=== PATIENT | male | born 1945 | race African-American/Black ===

== ENCOUNTER 2019-12-19 00:03 | Emergency (ER) | payer OTHER ==
[2019-12-19 00:19] LABS: Absolute Lymphocytes (CBC) 1.7 K/uL (0.7-4.9); Basophils % 1.1 % (0-1.3); Hematocrit 41.1 % (39.6-49.0); Lymphocytes % 17.8 % (15.3-44.8); MPV 7.9 fL (7.6-11.3); RBC Red Blood Cell Count 5.61 M/uL (4.33-5.43)
[2019-12-19 00:32] LABS: Potassium 4.3 mmol/L (3.5-5.1)
[2019-12-19 00:33] LABS: Protime INR 0.85
[2019-12-19] MEDS ORDERED: ALTEPLASE 100 ML IV ONE (00:52)
[2019-12-19] MEDS ORDERED: NA CHLORIDE 0.9% 100 ML IV ONE (00:52)
[2019-12-19] MEDS ORDERED: INSULIN -REGULAR HUMAN 50 UNIT/0.5 ML ML ONE (02:23)
--- NOTE | 2019-12-19 02:54 | ER ---
Nurse's Notes [facility] Name: Kwame Chanel Jr Age: 73 yrs Sex: Male : 1945 Arrival Date: 12/19/2019 Time: 00:07 Bed 3 Private MD: Diagnosis: Cerebral infarction due to unspecified occlusion or stenosis of middle cerebral artery Presentation: 12/18 00:00 Chief complaint: EMS states: Called for patient that had fallen in bedroom, heard by lp1 ; Patient states left sided weakness that began about 2100 tonight, attempted to get out of bed and unable to stand; Per EMS, slurred speech, with left sided facial droop. 00:00 Coronavirus screen: Proceed with normal triage. Ebola Screen: No symptoms or risks lp1 identified at this time. Risk Assessment: Do you want to hurt yourself or someone else? Patient reports no desire to harm self or others. Onset of symptoms was December 18, 2019 at 21:00. Care prior to arrival: IV initiated. 18 GA, in the right antecubital area, Glucose check: 299. 00:00 Method Of Arrival: EMS: [facility] lp1 00:00 Acuity: ELOISA 1 lp1 00:00 An acute neurological deficit is present. Pre-hospital glucose is not applicable to jb4 this patient. Initial Sepsis Screen: Does the patient meet any 2 criteria? No. Patient's initial sepsis screen is negative. Does the patient have a suspected source of infection? No. Patient's initial sepsis screen is negative. Stroke Activation: Symtpom onset >3 hours and < 6 hours Physician: Stroke Attending; Name: ; Notified At: ; Arrived At: Physician: Chief Stroke Resident; Name: ; Notified At: ; Arrived At: Physician: Stroke Resident; Name: ; Notified At: ; Arrived At: Physician: ED Attending; Name: Ellen; Notified At: 00:00; Arrived At: 00:00 Physician: ED Resident; Name: ; Notified At: ; Arrived At: Historical: - Allergies: 00:19 No Known Allergies; lp1 - Home Meds: 00:19 Metformin Oral [Active]; losartan oral oral [Active]; montelukast oral oral [Active]; lp1 - PMHx: 00:19 Diabetes - NIDDM; Hypertension; Hyperlipidemia; lp1 - PSHx: 00:19 None; lp1 - Immunization history:: Adult Immunizations up to date. - Social history:: Smoking status: Patient reports the use of cigarette tobacco products, smokes one-half pack cigarettes per day. Screenin:20 Abuse screen: Denies injuries from another. Nutritional screening: No deficits noted. jb4 Tuberculosis screening: No symptoms or risk factors identified. Fall Risk Fall in past 12 months (25 points). Secondary diagnosis (15 points) CVA, IV access (20 points). Gait- Impaired (20 pts.). Total Silva Fall Scale indicates High Risk Score (45 or more points). Fall prevention measures have been instituted. Side Rails Up X 2 Placed Close to Nursing Station Frequent Obs/Assessments Occuring As available patient and family educated on Fall Prevention Program and Strategies. Assessment: 00:15 General: Appears in no apparent distress. uncomfortable, Behavior is calm, cooperative. jb4 Pain: Denies pain. Neuro: Level of Consciousness is awake, alert, obeys commands, Oriented to person, place, time, situation, [employer] are weak on left Weakness in left hand(s) arm(s) leg(s) foot/feet Gait is unable to support weight on the left side.. Speech is slurred, Facial droop on left, Pupils are PERRLA, Intact. Cardiovascular: Patient's skin is warm and dry. Rhythm is sinus rhythm. Respiratory: Airway is patent Respiratory effort is even, unlabored, Respiratory pattern is regular, symmetrical, Breath sounds are clear bilaterally. GI: No signs and/or symptoms were reported involving the gastrointestinal system. : No signs and/or symptoms were reported regarding the genitourinary system. EENT: No signs and/or symptoms were reported regarding the EENT system. Derm: Skin is intact, Skin is dry, Skin is normal, Skin temperature is warm. Musculoskeletal: Range of motion: limited in left leg and left arm. 00:15 VAN Scoring: Arm Drift: Flaccid/no antigravity Visual Disturbance: No visual jb4 disturbance noted. Aphasia: Expressive aphasia noted. Provider notified of +VAN scoring. Neglect: No neglect noted. 00:30 The patient has not been NPO before screening. The patient is alert, and able to follow jb4 commands. The patient exhibits slurred or garbled speech. The patient is exhibiting difficulty speaking. The patient does not exhibit difficulty understanding words. The patient is able to swallow own secretions with no drooling or need for suction. The patient did not tolerate one teaspoon of water. Drooling, immediate coughing, gurgling, or clearing of the throat was noted. Bedside swallow screening discontinued. Patient kept NPO until cleared by Speech Therapy or Physician. not attempted due to coughing and gargling after attempting a teaspoon of water. The patient failed the bedside swallow screening. The patient will be kept NPO until cleared by Speech Therapy or Physician. Provider notified of bedside swallow screening results: Bar Hughes MD. T-PA (Activase) Screening: Indications: Definite evidence of stroke, ischemic, embolic, or hypertensive: Yes. Treatment will start within 4.5 hours onset of symptoms: Yes. No evidence of intracranial hemorrhage or CT of head and no evidence of peripheral hemorrhage or recent CVA: Yes. Consent for thrombolytic therapy: Yes. 01:15 Reassessment: Patient appears in no apparent distress at this time. Patient and/or jb4 family updated on plan of care and expected duration. Pain level reassessed. Patient is alert, oriented x 3, equal unlabored respirations, skin warm/dry/pink. Pt's speech seems easier for the patient and mild aphasia appears to have gone.. PT reports feeling like it is easier to talk. Mild slurring remains. 01:45 Reassessment: Slurring is present but notably improved. Pt reports feeling like his jb4 speech is almost back to normal. Left side remains weak and patient cannot raise left arm or leg. 02:00 Reassessment: Patient appears in no apparent distress at this time. Patient and/or jb4 family updated on plan of care and expected duration. Pain level reassessed. Patient is alert, oriented x 3, equal unlabored respirations, skin warm/dry/pink. Pt continues to improve. Slight slurring noted. Pt is now able to move his left leg and hold it in the air on his own. Provider notified. 02:15 Reassessment: Patient appears in no apparent distress at this time. No changes from jb4 previously documented assessment. Patient and/or family updated on plan of care and expected duration. Pain level reassessed. 02:41 Reassessment: Patient appears in no apparent distress at this time. Patient and/or jb4 family updated on plan of care and expected duration. Pain level reassessed. Patient is alert, oriented x 3, equal unlabored respirations, skin warm/dry/pink. 03:30 Reassessment: Patient appears in no apparent distress at this time. Patient and/or jb4 family updated on plan of care and expected duration. Pain level reassessed. Patient is alert, oriented x 3, equal unlabored respirations, skin warm/dry/pink. Pt transferred out of ED by EMS. EMS denied need for report. 03:42 Reassessment: Report given to KATALINA Tavarez. jb4 Vital Signs: 00:20 BP 167 / 83; Pulse 91; Resp 20; Pulse Ox 98% on R/A; jb4 00:24 Weight 95.25 kg (R); lp1 00:37 Weight 102.5 kg (M); Height 5 ft. 11 in. (180.34 cm) (R); jb4 01:00 BP 143 / 78; Pulse 83; Resp 20; Pulse Ox 98% on R/A; jb4 02:15 BP 141 / 74; Pulse 79; Resp 20; Temp 97.9; Pulse Ox 100% on R/A; Pain 0/10; jb4 02:45 BP 138 / 78; Pulse 83; Resp 19; Pulse Ox 99% on R/A; jb4 03:15 BP 141 / 80; Pulse 83; Resp 16; Pulse Ox 98% on R/A; jb4 00:37 Body Mass Index 31.52 (102.50 kg, 180.34 cm) jb4 00:24 Patient unable to tolerate weight bearing lp1 01:00 See TPA Vital sign form for further documentation. jb4 Luz Marina Coma Score: 01:01 Eye Response: spontaneous(4). Verbal Response: oriented(5). Motor Response: obeys tw4 commands(6). Total: 15. 02:45 Eye Response: spontaneous(4). Verbal Response: oriented(5). Motor Response: obeys jb4 commands(6). Total: 15. Trauma Score (Adult): 02:45 Eye Response: spontaneous(1); Verbal Response: oriented(1); Motor Response: obeys jb4 commands(2); Systolic BP: > 89 mm Hg(4); Respiratory Rate: 10 to 29 per min(4); Marshall Score: 15; Trauma Score: 12 NIH Stroke Scale Scores: 00:15 NIHSS Score: 10 jb4 01:01 NIHSS Score: 10 tw4 ED Course: 00:[address] stretcher. lp1 00:07 Patient arrived in ED. lp1 00:07 Bar Hughes MD is Attending Physician. tw4 00:15 Triage completed. lp1 00:18 CT Stroke Brain w/o Contrast In Process Unspecified. EDMS 00:23 Arm band placed on. lp1 00:24 Norris High, RN is Primary Nurse. jb4 00:59 Stroke CXR 1 View In Process Unspecified. EDMS 01:10 Inserted saline lock: 18 gauge in left antecubital area, using aseptic technique. jb4 01:46 CT Head Angio In Process Unspecified. EDMS 01:46 Neck Angio In Process Unspecified. EDMS 03:30 No provider procedures requiring assistance completed. Patient transferred, IV remains jb4 in place. Administered Medications: 00:58 Drug: Alteplase (Bolus for Stroke) - Activase 0.09 mg/kg {Co-Signature: elle (Emi mattson RN).} Route: IV Thrombolytics; Infused Over: 1 mins; 02:00 Follow up: Response: No adverse reaction; Marked relief of symptoms jb4 02:00 Drug: NS 0.9% 100 ml Route: IV; Rate: per protocol; Site: right antecubital; jb4 02:20 Follow up: Response: No adverse reaction; IV Status: Completed infusion jb4 02:30 Drug: Insulin Regular Human 5 units {Co-Signature: elle (Emi Raygoza RN).} Route: IVP; jb4 Site: left antecubital; 03:10 Follow up: Response: No adverse reaction; Blood sugar is lowered jb4 Outcome: 02:53 ER care complete, transfer ordered by . tw4 03:30 Transferred by ground EMS EMS. to [facility], Transfer form jb4 completed. X-rays sent w/ patient. 03:30 Condition: stable 03:30 Discharge instructions given to patient, family, Instructed on the need for transfer, Demonstrated understanding of instructions. 03:47 Patient left the ED. jb4 NIH Stroke Scale - NIH Stroke Score Date: 12/19/2019 Time: 00:15 Total Score = 10 1a. Level of Consciousness (LOC) - 0(Alert) 1b. Level of Consciousness (LOC) (Year \T\ Age) - 0(Both) 1c. LOC Commands (Open \T\ Closes Eyes/Child Welfare Director) - 0(Both) 2. Best Gaze (Lateral Gaze Paresis) - 0(Normal) 3. Visual Field Loss - 0(No visual loss) 4. Facial Palsy - 2(Partial paralysis) 5a. Left Arm: Motor (10-second hold) - 3(No effort against gravity) 5b. Right Arm: Motor (10-second hold) - 0(No drift) 6a. Left Leg: Motor (5-second hold - always test supine) - 3(No effort against gravity) 6b. Right Leg: Motor (5-second hold - always test supine) - 0(No drift) 7. Limb Ataxia (finger/nose \T\ heel/thurston - test with eyes open) - 0(Absent) 8. Sensory Loss (pinprick arms/legs/face) - 0(Normal) 9. Best Language: Aphasia (description/naming/reading) - 1(Mild to moderate aphasia) 10. Dysarthria (speech clarity - read or repeat words) - 1(Mild to Moderate) 11. Extinction and Inattention (visual/tactile/auditory/spatial/personal) - 0(No abnormality) Initials: jb4 NIH Stroke Scale - NIH Stroke Score Date: 12/19/2019 Time: 01:01 Total Score = 10 1a. Level of Consciousness (LOC) - 0(Alert) 1b. Level of Consciousness (LOC) (Year \T\ Age) - 0(Both) 1c. LOC Commands (Open \T\ Closes Eyes/Child Welfare Director) - 0(Both) 2. Best Gaze (Lateral Gaze Paresis) - 0(Normal) 3. Visual Field Loss - 0(No visual loss) 4. Facial Palsy - 2(Partial paralysis) 5a. Left Arm: Motor (10-second hold) - 3(No effort against gravity) 5b. Right Arm: Motor (10-second hold) - 0(No drift) 6a. Left Leg: Motor (5-second hold - always test supine) - 3(No effort against gravity) 6b. Right Leg: Motor (5-second hold - always test supine) - 0(No drift) 7. Limb Ataxia (finger/nose \T\ heel/thurston - test with eyes open) - 0(Absent) 8. Sensory Loss (pinprick arms/legs/face) - 0(Normal) 9. Best Language: Aphasia (description/naming/reading) - 1(Mild to moderate aphasia) 10. Dysarthria (speech clarity - read or repeat words) - 1(Mild to Moderate) 11. Extinction and Inattention (visual/tactile/auditory/spatial/personal) - 0(No abnormality) Initials: 4 Signatures: Dispatcher [employer] EDEmi Esparza, RN RN lp1 Norris High RN RN jb4 Bar Hughes MD MD tw4 Emi Raygoza RN lp1 Corrections: (The following items were deleted from the chart) 03:45 03:45 No provider procedures requiring assistance completed. jb4 jb4 03:45 03:45 Patient transferred, IV remains in place. jb4 jb4
--- NOTE | 2019-12-19 02:54 | EDPHYS ---
Physician Documentation [facility] Name: Kwame Chanel Jr Age: 73 yrs Sex: Male : 1945 Arrival Date: 12/19/2019 Time: 00:07 Bed 3 Private MD: ED Physician Bar Hughes HPI: 12/18 01:01 This 73 yrs old Black Male presents to ER via EMS with complaints of right sided tw4 weakness. 01:01 The patient presents to the emergency department with weakness of the right upper tw4 extremity, that is severe, right lower extremity, that is severe, right side of the face, that is severe, a speech or higher order brain function problem, aphasia, that is moderate. Onset: The symptoms/episode began/occurred 3 hour(s) ago. Context: occurred at home. Associated signs and symptoms: The patient has no apparent associated signs or symptoms. Severity of symptoms: At their worst the symptoms were severe in the emergency department the symptoms are unchanged. The patient has not experienced similar symptoms in the past. Historical: - Allergies: 00:19 No Known Allergies; lp1 - Home Meds: 00:19 Metformin Oral [Active]; losartan oral oral [Active]; montelukast oral oral [Active]; lp1 - PMHx: 00:19 Diabetes - NIDDM; Hypertension; Hyperlipidemia; lp1 - PSHx: 00:19 None; lp1 - Immunization history:: Adult Immunizations up to date. - Social history:: Smoking status: Patient reports the use of cigarette tobacco products, smokes one-half pack cigarettes per day. ROS: 01:01 Constitutional: Negative for fever, chills, and weight loss, Eyes: Negative for injury, tw4 pain, redness, and discharge, Cardiovascular: Negative for chest pain, palpitations, and edema, Respiratory: Negative for shortness of breath, cough, wheezing, and pleuritic chest pain, Abdomen/GI: Negative for abdominal pain, nausea, vomiting, diarrhea, and constipation, Back: Negative for injury and pain, MS/Extremity: Negative for injury and deformity, Skin: Negative for injury, rash, and discoloration, Neuro: Negative for headache, weakness, numbness, tingling, and seizure. Exam: 01:01 Constitutional: This is a well developed, well nourished patient who is awake, alert, tw4 and in no acute distress. Head/Face: Normocephalic, atraumatic. Chest/axilla: Normal chest wall appearance and motion. Nontender with no deformity. No lesions are appreciated. Cardiovascular: Regular rate and rhythm with a normal S1 and S2. No gallops, murmurs, or rubs. Normal PMI, no JVD. No pulse deficits. Respiratory: Lungs have equal breath sounds bilaterally, clear to auscultation and percussion. No rales, rhonchi or wheezes noted. No increased work of breathing, no retractions or nasal flaring. Abdomen/GI: Soft, non-tender, with normal bowel sounds. No distension or tympany. No guarding or rebound. No evidence of tenderness throughout. Back: No spinal tenderness. No costovertebral tenderness. Full range of motion. MS/ Extremity: Pulses equal, no cyanosis. Neurovascular intact. Full, normal range of motion. 01:01 Neuro: Orientation: is normal, Mentation: is normal, Cranial nerves: Speech is dysarthric, slurred, Cerebellar function: normal finger to nose testing, Motor: Strength is 1/5 in the left arm and left leg, Sensation: Gait: unable to assess. Vital Signs: 00:20 BP 167 / 83; Pulse 91; Resp 20; Pulse Ox 98% on R/A; jb4 00:24 Weight 95.25 kg (R); lp1 00:37 Weight 102.5 kg (M); Height 5 ft. 11 in. (180.34 cm) (R); jb4 01:00 BP 143 / 78; Pulse 83; Resp 20; Pulse Ox 98% on R/A; jb4 02:15 BP 141 / 74; Pulse 79; Resp 20; Temp 97.9; Pulse Ox 100% on R/A; Pain 0/10; jb4 02:45 BP 138 / 78; Pulse 83; Resp 19; Pulse Ox 99% on R/A; jb4 03:15 BP 141 / 80; Pulse 83; Resp 16; Pulse Ox 98% on R/A; jb4 00:37 Body Mass Index 31.52 (102.50 kg, 180.34 cm) jb4 00:24 Patient unable to tolerate weight bearing lp1 01:00 See TPA Vital sign form for further documentation. jb4 NIH Stroke Scale Scores: 00:15 NIHSS Score: 10 jb4 01:01 NIHSS Score: 10 tw4 Luz Marina Coma Score: 01:01 Eye Response: spontaneous(4). Verbal Response: oriented(5). Motor Response: obeys tw4 commands(6). Total: 15. 02:45 Eye Response: spontaneous(4). Verbal Response: oriented(5). Motor Response: obeys jb4 commands(6). Total: 15. Trauma Score (Adult): 02:45 Eye Response: spontaneous(1); Verbal Response: oriented(1); Motor Response: obeys jb4 commands(2); Systolic BP: > 89 mm Hg(4); Respiratory Rate: 10 to 29 per min(4); Luz Marina Score: 15; Trauma Score: 12 MDM: 00:18 Patient medically screened. tw4 06:41 Data reviewed: vital signs, nurses notes. Data interpreted: Pulse oximetry: tw4 Interpretation: normal. Test interpretation: by ED physician or midlevel provider: ECG, plain radiologic studies. Counseling: I had a detailed discussion with the patient and/or guardian regarding: the historical points, exam findings, and any diagnostic results supporting the discharge/admit diagnosis, lab results, radiology results. ED course: pt will require higher level of care secondary to lack of ICU beds . 06:42 Medication response: tPA improved pt's NIH scale decreased to 6 from 10. pt was able to tw4 move his left leg and speech improved slightly. 12/18 00:08 Order name: Basic Metabolic Panel; Complete Time: 00:40 lp1 12/18 00:40 Interpretation: Normal except: GLUC 369; GFR 71. tw4 12/18 00:08 Order name: CBC with Diff; Complete Time: 00:40 lp1 12/18 00:40 Interpretation: Normal except: RBC 5.61; HGB 12.6; MCV 73.1; MCHC 30.8; MCH 22.5; RDW tw4 16.1; BOONE% 75.1. 12/18 00:08 Order name: Protime (+inr); Complete Time: 00:40 lp1 12/18 00:08 Order name: Ptt, Activated; Complete Time: 00:40 lp1 12/18 00:40 Interpretation: Within normal limits: PTT 29.4. tw4 12/18 00:51 Order name: Glucose, Ancillary Testing; Complete Time: 01:53 EDMS 12/18 01:54 Interpretation: Normal except: GLUC,ANCIL 309. tw4 12/18 03:23 Order name: Glucose, Ancillary Testing EDNY 12/18 00:08 Order name: CT Stroke Brain w/o Contrast lp1 12/18 00:08 Order name: Stroke CXR 1 View lp1 12/18 00:15 Order name: CT Head Angio tw4 12/18 01:34 Order name: Neck Angio EDNY 12/18 00:08 Order name: EKG; Complete Time: 00:09 lp1 12/18 00:08 Order name: Accucheck; Complete Time: 00:37 lp 12/18 00:08 Order name: Cardiac monitoring; Complete Time: 00:25 [facility] 12/18 00:08 Order name: EKG - Nurse/Tech; Complete Time: 00:25 1 12/18 00:08 Order name: IV Saline Lock; Complete Time: 00:25 [facility] 12/18 00:08 Order name: Labs collected and sent; Complete Time: 00:25 [facility] 12/18 00:08 Order name: NPO; Complete Time: 00:24 lp1 12/18 00:08 Order name: O2 Per Protocol; Complete Time: 00:25 [facility] 12/18 00:08 Order name: O2 Sat Monitoring; Complete Time: 00:25 [facility] 12/18 00:08 Order name: Stroke Swallow Screen; Complete Time: 00:27 lp1 EC:06 Rate is 89 beats/min. Rhythm is regular. QRS [place] is Normal. NM interval is normal. QRS tw4 interval is normal. No Q waves. T waves are Flattened in leads I, aVL, V2. No ST changes noted. Clinical impression: NSR w/ Non-specific ST/T Changes. Interpreted by me. Reviewed by me. Administered Medications: 00:58 Drug: Alteplase (Bolus for Stroke) - Activase 0.09 mg/kg {Co-Signature: lp1 (Emi mattson RN).} Route: IV Thrombolytics; Infused Over: 1 mins; 02:00 Follow up: Response: No adverse reaction; Marked relief of symptoms jb4 02:00 Drug: NS 0.9% 100 ml Route: IV; Rate: per protocol; Site: right antecubital; jb4 02:20 Follow up: Response: No adverse reaction; IV Status: Completed infusion 4 02:30 Drug: Insulin Regular Human 5 units {Co-Signature: lp1 (Emi Raygoza RN).} Route: IVP; [facility] Site: left antecubital; 03:10 Follow up: Response: No adverse reaction; Blood sugar is lowered [facility] Disposition: 12/19/19 02:53 Transfer ordered to [facility]. Diagnosis is Cerebral infarction due to unspecified occlusion or stenosis of middle cerebral artery. - Reason for transfer: Higher level of care. - Accepting physician is Dr Alcala. - Condition is Stable. - Problem is new. - Symptoms have improved. NIH Stroke Scale - NIH Stroke Score Date: 12/19/2019 Time: 00:15 Total Score = 10 1a. Level of Consciousness (LOC) - 0(Alert) 1b. Level of Consciousness (LOC) (Year \T\ Age) - 0(Both) 1c. LOC Commands (Open \T\ Closes Eyes/Equipment Validation Engineer) - 0(Both) 2. Best Gaze (Lateral Gaze Paresis) - 0(Normal) 3. Visual Field Loss - 0(No visual loss) 4. Facial Palsy - 2(Partial paralysis) 5a. Left Arm: Motor (10-second hold) - 3(No effort against gravity) 5b. Right Arm: Motor (10-second hold) - 0(No drift) 6a. Left Leg: Motor (5-second hold - always test supine) - 3(No effort against gravity) 6b. Right Leg: Motor (5-second hold - always test supine) - 0(No drift) 7. Limb Ataxia (finger/nose \T\ heel/thurston - test with eyes open) - 0(Absent) 8. Sensory Loss (pinprick arms/legs/face) - 0(Normal) 9. Best Language: Aphasia (description/naming/reading) - 1(Mild to moderate aphasia) 10. Dysarthria (speech clarity - read or repeat words) - 1(Mild to Moderate) 11. Extinction and Inattention (visual/tactile/auditory/spatial/personal) - 0(No abnormality) Initials: jb4 NIH Stroke Scale - NIH Stroke Score Date: 12/19/2019 Time: 01:01 Total Score = 10 1a. Level of Consciousness (LOC) - 0(Alert) 1b. Level of Consciousness (LOC) (Year \T\ Age) - 0(Both) 1c. LOC Commands (Open \T\ Closes Eyes/Equipment Validation Engineer) - 0(Both) 2. Best Gaze (Lateral Gaze Paresis) - 0(Normal) 3. Visual Field Loss - 0(No visual loss) 4. Facial Palsy - 2(Partial paralysis) 5a. Left Arm: Motor (10-second hold) - 3(No effort against gravity) 5b. Right Arm: Motor (10-second hold) - 0(No drift) 6a. Left Leg: Motor (5-second hold - always test supine) - 3(No effort against gravity) 6b. Right Leg: Motor (5-second hold - always test supine) - 0(No drift) 7. Limb Ataxia (finger/nose \T\ heel/thurston - test with eyes open) - 0(Absent) 8. Sensory Loss (pinprick arms/legs/face) - 0(Normal) 9. Best Language: Aphasia (description/naming/reading) - 1(Mild to moderate aphasia) 10. Dysarthria (speech clarity - read or repeat words) - 1(Mild to Moderate) 11. Extinction and Inattention (visual/tactile/auditory/spatial/personal) - 0(No abnormality) Initials: tw4 Signatures: Dispatcher [employer] Emi Matt RN RN lp1 Norris High RN RN jb4 Bar Hughes MD MD tw4 Emi Raygoza RN lp1 Corrections: (The following items were deleted from the chart) 00:40 00:40 Normal except: RBC 5.61; HGB 12.6; MCV 73.1; MCHC 30.8; MCH 22.5; RDW tw4 16.1. tw4 01:33 00:15 Neck Angio+CT.RAD.BRZ ordered. [facility] EDNY 03:47 02:53 12/19/2019 02:53 Transfer ordered to [address] Diagnosis is Cerebral infarction due to unspecified occlusion or stenosis of middle cerebral artery. Reason for transfer: Higher level of care. Accepting physician is Dr Alcala. Condition is Stable. Problem is new. Symptoms have improved. tw4
[2019-12-19 03:56] VITALS: TEMP 97.9
[2019-12-19 03:58] VITALS: BP 141/80; O2SAT 98
--- NOTE | 2019-12-19 07:00 | EKG ---
Test Date: 2019-12-19 Test Time: 00:18:39 Lieutenant/Deputy: ALEIDA MEASUREMENT RESULTS: Intervals: Rate: 89 AR: 198 QRSD: 88 QT: 346 QTc: 420 [place]: P: 92 AR: 198 QRS: 78 T: 59 INTERPRETIVE STATEMENTS: Normal sinus rhythm Nonspecific T wave abnormality Abnormal ECG No previous ECG available for comparison Electronically Signed On 12-19-19 07:00:00 CDT by Didier Nolasco
--- NOTE | 2019-12-19 07:56 | RAD REPORT ---
EXAM DESCRIPTION: Baljinder Single View12/19/2019 12:59 am CLINICAL HISTORY: CVA COMPARISON: 2018 FINDINGS: The lungs appear clear of acute infiltrate. The heart is normal size IMPRESSION: No acute abnormalities displayed
--- NOTE | 2019-12-19 11:08 | RAD REPORT ---
EXAM DESCRIPTION: CT - Ct Stroke Brain Wo Cont - 12/19/2019 7:05 am CLINICAL HISTORY: SLURRED SPEECH TECHNIQUE: Contiguous axial CT images obtained through the brain without IV contrast. Coronal and sa gittal reformatted images were provided. This exam was performed according to our departmental dose-optimization program, which includes autom ated exposure control, adjustment of the mA and/or kV according to patient size and/or use of iterati ve reconstruction technique. COMPARISON: None available for comparison FINDINGS: Brain: There is mild cerebral atrophy. Bilateral periventricular and subcortical white mat ter hypodensity most likely related to chronic microvascular angiopathy. No focal mass effect. Tabares-w tariq matter differentiation is within normal limits. No hemorrhage. Ventricles: No ventriculomegaly or midline shift. Extra-axial spaces: No extra-axial collection or hemorrhage. Paranasal sinuses and mastoid air cells: Well-aerated Vessels: There is atherosclerotic disease of the internal carotid arteries bilaterally. Bones: Unremarkable Soft tissues: Unremarkable IMPRESSION: 1. No acute hemorrhage, focal mass or large territory infarction. 2. Other findings as above. Electronically signed by: Chanelle Elliott MD 12/19/2019 12:32 AM CDT Due to temporary technical issues with the PACS/Fluency reporting system, reports are being signed by the in house radiologist as a courtesy to ensure prompt reporting. The interpreting radiologist is f ully responsible for the content of the report.
--- NOTE | 2019-12-19 11:12 | RAD REPORT ---
EXAM DESCRIPTION: CTHead angio12/19/2019 7:07 am CLINICAL HISTORY: WEAKNESS COMPARISON: None Available. TECHNIQUE: Multiple helical axial tomographic images were obtained of the head and neck following ad ministration of intravenous contrast per angiographic protocol. Coronal and sagittal reformatted imag es were obtained. This exam was performed according to our departmental dose-optimization program, wh ich includes automated exposure control, adjustment of the mA and/or kV according to patient size and /or use of iterative reconstruction technique. FINDINGS: Head: There is a tangle of enhancing vessels at the level of the foramen magnum near the medulla and upper cervical and spinal cord. Bilateral atherosclerotic disease involving both ICAs is noted. Intracranial segments of the bilatera l internal carotid arteries appear patent without significant stenosis or occlusion. Bilateral anteri or and middle cerebral arteries appear patent without significant stenosis or occlusion. Intracranial segments of the bilateral vertebral arteries, basilar artery, and posterior cerebral arteries appear patent without significant stenosis or occlusion. No evidence of intracranial aneurysm. There is no acute intracranial hemorrhage. No mass. No midline shift. No ventriculomegaly. Tabares-white matter differentiation is maintained. Paranasal sinuses are clear. Mastoid air cells and middle ear spaces are clear. Orbits and orbital co ntents are unremarkable. Osseous structures are unremarkable. Surrounding soft tissues are unremarkable. Neck: There is minimal atherosclerotic plaque involving the left carotid bulb. Carotid and vertebral arteri al vasculature of the neck appears patent without stenosis stenosis or occlusion. Thyroid gland appears unremarkable. Salivary glands appear unremarkable. No evidence of adenopathy. R etropharyngeal space appears normal. Epiglottis appears normal. Larynx and vocal folds appear unremar kable. Visualized lungs are clear. Degenerative disc space narrowing and osteophyte formation of the cervical spine is noted. IMPRESSION: 1. No evidence of significant arterial stenosis or occlusion within the head or neck. 2. 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 THIS REPORT CONTAINS FINDINGS THAT MAY BE CRITICAL TO PATIENT CARE: The findings were verbally discu ssed via telephone conference with Dr. Hughes by Dr. Pride at 0235 hours central time on December 19, 2019. The results were acknowledged and understood. Electronically signed by: Boone Pride MD 12/19/2019 2:48 AM CDT Due to temporary technical issues with the PACS/Fluency reporting system, reports are being signed by the in house radiologist as a courtesy to ensure prompt reporting. The interpreting radiologist is f ully responsible for the content of the report.
== END 2019-12-19 03:47 | disposition short-term general hospital (02) ==
LOC: ER 00:03
DX: I63.519 Cerebral infarction due to unspecified occlusion or stenosis of unspecified middle cerebral artery (principal); R29.710 NIHSS score 10; I10 Essential (primary) hypertension; F17.210 Nicotine dependence, cigarettes, uncomplicated; E11.9 Type 2 diabetes mellitus without complications; E78.5 Hyperlipidemia, unspecified
CPT/HCPCS: 93005; 85025; 80048; 36415; 85610; 82947 ×2; 85730; 70496; 70498; 70450; 71045; 96374; Q9967; J2997; 92977; 96365; 96375; 99291; 99292

== ENCOUNTER 2019-12-26 09:23 | Inpatient (IN) | payer OTHER ==
--- NOTE | 2019-12-26 16:59 | R.PREADM ---
SCREENING DATE AND TIME 12/25/2019 10:37 (CDT) ANTICIPATED REHAB ADMISSION DATE 12/27/[address] [facility] REFERRAL DATE AND TIME 12/21/2019 10:37 (CDT) ACUTE ADMIT DATE 12/19/2019 Previous Rehabilitation(s): No. 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 Reyes Womack M.D. MR# [id number] NAME JOHNSON VAZQUEZ ADDRESS [address] [place] [id number] DATE OF 1945 AGE 73 SSN# [id number] GENDER male MARITAL STATUS RACE black PREF. LANGUAGE (IF NON-GRENADIAN) Mongolian ADMIT FROM 02 - [facility] PRE-HOSPITAL LIVING SETTING 01 - Home (private home/apt. board/care, assisted living, longterm, transitional living) HOME TYPE AND DETAILS Type of home: single family house # of steps to enter the residence: 0 # of levels in the residence: 1 # of steps within the residence: 0 PRE-HOSPITAL LIVING WITH Family/Relatives FAMILY SUPPORT Yes PRIMARY FAMILY CONTACT NAME Angelica Celis PRIMARY FAMILY CONTACT PHONE PRIMARY FAMILY CONTACT ALT. PHONE PRIMARY FAMILY CONTACT RELATIONSHIP Daughter IS PRIMARY FAMILY CONTACT AUTH. REP.? no 1ST EMERGENCY CONTACT Angelica Celis 1ST CONTACT PHONE 1ST CONTACT ALT. PHONE 1ST CONTACT RELATIONSHIP Daughter IS 1ST CONTACT AUTH. REP.? no PHONE 2ND CONTACT ON ADM.? no PATIENT EMPLOYMENT STATUS Retired (for age) PATIENT EMPLOYER No Employer PAYOR INFORMATION: 1ST PAYOR NAME [employer] MED[employer]ARE 1ST PAYOR PHONE 1ST PAYOR CONTACT TBD 1ST PAYOR AUTHORIZATION# [id number] 1ST PAYOR INJURY/ILLNESS DUE TO ACCIDENT? No ANOTHER GREEN PARTY RESPONSIBLE? 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 SUMMARY OF ACUTE HOSPITALIZATION: Pt. is a 73 yo Right-handed black male. On 12/19/[address] [facility] with sudden onset of left-side weakness. On 12/19/2019 [address] to [facility] with diagnosis Restricted Diffusioon of the righ t internal capsule consistant w/acute infarct. His impairment category is Stroke 01 - Left Body (Right Brain) (01.1). Pre-morbidly, Pt. was independent/mod-I in Transfers Control, Locomotion, and Self-Care; and he had g ood Balance, Safety Awareness, Social Cognition, and Sphincter Control. Currently, he has deficits of Transfers Control, Balance, Safety Awareness, Locomotion, Self-Care, an d Social Cognition. Pt. is now referred to [facility] for acute in-patient rehabilitation in order to maximize patient's functional independence in activities of daily living, strength, ROM, and mobi lity. Patient has realistic goal of being discharged at assistance level 6-Graeme to reside at Home with Fam daphnie/Relatives. PAST MEDICAL HISTORY HTN ASTHMA Diabetes AFIB MEDICATION ALLERGIES: No Known Drug Allergies (NKDA) ENVIRONMENTAL ALLERGIES: None Known - Substance Allergies None Known - Other Allergies None Known CODE STATUS: Full code WEIGHT/HEIGHT/BMI: WEIGHT 217 lbs HEIGHT 5' 11" BMI 30.3 DIET: - Diet Type Regular - Diet - Solid Texture Regular - Diet - Liquid Texture Regular - Tube Feed N/A REVIEW OF SYSTEMS: - Gen Alert and awake Lying in bed No apparent distress Oriented to: person, time, and place - Vital Signs Vital signs stable, afebrile - CVS RRR VITAL SIGNS Temperature: 98.4 F SBP/DBP: 136/74 Pulse: 63 Resp: 20 Vital signs stable, afebrile MEDICATIONS/TREATMENT: Other- See attached MAR (Medication Administration Record). CURRENT LOCOMOTION STATUS: distance walked 0 feet QI SCORES: - Self-Care A. Eating 05-Setup or clean-up assistance B. Oral hygiene 04-Supervision or touching assistance C. Toileting hygiene 03-Partial/moderate assistance E. Shower/bathe self 10-Not attempted due to environmental limitations F. Upper body dressing 03-Partial/moderate assistance G. Lower body dressing 01-Dependent H. Putting on/taking off footwear 01-Dependent - Mobility A. Roll left and right 02-Substantial/maximal assistance B. Sit to lying 02-Substantial/maximal assistance C. Lying to sitting on side of bed 02-Substantial/maximal assistance D. Sit to stand 02-Substantial/maximal assistance E. Chair/hrs-my-dzyok transfer 02-Substantial/maximal assistance F. Toilet transfer 02-Substantial/maximal assistance G. Car transfer 88-Not attempted due to medical condition or safety concerns I. Walk 10 feet 88-Not attempted due to medical condition or safety concerns J. Walk 50 feet with two turns 88-Not attempted due to medical condition or safety concerns K. Walk 150 feet 88-Not attempted due to medical condition or safety concerns L. Walking 10 feet on uneven surfaces 88-Not attempted due to medical condition or safety concerns M. 1 step (curb) 88-Not attempted due to medical condition or safety concerns N. 4 steps 88-Not attempted due to medical condition or safety concerns O. 12 steps 88-Not attempted due to medical condition or safety concerns P. Picking up object 88-Not attempted due to medical condition or safety concerns R. Wheel 50 feet with two turns S. Wheel 150 feet - Bladder and Bowel Bladder continence 0-Always continent Bowel continence 0-Always continent - Endurance Poor - Balance Poor - Safety Awareness Poor CURRENT FUNC. DEFICITS: Self-Care, Mobility, Endurance, Balance, and Safety Awareness HISTORY OF FALLS. HAS THE PATIENT HAD TWO OR MORE FALLS IN THE PAST YEAR OR ANY FALL WITH INJURY IN T HE PAST YEAR?: No PRIOR SURGERY. DID THE PATIENT HAVE MAJOR SURGERY DURING THE 100 DAYS PRIOR TO ADMISSION?: No THERAPY NOTES FROM ACUTE CARE: Attached. SPECIAL NEEDS: - Safety Concerns Skin breakdown precautions needed due to skin breakdown risk PRECAUTIONS: - Weight Bearing Precaution WBAT left LE PATIENT NEEDS ACTIVE AND ONGOING THERAPEUTIC INTERVENTION OF MULTIPLE THERAPY DISCIPLINES, INCLUDING: - Occupational Therapy Cognitive Retraining. Visual Perceptual Training. - Dietary and Nutrition Adequate Nutrition. Nutritional Education. Nutritional Supplements. - Speech Therapy Cognitive Training. Expressive Language Skills. Memory Strategies. Receptive Language Skills. Speech Intelligibility Training. PATIENT NEEDS CLOSE MEDICAL SUPERVISION BY A REHABILITATION PHYSICIAN FOR: Coordination of Treatment Team PATIENT REQUIRES 24X7 REHAB NURSING FOR MEDICAL AND FUNCTIONAL MGT. OF THE FOLLOWING DEFICITS: Disease Management Medication Management Patient/Family Education Providing Safe Environment PATIENT REQUIRES INTENSIVE, COORDINATED INTERDISCIPLINARY APPROACH TO REHAB: Arranging Home Equipment/Services Discharge Planning Family Intervention/Training Manager Material/Case Management PATIENT REHAB POTENTIAL: Mariella VAZQUEZ is able and expected to receive 3 hours of individualized therapy daily on at least 5 of johnathon ry 7 days Mariella VAZQUEZ's prognosis for significant practical improvement within a reasonable period of time appears Good Expected level of measurable improvement will be of a practical value to Mariella VAZQUEZ's functional capaci ty or adaptations to impairments Has a viable Discharge Plan Medically appropriate; condition is sufficiently stable to participate in intensive rehab program DISCHARGE PLAN: - Estimated Length of Stay (days) 17. - Consensus on plan Discharge plan has been discussed with primary caregiver. Patient/Family is in agreement with the keon n. Primary caregiver is in agreement with the plan. - Patient/Family Goals Return home with assistance. - Planned Living Setting Upon Discharge Home, to live with Family/Relatives. RECOMMENDED CARE LEVEL: IRF RECOMMENDATION DETAILS: Recommended Admission to Comprehensive Rehabilitation Program to Increase Functional [place] SCREENER'S COMPLETENESS CONFIRMATION: - Screening Confirmation The patient data collection on this preadmission screening form is finished PHYSICIANS REVIEW AND ADMISSION DETERMINATION Admit - Based on my review of the Pre-Admission Screening results, in my medical judgment and experie nce, I concur with the findings and recommend admission to [facility], as this patient requires an IRF level of care. SIGNATURE PANEL: Embedded Engineer - [electronically] signed by Rochelle Barker Turkish Line Attendant on 12/26/2019 at 14:25 (CD T) Clinical Liaison - [electronically] signed by Candace Villasenor RN on 12/26/2019 at 14:31 (CDT) Physician Reviewer - [electronically] signed by Dr. Reyes Womack M.D. on 12/26/2019 at 16:58 (CDT )
--- OUTSIDE RECORDS SUMMARY | 2019-12-26 18:59 | XMS REPORT | Clinical Summary ---
:1945 Author Organization [facility] Address [address] [place] [address] Care Team Providers Name Role Phone Pcp, No Primary Care Provider Unavailable Allergies No Known Allergies Medications Medication Sig Dispensed Refills Start End Status Date Date diphenhydrAMINE Take 25 mg by 0 Active (BENADRYL) 25 mg mouth daily as 0 tablet needed for Allergies. losartan (COZAAR) Take 50 mg by 0 Active 50 MG tablet mouth daily. metFORMIN Take 750 mg by 0 Activ e (GLUCOPHAGE-XR) 750 mouth 2 (two) MG 24 hr tablet times daily before meals. atorvastatin Take 20 mg by 0 Act karen (LIPITOR) 20 MG mouth daily. tablet montelukast Take 10 mg by 0 Acti ve (SINGULAIR) 10 mg mouth nightly. tablet insulin degludec Inject 26 Units 0 Active (TRESIBA FLEXTOUCH subcutaneously U-100) 100 unit/mL daily. (3 mL) InPn apixaban (ELIQUIS) Take 1 tablet (5 60 tablet 0 01/01 Active 5 mg Tab tablet mg total) by mouth 0 020 2 (two) times daily for 30 days. aspirin 81 MG Take 1 tablet (81 30 tablet 11 Active chewable tablet mg total) by mouth 0 021 daily. fLUoxetine (PROZAC) Take 1 capsule (20 30 capsule 0 Active 20 MG capsule mg total) by mouth 0 021 daily. losartan (COZAAR) Take 25 mg by 0 Discontinued 25 MG tablet mouth daily. 020 montelukast Take 4 mg by mouth 0 Discontinued (SINGULAIR) 4 MG nightly. 020 chewable tablet metFORMIN Take 1,000 mg by 0 Dis continued (GLUCOPHAGE) 1000 mouth 2 (two) 020 MG tablet times daily with breakfast and dinner. Active Problems Problem Noted Date Acute ischemic stroke 12/19/2019 Essential hypertension 12/19/2019 Type 2 diabetes mellitus 12/19/2019 Asthma 12/19/2019 Atrial fibrillation 12/19/2019 S/P admn tPA in diff fac w/n last 24 hr bef adm to crn t fac 12/19/2019 Encounters Date Type Specialty Care Team Description 12/19/2019 - Hospital Encounter General Internal Fredrick, Andrzej ysmal atrial fibrillation (HCC); 12/26/2019 Medicine John Lopez MD S/P admn tPA in diff fac w/n last 24 hr bef adm to crnt fac; Matt Ness Acute ischemic stroke ([facility]); MD Geeta Essential hypertension; Hiram, Type 2 diabetes mellitus treated with insulin ([facility]); Angle AV fistula ([facility] ) MD Aleksandr 12/19/2019 Travel after 12/25/2018 Social History Tobacco Use Types Packs/Day Years Used Date Current Every Day Smoker Cigarettes Smokeless Tobacco: Never Used Comments: 2-3 cigarettes/day Alcohol Use Drinks/Week oz/Week Comments Yes 2 Cans of beer 1.2 Alcohol Habits Answer Date Recorded How often do you have a drink containing alcohol? 2-3 times a week 12/19/2019 How many drinks containing alcohol do you have on a 1 or 2 12/19/2019 typical day when you are drinking? How often do you have six or more drinks on one Never 12/19/2019 occasion? Sex Assigned at Date Recorded Not on file Job Start Date Occupation Industry Not on file Not on file Not on file Travel History Travel Start Travel End No recent travel history available. Last Filed Vital Signs Vital Sign Reading Time Taken Blood Pressure 149/69 12/26/2019 3:55 PM CDT Pulse 63 12/26/2019 3:55 PM CDT Temperature 36.5 C (97.7 F) 12/26/2019 3:55 PM CDT Respiratory Rate 20 12/26/2019 3:55 PM CDT Oxygen Saturation 98% 12/26/2019 3:55 PM CDT Inhaled Oxygen Concentration - - Weight 98.8 kg (217 lb 13 oz) 12/19/2019 4:45 AM CDT Height 180.3 cm (5' 11") 12/19/2019 4:45 AM CDT Body Mass Index 30.38 12/19/2019 4:45 AM CDT Plan of Treatment Not on file Procedures Procedure Name Priority Date/Time Associated Comments Diagnosis POCT-GLUCOSE METER Routine 12/26/2019 12:14 Resul ts for this PM CDT procedure are i n the results section. POCT-GLUCOSE METER Routine 12/26/2019 8:08 Resul ts for this AM CDT procedure are i n the results section. POCT-GLUCOSE METER Routine 12/25/2019 8:29 Resul ts for this PM CDT procedure are i n the results section. POCT-GLUCOSE METER Routine 12/25/2019 5:35 Resul ts for this PM CDT procedure are i n the results section. POCT-GLUCOSE METER Routine 12/25/2019 11:56 Resul ts for this AM CDT procedure are i n the results section. POCT-GLUCOSE METER Routine 12/25/2019 8:08 Resul ts for this AM CDT procedure are i n the results section. POCT-GLUCOSE METER Routine 12/24/2019 8:53 Resul ts for this PM CDT procedure are i n the results section. POCT-GLUCOSE METER Routine 12/24/2019 6:34 Resul ts for this PM CDT procedure are i n the results section. POCT-GLUCOSE METER Routine 12/24/2019 8:00 Resul ts for this AM CDT procedure are i n the results section. POCT-GLUCOSE METER Routine 12/23/2019 9:20 Resul ts for this PM CDT procedure are i n the results section. POCT-GLUCOSE METER Routine 12/23/2019 6:14 Resul ts for this PM CDT procedure are i n the results section. TRANSFUSION SERVICE 12/23/2019 5:51 REPORT - SCAN PM CDT POCT-GLUCOSE METER Routine 12/23/2019 11:27 Resul ts for this AM CDT procedure are i n the results section. POCT-GLUCOSE METER Routine 12/23/2019 9:15 Resul ts for this AM CDT procedure are i n the results section. ABORH, MANUAL STAT 12/22/2019 10:22 Results fo r this PM CDT procedure are i n the results section. POCT-GLUCOSE METER Routine 12/22/2019 9:36 Resul ts for this PM CDT procedure are i n the results section. POCT-GLUCOSE METER Routine 12/22/2019 5:31 Resul ts for this PM CDT procedure are i n the results section. XR CHEST 1 VIEW Routine 12/22/2019 2:04 Results for this PORTABLE/BEDSIDE PM CDT procedure a re in the results section. POCT-GLUCOSE METER Routine 12/22/2019 1:06 Resul ts for this PM CDT procedure are i n the results section. TYPE AND SCREEN, Routine 12/22/2019 12:49 Results for this AUTOMATED PM CDT procedure are i n the results section. APTT Routine 12/22/2019 12:49 Results for this PM CDT procedure are i n the results section. PROTHROMBIN TIME/INR Routine 12/22/2019 12:49 Res ults for this PM CDT procedure are i n the results section. 2D ECHO W/ DOPPLER Routine 12/22/2019 11:47 Resul ts for this (CW/PW/COLOR) AM CDT procedure are in the results section. ECG 12-LEAD Routine 12/22/2019 11:16 Results for this AM CDT procedure are i n the results section. POCT-GLUCOSE METER Routine 12/22/2019 7:59 Resul ts for this AM CDT procedure are i n the results section. SARS-COV2/RT-PCR Routine 12/22/2019 6:22 Results for this ([facility]) AM CDT procedure are in the results section. POCT-GLUCOSE METER Routine 12/21/2019 9:07 Resul ts for this PM CDT procedure are i n the results section. POCT-GLUCOSE METER Routine 12/21/2019 5:22 Resul ts for this PM CDT procedure are i n the results section. POCT-GLUCOSE METER Routine 12/21/2019 2:34 Resul ts for this PM CDT procedure are i n the results section. CTA BRAIN SAV 12/21/2019 1:03 Results for this PM CDT procedure are i n the results section. CT/CTA CAROTID SAV 12/21/2019 1:03 Results f or this PM CDT procedure are i n the results section. POCT-GLUCOSE METER Routine 12/20/2019 8:50 Resul ts for this PM CDT procedure are i n the results section. POCT-GLUCOSE METER Routine 12/20/2019 6:02 Resul ts for this PM CDT procedure are i n the results section. POCT-GLUCOSE METER Routine 12/20/2019 11:22 Resul ts for this AM CDT procedure are i n the results section. CBC W/PLT COUNT & Routine 12/20/2019 2:45 Result s for this AUTO DIFFERENTIAL AM CDT procedure are in the results section. BASIC METABOLIC PANEL Routine 12/20/2019 2:45 Re sults for this (7) AM CDT procedure are i n the results section. CBC W/PLT COUNT & Routine 12/20/2019 2:45 Result s for this AUTO DIFFERENTIAL AM CDT procedure are in the results section. MR BRAIN WITHOUT IV Routine 12/20/2019 2:30 Resu lts for this CONTRAST AM CDT procedure are i n the results section. MRA NECK WITHOUT IV Routine 12/20/2019 2:30 Resu lts for this CONTRAST AM CDT procedure are i n the results section. MRA HEAD WITHOUT IV Routine 12/20/2019 2:30 Resu lts for this CONTRAST AM CDT procedure are i n the results section. MAGNESIUM Routine 12/19/2019 1:32 Results for this PM CDT procedure are i n the results section. POTASSIUM Routine 12/19/2019 1:32 Results for this PM CDT procedure are i n the results section. VITAMIN B12 Routine 12/19/2019 10:34 Results for this AM CDT procedure are i n the results section. TSH/FREE T4 IF Routine 12/19/2019 10:34 Results f or this INDICATED AM CDT procedure are i n the results section. CBC W/PLT COUNT & Routine 12/19/2019 6:18 Result s for this AUTO DIFFERENTIAL AM CDT procedure are in the results section. TROPONIN I Add-On 12/19/2019 6:18 Results for this AM CDT procedure are i n the results section. PHOSPHORUS Add-On 12/19/2019 6:18 Results for this AM CDT procedure are i n the results section. MAGNESIUM Add-On 12/19/2019 6:18 Results for this AM CDT procedure are i n the results section. HEMOGLOBIN A1C Routine 12/19/2019 6:18 Results f or this AM CDT procedure are i n the results section. CBC W/PLT COUNT & Routine 12/19/2019 6:18 Result s for this AUTO DIFFERENTIAL AM CDT procedure are in the results section. LIPID PANEL Routine 12/19/2019 6:18 Results for this AM CDT procedure are i n the results section. BASIC METABOLIC PANEL Routine 12/19/2019 6:18 Re sults for this (7) AM CDT procedure are i n the results section. after 12/25/2018 Results POC-Glucose meter (12/26/2019 12:14 PM CDT)Only the most recent of23 results within the time period is included. POC-Glucose Meter 208 (H)Comment: : TESTED 70 - 110 mg/dL [facility] AT [address], [address]: Mash Filter Cloth Changer/Silver Spray Worker ID = [id number] for LURDES NOVAK Specimen Blood Performing Organization Address City/[facility] Cent[facility]ode Phone Number [address] [phone] CENTER TRANSFUSION SERVICE REPORT - SCAN (12/23/2019 5:51 PM CDT) Narrative Performed At This result has an attachment that is no t available. jessica ALVARADO (12/22/2019 10:22 PM CDT) ABO Grouping A [facility] Rh Factor POS [facility] Specimen Blood Performing Organization Address City/[facility] Cent[facility] Phone Number [address] [address] XR chest 1 view portable / bedside (12/22/2019 2:04 PM CDT) Specimen Narrative Performed At FINAL REPORT RIS INDICATION: Preoperative COMPARISON: None TECHNIQUE: Single frontal view of the est. FINDINGS: Lungs and pleura: Clear lungs. No effusi on. Heart and mediastinum: Normal heart size . Unremarkable mediastinal contours. Osseous structures: No acute abnormality . Other: None. IMPRESSION: No acute intrathoracic abnormality. Signed: Chelo Riggins MD Report Verified Date/Time:12/22/2019 14:05:17 Reading Location: [facility] Reading Room Procedure Note Interface, External Ris In - 12/22/2019 2:56 PM CDT FINAL REPORT INDICATION: Preoperative COMPARISON: None TECHNIQUE: Single frontal view of the est. FINDINGS: Lungs and pleura: Clear lungs. No effusi on. Heart and mediastinum: Normal heart size . Unremarkable mediastinal contours. Osseous structures: No acute abnormality . Other: None. IMPRESSION: No acute intrathoracic abnormality. Signed: Chelo Riggins MD Report Verified Date/Time: 12/22/2019 1 4:05:17 Reading Location: [facility] Radiolog y Reading Room Performing Organization Address City/[facility] Cent[facility]ode Phone Number GE RIS Type and screen, automated (12/22/2019 12:49 PM CDT) ABO/RH AUTOMATED (BEAKER) A POSITIVE [facility] Ab Scrn NEGATIVE [facility] Specimen Blood Performing Organization Address [facility] Cent[facility]ode Phone Number [address] [phone] aPTT (12/22/2019 12:49 PM CDT) PTT 28.5 22.5 - 36.0 seconds [facility] Specimen Blood Performing Organization Address [facility] Centercoks Phone Number [address] [address] CENTER Prothrombin time/INR (12/22/2019 12:49 PM CDT) Protime 13.4 11.9 - 14.2 seconds [facility] INR 1.1 <=5.9 [facility] Specimen Blood Narrative Performed At Effective 2018: PT Reference Range [facility] Change New: 11.9-14.2Previous: 11.7-14.7 RECOMMENDED COUMADIN/WARFARIN INR THERAPY RANGES STANDARD DOSE: 2.0-3.0Includes: PROPHYLAXIS for venous thrombosis, systemic embolization; TREATMENT for venous thrombosis and/or pulmonary embolus. HIGH RISK: Target INR is 2.5-3.5 for patients wiht mechanical heart valves. Performing Organization Address City/State/Zipcode Phone Number [facility] [address] [place] [address] CENTER 2D Echo W/Doppler(CW/PW/Color) (12/22/2019 11:47 AM CDT) Ejection Fraction [facility] ECHO HEAR TLAB [facility] Specimen Narrative Performed At Transthoracic Echocardiography Report (T TE) [facility] ECHO HEARTLAB [facility] Demographics Patient NameJOHNSON VAZQUEZDate of Study12/22/2019 Male Visit [id number] Black Room [id number] Number Date of 1945Referring PhysicianModino Alcala Age 73 year(s)Housekeeping Aide Josey Silver Bookkeeper Receptionist Marek Quintanilla Interpreting Gino Malik MD Physician Procedure Type of Study TTE procedure:2DECHO W DOPPLER(CW/PW/COLOR) (Routine) Indications:Stroke . Clinical History Afib, Stroke Contrast Medium: Bubble Study. Height: 71 inches Weight: 98.43 kg (217 lbs) BSA: 2.18 m^2 BMI: 30.27 kg/m^2 HR: 65 bpm BP: 159/79 mmHg Summary Limited study w/saline contrast to assess intracardiac shunt. 1. Normal LV size and function. LVEF is 55-60% 2. Diastology: Grade 1 diastolic dysfun ction 3. Normal RV size and function 4. No valvular heart disease 5. Trace TR. Unable to estimate PASP 6. No pericardial effusion 7. Saline study is indeterminate. Recommend to repeat is if clinically indicated Previous Study No prior studies available for comparis on. Signature Findings Left Ventricle Normal left ventricular chamber size. Normal wall th ickness. Normal overall left ventricular systolic fu nction. No apparent segmental wall motio n ab normalities. Estimated LVEF by qualitati ve as sessment is normal (55-60%) . Grade 1 di astolic dy sfunction (impaired relaxation and low-n ormal LA pr essure). Left AtriumLA size is normal . Right VentricleNormal right ventricle structure and function. Right Atrium Normal right atrium. Atrial SeptumIV saline contrast injection was technically in adequate to detect a PFO (patent foramen ovale) at rest and post Valsalva . Aortic Valve Mild AoV cusp thickening. A trace of aortic regurgitation. Mitral Valve Mild M AC noted Tricuspid ValveA trace of tricuspid regurgitation. Un able to estimate peak systolic PA pressu re; in adequate TR velocity signal. Pulmonic Valve PV is not well visualized. AortaAortic root size (SInus of Valsalva diameter) i s no rmal . PericardiumNo evidence of pericardial effusion. IVC/SVC/PA/PV/PleuralThe estimated RA pressure by IVC dynamics 5-10mmHg . Chambers/Structures Left Atrium LA Dimension: 3.82 cmLA Area: 17.65 cm^2 LA Volume: 50.8 ml LA Vol. Index: 23 ml/m^2 Left Ventricle LVIDd: 4.09 cm LV Septum Diastolic: 0.94 cm LV PW Diastolic: 1 cm LVEDV Camargo's:87.8 ml LVESV Camargo's:38.66 ml LVEF Camargo's: 56 %L VEDVI: 40 ml/m^2 LVESVI: 18 ml/m^2 Aorta Ao Root S of Penny.: 3.74 cm Doppler/Quantitative Measurements Mitral Valve MV Peak E-Wave: 0.53 m/sMV Peak A-Wave: 0.79 m/s E/A Ratio: 0. 68 Peak Gradient: 1.14 mmHg Deceleration Time: 244.9 msec MV Stuart. Peak: Tissue Doppler E' Lateral Velocity: 0.05 m/s A' Lateral Velocity: 0.09 m/s E/E': 10.06 Aortic Valve Peak Velocity: 1.08 m/sMean Velocity: 0.7 m/s Peak Gradient: 4.66 mmHg Mean Gradient: 2.28 mmHg AV VTI: 21.09 cm AV DVI: 0.94 LVOT Peak Velocity: 1.09 m/s Peak Gradient: 4.77 mmHg Mean Velocity: 0.73 m/s Mean Gradient: 2.37 mmHg LVOT VTI: 19.74 c m Procedure Note Interface, External Ris In - 12/22/2019 3:41 PM CDT Transthoracic Echocardiography Report (TTE) Demographics Patient Name JOHNSON VAZQUEZ Date of Study 12/22/2019 Gender Male Visit Number [id number] Race Black Room [place] [address] Number Date of 1945 Referri Physician John Alcala Age 73 year(s) Sonogra pher Josey Silver Bookkeeper Receptionist Marek Quintanilla Interpr eting Gino Malik MD Physici an Procedure Type of Study TTE procedure:2DECHO W DOPPLE R(CW/PW/COLOR) (Routine) Indications:Stroke . Clinical History Afib, Stroke Contrast Medium: Bubble Study. Height: 71 inches Weight: 98.43 kg (217 lbs) BSA: 2.18 m^2 BMI: 30.27 kg/m^2 HR: 65 bpm BP: 159/79 mmHg Summary Limited study w/saline contrast to asse ss intracardiac shunt. 1. Normal LV size and function. LVEF is 55-60% 2. Diastology: Grade 1 diastolic dysfun ction 3. Normal RV size and function 4. No valvular heart disease 5. Trace TR. Unable to estimate PASP 6. No pericardial effusion 7. Saline study is indeterminate. Recom mend to repeat is if clinically indicated Previous Study No prior studies available for comparis on. Signature Findings Left Ventricle Normal left vent ricular chamber size. Normal wall thickness. Katelyn l overall left ventricular systolic function. No viola arent segmental wall motion abnormalities. E stimated LVEF by qualitative assessment is no rmal (55-60%) . Grade 1 diastolic dysfunction (imp aired relaxation and low-normal LA pressure). Left Atrium LA size is katelyn l . Right Ventricle Normal right katharine tricle structure and function. Right Atrium Normal right atr ium. Atrial Septum IV saline contra st injection was technically inadequate to de tect a PFO (patent foramen ovale) at rest and post Valsalva . Aortic Valve Mild AoV cusp th ickening. A trace of aorti c regurgitation. Mitral Valve Mild MAC noted Tricuspid Valve A trace of tricu spid regurgitation. Unable to estima te peak systolic PA pressure; inadequate TR ve locity signal. Pulmonic Valve PV is not well v isualized. Aorta Aortic root size (SInus of Valsalva diameter) is normal . Pericardium No evidence of p ericardial effusion. IVC/SVC/PA/PV/Pleural The estimated RA pressure by IVC dynamics 5-10mmHg . Chambers/Structures Left Atrium LA Dimension: 3.82 cm LA Area: 17.65 cm^2 LA Volume: 50.8 ml LA Vol. Index: 23 ml/m^2 Left Ventricle LVIDd: 4.09 cm LV Septum Diastolic: 0.94 cm LV PW Diastolic: 1 cm LVEDV Camargo's:87.8 ml LVESV Camargo's:38.66 ml LVEF Camargo's: 56 % LVEDVI: 40 ml/m^2 LVESVI: 18 ml/m^2 Aorta Ao Root S of Penny.: 3.74 cm Doppler/Quantitative Measurements Mitral Valve MV Peak E-Wave: 0.53 m/s M V Peak A-Wave: 0.79 m/s E /A Ratio: 0.68 P eak Gradient: 1.14 mmHg D eceleration Time: 244.9 msec MV Stuart. Peak: Tissue Doppler E' Lateral Velocity: 0.05 m/s A ' Lateral Velocity: 0.09 m/s E /E': 10.06 Aortic Valve Peak Velocity: 1.08 m/s Me an Velocity: 0.7 m/s Peak Gradient: 4.66 mmHg Me an Gradient: 2.28 mmHg AV VTI: 21.09 cm AV DVI: 0.94 LVOT Peak Velocity: 1.09 m/s Pea k Gradient: 4.77 mmHg Mean Velocity: 0.73 m/s Lesvia n Gradient: 2.37 mmHg LVO T VTI: 19.74 cm Performing Organization Address [facility] Phone Number [facility] ECHO HEARTLAB [facility] CPACS ECG 12 lead (12/22/2019 11:16 AM CDT) Specimen Narrative Performed At Ventricular Rate 62 BPM GE MUSE Atrial Rate 62 BPM P-R Interval 204 ms QRS Duration 82 ms Q-T Interval 410 ms QTC Calculation(Bazett) 416 ms P [place] 80 degrees R [place] 74 degrees T [place] 107 degrees Normal sinus rhythm Nonspecific T wave abnormality Abnormal ECG No previous ECGs available Confirmed by MD DAS JOSEPH P ([id number]) on 0 10:49:37 PM Procedure Note Interface, External Ris In - 12/22/2019 10:49 PM CDT Ventricular Rate 62 BPM Atrial Rate 62 BPM P-R Interval 204 ms QRS Duration 82 ms Q-T Interval 410 ms QTC Calculation(Bazett) 416 ms P [place] 80 degrees R [place] 74 degrees T [place] 107 degrees Normal sinus rhythm Nonspecific T wave abnormality Abnormal ECG No previous ECGs available Confirmed by MD DAS JOSEPH P ([id number]) on 12/22/2019 10:49:37 PM Performing Organization Address [facility] Phone Number [email or web address] SARS-CoV2/RT-PCR (Asymptomatic ONLY) (12/22/2019 6:22 AM CDT) SARS-COV2/RT-PCR Not Detected Not Detected, Negative [facility] SARS-COV-2 PERFORMING LAB [facility] Specimen Other Narrative Performed At Negative results do not preclude SARS-CoV-2 [facility] infection and should not be used as the sole basis for patient management decisions. Negative results must be combined with clinical observations, patient history, and epidemiological information. A false negative result may occur if a specimen is improperly collected, transported or handled. The limit of detection for this assay is 250 copies/mL. This SARS CoV-2 test is a rapid, real-time RT-PCR test intended for the qualitative detection of nucleic acid from SARS-CoV-2 in a nasopharyngeal swab specimen collected from individuals suspected of COVID-19 by their healthcare provider. This test has not been Food and Drug Administration (FDA) cleared or approved and has been authorized by FDA under an Emergency Use Authorization (EUA). This EUA will be effective until the declaration that circumstances exist justifying the authorization of the emergency use of in vitro diagnostic tests for detection and/or diagnosis of COVID-19 is terminated under Section 564(b)(2) of the Act or the EUA is revoked under Section 564(g) of the Act. Fact Sheet for Healthcare Providers: https://www.[employer]/Documents/Xpert%20Xpre ss%20SARS%20CoV-2/Fact%20Sheets/3023802%20SAR S-COV-2%20HEALTHCARE%20PROVIDERS%20FACT%20SHEE T.pdf Fact Sheet for Healthcare Patients: https://www.[employer]/Documents/Xpert%20Xpre ss%20SARS%20CoV-2/Fact%20Sheets/3023801%20SAR S-COV-2%20PATIENT%20FACT%20SHEET.pdf Performing Laboratory: [address] [place] [address] Performing Organization Address City/State/Zipcode Phone Number [place] [phone] CENTER CTA carotid (12/21/2019 1:03 PM CDT) Specimen Narrative Performed At FINAL REPORT [facility] CLINICAL HISTORY: Arteriovenous fistula, acquired TECHNIQUE: Initially, noncontrast head C T images were performed. Contiguous contrast-enhanced axial image s through the neck followed by axial images through the head with co josep and sagittal reformations to assess the arterial circ ulation. 3-D reconstructions were performed using a volume rendered t echnique separately on a workstation. This exam was performed according to the departmental dose optimization program which includes auto mated exposure control, adjustment of the mA and/or kV according to the patient size, and/or use of an iterative reconstruction techn ique. Stenosis evaluation reported in complian ce with NASCET criteria. 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 No acute intracranial hemorrhage. Scatte red foci of hypoattenuation within the periventricular and subcortic al white matter are a nonspecific finding commonly attributed to chronic small vessel ischemic disease. There is no hydrocepha mary or midline shift. The skull is intact. There is no evidence of intracranial ane urysm. No major branch vessel occlusion or high-grade focal stenosis. Atherosclerosis of the bilateral cavernous and paraclinoid ICA' s. Numerous serpentine vessels encircling t he cervicomedullary junction without definite nidus, suggestive of ar teriovenous fistula. The major intradural venous sinuses are patent. CTA neck: Great vessel origins: No occlusion or hi gh-grade stenosis. Carotid arteries: No occlusion or high-g rade stenosis. Vertebral arteries: No occlusion or high -grade stenosis. No fracture or suspicious osseous lesion . Cervical soft tissues are unremarkable. Visualized lung apices are clear. IMPRESSION: Numerous enlarged serpentine vessels enc ircling the cervicomedullary junction, more extensive than previously demonstrated on MRA, without definite nidus, again suggestive of AV f istula. Signed: Shannan Garg MD Report Verified Date/Time:12/21/2019 15:31:23 Procedure Note Interface, External Ris In - 12/21/2019 3:33 PM CDT FINAL REPORT CLINICAL HISTORY: Arteriovenous fistula, acquired TECHNIQUE: Initially, noncontrast head C T images were performed. Contiguous contrast-enhanced axial image s through the neck followed by axial images through the head with co josep and sagittal reformations to assess the arterial circ ulation. 3-D reconstructions were performed using a volume rendered t echnique separately on a workstation. This exam was performed according to the departmental dose optimization program which includes auto mated exposure control, adjustment of the mA and/or kV according to the patient size, and/or use of an iterative reconstruction techn ique. Stenosis evaluation reported in complian ce with NASCET criteria. 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 No acute intracranial hemorrhage. Scatte red foci of hypoattenuation within the periventricular and subcortic al white matter are a nonspecific finding commonly attributed to chronic small vessel ischemic disease. There is no hydrocepha mary or midline shift. The skull is intact. There is no evidence of intracranial ane urysm. No major branch vessel occlusion or high-grade focal stenosis. Atherosclerosis of the bilateral cavernous and paraclinoid ICA' s. Numerous serpentine vessels encircling t he cervicomedullary junction without definite nidus, suggestive of ar teriovenous fistula. The major intradural venous sinuses are patent. CTA neck: Great vessel origins: No occlusion or hi gh-grade stenosis. Carotid arteries: No occlusion or high-g rade stenosis. Vertebral arteries: No occlusion or high -grade stenosis. No fracture or suspicious osseous lesion . Cervical soft tissues are unremarkable. Visualized lung apices are clear. IMPRESSION: Numerous enlarged serpentine vessels enc ircling the cervicomedullary junction, more extensive than previously demonstrated on MRA, without definite nidus, again suggestive of AV f istula. Signed: Shannan Garg MD Report Verified Date/Time: 12/21/2019 1 5:31:23 Performing Organization Address City/State/Zipcode Phone Number [facility] CTA brain (12/21/2019 1:03 PM CDT) Specimen Narrative Performed At FINAL REPORT [facility] CLINICAL HISTORY: Arteriovenous fistula, acquired TECHNIQUE: Initially, noncontrast head C T images were performed. Contiguous contrast-enhanced axial image s through the neck followed by axial images through the head with co josep and sagittal reformations to assess the arterial circ ulation. 3-D reconstructions were performed using a volume rendered t echnique separately on a workstation. This exam was performed according to the departmental dose optimization program which includes auto mated exposure control, adjustment of the mA and/or kV according to the patient size, and/or use of an iterative reconstruction techn ique. Stenosis evaluation reported in complian ce with NASCET criteria. 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 No acute intracranial hemorrhage. Scatte red foci of hypoattenuation within the periventricular and subcortic al white matter are a nonspecific finding commonly attributed to chronic small vessel ischemic disease. There is no hydrocepha mary or midline shift. The skull is intact. There is no evidence of intracranial ane urysm. No major branch vessel occlusion or high-grade focal stenosis. Atherosclerosis of the bilateral cavernous and paraclinoid ICA' s. Numerous serpentine vessels encircling t he cervicomedullary junction without definite nidus, suggestive of ar teriovenous fistula. The major intradural venous sinuses are patent. CTA neck: Great vessel origins: No occlusion or hi gh-grade stenosis. Carotid arteries: No occlusion or high-g rade stenosis. Vertebral arteries: No occlusion or high -grade stenosis. No fracture or suspicious osseous lesion . Cervical soft tissues are unremarkable. Visualized lung apices are clear. IMPRESSION: Numerous enlarged serpentine vessels enc ircling the cervicomedullary junction, more extensive than previously demonstrated on MRA, without definite nidus, again suggestive of AV f istula. Signed: Shannan Garg MD Report Verified Date/Time:12/21/2019 15:31:23 Procedure Note Interface, External Ris In - 12/21/2019 3:33 PM CDT FINAL REPORT CLINICAL HISTORY: Arteriovenous fistula, acquired TECHNIQUE: Initially, noncontrast head C T images were performed. Contiguous contrast-enhanced axial image s through the neck followed by axial images through the head with co josep and sagittal reformations to assess the arterial circ ulation. 3-D reconstructions were performed using a volume rendered t echnique separately on a workstation. This exam was performed according to the departmental dose optimization program which includes auto mated exposure control, adjustment of the mA and/or kV according to the patient size, and/or use of an iterative reconstruction techn ique. Stenosis evaluation reported in complian ce with NASCET criteria. 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 No acute intracranial hemorrhage. Scatte red foci of hypoattenuation within the periventricular and subcortic al white matter are a nonspecific finding commonly attributed to chronic small vessel ischemic disease. There is no hydrocepha mary or midline shift. The skull is intact. There is no evidence of intracranial ane urysm. No major branch vessel occlusion or high-grade focal stenosis. Atherosclerosis of the bilateral cavernous and paraclinoid ICA' s. Numerous serpentine vessels encircling t he cervicomedullary junction without definite nidus, suggestive of ar teriovenous fistula. The major intradural venous sinuses are patent. CTA neck: Great vessel origins: No occlusion or hi gh-grade stenosis. Carotid arteries: No occlusion or high-g rade stenosis. Vertebral arteries: No occlusion or high -grade stenosis. No fracture or suspicious osseous lesion . Cervical soft tissues are unremarkable. Visualized lung apices are clear. IMPRESSION: Numerous enlarged serpentine vessels enc ircling the cervicomedullary junction, more extensive than previously demonstrated on MRA, without definite nidus, again suggestive of AV f istula. Signed: Shannan Garg MD Report Verified Date/Time: 12/21/2019 1 5:31:23 Performing Organization Address City/State/Zipcode Phone Number [facility] CBC with platelet count + automated diff (12/20/2019 2:45 AM CDT)Only the most recent of2 resultswithin the time period is included. WBC 6.3 3.5 - 10.5 K/L [facility] H [facility] RBC 5.57 4.63 - 6.08 M/L [facility] Hemoglobin 12.1 (L) 13.7 - 17.5 GM/DL [facility] Hematocrit 40.4 40.1 - 51.0 % [facility] MCV 72.5 (L) 79.0 - 92.2 fL [facility] MCH 21.7 (L) 25.7 - 32.2 pg [facility] MCHC 30.0 (L) 32.3 - 36.5 GM/DL [facility] RDW 16.0 (H) 11.6 - 14.4 % [facility] Platelets 248 150 - 450 K/CU MM [facility] MPV 9.4 9.4 - 12.4 fL [facility] nRBC 0 0 - 0 /100 WBC [facility] % Neutros 55 % [facility] % Lymphs 35 % [facility] % Monos 7 % [facility] % Eos 2 % [facility] % Baso 1 % [facility] # Neutros 3.51 1.78 - 5.38 K/L [facility] # Lymphs 2.23 1.32 - 3.57 K/L [facility] # Monos 0.44 0.30 - 0.82 K/L [facility] # Eos 0.10 0.04 - 0.54 K/L [facility] # Baso 0.03 0.01 - 0.08 K/L [facility] Immature Granulocytes-Relative 0 0 - 1 % C [facility] Specimen Blood Performing Organization Address City/State/Zipcode Phone Number [facility] [address] [place] [address] CENTER Basic Metabolic Panel (12/20/2019 2:45 AM CDT)Only the most recent of2 results within the time period is included. Sodium 141 136 - 145 meq/L [facility] Potassium 4.0 3.5 - 5.1 meq/L [facility] Chloride 106 98 - 107 meq/L [facility] CO2 26 22 - 29 meq/L [facility] BUN 7 7 - 21 mg/dL [facility] Creatinine 0.92 0.57 - 1.25 mg/dL [facility] Glucose 193 (H) 70 - 105 mg/dL [facility] Calcium 8.9 8.4 - 10.2 mg/dL [facility] EGFR 97Comment: ESTIMATED GFR IS mL/min/1.73 sq m [facility] NOT ACCURATE [facility] [place] [facility] IN PREDICTING GLOMERULAR FILTRATION RATE. ESTIMATED GFR IS NOT APPLICABLE FOR DIALYSIS PATIENTS. Specimen Blood Narrative Performed At [employer] ID - REJI [facility] Performing Organization Address City/State/Zipcode Phone Number [facility] [address] [place] [address] CENTER MR brain without IV contrast (12/20/2019 2:30 AM CDT) Specimen Narrative Performed At FINAL REPORT 4Less [facility] MRI Brain without contrast Clinical History: Ischemic Stroke AVM OR AVF Technique: MRI of the brain utilizing ax ial T2, FLAIR, GRE, DWI; sagittal and coronal T1-weighted images. MRA of the head utilizing 3-D ykwx-hr-qsvhgh technique, with 3-D r econstructions. MRA of the neck utilizing 2-D and 3-D ti zv-dj-gcjqmb technique, with 3-D reconstructions. Comparisons: None Findings: MRI brain Restricted diffusion of the right research intern al capsule consistent with acute infarction. Sequela of prior paren chymal hematoma in the right posterior putamen. Multiple bilateral T2 and FLAIR hyperintense white matter foci likely represent chronic whi te matter microvascular disease. Pontine gliosis. There is no hy drocephalus or midline shift. There are no extra-axial fluid collectio ns. The craniocervical junction is preserved. The major intracr anial flow-voids appear patent. MRA head: There is no evidence of intracranial ane urysm, focal stenosis, or major branch vessel occlusion. Multi ple prominent abnormal vessels at the cervical medullary junction adjac ent to the sigmoid sinus and along the pial surface of the medulla wh ich demonstrate arterialized flow on MRA is concerning for arterioven ous fistula. Expected T2 flow voids are seen within the dural venous s inuses. No aneurysmal dilatation of the involved vessels. MRA neck: The carotid arteries in the neck are pat ent including their bifurcations. There is antegrade flow in the vertebral arteries in the neck. IMPRESSION: MRI brain: Acute infarction in the right internal c apsule. 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 MRA head: No evidence for a major [place] proximal branch vessel occlusion. Multiple prominent vessels at the cervic al medullary junction adjacent to the sigmoid sinus and along the pial surface of the medulla concerning for arteriovenous fis daria.No associated signal abnormality in the adjacent parenchyma. Expected T2 flow voids are seen within the dural venous sinuses. No aneurysmal dilatation of the involved vessels.Recommend further e valuation with dedicated catheter angiography. MRA neck: No evidence of hemodynamically significa nt stenosis in the cervical carotid or vertebral arteries by NASCET criteria. Signed: Roxanna Diggs MD Report Verified Date/Time:12/20/2019 04:05:18 Procedure Note Interface, External Ris In - 12/20/2019 4:08 AM CDT FINAL REPORT MRI Brain without contrast Clinical History: Ischemic Stroke AVM OR AVF Technique: MRI of the brain utilizing ax ial T2, FLAIR, GRE, DWI; sagittal and coronal T1-weighted images. MRA of the head utilizing 3-D asby-ya-mxzepz technique, with 3-D r econstructions. MRA of the neck utilizing 2-D and 3-D ti mq-oz-ztcggi technique, with 3-D reconstructions. Comparisons: None Findings: MRI brain Restricted diffusion of the right research intern al capsule consistent with acute infarction. Sequela of prior paren chymal hematoma in the right posterior putamen. Multiple bilateral T2 and FLAIR hyperintense white matter foci likely represent chronic whi te matter microvascular disease. Pontine gliosis. There is no hy drocephalus or midline shift. There are no extra-axial fluid collectio ns. The craniocervical junction is preserved. The major intracr anial flow-voids appear patent. MRA head: There is no evidence of intracranial ane urysm, focal stenosis, or major branch vessel occlusion. Multipl e prominent abnormal vessels at the cervical medullary junction adjac ent to the sigmoid sinus and along the pial surface of the medulla wh ich demonstrate arterialized flow on MRA is concerning for arterioven ous fistula. Expected T2 flow voids are seen within the dural venous s inuses. No aneurysmal dilatation of the involved vessels. MRA neck: The carotid arteries in the neck are pat ent including their bifurcations. There is antegrade flow in the vertebral arteries in the neck. IMPRESSION: MRI brain: Acute infarction in the right internal c apsule. 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 MRA head: No evidence for a major [place] proximal branch vessel occlusion. Multiple prominent vessels at the cervic al medullary junction adjacent to the sigmoid sinus and along the pial surface of the medulla concerning for arteriovenous fis daria. No associated signal abnormality in the adjacent parenchyma. Expected T2 flow voids are seen within the dural venous sinuses. No aneurysmal dilatation of the involved vessels. Recommend further linda luation with dedicated catheter angiography. MRA neck: No evidence of hemodynamically significa nt stenosis in the cervical carotid or vertebral arteries by NASCET criteria. Signed: Roxanna Diggs MD Report Verified Date/Time: 12/20/2019 0 4:05:18 Performing Organization Address City/State/Zipcode Phone Number [facility] MRA neck without IV contrast (12/20/2019 2:30 AM CDT) Specimen Narrative Performed At FINAL REPORT [facility] MRI Brain without contrast Clinical History: Ischemic Stroke AVM OR AVF Technique: MRI of the brain utilizing ax ial T2, FLAIR, GRE, DWI; sagittal and coronal T1-weighted images. MRA of the head utilizing 3-D tqef-px-dzvzof technique, with 3-D r econstructions. MRA of the neck utilizing 2-D and 3-D ti se-un-ppgvox technique, with 3-D reconstructions. Comparisons: None Findings: MRI brain Restricted diffusion of the right research intern al capsule consistent with acute infarction. Sequela of prior paren chymal hematoma in the right posterior putamen. Multiple bilateral T2 and FLAIR hyperintense white matter foci likely represent chronic whi te matter microvascular disease. Pontine gliosis. There is no hy drocephalus or midline shift. There are no extra-axial fluid collectio ns. The craniocervical junction is preserved. The major intracr anial flow-voids appear patent. MRA head: There is no evidence of intracranial ane urysm, focal stenosis, or major branch vessel occlusion. Multi ple prominent abnormal vessels at the cervical medullary junction adjac ent to the sigmoid sinus and along the pial surface of the medulla wh ich demonstrate arterialized flow on MRA is concerning for arterioven ous fistula. Expected T2 flow voids are seen within the dural venous s inuses. No aneurysmal dilatation of the involved vessels. MRA neck: The carotid arteries in the neck are pat ent including their bifurcations. There is antegrade flow in the vertebral arteries in the neck. IMPRESSION: MRI brain: Acute infarction in the right internal c apsule. 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 MRA head: No evidence for a major [place] proximal branch vessel occlusion. Multiple prominent vessels at the cervic al medullary junction adjacent to the sigmoid sinus and along the pial surface of the medulla concerning for arteriovenous fis daria.No associated signal abnormality in the adjacent parenchyma. Expected T2 flow voids are seen within the dural venous sinuses. No aneurysmal dilatation of the involved vessels.Recommend further e valuation with dedicated catheter angiography. MRA neck: No evidence of hemodynamically significa nt stenosis in the cervical carotid or vertebral arteries by NASCET criteria. Signed: Roxanna Diggs MD Report Verified Date/Time:12/20/2019 04:05:18 Procedure Note Interface, External Ris In - 12/20/2019 4:08 AM CDT FINAL REPORT MRI Brain without contrast Clinical History: Ischemic Stroke AVM OR AVF Technique: MRI of the brain utilizing ax ial T2, FLAIR, GRE, DWI; sagittal and coronal T1-weighted images. MRA of the head utilizing 3-D xwot-ho-ylidgd technique, with 3-D r econstructions. MRA of the neck utilizing 2-D and 3-D ti nc-yx-kvcfxq technique, with 3-D reconstructions. Comparisons: None Findings: MRI brain Restricted diffusion of the right research intern al capsule consistent with acute infarction. Sequela of prior paren chymal hematoma in the right posterior putamen. Multiple bilateral T2 and FLAIR hyperintense white matter foci likely represent chronic whi te matter microvascular disease. Pontine gliosis. There is no hy drocephalus or midline shift. There are no extra-axial fluid collectio ns. The craniocervical junction is preserved. The major intracr anial flow-voids appear patent. MRA head: There is no evidence of intracranial ane urysm, focal stenosis, or major branch vessel occlusion. Multipl e prominent abnormal vessels at the cervical medullary junction adjac ent to the sigmoid sinus and along the pial surface of the medulla wh ich demonstrate arterialized flow on MRA is concerning for arterioven ous fistula. Expected T2 flow voids are seen within the dural venous s inuses. No aneurysmal dilatation of the involved vessels. MRA neck: The carotid arteries in the neck are pat ent including their bifurcations. There is antegrade flow in the vertebral arteries in the neck. IMPRESSION: MRI brain: Acute infarction in the right internal c apsule. 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 MRA head: No evidence for a major [place] proximal branch vessel occlusion. Multiple prominent vessels at the cervic al medullary junction adjacent to the sigmoid sinus and along the pial surface of the medulla concerning for arteriovenous fis daria. No associated signal abnormality in the adjacent parenchyma. Expected T2 flow voids are seen within the dural venous sinuses. No aneurysmal dilatation of the involved vessels. Recommend further linda luation with dedicated catheter angiography. MRA neck: No evidence of hemodynamically significa nt stenosis in the cervical carotid or vertebral arteries by NASCET criteria. Signed: Roxanna Diggs MD Report Verified Date/Time: 12/20/2019 0 4:05:18 Performing Organization Address City/State/Zipcode Phone Number [facility] MRA head without IV contrast (12/20/2019 2:30 AM CDT) Specimen Narrative Performed At FINAL REPORT [facility] MRI Brain without contrast Clinical History: Ischemic Stroke AVM OR AVF Technique: MRI of the brain utilizing ax ial T2, FLAIR, GRE, DWI; sagittal and coronal T1-weighted images. MRA of the head utilizing 3-D eqhp-rh-eawfhx technique, with 3-D r econstructions. MRA of the neck utilizing 2-D and 3-D ti cw-gv-vrcylt technique, with 3-D reconstructions. Comparisons: None Findings: MRI brain Restricted diffusion of the right research intern al capsule consistent with acute infarction. Sequela of prior paren chymal hematoma in the right posterior putamen. Multiple bilateral T2 and FLAIR hyperintense white matter foci likely represent chronic whi te matter microvascular disease. Pontine gliosis. There is no hy drocephalus or midline shift. There are no extra-axial fluid collectio ns. The craniocervical junction is preserved. The major intracr anial flow-voids appear patent. MRA head: There is no evidence of intracranial ane urysm, focal stenosis, or major branch vessel occlusion. Multi ple prominent abnormal vessels at the cervical medullary junction adjac ent to the sigmoid sinus and along the pial surface of the medulla wh ich demonstrate arterialized flow on MRA is concerning for arterioven ous fistula. Expected T2 flow voids are seen within the dural venous s inuses. No aneurysmal dilatation of the involved vessels. MRA neck: The carotid arteries in the neck are pat ent including their bifurcations. There is antegrade flow in the vertebral arteries in the neck. IMPRESSION: MRI brain: Acute infarction in the right internal c apsule. 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 MRA head: No evidence for a major [place] proximal branch vessel occlusion. Multiple prominent vessels at the cervic al medullary junction adjacent to the sigmoid sinus and along the pial surface of the medulla concerning for arteriovenous fis daria.No associated signal abnormality in the adjacent parenchyma. Expected T2 flow voids are seen within the dural venous sinuses. No aneurysmal dilatation of the involved vessels.Recommend further e valuation with dedicated catheter angiography. MRA neck: No evidence of hemodynamically significa nt stenosis in the cervical carotid or vertebral arteries by NASCET criteria. Signed: Roxanna Diggs MD Report Verified Date/Time:12/20/2019 04:05:18 Procedure Note Interface, External Ris In - 12/20/2019 4:08 AM CDT FINAL REPORT MRI Brain without contrast Clinical History: Ischemic Stroke AVM OR AVF Technique: MRI of the brain utilizing ax ial T2, FLAIR, GRE, DWI; sagittal and coronal T1-weighted images. MRA of the head utilizing 3-D nlbf-kl-hpmzry technique, with 3-D r econstructions. MRA of the neck utilizing 2-D and 3-D ti pn-xp-vzokoa technique, with 3-D reconstructions. Comparisons: None Findings: MRI brain Restricted diffusion of the right research intern al capsule consistent with acute infarction. Sequela of prior paren chymal hematoma in the right posterior putamen. Multiple bilateral T2 and FLAIR hyperintense white matter foci likely represent chronic whi te matter microvascular disease. Pontine gliosis. There is no hy drocephalus or midline shift. There are no extra-axial fluid collectio ns. The craniocervical junction is preserved. The major intracr anial flow-voids appear patent. MRA head: There is no evidence of intracranial ane urysm, focal stenosis, or major branch vessel occlusion. Multipl e prominent abnormal vessels at the cervical medullary junction adjac ent to the sigmoid sinus and along the pial surface of the medulla wh ich demonstrate arterialized flow on MRA is concerning for arterioven ous fistula. Expected T2 flow voids are seen within the dural venous s inuses. No aneurysmal dilatation of the involved vessels. MRA neck: The carotid arteries in the neck are pat ent including their bifurcations. There is antegrade flow in the vertebral arteries in the neck. IMPRESSION: MRI brain: Acute infarction in the right internal c apsule. 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 MRA head: No evidence for a major [place] proximal branch vessel occlusion. Multiple prominent vessels at the cervic al medullary junction adjacent to the sigmoid sinus and along the pial surface of the medulla concerning for arteriovenous fis daria. No associated signal abnormality in the adjacent parenchyma. Expected T2 flow voids are seen within the dural venous sinuses. No aneurysmal dilatation of the involved vessels. Recommend further linda luation with dedicated catheter angiography. MRA neck: No evidence of hemodynamically significa nt stenosis in the cervical carotid or vertebral arteries by NASCET criteria. Signed: Roxanna Diggs MD Report Verified Date/Time: 12/20/2019 0 4:05:18 Performing Organization Address City/State/Zipcode Phone Number [facility] Potassium (12/19/2019 1:32 PM CDT) Potassium 4.0 3.5 - 5.1 meq/L [facility] Specimen Blood Narrative Performed At Mash Filter Cloth Changer ID - [place] Scarlett [facility] Performing Organization Address City/[facility] Cent[facility] Phone Number [address] [address] CENTER Magnesium (12/19/2019 1:32 PM CDT)Only the most recent of2 resultswithin the time period is included. Magnesium 2.0 1.6 - 2.6 mg/dL [facility] Specimen Blood Narrative Performed At Mash Filter Cloth Changer ID - [facility] Performing Organization Address [facility] Centercode Phone Number [address] [address] CENTER TSH/Free T4 If Indicated (12/19/2019 10:34 AM CDT) TSH 0.656 0.350 - 4.940 uIU/mL [facility] Specimen Blood Narrative Performed At Mash Filter Cloth Changer ID - [place] Scarlett [facility] Performing Organization Address City/[facility] Centercode Phone Number [address] [address] CENTER Vitamin B12 (12/19/2019 10:34 AM CDT) Vitamin B12 389 213 - 816 pg/mL [facility] Specimen Blood Narrative Performed At Mash Filter Cloth Changer ID - [facility] Performing Organization Address City/[facility]/Zipcode Phone Number [address] [address] CENTER Troponin I (12/19/2019 6:18 AM CDT) Troponin I <0.01 0.00 - 0.03 ng/mL [facility] Specimen Blood Narrative Performed At Troponin I (TnI) levels must be interpreted [facility] in the context of the presenting symptoms and the clinical findings. Elevated TnI levels indicate myocardial damage, but are not specific for ischemic heart disease. Elevated TnI levels are seen in patients with other cardiac conditions (including myocarditis and congestive heart failure), and slight TnI elevations occur in patients with other conditions, including sepsis, renal failure, acidosis, acute neurological disease, and persistent tachyarrhythmia. Mash Filter Cloth Changer ZE Pantoja Performing Organization Address [facility] Centercode Phone Number [address] [address] CENTER Phosphorus (12/19/2019 6:18 AM CDT) Phosphorus 3.6 2.3 - 4.7 mg/dL [facility] Specimen Blood Narrative Performed At Mash Filter Cloth Changer ZE Pantoja [facility] Performing Organization Address [facility] Centercode Phone Number [address] [address] CENTER Hemoglobin A1c (12/19/2019 6:18 AM CDT) Hemoglobin A1C 11.6 (H) 4.3 - 6.1 % [facility] Specimen Blood Performing Organization Address [facility] Centercoks Phone Number [address] [address] CENTER Fasting lipid panel (12/19/2019 6:18 AM CDT) Triglycerides 91 mg/dL [facility] Cholesterol 151 mg/dL [facility] HDL 47 mg/dL [facility] LDL Calculated 86 mg/dL [facility] Specimen Blood Narrative Performed At Triglyceride Reference Range: [facility] Low Risk <150 [id number] High Risk 200-499 Very High Risk>=500 Cholesterol Reference Range: Low Risk <200 [id number] High Risk>240 HDL Cholesterol Reference Range: Low Risk >=60 High Risk <40 LDL Cholesterol Reference Range: Optimal<100 Near [id number] Very High >=190 Mash Filter Cloth Changer ID - JACKI L Performing Organization Address City/State/Zipcode Phone Number [facility] [address] [place] [address] CENTER after 12/25/2018 Insurance Payer Benefit Plan / Group Subscriber ID Type Phone A ddress [employer] - MEDICARE MGD [employer] MEDICARE ADV xxxxxxxxx Maps Contracted CARE Advance Directives For more information, please contact:[address] [phone] Code Status Date Activated Date Inactivated Comments Full Code 12/19/2019 5:21 AM This code status was determined by: Patient
--- OUTSIDE RECORDS SUMMARY | 2019-12-26 19:00 | XMS REPORT ---
:[address] [facility] t Address [address] [place] [address] Care Team Providers Name Role Phone PAULINE MOYA I. Attending Clinician Unavailable John MOYA Admitting Clinician Unavailable Problems This patient has no known problems. Allergies, Adverse Reactions, Alerts This patient has no known allergies or adverse reactions. Medications This patient has no known medications. Procedures This patient has no known procedures. Results Test Description Test Time Test Comments Results Result Comments Source POCT-GLUCOSE METER 2019-12-26 12:32:00 Test Item Value Reference Range Interpretation Comme nts POC-GLUCOSE METER ([facility]) 208 mg/dL 70-110 H : TESTED AT [facility] [address] [facility] (test code = 1538) [facility], [address]: Welt Cutter/Techni stan ID = [id number] for NOVAK, LURDES POCT-GLUCOSE [id number] 08:30:00 Test Item Value Reference Range Interpretation Comments POC-GLUCOSE METER 127 mg/dL 70-110 H : [facility]) (test code = [facility], 1537) [address]: Welt Cutter/Techni stan ID = [id number] for HU NT, LURDES POCT-GLUCOSE [id number] 20:41:00 Test Item Value Reference Range Interpretation Comments POC-GLUCOSE METER 222 mg/dL 70-110 H : Notified RN/MD: ([facility]) (test code = TESTED AT [facility] [address] 1537) [facility], [address]: Welt Cutter/Techni stan ID = [id number] for DO VE, CHEKARA POCT-GLUCOSE [id number] 17:46:00 Test Item Value Reference Range Interpretation Comments POC-GLUCOSE METER 96 mg/dL 70-110 : [facility] ([facility]) (test code = [facility], 153) [address]: Welt Cutter/Techni stan ID = [id number] for Suzette North POCT-GLUCOSE [id number] 12:07:00 Test Item Value Reference Range Interpretation Comments POC-GLUCOSE METER 185 mg/dL 70-110 H : TESTED A T [facility] 6720 ([facility]) (test code = [facility], 153) [address]: Welt Cutter/Techni stan ID = [id number] for AK INSONU, ALO POCT-GLUCOSE [id number] 08:19:00 Test Item Value Reference Range Interpretation Comments POC-GLUCOSE METER 125 mg/dL 70-110 H : TESTED A T [facility] ([facility]) (test code = [facility], 153) [address]: Welt Cutter/Techni stan ID = [id number] for AK INSONU, ALO POCT-GLUCOSE [id number] 21:04:00 Test Item Value Reference Range Interpretation Comments POC-GLUCOSE METER 164 mg/dL 70-110 H : Notified RN/MD: ([facility]) (test code = TESTED AT [facility] [address] 1537) [facility], [address]: Welt Cutter/Techni stan ID = [id number] for LATHBRIDGE, MARCIA ICE POCT-GLUCOSE [id number] 18:59:00 Test Item Value Reference Range Interpretation Comments POC-GLUCOSE METER 219 mg/dL 70-110 H : TESTED A T [facility] ([facility]) (test code = [facility], 153) [address]: Welt Cutter/Techni stan ID = [id number] for Sm ith, Jayda POCT-GLUCOSE [id number] 08:12:00 Test Item Value Reference Range Interpretation Comments POC-GLUCOSE METER 148 mg/dL 70-110 H : TESTED A T [facility] 6720 ([facility] (test code = [facility], 153) [address]: Welt Cutter/Techni stan ID = [id number] for Sm ith, Jayda POCT-GLUCOSE [id number] 21:31:00 Test Item Value Reference Range Interpretation Comments POC-GLUCOSE METER 223 mg/dL 70-110 H : TESTED A T [facility] ([facility]) (test code = [facility], 1538) [address]: Welt Cutter/Techni stan ID = [id number] for LO PEZ, NADINA POCT-GLUCOSE [id number] 18:26:00 Test Item Value Reference Range Interpretation Comments POC-GLUCOSE METER 177 mg/dL 70-110 H : TESTED A T [facility] 6720 (BEAKER) (test code = [facility], 1538) [address]: Welt Cutter/Techni stan ID = [id number] for Sm ith, Jayda POCT-GLUCOSE [id number] 11:40:00 Test Item Value Reference Range Interpretation Comments POC-GLUCOSE METER 167 mg/dL 70-110 H : TESTED A T [facility] 6720 (BEAKER) (test code = [facility], [facility]8) [address]: Welt Cutter/Techni stan ID = [id number] for Sm ith, Jayda POCT-GLUCOSE [id number] 09:31:00 Test Item Value Reference Range Interpretation Comments POC-GLUCOSE METER 145 mg/dL 70-110 H : TESTED A T [facility] 6720 (BEAKER) (test code = [facility], 1538) [address]: Welt Cutter/Techni stan ID = [id number] for Sm ith, Jayda POCT-GLUCOSE [id number] 21:47:00 Test Item Value Reference Range Interpretation Comments POC-GLUCOSE METER 236 mg/dL 70-110 H : TESTED A T [facility] 6720 (BEAKER) (test code = [facility], 1538) [address]: Welt Cutter/Techni stan ID = [id number] for LO PEZ, NADINA POCT-GLUCOSE [id number] 17:44:00 Test Item Value Reference Range Interpretation Comments POC-GLUCOSE METER 213 mg/dL 70-110 H : TESTED A T [facility] 6720 (BEAKER) (test code = [facility], [facility]) [address]: Welt Cutter/Techni stan ID = [id number] for NW AJIAKU, JEFFREY RAD, CHEST, 1 VIEW, NON [id number] 14:05:00Reason for exam:- >PreoperativeShould this be performed at the bedside?->YesFINAL REPORT INDICATION: Preoperative COMPARISON: None TECHNIQUE: Single frontal view of the chest. FINDINGS: Lungs and pleura: Clear lungs. No effusion.Heart and mediastinum: Normal heart size. Unremarkable mediastinal contours.Osseous structures: No acute abnormality.Other: None. IMPRESSION: No acute intrathoracic abnormality. Signed: Chelo Riggins Verified Date/Time: 12/22/2019 14:05:17 Reading Location: [facility] Radiology Reading Room POCT-GLUCOSE [id number] 13:19:00 Test Item Value Reference Range Interpretation Comments POC-GLUCOSE METER 251 mg/dL 70-110 H : TESTED A T [facility] 6720 ([facility]) (test code = [place], 1538) [address]: Welt Cutter/Techni stan ID = [id number] for JEFFREY SANTO PROTHROMBIN [id number] 13:12:00 Test Item Value Reference Range Interpretation Comments PROTIME (BEAKER) (test code = 13.4 seconds 11.9-14.2 759) INR (BEAKER) (test code = 370) 1.1 <=5.9 Effective 2018: PT Reference Range ChangeNew: 11.9-14.2 Previous: 11.7- 14.7RECOMMENDED COUMADIN/WARFARIN INR THERAPY RANGESSTANDARD DOSE: 2.0-3.0 Includes: PROPHYLAXIS for venous thrombosis, systemic embolization; TREATMENT for venous thrombosis and/or pulmonary embolus.HIGH RISK: Target INR is2.5-3.5 for patients wiht mechanical heart valves.[id number] 13:12:00 Test Item Value Reference Range Interpretation Comments PARTIAL THROMBOPLASTIN TIME 28.5 seconds 22.5-36.0 (BEAKER) (test code = 760) SARS-COV2/RT-PCR ([facility])2019-12-22 11:26:00 Test Item Value Reference Range Interpretation Comments SARS-COV2/RT-PCR (test Not Detected Not Detected, Negative code = 0930692) SARS-COV-2 PERFORMING LAB [facility] (test code = 3963388) Negative results do not preclude SARS-CoV-2 infection and should not be used as the sole basis for patient management decisions. Negative results must be combined with clinical observations, patient history, and epidemiological information. A false negative result may occur if a specimen is improperly collected, transported or handled.The limit of detection for this assay is 250 copies/mL.This SARS CoV-2 test is a rapid, real-time RT-PCR test intended for the qualitative detection of nucleic acid from SARS-CoV-2 in a nasopharyngeal swab specimen collected from individuals suspected of COVID-19 by their healthcare provider.This test has not been Food and Drug [...] is revoked under Section 564(g) of the Act.Fact Sheet for Healthcare Pro viders:https://www.Digital Guardian/Documents/Xpert%20Xpress%20SARS%20CoV-2/Fact%20Sh eets/302-3802%37KICC-CKE-5%20HEALTHCARE%20PROVIDERS%20FACT%20SHEET.pdfFact Sheet for Healthcare Patients:https://www.Cap That/Documents/Xpert%20Xpress%20SARS%20CoV-2/Fact%20Sheets/302-3801%20SARS-COV -2%20PATIENT%20FACT%20SHEET.pdfPerforming Laboratory:[place] [address], [place] [address]EFVW-QZAAEML [id number] 08:16:00 Test Item Value Reference Range Interpretation Comments POC-GLUCOSE METER 182 mg/dL 70-110 H : TESTED A T [facility] 67 (DEL[facility]) (test code = F[facility]BY [facility] [facility], 153) [address]: Welt Cutter/Techni stan ID = [id number] for CHRISTOPHER VALENTINO POCT-GLUCOSE [id number] 21:18:00 Test Item Value Reference Range Interpretation Comments POC-GLUCOSE METER 229 mg/dL 70-110 H : Notified RN/MD: ([facility]) (test code = TESTED AT [facility] 67[address] 1538) [facility], [address]: Welt Cutter/Techni stan ID = [id number] for DO MALCOM ISBELL POCT-GLUCOSE [id number] 17:37:00 Test Item Value Reference Range Interpretation Comments POC-GLUCOSE METER 211 mg/dL 70-110 H : TESTED A T [facility] 6720 ([facility]) (test code = [facility]BY [facility] [facility], 1538) [address]: Welt Cutter/Techni stan ID = [id number] for RO DGCHRISTOPHER SCHWARZ CT, CAROTID, [id number] 15:31:00FINAL REPORT CLINICAL HISTORY: Arteriovenous fistula, acquired TECHNIQUE: Initially, noncontrast head CT images were performed. Contiguous contrast-enhanced axial images through the neck followed by axial images through the head with coronal and sagittal reformations to assess the arterial circulation. 3-D reconstructions were performed using a volume rendered technique separately on a workstation. This exam was performed according to the departmental dose optimization program which includes automated exposure control, adjustment of the mA and/or kV according to the patient size, and/or use of an iterative reconstruction technique. Stenosis evaluation reported in compliancewith NASCET criteria. COMPARISON: MRI and MRA 12/20/2019 FINDINGS: CTA head:Evolving acute infarct inthe right posterior limb internal capsule. No acute intracranial hemorrhage. Scattered foci of hypoattenuation within the periventricular and subcortical white matter are a nonspecific finding commonlyattributed to chronic small vessel ischemic disease. There is no hydrocephalus or midline shift. The skull is intact. There is no evidence of intracranial aneurysm. No major branch vessel occlusion orhigh-grade focal stenosis. Atherosclerosis of the bilateral cavernous and paraclinoid ICA's. Numerous serpentine vessels encircling the cervicomedullary junction without definite nidus, suggestive of arteriovenous fistula. The major intradural venous sinuses are patent. CTA neck:Great vessel origins:No occlusion or high-grade stenosis. Carotid arteries: No occlusion or high-grade stenosis. Vertebral arteries: No occlusion or high-grade stenosis. No fracture or suspicious osseous lesion. Cervical soft tissues are unremarkable. Visualized lung apices are clear. IMPRESSION:Numerous enlarged serpentine vessels encircling the cervicomedullary junction, more extensive than previously demonstrated on MRA, without definite nidus, again suggestive of AV fistula. Signed: Shannan Garg Verified Date/Time: 12/21/2019 15:31:23 CT, CTANGIO [id number] 15:31:00FINAL REPORT CLINICAL HISTORY: Arteriovenous fistula, acquired TECHNIQUE: Initially, noncontrast head CT images were performed. Contiguous contrast-enhanced axial images through the neck followed by axial images through the head with coronal and sagittal reformations to assess the arterial circulation. 3-D reconstructions were performed using a volume rendered technique separately on a workstation. This exam was performed according to the departmental dose optimization program which includes automated exposure control, adjustment of the mA and/or kV according to the patient size, and/or use of an iterative reconstruction technique. Stenosis evaluation reported in compliancewith NASCET criteria. COMPARISON: MRI and MRA 12/20/2019 FINDINGS: CTA head:Evolving acute infarct inthe right posterior limb internal capsule. No acute intracranial hemorrhage. Scattered foci of hypoattenuation within the periventricular and subcortical white matter are a nonspecific finding commonlyattributed to chronic small vessel ischemic disease. There is no hydrocephalus or midline shift. The skull is intact. There is no evidence of intracranial aneurysm. No major branch vessel occlusion orhigh-grade focal stenosis. Atherosclerosis of the bilateral cavernous and paraclinoid ICA's. Numerous serpentine vessels encircling the cervicomedullary junction without definite nidus, suggestive of arteriovenous fistula. The major intradural venous sinuses are patent. CTA neck:Great vessel origins:No occlusion or high-grade stenosis. Carotid arteries: No occlusion or high-grade stenosis. Vertebral arteries: No occlusion or high-grade stenosis. No fracture or suspicious osseous lesion. Cervical soft tissues are unremarkable. Visualized lung apices are clear. IMPRESSION:Numerous enlarged serpentine vessels encircling the cervicomedullary junction, more extensive than previously demonstrated on MRA, without definite nidus, again suggestive of AV fistula. Signed: Shannan Garg Verified Date/Time: 12/21/2019 15:31:23 POCT-GLUCOSE [id number] 14:47:00 Test Item Value Reference Range Interpretation Comments POC-GLUCOSE METER 202 mg/dL 70-110 H : [facility] ([facility]) (test code = [facility], 153) [address]: Welt Cutter/Techni stan ID = [id number] for CHRISTOPHER VALENTINO POCT-GLUCOSE [id number] 21:03:00 Test Item Value Reference Range Interpretation Comments POC-GLUCOSE METER 289 mg/dL 70-110 H : Notified RN/MD: ([facility]) (test code = [facility] 1538[facility], [address]: Welt Cutter/Techni stan ID = [id number] for MALCOM HAMPTON POCT-GLUCOSE [id number] 18:13:00 Test Item Value Reference Range Interpretation Comments POC-GLUCOSE METER 214 mg/dL 70-110 H : [facility] ([facility]) (test code = [facility], 1538) [address]: Welt Cutter/Techni stan ID = [id number] for FIDEL CARRANZA POCT-GLUCOSE [id number] 11:33:00 Test Item Value Reference Range Interpretation Comments POC-GLUCOSE METER 247 mg/dL 70-110 H : Notified RN/MD: ([facility]) (test code = TESTED AT [facility] 6720 1538) [facility], [address]: Welt Cutter/Techni stan ID = [id number] for St lailabelindaMarilu wynneria MR, MRA, BRAIN, WITHOUT [id number] 04:05:00Reason for exam:->Ischemic Stroke EvaluationFINAL REPORT MRI Brain without contrast Clinical History: Ischemic Stroke AVMOR AVF Technique: MRI of the brain utilizing axial T2, FLAIR, GRE, DWI; sagittal and coronal T1-weighted images. MRA of the head utilizing 3-D jzov-ma-vyqite technique, with 3-D reconstructions. MRA ofthe neck utilizing 2-D and 3-D edkh-jk-xnmljv technique, with 3-D reconstructions. Comparisons: None Findings:MRI brainRestricted diffusion of the right internal capsule consistent with acute infarction. Sequela of prior parenchymal hematoma in the right posterior putamen. Multiple bilateral T2 and FLAIR hyperintense white matter foci likely represent chronic white matter microvascular disease. Pontine gliosis. There is no hydrocephalus or midline shift. There are no extra-axial fluid collections. The craniocervical junction is preserved. The major intracranial flow-voids appear patent. MRA head:There is no evidence of intracranial aneurysm, focal stenosis, or major branch vessel occlusion. Multiple prominent abnormal vessels at the cervical medullary junction adjacent to the sigmoid sinus and along the pial surface of the medulla which demonstrate arterialized flow on MRA is concerning for arteriovenous fistula. Expected T2 flow voids are seen within the dural venous sinuses. No aneurysmal dilatation of the involved vessels. MRA neck: The carotid arteries in the neck are patent includingtheir bifurcations. There is antegrade flow in the vertebral arteries in the neck. IMPRESSION:MRIbrain: Acute infarction in the right internal capsule. 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 MRA head: No evidence for a major nulato of Vitale proximal branch vessel occlusion. Multiple prominent vessels at the cervical medullary junction adjacent to the sigmoid sinus and along the pial surface of the medulla concerning for arteriovenous fistula. No associated signal abnormality in the adjacent parenchyma. Expected T2 flow voids are seen within the dural venous sinuses. No aneurysmal dilatation of the involved vessels. Recommend further evaluation with dedicated catheter angiography. MRA neck: No evidence of hemodynamically significant stenosis in the cervical carotid or vertebral arteries by NASCET criteria. Signed: Roxanna Diggs [facility] Verified Date/Time: 12/20/2019 04:05:18 MR, MRA, NECK, WITHOUT IV [id number] 04:05:00Reason for exam:->Ischemic Stroke EvaluationFINAL REPORT MRI Brain without contrast Clinical History: Ischemic Stroke AVMOR AVF Technique: MRI of the brain utilizing axial T2, FLAIR, GRE, DWI; sagittal and coronal T1-weighted images. MRA of the head utilizing 3-D qyal-lz-wbfzfa technique, with 3-D reconstructions. MRA ofthe neck utilizing 2-D and 3-D pvbs-uw-chdkal technique, with 3-D reconstructions. Comparisons: None Findings:MRI brainRestricted diffusion of the right internal capsule consistent with acute infarction. Sequela of prior parenchymal hematoma in the right posterior putamen. Multiple bilateral T2 and FLAIR hyperintense white matter foci likely represent chronic white matter microvascular disease. Pontine gliosis. There is no hydrocephalus or midline shift. There are no extra-axial fluid collections. The craniocervical junction is preserved. The major intracranial flow-voids appear patent. MRA head:There is no evidence of intracranial aneurysm, focal stenosis, or major branch vessel occlusion. Mu ltiple prominent abnormal vessels at the cervical medullary junction adjacent to the sigmoid sinus and along the pial surface of the medulla which demonstrate arterialized flow on MRA is concerning forarteriovenous fistula. Expected T2 flow voids are seen within the dural venous sinuses. No aneurysmal dilatation of the involved vessels. MRA neck: The carotid arteries in the neck are patent includingtheir bifurcations. There is antegrade flow in the vertebral arteries in the neck. IMPRESSION:MRIbrain: Acute infarction in the right internal capsule. 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 MRA head: No evidence for a major nulato of Vitale proximal branch vessel occlusion. Multiple prominent vessels at the cervical medullary junction adjacent to the sigmoid sinus and along the pial surface of the medulla concerning for arteriovenous fistula. No associated signal abnormality in the adjacent parenchyma. Expected T2 flow voids are seen within the dural venous sinuses. No aneurysmal dilatation of the involved vessels. Recommend further evaluation with dedicated catheter angiography. MRA neck: No evidence of hemodynamically significant stenosis in the cervical carotid or vertebral arteries by NASCET criteria. Signed: [facility]ox[facility] Diggs [facility] Verified Date/Time: 12/20/2019 04:05:18 MR, BRAIN, WITHOUT [id number] 04:05:00FINAL REPORT MRI Brain without contrast Clinical History: Ischemic Stroke AVMOR AVF Technique: MRI of the brain utilizing axial T2, FLAIR, GRE, DWI; sagittal and coronal T1-weighted images. MRA of the head utilizing 3-D iidz-fb-jnhtln technique, with 3-D reconstructions. MRA ofthe neck utilizing 2-D and 3-D pbmi-jn-nivvbz technique, with 3-D reconstructions. Comparisons: None Findings:MRI brainRestricted diffusion of the right internal capsule consistent with acute infarction. Sequela of prior parenchymal hematoma in the right posterior putamen. Multiple bilateral T2 and FLAIR hyperintense white matter foci likely represent chronic white matter microvascular disease. Pontine gliosis. There is no hydrocephalus or midline shift. There are no extra-axial fluid collections. The craniocervical junction is preserved. The major intracranial flow-voids appear patent. MRA head:There is no evidence of intracranial aneurysm, focal stenosis, or major branch vessel occlusion. Multiple prominent abnormal vessels at the cervical medullary junction adjacent to the sigmoid sinus and along the pial surface of the medulla which demonstrate arterialized flow on MRA is concerning for arteriovenous fistula. Expected T2 flow voids are seen within the dural venous sinuses. No aneurysmal dilatation of the involved vessels. MRA neck: The carotid arteries in the neck are patent includingtheir bifurcations. There is antegrade flow in the vertebral arteries in the neck. IMPRESSION:MRIbrain: Acute infarction in the right internal capsule. 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 MRA head: No evidence for a major nulato of Vitale proximal branch vessel occlusion. Multiple prominent vessels at the cervical medullary junction adjacent to the sigmoid sinus and along the pial surface of the medulla concerning for arteriovenous fistula. No associated signal abnormality in the adjacent parenchyma. Expected T2 flow voids are seen within the dural venous sinuses. No aneurysmal dilatation of the involved vessels. Recommend further evaluation with dedicated catheter angiography. MRA neck: No evidence of hemodynamically significant stenosis in the cervical carotid or vertebral arteries by NASCET criteria. Signed: [facility] Verified Date/Time: 12/20/2019 04:05:18 BASIC METABOLIC [id number] 03:44:00 Test Item Value Reference Range Interpretation Comments SODIUM (BEAKER) 141 meq/L 136-145 (test code = 381) POTASSIUM (BEAKER) 4.0 meq/L 3.5-5.1 (test code = 379) CHLORIDE (BEAKER) 106 meq/L 98-107 (test code = 382) CO2 (BEAKER) (test 26 meq/L 22-29 code = 355) BLOOD UREA NITROGEN 7 mg/dL 7-21 (BEAKER) (test code = 354) CREATININE (BEAKER) 0.92 mg/dL 0.57-1.25 (test code = 358) GLUCOSE RANDOM 193 mg/dL 70-105 H (BEAKER) (test code = 652) CALCIUM (BEAKER) 8.9 mg/dL 8.4-10.2 (test code = 697) EGFR (BEAKER) (test 97 mL/min/1.73 ESTIMA REGINALD GFR IS code = 1092) sq m NOT ACCURATE CREATININE CLEARANCE IN PREDICTING GLOMERULAR FILTRATION RATE . ESTIMATED GFR I S NOT APPLICABLE FOR DIALYSIS PATIEN TS. Welt Cutter ID - REJI MCBC W/PLT COUNT & AUTO [id number] 03:22:00 Test Item Value Reference Range Interpretation Comments WHITE BLOOD CELL COUNT (BEAKER) 6.3 K/ L 3.5-10.5 (test code = 775) RED BLOOD CELL COUNT (BEAKER) 5.57 M/ L 4.63-6.08 (test code = 761) HEMOGLOBIN (BEAKER) (test code = 12.1 GM/DL 13.7-17.5 L 410) HEMATOCRIT (BEAKER) (test code = 40.4 % 40.1-51.0 411) MEAN CORPUSCULAR VOLUME (BEAKER) 72.5 fL 79.0-92.2 L (test code = 753) MEAN CORPUSCULAR HEMOGLOBIN 21.7 pg 25.7-32.2 L (BEAKER) (test code = 751) MEAN CORPUSCULAR HEMOGLOBIN CONC 30.0 GM/DL 32.3-36.5 L (BEAKER) (test code = 752) RED CELL DISTRIBUTION WIDTH 16.0 % 11.6-14.4 H (BEAKER) (test code = 412) PLATELET COUNT (BEAKER) (test 248 K/CU MM 150-450 code = 756) MEAN PLATELET VOLUME (BEAKER) 9.4 fL 9.4-12.4 (test code = 754) NUCLEATED RED BLOOD CELLS 0 /100 WBC 0-0 (BEAKER) (test code = 413) NEUTROPHILS RELATIVE PERCENT 55 % (BEAKER) (test code = 429) LYMPHOCYTES RELATIVE PERCENT 35 % (BEAKER) (test code = 430) MONOCYTES RELATIVE PERCENT 7 % (BEAKER) (test code = 431) EOSINOPHILS RELATIVE PERCENT 2 % (BEAKER) (test code = 432) BASOPHILS RELATIVE PERCENT 1 % (BEAKER) (test code = 437) NEUTROPHILS ABSOLUTE COUNT 3.51 K/ L 1.78-5.38 (BEAKER) (test code = 670) LYMPHOCYTES ABSOLUTE COUNT 2.23 K/ L 1.32-3.57 (BEAKER) (test code = 414) MONOCYTES ABSOLUTE COUNT (BEAKER) 0.44 K/ L 0.30-0.82 (test code = 415) EOSINOPHILS ABSOLUTE COUNT 0.10 K/ L 0.04-0.54 (BEAKER) (test code = 416) BASOPHILS ABSOLUTE COUNT (BEAKER) 0.03 K/ L 0.01-0.08 (test code = 417) IMMATURE GRANULOCYTES-RELATIVE 0 % 0-1 PERCENT (BEAKER) (test code = 2801) [id number] 14:06:00 Test Item Value Reference Range Interpretation Comments POTASSIUM (BEAKER) (test code = 4.0 meq/L 3.5-5.1 379) Welt Cutter ID Jamin ARAMBULA [id number] 14:06:00 Test Item Value Reference Range Interpretation Comments MAGNESIUM (BEAKER) (test code = 2.0 mg/dL 1.6-2.6 627) Welt Cutter ZE ARAMBULA FVITAMIN [id number] 11:43:00 Test Item Value Reference Range Interpretation Comments VITAMIN B12 (BEAKER) (test code = 389 pg/mL 213-816 774) Welt Cutter ID Jamin ARAMBULA FTSH/FREE T4 IF [id number] 11:43:00 Test Item Value Reference Range Interpretation Comments THYROID STIMULATING HORMONE 0.656 uIU/mL 0.350-4.940 (BEAKER) (test code = 772) Welt Cutter ZE ARAMBULA FHEMOGLOBIN [id number] 10:02:00 Test Item Value Reference Range Interpretation Comments HEMOGLOBIN A1C (BEAKER) (test code = 11.6 % 4.3-6.1 H 368) TROPONIN [id number] 08:13:00 Test Item Value Reference Range Interpretation Comments TROPONIN I (BEAKER) (test code = 397) < ng/mL 0.00-0.03 Troponin I (TnI) levels must be interpreted in the context of the presenting symptoms and the clinical findings. Elevated TnI levels indicate myocardial damage, but are not specific for ischemic heart disease. Elevated TnI levels are seen in patients with other cardiac conditions (including myocarditis and congestive heart failure), and slight TnI elevations occur in patients with other conditions, including sepsis, renal failure, acidosis, acute neurological disease, and persistent tachyarrhythmia.Welt Cutter ID Jamin ARAMBULA FMAGNESIUM 2019-12-19 08:05:00 Test Item Value Reference Range Interpretation Comments MAGNESIUM (BEAKER) (test code = 1.6 mg/dL 1.6-2.6 627) Welt Cutter ID - RALF [id number] 08:05:00 Test Item Value Reference Range Interpretation Comments PHOSPHORUS (BEAKER) (test code = 3.6 mg/dL 2.3-4.7 604) Welt Cutter ID - RALF FLIPID [id number] 06:58:00 Test Item Value Reference Range Interpretation Comments TRIGLYCERIDES (BEAKER) (test code = 91 mg/dL 540) CHOLESTEROL (BEAKER) (test code = 151 mg/dL 631) HDL CHOLESTEROL (BEAKER) (test code 47 mg/dL = 976) LDL CHOLESTEROL CALCULATED (BEAKER) 86 mg/dL (test code = 633) Triglyceride Reference Range: Low Risk <150 Borderline 150-199 High Risk 200-499 Very High Risk >=500Cholesterol Reference Range: Low Risk <200 Borderline 200-239 High Risk >240HDL Cholesterol Reference Range: Low Risk >=60 High Risk <40LDL Cholesterol Reference Range: Optimal <100 Near Optimal 100-129 Borderline 130-159 High 160-189 Very High >=190 Welt Cutter ID - JACKILBASIC METABOLIC [id number] 06:58:00 Test Item Value Reference Range Interpretation Comments SODIUM (BEAKER) 140 meq/L 136-145 (test code = 381) POTASSIUM (BEAKER) 3.9 meq/L 3.5-5.1 (test code = 379) CHLORIDE (BEAKER) 106 meq/L 98-107 (test code = 382) CO2 (BEAKER) (test 27 meq/L 22-29 code = 355) BLOOD UREA NITROGEN 10 mg/dL 7-21 (BEAKER) (test code = 354) CREATININE (BEAKER) 1.01 mg/dL 0.57-1.25 (test code = 358) GLUCOSE RANDOM 212 mg/dL 70-105 H (BEAKER) (test code = 652) CALCIUM (BEAKER) 9.2 mg/dL 8.4-10.2 (test code = 697) EGFR (BEAKER) (test 88 mL/min/1.73 ESTIMA REGINALD GFR IS code = 1092) sq m NOT ACCURATE CREATININE CLEARANCE IN PREDICTING GLOMERULAR FILTRATION RATE . ESTIMATED GFR I S NOT APPLICABLE FOR DIALYSIS PATIEN TS. Welt Cutter ID - PIAYA LCBC W/PLT COUNT & AUTO [id number] 06:32:00 Test Item Value Reference Range Interpretation Comments WHITE BLOOD CELL COUNT (BEAKER) 9.6 K/ L 3.5-10.5 (test code = 775) RED BLOOD CELL COUNT (BEAKER) 5.47 M/ L 4.63-6.08 (test code = 761) HEMOGLOBIN (BEAKER) (test code = 12.6 GM/DL 13.7-17.5 L 410) HEMATOCRIT (BEAKER) (test code = 40.5 % 40.1-51.0 411) MEAN CORPUSCULAR VOLUME (BEAKER) 74.0 fL 79.0-92.2 L (test code = 753) MEAN CORPUSCULAR HEMOGLOBIN 23.0 pg 25.7-32.2 L (BEAKER) (test code = 751) MEAN CORPUSCULAR HEMOGLOBIN CONC 31.1 GM/DL 32.3-36.5 L (BEAKER) (test code = 752) RED CELL DISTRIBUTION WIDTH 16.3 % 11.6-14.4 H (BEAKER) (test code = 412) PLATELET COUNT (BEAKER) (test 228 K/CU MM 150-450 code = 756) MEAN PLATELET VOLUME (BEAKER) 9.4 fL 9.4-12.4 (test code = 754) NUCLEATED RED BLOOD CELLS 0 /100 WBC 0-0 (BEAKER) (test code = 413) NEUTROPHILS RELATIVE PERCENT 68 % (BEAKER) (test code = 429) LYMPHOCYTES RELATIVE PERCENT 25 % (BEAKER) (test code = 430) MONOCYTES RELATIVE PERCENT 5 % (BEAKER) (test code = 431) EOSINOPHILS RELATIVE PERCENT 1 % (BEAKER) (test code = 432) BASOPHILS RELATIVE PERCENT 1 % (BEAKER) (test code = 437) NEUTROPHILS ABSOLUTE COUNT 6.57 K/ L 1.78-5.38 H (BEAKER) (test code = 670) LYMPHOCYTES ABSOLUTE COUNT 2.43 K/ L 1.32-3.57 (BEAKER) (test code = 414) MONOCYTES ABSOLUTE COUNT (BEAKER) 0.47 K/ L 0.30-0.82 (test code = 415) EOSINOPHILS ABSOLUTE COUNT 0.08 K/ L 0.04-0.54 (BEAKER) (test code = 416) BASOPHILS ABSOLUTE COUNT (BEAKER) 0.05 K/ L 0.01-0.08 (test code = 417) IMMATURE GRANULOCYTES-RELATIVE 0 % 0-1 PERCENT (BEAKER) (test code = 2801)
[2019-12-26] MEDS ORDERED: DIPHENHYDRAMINE 25 MG TAB/CAP PO PRN (19:32)
[2019-12-26] MEDS ORDERED: GLUCAGON 1 MG/VIAL IM PRN (19:45)
[2019-12-26] MEDS ORDERED: D50W 25 GM/50 ML SYRINGE/VIAL IV PRN (19:45)
[2019-12-26] MEDS: APIXABAN 5 MG TABLET PO SCH (20:00)
[2019-12-26 20:05] LABS: Urine Appearance CLOUDY; Urine Bilirubin NEGATIVE (NEG); Urine Blood NEGATIVE (NEG); Urine Color YELLOW; Urine Glucose NEGATIVE (NEG); Urine Protein TRACE (NEG); Urine Urobilinogen 0.2 mg/dL (0.2-1.0); Urine pH 5.5 (5.0-7.0)
[2019-12-26 20:29] LABS: Urine Bacteria LOADED /HPF (NONE SEEN); Urine Culture Reflex Order REFLEXED; Urine RBC <5 /HPF (NONE SEEN)
[2019-12-26] MEDS: MONTELUKAST 10 MG TAB PO SCH (20:34)
[2019-12-26] MEDS: DOCUSATE NA/SENNA CONC 1 TAB PO SCH (20:34)
[2019-12-26] MEDS: INSULIN -REGULAR HUMAN 50 UNIT/0.5 ML ML SQ SCH (20:35)
[2019-12-26] MEDS: ATORVASTATIN 20 MG TAB PO SCH (20:35)
[2019-12-26] MEDS ORDERED: MONTELUKAST 10 MG TAB PO SCH (21:00)
[2019-12-27 06:48] LABS: Prealbumin 19.7 mg/dL (20-40)
[2019-12-27 06:56] LABS: Albumin 2.8 g/dL (3.4-5.0); BUN Blood Urea Nitrogen 12 mg/dL (7-18); Bicarbonate 27 mmol/L (21-32); Glucose Level 141 mg/dL (74-106); Magnesium 2.1 mg/dL (1.8-2.4); Sodium Level 140 mmol/L (136-145)
[2019-12-27 07:01] LABS: Basophils % 0.6 % (0-1.3); Hematocrit 38.3 % (39.6-49.0); Lymphocytes % 34.8 % (15.3-44.8); MPV 8.2 fL (7.6-11.3); RBC Red Blood Cell Count 5.35 M/uL (4.33-5.43)
[2019-12-27] MEDS: INSULIN -REGULAR HUMAN 50 UNIT/0.5 ML ML SQ SCH ×4 (07:30→20:02)
[2019-12-27] MEDS: METOPROLOL TAR 25 MG TAB PO SCH ×3 (08:00→20:00)
[2019-12-27] MEDS ORDERED: ASPIRIN EC 81 MG TAB PO SCH (08:00)
[2019-12-27] MEDS: FLUOXETINE 20 MG CAP PO SCH (08:10)
[2019-12-27] MEDS: APIXABAN 5 MG TABLET PO SCH ×2 (08:10→20:01)
[2019-12-27] MEDS: DOCUSATE NA/SENNA CONC 1 TAB PO SCH ×2 (08:10→20:00)
[2019-12-27] MEDS: METFORMIN ER 500 MG TAB PO SCH ×2 (08:13→17:21)
[2019-12-27] MEDS: LOSARTAN POTASSIUM 50 MG TABLET PO SCH (10:19)
[2019-12-27] MEDS ORDERED: D50W 25 GM/50 ML SYRINGE/VIAL IV PRN ×2 (14:50→14:51)
[2019-12-27] MEDS ORDERED: GLUCAGON 1 MG/VIAL IM PRN ×2 (14:50→14:51)
--- NOTE | 2019-12-27 15:22 | RAD REPORT ---
EXAM DESCRIPTION: RAD - Barium Swallow Modified - 12/27/2019 3:18 pm CLINICAL HISTORY: dysphagia COMPARISON: None. TECHNIQUE: The patient was given liquid, semi-solid and solid forms of barium. Lateral view fluorosc opic imaging was performed in conjunction with speech pathology service. FINDINGS: Cineloop acquisitions: 11 Fluoro time: 2 minutes 22 seconds laryngeal pentration: cleared thing by straw and with tablet pharyngeal residue: pyriform trace-min with honey , pudding other : prolonged mastication IMPRESSION: Modified barium swallow as summarized above and fully detailed on speech pathology repor autumn
[2019-12-27] MEDS: INSULIN LISPRO 100 UNIT/1 ML SQ SCH (17:20)
--- NOTE | 2019-12-27 17:28 | R.HP ---
FACILITY: [facility] ENCOUNTER DATE AND TIME: 12/27/2019 17:21 (CDT) MR#: [id number] NAME JOHNSON VAZQUEZ ADDRESS: [address] [place] [address] CITY: [place] [address]IP [address] PHONE: DATE OF : 1945 AGE: 73 SSN# [id number] GENDER: Male DEXTERITY Right-handed MARITAL STATUS RACE Black PRE-HOSPITAL LIVING SETTING 01 - Home (private home/apt. board/care, assisted living, chcf, transitional living) PRE-HOSPITAL LIVING WITH Family/Relatives ENCOUNTER PHYSICIAN: Dr. Reyes Womack M.D. REFERRING DOCTOR: Dr Angle Gandhi DATE OF ADMISSION: 12/26/2019 18:56 (CDT) REFERRING FACILITY [facility] HOME TYPE AND DETAILS: Type of home: single family house # of steps to enter the residence: 0 # of levels in the residence: 1 # of steps within the residence: 0 ONSET DATE: 12/19/2019 PRIMARY DIAGNOSIS-RELATED SURGERIES: No surgeries related to the primary diagnosis were performed. HISTORY OF PRESENT ILLNESS (HPI): Pt. is a 73 yo Right-handed black male. On 12/19/2019 Pt. presented to [facility] with sudden onset of left-side weakness. 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 His impairment category is Stroke 01 - Left Body (Right Brain) (01.1). Pre-morbidly, Pt. was independent/mod-I in Transfers Control, Locomotion, and Self-Care; and he had g ood Balance, Safety Awareness, Social Cognition, and Sphincter Control. Currently, he has deficits of Transfers Control, Balance, Safety Awareness, Locomotion, Self-Care, an d Social Cognition. Pt. is now referred to [facility] for acute in-patient rehabilitation in order to maximize patient's functional independence in activities of daily living, strength, ROM, and mobi lity. Patient has realistic goal of being discharged at assistance level 6-Graeme to reside at Home with Fam daphnie/Relatives. MEDICATION ALLERGIES: No Known Drug Allergies (NKDA) ENVIRONMENTAL ALLERGIES: None Known - Substance Allergies None Known - Other Allergies None Known PAST MEDICAL HISTORY: HTN ASTHMA Diabetes AFIB FAMILY HISTORY: Family history is not contributory. SOCIAL HISTORY: - Home Living Family/Relatives REVIEW OF SYSTEMS: - Gen No Chills Fatigue No Fever - Eyes No Double Vision No itchiness - ENMT No Difficulty Swallowing - CVS No Chest Discomfort No Chest Pain Fatigue No Weight Gain - Resp No Cough No Shortness of Breath - GI Continent No Abdominal Pain No Constipation No Diarrhea - Continent No Kidney Pain No Painful Urination No Urinary Urgency - MSK Joint Pain Muscle Cramps No Stiffness - Skin No Itching No Rash No Suspicious Lesions - Neuro Coordination Difficulty Difficulty with Concentration Memory Loss No Seizures Weakness - Psych No Anxiety No Depression No HIV Exposure No Persistent Infections No Seasonal Allergies - Endo No Cold/Heat Intolerance No Excessive Hunger No Excessive Thirst No Excessive Urination PHYSICAL EXAM - Gen Alert and awake Lying in bed No apparent distress Oriented to: person, time, and place - Skin No skin breakdown. Normacephalic - Eyes No abnormalities - ENMT No abnormalities - Neck No abnormalities - CVS RRR - Chest No abnormalities - Abd + bowel sounds - GI Soft Deferred - No abnormalities - Ext No significant edema - MSK 1/5 weakness in left upper and 3/5 weakness in left lower extremity. - Neuro 1/5 weakness in left upper and 3/5 weakness in left lower extremity. - Psych No abnormalities VITAL SIGNS Temperature: 98.4 F SBP/DBP: 129/66 Pulse: 65 Resp: 16 NURSING: - Shower allowing shower - Bladder care per protocol - Skin care per protocol PRECAUTIONS: - Weight Bearing Precaution WBAT left LE ACTIVITIES OOB only with supervision QI SCORES: - Self-Care A. Eating 05-Setup or clean-up assistance B. Oral hygiene 04-Supervision or touching assistance C. Toileting hygiene 03-Partial/moderate assistance E. Shower/bathe self 10-Not attempted due to environmental limitations F. Upper body dressing 03-Partial/moderate assistance G. Lower body dressing 01-Dependent H. Putting on/taking off footwear 01-Dependent - Mobility A. Roll left and right 02-Substantial/maximal assistance B. Sit to lying 02-Substantial/maximal assistance C. Lying to sitting on side of bed 02-Substantial/maximal assistance D. Sit to stand 02-Substantial/maximal assistance E. Chair/was-zl-bdsvw transfer 02-Substantial/maximal assistance F. Toilet transfer 02-Substantial/maximal assistance G. Car transfer 88-Not attempted due to medical condition or safety concerns I. Walk 10 feet 88-Not attempted due to medical condition or safety concerns J. Walk 50 feet with two turns 88-Not attempted due to medical condition or safety concerns K. Walk 150 feet 88-Not attempted due to medical condition or safety concerns L. Walking 10 feet on uneven surfaces 88-Not attempted due to medical condition or safety concerns M. 1 step (curb) 88-Not attempted due to medical condition or safety concerns N. 4 steps 88-Not attempted due to medical condition or safety concerns O. 12 steps 88-Not attempted due to medical condition or safety concerns P. Picking up object 88-Not attempted due to medical condition or safety concerns R. Wheel 50 feet with two turns S. Wheel 150 feet - Bladder and Bowel Bladder continence 0-Always continent Bowel continence 0-Always continent - Endurance Poor - Balance Poor - Safety Awareness Poor CURRENT FUNC. DEFICITS: Self-Care, Mobility, Endurance, Balance, and Safety Awareness MEDICATIONS: - Other See attached MAR (Medication Administration Record) ASSESSMENT: Pt. is a 73 yo Right-handed black male.On 12/19/2019 Pt. presented to [facility] with sudden onset of left-side weakness.On 12/19/2019 he was admitted to [facility] with diagnosis Rest ricted Diffusioon of the right internal capsule consistant w/acute infarct.His impairment category is Stroke 01 - Left Body (Right Brain) (01.1).Pre-morbidly, Pt. was independent/mod-I in Transfers Con trol, Locomotion, and Self-Care; and he had good Balance, Safety Awareness, Social Cognition, and Sph incter Control.Currently, he has deficits of Transfers Control, Balance, Safety Awareness, Locomotion , Self-Care, and Social Cognition.Pt. is now referred to [facility] for acute in-patient rehabilitation in order to maximize patient's functional independence in activities of yasmin ly living, strength, ROM, and mobility.- Rehab Goal Patient has realistic goal of being discharged at assistance level 6-Graeme to reside at Home with Fam daphnie/Relatives. REHAB PLAN: for Dementia, TBI, Stroke, or others - Physical Therapy Gait dysfunction - to improve, our physical therapists will perform initial evaluation of pt's status upon admission and devise an individualized program for Gait Training, and Wheel Chair mobility Inability to transfer - to improve, our physical therapists will perform initial evaluation of pt's s tatus upon admission and devise an individualized program for Bed mobility Need for home safety evaluation - to improve, our physical therapists will perform initial evaluation of pt's status upon admission and devise an individualized program for Home Evaluation Need in caregiver upon discharge - to improve, our physical therapists will perform initial evaluatio n of pt's status upon admission and devise an individualized program for Caregiver Training Edema - to improve, our physical therapists will perform initial evaluation of pt's status upon admi ssion and devise an individualized program for Elevation Training, and Lymphedema Therapy New precaution - to improve, our physical therapists will perform initial evaluation of pt's status u jonna admission and devise an individualized program for Patient precaution education Poor balance - to improve, our physical therapists will perform initial evaluation of pt's status upo n admission and devise an individualized program for Balance Training Weakness - to improve, our physical therapists will perform initial evaluation of pt's status upon ad mission and devise an individualized program for Aquatic Therapy, Neuromuscular Reeducation, and Stre ngthening Achieving independence - to improve, our physical therapists will perform initial evaluation of pt's status upon admission and devise an individualized program for Community Reintegration Activities - Occupational Therapy ADL deficits - to improve, our occupation therapists will perform initial evaluation of pt's status u jonna admission and devise an individualized program for Bathing, Bed mobility, Community Reintegration , Cooking, Dressing, Eating, Fine Motor Skills, Grooming, Homemaking, Kitchen Mobility, Laundry, Marcia ent Education, Safety Awareness, Splinting - Positioning, Transfers(Toilet, Tub, Shower), and Wheel C hair Management Cognitive deficits - to improve, our occupation therapists will perform initial evaluation of pt's st atus upon admission and devise an individualized program for Cognition - orientation Need for healthcare recruiter - to improve, our occupation therapists will perform initial evaluation of pt's s tatus upon admission and devise an individualized program for Caregiver Training Weakness - to improve, our occupation therapists will perform initial evaluation of pt's status upon admission and devise an individualized program for Aquatic Therapy, Balance, Endurance, UE ROM, and U E strengthening MEDICAL PLAN: - Diet Type Start Regular - Diet - Liquid Texture Start Regular - Tube Feed Start N/A - Bladder care per protocol - Weight Bearing Precaution WBAT left LE - Skin care per protocol - Other See attached MAR (Medication Administration Record) - Diet - Solid Texture Regular - Shower shower DISCHARGE PLAN: - Estimated Length of Stay (days) 17. - Consensus on plan Discharge plan has been discussed with primary caregiver. Patient/Family is in agreement with the keon n. Primary caregiver is in agreement with the plan. - Patient/Family Goals Return home with assistance. - Planned Living Setting Upon Discharge Home, to live with Family/Relatives. SIGNATURE PANEL: (CDT)
[2019-12-27] MEDS: MONTELUKAST 10 MG TAB PO SCH (20:00)
[2019-12-27] MEDS: PROMOD 30 ML DOSE PO SCH (20:01)
[2019-12-27] MEDS: ATORVASTATIN 20 MG TAB PO SCH (20:01)
[2019-12-28] MEDS: INSULIN -REGULAR HUMAN 50 UNIT/0.5 ML ML SQ SCH ×4 (06:57→21:00)
[2019-12-28] MEDS: FLUOXETINE 20 MG CAP PO SCH (07:01)
[2019-12-28] MEDS: METFORMIN ER 500 MG TAB PO SCH ×2 (07:01→16:45)
[2019-12-28] MEDS: LOSARTAN POTASSIUM 50 MG TABLET PO SCH (07:02)
[2019-12-28] MEDS: DOCUSATE NA/SENNA CONC 1 TAB PO SCH ×2 (07:02→21:16)
[2019-12-28] MEDS: APIXABAN 5 MG TABLET PO SCH ×2 (07:02→21:17)
[2019-12-28] MEDS: METOPROLOL TAR 25 MG TAB PO SCH ×2 (07:02→21:17)
[2019-12-28] MEDS: INSULIN LISPRO 100 UNIT/1 ML SQ SCH ×3 (07:03→16:27)
[2019-12-28] MEDS: INSULIN GLARGINE 100 UNITS/ML SQ SCH (07:03)
[2019-12-28] MEDS: PROMOD 30 ML DOSE PO SCH ×2 (07:05→21:17)
--- NOTE | 2019-12-28 14:56 | FAST ---
ENCOUNTER DATE AND TIME: 12/28/2019 08:00 (CDT) NAME JOHNSON VAZQUEZ DATE OF : 1945 DATE OF ADMISSION: 12/26/2019 18:56 (CDT) PHONE: AGE: 73 N# [id number] GENDER: Male ENCOUNTER PHYSICIAN: Dr. Reyes Womack M.D. 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 ROLL LEFT AND RIGHT: ROLL LEFT AND RIGHT - STEP 1: Does the patient complete the activity by him/herself with no assistance (physical, verbal/nonverbal cueing, setup/clean-up)? No. ROLL LEFT AND RIGHT - STEP 2: Does the patient need only setup/clean-up assistance from one helper? No. ROLL LEFT AND RIGHT - STEP 3: Does the patient need only verbal/nonverbal cueing or touching/steadying/contact guard assistance fro m one helper? No. ROLL LEFT AND RIGHT - STEP 4: Does the patient need physical assistance - for example lifting or trunk support from one helper - wi th the helper providing less than half of the effort? No. ROLL LEFT AND RIGHT - STEP 5: Does the patient need physical assistance - for example lifting or trunk support from one helper - wi th the helper providing more than half of the effort? Yes. 1. [id number] ADMISSION PERFORMANCE: Substantial/maximal assistance CODE: 02 SIT TO LYING: SIT TO LYING - STEP 1: Does the patient complete the activity by him/herself with no assistance (physical, verbal/nonverbal cueing, setup/clean-up)? No. SIT TO LYING - STEP 2: Does the patient need only setup/clean-up assistance from one helper? No. SIT TO LYING - STEP 3: Does the patient need only verbal/nonverbal cueing or touching/steadying/contact guard assistance fro m one helper? No. SIT TO LYING - STEP 4: Does the patient need physical assistance - for example lifting or trunk support from one helper - wi th the helper providing less than half of the effort? No. SIT TO LYING - STEP 5: Does the patient need physical assistance - for example lifting or trunk support from one helper - wi th the helper providing more than half of the effort? Yes. 1. [id number] ADMISSION PERFORMANCE: Substantial/maximal assistance CODE: 02 LYING TO SITTING: LYING TO SITTING ON SIDE OF BED - STEP 1: Does the patient complete the activity by him/herself with no assistance (physical, verbal/nonverbal cueing, setup/clean-up)? No. LYING TO SITTING ON SIDE OF BED - STEP 2: Does the patient need only setup/clean-up assistance from one helper? No. LYING TO SITTING ON SIDE OF BED - STEP 3: Does the patient need only verbal/nonverbal cueing or touching/steadying/contact guard assistance fro m one helper? No. LYING TO SITTING ON SIDE OF BED - STEP 4: Does the patient need physical assistance - for example lifting or trunk support from one helper - wi th the helper providing less than half of the effort? No. LYING TO SITTING ON SIDE OF BED - STEP 5: Does the patient need physical assistance - for example lifting or trunk support from one helper - wi th the helper providing more than half of the effort? Yes. 1. [id number] ADMISSION PERFORMANCE: Substantial/maximal assistance CODE: 02 SIT TO STAND: SIT TO STAND - STEP 1: Does the patient complete the activity by him/herself with no assistance (physical, verbal/nonverbal cueing, setup/clean-up)? No. SIT TO STAND - STEP 2: Does the patient need only setup/clean-up assistance from one helper? No. SIT TO STAND - STEP 3: Does the patient need only verbal/nonverbal cueing or touching/steadying/contact guard assistance fro m one helper? No. SIT TO STAND - STEP 4: Does the patient need physical assistance - for example lifting or trunk support from one helper - wi th the helper providing less than half of the effort? Yes. 1. [id number] ADMISSION PERFORMANCE: Partial/moderate assistance CODE: 03 TRANSFERS: BED, CHAIR: CHAIR/[id number] TRANSFER - STEP 1: Does the patient complete the activity by him/herself with no assistance (physical, verbal/nonverbal cueing, setup/clean-up)? No. CHAIR/[id number] TRANSFER - STEP 2: Does the patient need only setup/clean-up assistance from one helper? No. CHAIR/[id number]-[id number] TRANSFER - STEP 3: Does the patient need only verbal/nonverbal cueing or touching/steadying/contact guard assistance fro m one helper? No. CHAIR/[id number] TRANSFER - STEP 4: Does the patient need physical assistance - for example lifting or trunk support from one helper - wi th the helper providing less than half of the effort? No. CHAIR/[id number] TRANSFER - STEP 5: Does the patient need physical assistance - for example lifting or trunk support from one helper - wi th the helper providing more than half of the effort? No. CHAIR/[id number] TRANSFER - STEP 6: Does the helper provide all of the effort? OR Is the assistance of two or more helpers required to co mplete the activity? Yes. 1. [id number] ADMISSION PERFORMANCE: Dependent CODE: 01 TRANSFER TOILET: Not attempted due to medical condition or safety concerns CODE: 88 TRANSFERS: CAR: Not attempted due to medical condition or safety concerns CODE: 88 WALK 10 FEET: Not assessed/no information CODE: - 1 STEP (CURB): Not assessed/no information CODE: - PICKING UP OBJECT: Not assessed/no information CODE: - DOES THE PATIENT USE A WHEELCHAIR/SCOOTER? Q1. DOES THE PATIENT USE A WHEELCHAIR/SCOOTER?: Yes CODE: 1 WHEEL 50 FEET WITH TWO TURNS: WHEEL 50 FEET WITH TWO TURNS - STEP 1: Does the patient complete the activity by him/herself with no assistance (physical, verbal/nonverbal cueing, setup/clean-up)? No. WHEEL 50 FEET WITH TWO TURNS - STEP 2: Does the patient need only setup/clean-up assistance from one helper? No. WHEEL 50 FEET WITH TWO TURNS - STEP 3: Does the patient need only verbal/nonverbal cueing or touching/steadying/contact guard assistance fro m one helper? No. WHEEL 50 FEET WITH TWO TURNS - STEP 4: Does the patient need physical assistance - for example lifting or trunk support from one helper - wi th the helper providing less than half of the effort? No. WHEEL 50 FEET WITH TWO TURNS - STEP 5: Does the patient need physical assistance - for example lifting or trunk support from one helper - wi th the helper providing more than half of the effort? Yes. 1. [id number] ADMISSION PERFORMANCE: Substantial/maximal assistance CODE: 02 INDICATE THE TYPE OF WHEELCHAIR/SCOOTER USED: RR1. INDICATE THE TYPE OF WHEELCHAIR/SCOOTER USED.: Manual CODE: 1 WHEEL 150 FEET: Not assessed/no information CODE: - INDICATE THE TYPE OF WHEELCHAIR/SCOOTER USED: CODE: EXPR BLADDER AND BOWEL: CODE: EXPR CODE: EXPR SIGNATURE PANEL: The following modified sections: 1. [id number] Admission Performance, 1. [id number] Admission Performance, 1. [id number] Admission Performance, 1. [id number] Admission Performance, 1. [id number] Admission Performance, Q1. Does the patient use a wheelchair/scooter?, 1. [id number] Admission Performance, RR1. Indicate the type of wheelchair/scooter used., Code were [electronically] signed by Lara Cruz PTA on WedDec 28 2019 14:55:18 GMT-0500 (Central Daylight Time)
[2019-12-28 15:56] LABS: Absolute Lymphocytes (CBC) 2.1 K/uL (0.7-4.9); Basophils % 1.3 % (0-1.3); Hematocrit 40.3 % (39.6-49.0); Lymphocytes % 31.6 % (15.3-44.8); MPV 7.9 fL (7.6-11.3); RBC Red Blood Cell Count 5.54 M/uL (4.33-5.43)
[2019-12-28 16:11] LABS: Albumin 2.9 g/dL (3.4-5.0); Prealbumin 21.1 mg/dL (20-40)
--- NOTE | 2019-12-28 18:01 | R.PN ---
ENCOUNTER DATE AND TIME: 12/28/2019 17:48 (CDT) NAME JOHNSON VAZQUEZ DATE OF : 1945 DATE OF ADMISSION: 12/26/2019 18:56 (CDT) Restricted Diffusion of the right internal capsule consistent w/acute infarctCHIEF COMPLAINT: Right brain stroke with left sided weakness. SUBJECTIVE: Pt denied any Shortness of Breath. Pt denied any depression. Self-propelled wheelchair 125' with right upper extremity with maximum assistance. WBC 6.8, Hgb 12.5, glucose 68 to 126, prealbumin 21.1. Barium swallow show prolonged mastication of pudding but thin liquid cleared by straw. VITAL SIGNS Temperature: 98.4 F SBP/DBP: 146/73 Pulse: 67 Resp: 16 MEDICATION ALLERGIES: No Known Drug Allergies (NKDA) ENVIRONMENTAL ALLERGIES: None Known - Substance Allergies None Known - Other Allergies None Known NURSING: - Shower allowing shower - Bladder care per protocol - Skin care per protocol PRECAUTIONS: - Weight Bearing Precaution WBAT left LE ACTIVITIES OOB only with supervision THERAPIES: - Occupational Therapy Cognitive Retraining. Visual Perceptual Training. - Dietary and Nutrition Adequate Nutrition. Nutritional Education. Nutritional Supplements. - Speech Therapy Cognitive Training. Expressive Language Skills. Memory Strategies. Receptive Language Skills. Speech Intelligibility Training. PHYSICAL EXAM - Gen Alert and awake Lying in bed No apparent distress Oriented to: person, time, and place - Skin No skin breakdown. Normacephalic - Eyes No abnormalities - ENMT No abnormalities - Neck No abnormalities - CVS RRR - Chest No abnormalities - Abd + bowel sounds - GI Soft Deferred - No abnormalities - Ext No significant edema - MSK 1/5 weakness in left upper and 3/5 weakness in left lower extremity. - Neuro 1/5 weakness in left upper and 3/5 weakness in left lower extremity. - Psych No abnormalities ASSESSMENT: Pt. is a 73 yo Right-handed black male.On 12/19/[address] [facility] with sudden onset of left-side weakness.On 12/19/2019 he was admitted to [facility] with diagnosis Rest ricted Diffusion of the right internal capsule consistent w/acute infarct.His impairment category is Stroke 01 - Left Body (Right Brain) (01.1).Pre-morbidly, Pt. was independent/mod-I in Transfers Cont rol, Locomotion, and Self-Care; and he had good Balance, Safety Awareness, Social Cognition, and Sphi ncter Control.Currently, he has deficits of Transfers Control, Balance, Safety Awareness, Locomotion, Self-Care, and Social Cognition.Pt. is now referred to [facility] for acute i n-patient rehabilitation in order to maximize patient's functional independence in activities of cathy y living, strength, ROM, and mobility.- Rehab Goal Patient has realistic goal of being discharged at assistance level 6-Graeme to reside at Home with Fam daphnie/Relatives. MDM/PLAN: - Physical Therapy Gait dysfunction - to improve, our physical therapists will perform initial evaluation of pt's status upon admission and devise an individualized program for Gait Training, and Wheel Chair mobility Inability to transfer - to improve, our physical therapists will perform initial evaluation of pt's status upon admission and devise an individualized program for Bed mobility Need for home safety evaluation - to improve, our physical therapists will perform initial evaluation of pt's status upon admission and devise an individualized program for Home Evaluation Need in caregiver upon discharge - to improve, our physical therapists will perform initial evaluatio n of pt's status upon admission and devise an individualized program for Caregiver Training Edema - to improve, our physical therapists will perform initial evaluation of pt's status upon admis olman and devise an individualized program for Elevation Training, and Lymphedema Therapy New precaution - to improve, our physical therapists will perform initial evaluation of pt's status u jonna admission and devise an individualized program for Patient precaution education Poor balance - to improve, our physical therapists will perform initial evaluation of pt's status up on admission and devise an individualized program for Balance Training Weakness - to improve, our physical therapists will perform initial evaluation of pt's status upon ad mission and devise an individualized program for Aquatic Therapy, Neuromuscular Reeducation, and Stre ngthening Achieving independence - to improve, our physical therapists will perform initial evaluation of pt's status upon admission and devise an individualized program for Community Reintegration Activities - Occupational Therapy ADL deficits - to improve, our occupation therapists will perform initial evaluation of pt's status upon admission and devise an individualized program for Bathing, Bed mobility, Community Reintegratio n, Cooking, Dressing, Eating, Fine Motor Skills, Grooming, Homemaking, Kitchen Mobility, Laundry, Pat ient Education, Safety Awareness, Splinting - Positioning, Transfers(Toilet, Tub, Shower), and Wheel Chair Management Cognitive deficits - to improve, our occupation therapists will perform initial evaluation of pt's s tatus upon admission and devise an individualized program for Cognition - orientation Need for care technician - to improve, our occupation therapists will perform initial evaluation of pt's s tatus upon admission and devise an individualized program for Caregiver Training Weakness - to improve, our occupation therapists will perform initial evaluation of pt's status upon admission and devise an individualized program for Aquatic Therapy, Balance, Endurance, UE ROM, and U E strengthening - Other See attached MAR (Medication Administration Record) - Diet Type Regular - Diet - Liquid Texture Regular - Tube Feed N/A - Bladder care per protocol - Weight Bearing Precaution WBAT LE - Skin care per protocol - Diet - Solid Texture Regular - Shower allowing shower for Dementia, TBI, Stroke, or others FUNCTIONAL STATUS: - Self-Care A. Eating sup B. Grooming Graeme C. Bathing sup D. Dressing - Upper sup E. Dressing - Lower sup F. Toileting sup - Sphincter Control G. Bladder control sup H. Bowel control sup - Transfers Control I. Bed/Chair/Wheelchair sup J. Toilet sup K. Tub/Shower Kimberly - Locomotion L. Walk/Wheelchair (B) Kimberly M. Stairs modA - Communication N. Comprehension (B) Kimberly O. Expression (B) sup - Social Cognition P. Social Interaction sup Q. Problem Solving sup R. Memory sup - Endurance Fair - Balance Fair - Safety Awareness Fair QI SCORES: - Self-Care A. Eating 05-Setup or clean-up assistance B. Oral hygiene 04-Supervision or touching assistance C. Toileting hygiene 03-Partial/moderate assistance E. Shower/bathe self 10-Not attempted due to environmental limitations F. Upper body dressing 03-Partial/moderate assistance G. Lower body dressing 01-Dependent H. Putting on/taking off footwear 01-Dependent - Mobility A. Roll left and right 02-Substantial/maximal assistance B. Sit to lying 02-Substantial/maximal assistance C. Lying to sitting on side of bed 02-Substantial/maximal assistance D. Sit to stand 02-Substantial/maximal assistance E. Chair/[id number]-gf-[id number] transfer 02-Substantial/maximal assistance F. Toilet transfer 02-Substantial/maximal assistance G. Car transfer 88-Not attempted due to medical condition or safety concerns I. Walk 10 feet 88-Not attempted due to medical condition or safety concerns J. Walk 50 feet with two turns 88-Not attempted due to medical condition or safety concerns K. Walk 150 feet 88-Not attempted due to medical condition or safety concerns L. Walking 10 feet on uneven surfaces 88-Not attempted due to medical condition or safety concerns M. 1 step (curb) 88-Not attempted due to medical condition or safety concerns N. 4 steps 88-Not attempted due to medical condition or safety concerns O. 12 steps 88-Not attempted due to medical condition or safety concerns P. Picking up object 88-Not attempted due to medical condition or safety concerns R. Wheel 50 feet with two turns S. Wheel 150 feet - Bladder and Bowel Bladder continence 0-Always continent Bowel continence 0-Always continent - Endurance Poor - Balance Poor - Safety Awareness Poor CURRENT FUNC. DEFICITS: Self-Care, Mobility, Endurance, Balance, and Safety Awareness SIGNATURE PANEL: (CDT)
[2019-12-28] MEDS: MONTELUKAST 10 MG TAB PO SCH (21:16)
[2019-12-28] MEDS: ATORVASTATIN 20 MG TAB PO SCH (21:16)
[2019-12-29] MEDS: INSULIN -REGULAR HUMAN 50 UNIT/0.5 ML ML SQ SCH ×4 (07:10→20:23)
[2019-12-29] MEDS: FLUOXETINE 20 MG CAP PO SCH (07:12)
[2019-12-29] MEDS: METOPROLOL TAR 25 MG TAB PO SCH ×2 (07:13→20:50)
[2019-12-29] MEDS: DOCUSATE NA/SENNA CONC 1 TAB PO SCH ×2 (07:13→20:00)
[2019-12-29] MEDS: METFORMIN ER 500 MG TAB PO SCH ×2 (07:13→16:42)
[2019-12-29] MEDS: APIXABAN 5 MG TABLET PO SCH ×2 (07:13→20:51)
[2019-12-29] MEDS: LOSARTAN POTASSIUM 50 MG TABLET PO SCH (07:13)
[2019-12-29] MEDS: INSULIN LISPRO 100 UNIT/1 ML SQ SCH ×3 (07:14→16:42)
[2019-12-29] MEDS: INSULIN GLARGINE 100 UNITS/ML SQ SCH (07:14)
[2019-12-29] MEDS: PROMOD 30 ML DOSE PO SCH ×2 (07:16→20:52)
--- NOTE | 2019-12-29 09:26 | P.RH.PN ---
Estimated Length of Stay: 14 Expected Discharge Date: 12/11/19 Discharge Disposition Plan: Home Family Support: Yes Half-Way Goal: Mobility, Transfers, Self Care Vital Signs: Last Vital Signs Temp 97.0 F 12/29/19 07:01 Pulse 66 12/29/19 07:13 Resp 16 12/29/19 07:01 BP 174/80 H 12/29/19 07:13 Pulse Ox 96 12/29/19 07:01 Laboratory: Laboratory Last Values WBC 6.8 K/uL (4.3-10.9) D 12/28/19 15:42 RBC 5.54 M/uL (4.33-5.43) H 12/28/19 15:42 Hgb 12.5 g/dL (13.6-17.9) L 12/28/19 15:42 Hct 40.3 % (39.6-49.0) 12/28/19 15:42 MCV 72.8 fL (80-100) L 12/28/19 15:42 MCH 22.6 pg (27.0-35.0) L 12/28/19 15:42 MCHC 31.0 g/dL (32.0-36.0) L 12/28/19 15:42 RDW 15.9 % (12.1-15.2) H 12/28/19 15:42 Plt Count 247 K/uL (152-406) 12/28/19 15:42 MPV 7.9 fL (7.6-11.3) 12/28/19 15:42 Neutrophils % 59.9 % (41.7-73.7) 12/28/19 15:42 Lymphocytes % 31.6 % (15.3-44.8) 12/28/19 15:42 Monocytes % 5.5 % (3.3-12.3) 12/28/19 15:42 Eosinophils % 1.7 % (0-4.4) 12/28/19 15:42 Basophils % 1.3 % (0-1.3) 12/28/19 15:42 Absolute Neutrophils 4.1 K/uL (1.8-8.0) 12/28/19 15:42 Absolute Lymphocytes 2.1 K/uL (0.7-4.9) 12/28/19 15:42 Absolute Monocytes 0.4 K/uL (0.1-1.3) 12/28/19 15:42 Absolute Eosinophils 0.1 K/uL (0-0.5) 12/28/19 15:42 Absolute Basophils 0.1 K/uL (0-0.5) 12/28/19 15:42 Sodium 140 mmol/L (136-145) 12/28/19 15:42 Potassium 4.0 mmol/L (3.5-5.1) 12/28/19 15:42 Chloride 112 mmol/L (98-107) H 12/28/19 15:42 Carbon Dioxide 25 mmol/L (21-32) 12/28/19 15:42 BUN 20 mg/dL (7-18) H 12/28/19 15:42 Creatinine 1.13 mg/dL (0.55-1.3) 12/28/19 15:42 Estimated GFR 77 mL/min (=/>90) L 12/28/19 15:42 Glucose 74 mg/dL (74-106) 12/28/19 15:42 POC Glucose 164 mg/dL (65-120) H 12/29/19 06:58 Calcium 9.2 mg/dL (8.5-10.1) 12/28/19 15:42 Magnesium 2.0 mg/dL (1.8-2.4) 12/28/19 15:42 Albumin 2.9 g/dL (3.4-5.0) L 12/28/19 15:42 Prealbumin 21.1 mg/dL (20-40) 12/28/19 15:42 Urine Color Yellow 12/26/19 19:33 Urine Appearance Cloudy 12/26/19 19:33 Urine pH 5.5 (5.0-7.0) 12/26/19 19:33 Ur Specific [place] 1.020 (1.005-1.030) 12/26/19 19:33 Glucose (UA)(Auto) Negative (NEG) 12/26/19 19: Urine Ketones Negative (NEG) 12/26/19 19:33 Urine Blood Negative (NEG) 12/26/19 19:33 Urine Nitrite Negative (NEG) 12/26/19 19:33 Urine Bilirubin Negative (NEG) 12/26/19 19:33 Urine Urobilinogen 0.2 mg/dL (0.2-1.0) 12/26/19 19:33 Ur Leukocyte Esterase 2+ (NEG) H 12/26/19 19:33 Urine RBC <5 /HPF (NONE SEEN) 12/26/19 19:33 Urine WBC 10-20 /HPF (<5) H 12/26/19 19:33 Ur Squamous Epith Cells <5 /HPF (NONE SEEN) 12/26/19 19:33 Urine Bacteria Loaded /HPF (NONE SEEN) H 12/26/19 19:33 Urine Culture Reflexed Reflexed 12/26/19 19:33 Urine Total Protein Trace (NEG) 12/26/19 19:33 Weight: 219 lb Wound Present: No Closed Surgical Incision Present: No Negative Pressure Wound Therapy Present: No Physician Update: Labs reviewed and are stable. He is very weak on the left side, 1/5. He is a max assistance on the parallel bars. He has fair truncal control and may sit upright. He cannot walk. Speech Therapy Update: Patient presents with mild-moderate oropharyngeal dysphagia and mild-moderate dysarthria. Patient is on a mechanical soft solids diet with ground meats, thin liquids, and crushed pills. Patient is currently working on OME's to target strength, ROM, and coordination of left orofacial musculature as well as vocal function exercises targeting vocal/swallowing musculature. Summary: Patient's care plan and senior care goals have been reviewed and revised as necessary. Please see the Rehabilitation Signature page for all necessary signatures.
--- NOTE | 2019-12-29 11:33 | FAST ---
SHIFT START DATE/TIME: 12/29/2019 07:00 (CDT) SHIFT END DATE/TIME: 12/29/2019 19:00 (CDT) NAME JOHNSON VAZQUEZ DATE OF : 1945 DATE OF ADMISSION: 12/26/2019 18:56 (CDT) PHONE: AGE: 73 N# [id number] GENDER: Male ENCOUNTER PHYSICIAN: Dr. Reyes Womack M.D. 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 EATING: EATING - STEP 1: Does the patient complete the activity by him/herself with no assistance (physical, verbal/nonverbal cueing, setup/clean-up)? No. EATING - STEP 2: Does the patient need only setup/clean-up assistance from one helper? No. EATING - STEP 3: Does the patient need only verbal/nonverbal cueing or touching/steadying/contact guard assistance fro m one helper? Yes. 1. [id number] ADMISSION PERFORMANCE: Supervision or touching assistance CODE: 04 ORAL HYGIENE: ORAL HYGIENE - STEP 1: Does the patient complete the activity by him/herself with no assistance (physical, verbal/nonverbal cueing, setup/clean-up)? No. ORAL HYGIENE - STEP 2: Does the patient need only setup/clean-up assistance from one helper? No. ORAL HYGIENE - STEP 3: Does the patient need only verbal/nonverbal cueing or touching/steadying/contact guard assistance fro m one helper? Yes. 1. [id number] ADMISSION PERFORMANCE: Supervision or touching assistance CODE: 04 TOILETING HYGIENE: TOILETING HYGIENE - STEP 1: Does the patient complete the activity by him/herself with no assistance (physical, verbal/nonverbal cueing, setup/clean-up)? No. TOILETING HYGIENE - STEP 2: Does the patient need only setup/clean-up assistance from one helper? No. TOILETING HYGIENE - STEP 3: Does the patient need only verbal/nonverbal cueing or touching/steadying/contact guard assistance fro m one helper? No. TOILETING HYGIENE - STEP 4: Does the patient need physical assistance - for example lifting or trunk support from one helper - wi th the helper providing less than half of the effort? No. TOILETING HYGIENE - STEP 5: Does the patient need physical assistance - for example lifting or trunk support from one helper - wi th the helper providing more than half of the effort? Yes. 1. [id number] ADMISSION PERFORMANCE: Substantial/maximal assistance CODE: 02 BATHING: Not assessed/no information CODE: - DRESSING - UPPER BODY: Not assessed/no information CODE: - DRESSING - LOWER BODY: Not assessed/no information CODE: - PUTTING ON/TAKING OFF FOOTWEAR: Not assessed/no information CODE: - ROLL LEFT AND RIGHT: Not assessed/no information CODE: - SIT TO LYING: SIT TO LYING - STEP 1: Does the patient complete the activity by him/herself with no assistance (physical, verbal/nonverbal cueing, setup/clean-up)? No. SIT TO LYING - STEP 2: Does the patient need only setup/clean-up assistance from one helper? No. SIT TO LYING - STEP 3: Does the patient need only verbal/nonverbal cueing or touching/steadying/contact guard assistance fro m one helper? No. SIT TO LYING - STEP 4: Does the patient need physical assistance - for example lifting or trunk support from one helper - wi th the helper providing less than half of the effort? No. SIT TO LYING - STEP 5: Does the patient need physical assistance - for example lifting or trunk support from one helper - wi th the helper providing more than half of the effort? Yes. 1. [id number] ADMISSION PERFORMANCE: Substantial/maximal assistance CODE: 02 LYING TO SITTING: LYING TO SITTING ON SIDE OF BED - STEP 1: Does the patient complete the activity by him/herself with no assistance (physical, verbal/nonverbal cueing, setup/clean-up)? No. LYING TO SITTING ON SIDE OF BED - STEP 2: Does the patient need only setup/clean-up assistance from one helper? No. LYING TO SITTING ON SIDE OF BED - STEP 3: Does the patient need only verbal/nonverbal cueing or touching/steadying/contact guard assistance fro m one helper? No. LYING TO SITTING ON SIDE OF BED - STEP 4: Does the patient need physical assistance - for example lifting or trunk support from one helper - wi th the helper providing less than half of the effort? No. LYING TO SITTING ON SIDE OF BED - STEP 5: Does the patient need physical assistance - for example lifting or trunk support from one helper - wi th the helper providing more than half of the effort? Yes. 1. [id number] ADMISSION PERFORMANCE: Substantial/maximal assistance CODE: 02 SIT TO STAND: SIT TO STAND - STEP 1: Does the patient complete the activity by him/herself with no assistance (physical, verbal/nonverbal cueing, setup/clean-up)? No. SIT TO STAND - STEP 2: Does the patient need only setup/clean-up assistance from one helper? No. SIT TO STAND - STEP 3: Does the patient need only verbal/nonverbal cueing or touching/steadying/contact guard assistance fro m one helper? No. SIT TO STAND - STEP 4: Does the patient need physical assistance - for example lifting or trunk support from one helper - wi th the helper providing less than half of the effort? No. SIT TO STAND - STEP 5: Does the patient need physical assistance - for example lifting or trunk support from one helper - wi th the helper providing more than half of the effort? Yes. 1. [id number] ADMISSION PERFORMANCE: Substantial/maximal assistance CODE: 02 TRANSFERS: BED, CHAIR: CHAIR/[id number] TRANSFER - STEP 1: Does the patient complete the activity by him/herself with no assistance (physical, verbal/nonverbal cueing, setup/clean-up)? No. CHAIR/[id number] TRANSFER - STEP 2: Does the patient need only setup/clean-up assistance from one helper? No. CHAIR/[id number] TRANSFER - STEP 3: Does the patient need only verbal/nonverbal cueing or touching/steadying/contact guard assistance fro m one helper? No. CHAIR/[id number] TRANSFER - STEP 4: Does the patient need physical assistance - for example lifting or trunk support from one helper - wi th the helper providing less than half of the effort? No. CHAIR/[id number] TRANSFER - STEP 5: Does the patient need physical assistance - for example lifting or trunk support from one helper - wi th the helper providing more than half of the effort? Yes. 1. [id number] ADMISSION PERFORMANCE: Substantial/maximal assistance CODE: 02 TRANSFER TOILET: TOILET TRANSFER - STEP 1: Does the patient complete the activity by him/herself with no assistance (physical, verbal/nonverbal cueing, setup/clean-up)? No. TOILET TRANSFER - STEP 2: Does the patient need only setup/clean-up assistance from one helper? No. TOILET TRANSFER - STEP 3: Does the patient need only verbal/nonverbal cueing or touching/steadying/contact guard assistance fro m one helper? No. TOILET TRANSFER - STEP 4: Does the patient need physical assistance - for example lifting or trunk support from one helper - wi th the helper providing less than half of the effort? No. TOILET TRANSFER - STEP 5: Does the patient need physical assistance - for example lifting or trunk support from one helper - wi th the helper providing more than half of the effort? Yes. 1. [id number] ADMISSION PERFORMANCE: Substantial/maximal assistance CODE: 02 TRANSFERS: CAR: Not assessed/no information CODE: - WALK 10 FEET: Not assessed/no information CODE: - 1 STEP (CURB): Not assessed/no information CODE: - PICKING UP OBJECT: Not assessed/no information CODE: - DOES THE PATIENT USE A WHEELCHAIR/SCOOTER? CODE: EXPR WHEEL 50 FEET WITH TWO TURNS: Not assessed/no information CODE: - INDICATE THE TYPE OF WHEELCHAIR/SCOOTER USED: CODE: EXPR WHEEL 150 FEET: Not assessed/no information CODE: - INDICATE THE TYPE OF WHEELCHAIR/SCOOTER USED: CODE: EXPR BLADDER AND BOWEL: H350. BLADDER CONTINENCE (3-DAY ASSESSMENT PERIOD): Stress incontinence only CODE: 1 H400. BOWEL CONTINENCE (3-DAY ASSESSMENT PERIOD): Frequently incontinent (2 or more episodes of bowel incontinence, but at least one continent bowel mo vement) CODE: 2 SIGNATURE PANEL: The following modified sections: 1. [id number] Admission Performance, 1. [id number] Admission Performance, 1. [id number] Admission Performance, 1. [id number] Admission Performance, 1. [id number] Admission Performance, 1. [id number] Admission Performance, 1. [id number] Admission Performance, 1. [id number] Admission Performance , 1. [id number] Admission Performance, 1. [id number] Admission Performance, Code, H350. Bladder Continence (3-day assessment period), H400. Bowel Continence (3-day assessment period) were [electronically] sig odalis by Flash Parks on WedDec 29 2019 11:32:10 GMT-0500 (Central Daylight Time)
[2019-12-29] MEDS: ATORVASTATIN 20 MG TAB PO SCH (20:51)
[2019-12-29] MEDS: MONTELUKAST 10 MG TAB PO SCH (20:51)
--- NOTE | 2019-12-30 02:17 | FAST ---
SHIFT START DATE/TIME: 12/29/2019 19:00 (CDT) SHIFT END DATE/TIME: 12/30/2019 07:00 (CDT) NAME JOHNSON VAZQUEZ DATE OF : 1945 DATE OF ADMISSION: 12/26/2019 18:56 (CDT) PHONE: AGE: 73 SSN# [id number] GENDER: Male ENCOUNTER PHYSICIAN: Dr. Reyes Womack M.D. 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 EATING: Not assessed/no information CODE: - ORAL HYGIENE: Not assessed/no information CODE: - TOILETING HYGIENE: TOILETING HYGIENE - STEP 1: Does the patient complete the activity by him/herself with no assistance (physical, verbal/nonverbal cueing, setup/clean-up)? No. TOILETING HYGIENE - STEP 2: Does the patient need only setup/clean-up assistance from one helper? No. TOILETING HYGIENE - STEP 3: Does the patient need only verbal/nonverbal cueing or touching/steadying/contact guard assistance fro m one helper? No. TOILETING HYGIENE - STEP 4: Does the patient need physical assistance - for example lifting or trunk support from one helper - wi th the helper providing less than half of the effort? No. TOILETING HYGIENE - STEP 5: Does the patient need physical assistance - for example lifting or trunk support from one helper - wi th the helper providing more than half of the effort? No. TOILETING HYGIENE - STEP 6: Does the helper provide all of the effort? OR Is the assistance of two or more helpers required to co mplete the activity? Yes. 1. [id number] ADMISSION PERFORMANCE: Dependent CODE: 01 BATHING: Not assessed/no information CODE: - DRESSING - UPPER BODY: Not assessed/no information CODE: - DRESSING - LOWER BODY: Not assessed/no information CODE: - PUTTING ON/TAKING OFF FOOTWEAR: Not assessed/no information CODE: - ROLL LEFT AND RIGHT: ROLL LEFT AND RIGHT - STEP 1: Does the patient complete the activity by him/herself with no assistance (physical, verbal/nonverbal cueing, setup/clean-up)? No. ROLL LEFT AND RIGHT - STEP 2: Does the patient need only setup/clean-up assistance from one helper? No. ROLL LEFT AND RIGHT - STEP 3: Does the patient need only verbal/nonverbal cueing or touching/steadying/contact guard assistance fro m one helper? No. ROLL LEFT AND RIGHT - STEP 4: Does the patient need physical assistance - for example lifting or trunk support from one helper - wi th the helper providing less than half of the effort? No. ROLL LEFT AND RIGHT - STEP 5: Does the patient need physical assistance - for example lifting or trunk support from one helper - wi th the helper providing more than half of the effort? Yes. 1. [id number] ADMISSION PERFORMANCE: Substantial/maximal assistance CODE: 02 SIT TO LYING: Not assessed/no information CODE: - LYING TO SITTING: Not assessed/no information CODE: - SIT TO STAND: Not assessed/no information CODE: - TRANSFERS: BED, CHAIR: Not assessed/no information CODE: - TRANSFER TOILET: Not assessed/no information CODE: - TRANSFERS: CAR: Not assessed/no information CODE: - WALK 10 FEET: Not assessed/no information CODE: - 1 STEP (CURB): Not assessed/no information CODE: - PICKING UP OBJECT: Not assessed/no information CODE: - DOES THE PATIENT USE A WHEELCHAIR/SCOOTER? CODE: EXPR WHEEL 50 FEET WITH TWO TURNS: Not assessed/no information CODE: - INDICATE THE TYPE OF WHEELCHAIR/SCOOTER USED: CODE: EXPR WHEEL 150 FEET: Not assessed/no information CODE: - INDICATE THE TYPE OF WHEELCHAIR/SCOOTER USED: CODE: EXPR BLADDER AND BOWEL: H350. BLADDER CONTINENCE (3-DAY ASSESSMENT PERIOD): Incontinent less than daily (e.g., once or twice during the 3-day assessment period) CODE: 2 H400. BOWEL CONTINENCE (3-DAY ASSESSMENT PERIOD): Occasionally incontinent (one episode of bowel incontinence) CODE: 1
[2019-12-30] MEDS: INSULIN -REGULAR HUMAN 50 UNIT/0.5 ML ML SQ SCH ×4 (07:30→19:37)
[2019-12-30] MEDS: DOCUSATE NA/SENNA CONC 1 TAB PO SCH ×2 (08:00→19:34)
--- NOTE | 2019-12-30 08:27 | FAST ---
ENCOUNTER DATE AND TIME: 12/29/2019 08:00 (CDT) NAME JOHNSON VAZQUEZ DATE OF : 1945 DATE OF ADMISSION: 12/26/2019 18:56 (CDT) PHONE: AGE: 73 N# [id number] GENDER: Male ENCOUNTER PHYSICIAN: Dr. Reyes Womack M.D. 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 EATING: Not assessed/no information CODE: - ORAL HYGIENE: ORAL HYGIENE - STEP 1: Does the patient complete the activity by him/herself with no assistance (physical, verbal/nonverbal cueing, setup/clean-up)? No. ORAL HYGIENE - STEP 2: Does the patient need only setup/clean-up assistance from one helper? No. ORAL HYGIENE - STEP 3: Does the patient need only verbal/nonverbal cueing or touching/steadying/contact guard assistance fro m one helper? Yes. 1. [id number] ADMISSION PERFORMANCE: Supervision or touching assistance CODE: 04 TOILETING HYGIENE: Not assessed/no information CODE: - BATHING: SHOWER/BATHE SELF - STEP 1: Does the patient complete the activity by him/herself with no assistance (physical, verbal/nonverbal cueing, setup/clean-up)? No. SHOWER/BATHE SELF - STEP 2: Does the patient need only setup/clean-up assistance from one helper? No. SHOWER/BATHE SELF - STEP 3: Does the patient need only verbal/nonverbal cueing or touching/steadying/contact guard assistance fro m one helper? No. SHOWER/BATHE SELF - STEP 4: Does the patient need physical assistance - for example lifting or trunk support from one helper - wi th the helper providing less than half of the effort? Yes. 1. [id number] ADMISSION PERFORMANCE: Partial/moderate assistance CODE: 03 DRESSING - UPPER BODY: DRESSING - UPPER BODY - STEP 1: Does the patient complete the activity by him/herself with no assistance (physical, verbal/nonverbal cueing, setup/clean-up)? No. DRESSING - UPPER BODY - STEP 2: Does the patient need only setup/clean-up assistance from one helper? No. DRESSING - UPPER BODY - STEP 3: Does the patient need only verbal/nonverbal cueing or touching/steadying/contact guard assistance fro m one helper? No. DRESSING - UPPER BODY - STEP 4: Does the patient need physical assistance - for example lifting or trunk support from one helper - wi th the helper providing less than half of the effort? No. DRESSING - UPPER BODY - STEP 5: Does the patient need physical assistance - for example lifting or trunk support from one helper - wi th the helper providing more than half of the effort? Yes. 1. [id number] ADMISSION PERFORMANCE: Substantial/maximal assistance CODE: 02 DRESSING - LOWER BODY: DRESSING - LOWER BODY - STEP 1: Does the patient complete the activity by him/herself with no assistance (physical, verbal/nonverbal cueing, setup/clean-up)? No. DRESSING - LOWER BODY - STEP 2: Does the patient need only setup/clean-up assistance from one helper? No. DRESSING - LOWER BODY - STEP 3: Does the patient need only verbal/nonverbal cueing or touching/steadying/contact guard assistance fro m one helper? No. DRESSING - LOWER BODY - STEP 4: Does the patient need physical assistance - for example lifting or trunk support from one helper - wi th the helper providing less than half of the effort? No. DRESSING - LOWER BODY - STEP 5: Does the patient need physical assistance - for example lifting or trunk support from one helper - wi th the helper providing more than half of the effort? No. DRESSING - LOWER BODY - STEP 6: Does the helper provide all of the effort? OR Is the assistance of two or more helpers required to co mplete the activity? Yes. 1. [id number] ADMISSION PERFORMANCE: Dependent CODE: 01 PUTTING ON/TAKING OFF FOOTWEAR: FOOTWEAR - STEP 1: Does the patient complete the activity by him/herself with no assistance (physical, verbal/nonverbal cueing, setup/clean-up)? No. FOOTWEAR - STEP 2: Does the patient need only setup/clean-up assistance from one helper? No. FOOTWEAR - STEP 3: Does the patient need only verbal/nonverbal cueing or touching/steadying/contact guard assistance fro m one helper? No. FOOTWEAR - STEP 4: Does the patient need physical assistance - for example lifting or trunk support from one helper - wi th the helper providing less than half of the effort? No. FOOTWEAR - STEP 5: Does the patient need physical assistance - for example lifting or trunk support from one helper - wi th the helper providing more than half of the effort? Yes. 1. [id number] ADMISSION PERFORMANCE: Substantial/maximal assistance CODE: 02 DOES THE PATIENT USE A WHEELCHAIR/SCOOTER? CODE: EXPR INDICATE THE TYPE OF WHEELCHAIR/SCOOTER USED: CODE: EXPR INDICATE THE TYPE OF WHEELCHAIR/SCOOTER USED: CODE: EXPR BLADDER AND BOWEL: CODE: EXPR CODE: EXPR SIGNATURE PANEL: The following modified sections: 1. [id number] Admission Performance, 1. [id number] Admission Performance, 1. [id number] Admission Performance, 1. [id number] Admission Performance, 1. [id number] Admission Performance were [electronically] signed by MIGUEL ANGEL Osorio on WedDec 30 2019 08:26:30 GMT-0500 (Central Daylight Time)
[2019-12-30] MEDS: METFORMIN ER 500 MG TAB PO SCH ×2 (08:33→17:29)
[2019-12-30] MEDS: APIXABAN 5 MG TABLET PO SCH ×2 (08:34→19:35)
[2019-12-30] MEDS: FLUOXETINE 20 MG CAP PO SCH (08:34)
[2019-12-30] MEDS: LOSARTAN POTASSIUM 50 MG TABLET PO SCH (08:34)
[2019-12-30] MEDS: PROMOD 30 ML DOSE PO SCH ×2 (08:35→19:37)
[2019-12-30] MEDS: INSULIN LISPRO 100 UNIT/1 ML SQ SCH ×3 (08:35→17:32)
[2019-12-30] MEDS: INSULIN GLARGINE 100 UNITS/ML SQ SCH (08:37)
[2019-12-30] MEDS: METOPROLOL TAR 25 MG TAB PO SCH ×2 (09:29→19:36)
[2019-12-30] MEDS: ATORVASTATIN 20 MG TAB PO SCH (19:34)
[2019-12-30] MEDS: MONTELUKAST 10 MG TAB PO SCH (19:35)
[2019-12-30] MEDS: SMZ./TMP. 800/160 MG TABLET PO SCH (19:37)
[2019-12-31] MEDS: INSULIN -REGULAR HUMAN 50 UNIT/0.5 ML ML SQ SCH ×4 (07:30→19:56)
[2019-12-31] MEDS: DOCUSATE NA/SENNA CONC 1 TAB PO SCH ×2 (08:00→19:18)
[2019-12-31] MEDS: METFORMIN ER 500 MG TAB PO SCH ×2 (08:20→16:40)
[2019-12-31] MEDS: FLUOXETINE 20 MG CAP PO SCH (08:20)
[2019-12-31] MEDS: APIXABAN 5 MG TABLET PO SCH ×2 (08:20→19:17)
[2019-12-31] MEDS: SMZ./TMP. 800/160 MG TABLET PO SCH ×2 (08:21→19:16)
[2019-12-31] MEDS: METOPROLOL TAR 25 MG TAB PO SCH ×2 (08:21→19:55)
[2019-12-31] MEDS: LOSARTAN POTASSIUM 50 MG TABLET PO SCH (08:21)
[2019-12-31] MEDS: INSULIN LISPRO 100 UNIT/1 ML SQ SCH ×3 (08:22→16:40)
[2019-12-31] MEDS: INSULIN GLARGINE 100 UNITS/ML SQ SCH (08:22)
[2019-12-31] MEDS: PROMOD 30 ML DOSE PO SCH ×2 (11:37→19:19)
[2019-12-31] MEDS: ATORVASTATIN 20 MG TAB PO SCH (19:15)
[2019-12-31] MEDS: CRANBERRY FRUIT EXTRACT 200 MG CAP PO SCH (19:15)
[2019-12-31] MEDS: MONTELUKAST 10 MG TAB PO SCH (19:16)
[2020-01-01] MEDS: INSULIN -REGULAR HUMAN 50 UNIT/0.5 ML ML SQ SCH ×4 (07:14→20:16)
[2020-01-01] MEDS: INSULIN LISPRO 100 UNIT/1 ML SQ SCH ×3 (07:23→17:00)
[2020-01-01] MEDS: METFORMIN ER 500 MG TAB PO SCH ×2 (07:23→17:00)
[2020-01-01] MEDS: CRANBERRY FRUIT EXTRACT 200 MG CAP PO SCH ×2 (07:23→19:17)
[2020-01-01] MEDS: APIXABAN 5 MG TABLET PO SCH ×2 (07:24→19:18)
[2020-01-01] MEDS: FLUOXETINE 20 MG CAP PO SCH (07:24)
[2020-01-01] MEDS: LOSARTAN POTASSIUM 50 MG TABLET PO SCH (07:24)
[2020-01-01] MEDS: INSULIN GLARGINE 100 UNITS/ML SQ SCH (07:24)
[2020-01-01] MEDS: SMZ./TMP. 800/160 MG TABLET PO SCH ×2 (07:24→19:18)
[2020-01-01] MEDS: PROMOD 30 ML DOSE PO SCH ×2 (07:25→19:18)
[2020-01-01] MEDS: METOPROLOL TAR 25 MG TAB PO SCH ×2 (07:29→19:19)
[2020-01-01] MEDS: DOCUSATE NA/SENNA CONC 1 TAB PO SCH (07:29)
--- NOTE | 2020-01-01 19:16 | R.PN ---
ENCOUNTER DATE AND TIME: 01/01/2020 19:13 (CDT) NAME JOHNSON VAZQUEZ DATE OF : 1945 DATE OF ADMISSION: 12/26/2019 18:56 (CDT) Restricted Diffusion of the right internal capsule consistent w/acute infarctCHIEF COMPLAINT: Right brain stroke with left sided weakness. SUBJECTIVE: Pt denied any Shortness of Breath. Pt denied any depression. Self-propelled wheelchair 125' with right upper extremity with maximum assistance. WBC 6.8, Hgb 12.5, glucose 70 to 131, prealbumin 21.1. Barium swallow show prolonged mastication of pudding but thin liquid cleared by straw. He ambulated 16' with maximum assistance in the parallel bars. VITAL SIGNS Temperature: 97.2 F SBP/DBP: 133/65 Pulse: 64 Resp: 16 MEDICATION ALLERGIES: No Known Drug Allergies (NKDA) ENVIRONMENTAL ALLERGIES: None Known - Substance Allergies None Known - Other Allergies None Known NURSING: - Shower allowing shower - Bladder care per protocol - Skin care per protocol PRECAUTIONS: - Weight Bearing Precaution WBAT left LE ACTIVITIES OOB only with supervision THERAPIES: - Occupational Therapy Cognitive Retraining. Visual Perceptual Training. - Dietary and Nutrition Adequate Nutrition. Nutritional Education. Nutritional Supplements. - Speech Therapy Cognitive Training. Expressive Language Skills. Memory Strategies. Receptive Language Skills. Speech Intelligibility Training. PHYSICAL EXAM - Gen Alert and awake Lying in bed No apparent distress Oriented to: person, time, and place - Skin No skin breakdown. Normacephalic - Eyes No abnormalities - ENMT No abnormalities - Neck No abnormalities - CVS RRR - Chest No abnormalities - Abd + bowel sounds - GI Soft Deferred - No abnormalities - Ext No significant edema - MSK 1/5 weakness in left upper and 3/5 weakness in left lower extremity. - Neuro 1/5 weakness in left upper and 3/5 weakness in left lower extremity. - Psych No abnormalities ASSESSMENT: Pt. is a 73 yo Right-handed black male.On 12/19/2019 Pt. presented to [facility] with sudden onset of left-side weakness.On 12/19/2019 he was admitted to [facility] with diagnosis Rest ricted Diffusioon of the right internal capsule consistant w/acute infarct.His impairment category is Stroke 01 - Left Body (Right Brain) (01.1).Pre-morbidly, Pt. was independent/mod-I in Transfers Con trol, Locomotion, and Self-Care; and he had good Balance, Safety Awareness, Social Cognition, and Sph incter Control.Currently, he has deficits of Transfers Control, Balance, Safety Awareness, Locomotion , Self-Care, and Social Cognition.Pt. is now referred to [facility] for acute in-patient rehabilitation in order to maximize patient's functional independence in activities of yasmin ly living, strength, ROM, and mobility.- Rehab Goal Patient has realistic goal of being discharged at assistance level 6-Graeme to reside at Home with Fam daphnie/Relatives. MDM/PLAN: - Physical Therapy Gait dysfunction - to improve, our physical therapists will perform initial evaluation of pt's statu s upon admission and devise an individualized program for Gait Training, and Wheel Chair mobility Inability to transfer - to improve, our physical therapists will perform initial evaluation of pt's status upon admission and devise an individualized program for Bed mobility Need for home safety evaluation - to improve, our physical therapists will perform initial evaluatio n of pt's status upon admission and devise an individualized program for Home Evaluation Need in caregiver upon discharge - to improve, our physical therapists will perform initial evaluati on of pt's status upon admission and devise an individualized program for Caregiver Training Edema - to improve, our physical therapists will perform initial evaluation of pt's status upon admis olman and devise an individualized program for Elevation Training, and Lymphedema Therapy New precaution - to improve, our physical therapists will perform initial evaluation of pt's status upon admission and devise an individualized program for Patient precaution education Poor balance - to improve, our physical therapists will perform initial evaluation of pt's status up on admission and devise an individualized program for Balance Training Weakness - to improve, our physical therapists will perform initial evaluation of pt's status upon a dmission and devise an individualized program for Aquatic Therapy, Neuromuscular Reeducation, and Str engthening Achieving independence - to improve, our physical therapists will perform initial evaluation of pt's status upon admission and devise an individualized program for Community Reintegration Activities - Occupational Therapy ADL deficits - to improve, our occupation therapists will perform initial evaluation of pt's status upon admission and devise an individualized program for Bathing, Bed mobility, Community Reintegratio n, Cooking, Dressing, Eating, Fine Motor Skills, Grooming, Homemaking, Kitchen Mobility, Laundry, Pat ient Education, Safety Awareness, Splinting - Positioning, Transfers(Toilet, Tub, Shower), and Wheel Chair Management Cognitive deficits - to improve, our occupation therapists will perform initial evaluation of pt's s tatus upon admission and devise an individualized program for Cognition - orientation Need for ostomy care nurse - to improve, our occupation therapists will perform initial evaluation of pt's status upon admission and devise an individualized program for Caregiver Training Weakness - to improve, our occupation therapists will perform initial evaluation of pt's status upon admission and devise an individualized program for Aquatic Therapy, Balance, Endurance, UE ROM, and UE strengthening - Other See attached MAR (Medication Administration Record) - Diet Type Continue Regular - Diet - Liquid Texture Continue Regular - Tube Feed Continue N/A - Bladder care per protocol - Weight Bearing Precaution WBAT left LE - Skin care per protocol - Diet - Solid Texture Continue Regular - Shower allowing shower for Dementia, TBI, Stroke, or others FUNCTIONAL STATUS: - Self-Care A. Eating sup B. Grooming Graeme C. Bathing sup D. Dressing - Upper sup E. Dressing - Lower sup F. Toileting sup - Sphincter Control G. Bladder control sup H. Bowel control sup - Transfers Control I. Bed/Chair/Wheelchair sup J. Toilet sup K. Tub/Shower Kimberly - Locomotion L. Walk/Wheelchair (B) Kimberly M. Stairs modA - Communication N. Comprehension (B) Kimberly O. Expression (B) sup - Social Cognition P. Social Interaction sup Q. Problem Solving sup R. Memory sup - Endurance Fair - Balance Fair - Safety Awareness Fair QI SCORES: - Self-Care A. Eating 05-Setup or clean-up assistance B. Oral hygiene 04-Supervision or touching assistance C. Toileting hygiene 03-Partial/moderate assistance E. Shower/bathe self 10-Not attempted due to environmental limitations F. Upper body dressing 03-Partial/moderate assistance G. Lower body dressing 01-Dependent H. Putting on/taking off footwear 01-Dependent - Mobility A. Roll left and right 02-Substantial/maximal assistance B. Sit to lying 02-Substantial/maximal assistance C. Lying to sitting on side of bed 02-Substantial/maximal assistance D. Sit to stand 02-Substantial/maximal assistance E. Chair/[id number]-[id number] transfer 02-Substantial/maximal assistance F. Toilet transfer 02-Substantial/maximal assistance G. Car transfer 88-Not attempted due to medical condition or safety concerns I. Walk 10 feet 88-Not attempted due to medical condition or safety concerns J. Walk 50 feet with two turns 88-Not attempted due to medical condition or safety concerns K. Walk 150 feet 88-Not attempted due to medical condition or safety concerns L. Walking 10 feet on uneven surfaces 88-Not attempted due to medical condition or safety concerns M. 1 step (curb) 88-Not attempted due to medical condition or safety concerns N. 4 steps 88-Not attempted due to medical condition or safety concerns O. 12 steps 88-Not attempted due to medical condition or safety concerns P. Picking up object 88-Not attempted due to medical condition or safety concerns R. Wheel 50 feet with two turns S. Wheel 150 feet - Bladder and Bowel Bladder continence 0-Always continent Bowel continence 0-Always continent - Endurance Poor - Balance Poor - Safety Awareness Poor CURRENT FUNC. DEFICITS: Self-Care, Mobility, Endurance, Balance, and Safety Awareness SIGNATURE PANEL: (CDT)
[2020-01-01] MEDS: DOCUSATE NA/SENNA CONC 1 TAB PO PRN (19:17)
[2020-01-01] MEDS: MONTELUKAST 10 MG TAB PO SCH (20:15)
[2020-01-01] MEDS: ATORVASTATIN 20 MG TAB PO SCH (20:16)
[2020-01-02] MEDS: INSULIN -REGULAR HUMAN 50 UNIT/0.5 ML ML SQ SCH ×4 (07:16→20:28)
[2020-01-02] MEDS: CRANBERRY FRUIT EXTRACT 200 MG CAP PO SCH ×2 (09:02→20:27)
[2020-01-02] MEDS: APIXABAN 5 MG TABLET PO SCH ×2 (09:03→20:27)
[2020-01-02] MEDS: LOSARTAN POTASSIUM 50 MG TABLET PO SCH (09:03)
[2020-01-02] MEDS: METOPROLOL TAR 25 MG TAB PO SCH ×2 (09:03→20:27)
[2020-01-02] MEDS: FLUOXETINE 20 MG CAP PO SCH (09:03)
[2020-01-02] MEDS: METFORMIN ER 500 MG TAB PO SCH ×2 (09:04→17:01)
[2020-01-02] MEDS: SMZ./TMP. 800/160 MG TABLET PO SCH ×2 (09:04→20:27)
[2020-01-02] MEDS: INSULIN LISPRO 100 UNIT/1 ML SQ SCH ×3 (09:04→17:00)
[2020-01-02] MEDS: INSULIN GLARGINE 100 UNITS/ML SQ SCH (09:05)
[2020-01-02] MEDS: PROMOD 30 ML DOSE PO SCH (11:42)
--- NOTE | 2020-01-02 18:26 | R.PN ---
ENCOUNTER DATE AND TIME: 01/02/2020 18:23 (CDT) NAME JOHNSON VAZQUEZ DATE OF : 1945 DATE OF ADMISSION: 12/26/2019 18:56 (CDT) Restricted Diffusion of the right internal capsule consistent w/acute infarctCHIEF COMPLAINT: Right brain stroke with left sided weakness. SUBJECTIVE: Pt denied any Shortness of Breath. Pt denied any depression. Ambulated 16' with mod assistance in the parallel bars. Self-propelled wheelchair 125' with right upp er extremity with maximum assistance. WBC 6.8, Hgb 12.5, glucose 120 to 153, prealbumin 21.1. Barium swallow show prolonged mastication of pudding but thin liquid cleared by straw. He ambulated 16' with maximum assistance in the parallel bars. VITAL SIGNS Temperature: 98.4 F SBP/DBP: 146/70 Pulse: 63 Resp: 14 MEDICATION ALLERGIES: No Known Drug Allergies (NKDA) ENVIRONMENTAL ALLERGIES: None Known - Substance Allergies None Known - Other Allergies None Known NURSING: - Shower allowing shower - Bladder care per protocol - Skin care per protocol PRECAUTIONS: - Weight Bearing Precaution WBAT left LE ACTIVITIES OOB only with supervision THERAPIES: - Occupational Therapy Cognitive Retraining. Visual Perceptual Training. - Dietary and Nutrition Adequate Nutrition. Nutritional Education. Nutritional Supplements. - Speech Therapy Cognitive Training. Expressive Language Skills. Memory Strategies. Receptive Language Skills. Speech Intelligibility Training. PHYSICAL EXAM - Gen Alert and awake Lying in bed No apparent distress Oriented to: person, time, and place - Skin No skin breakdown. Normacephalic - Eyes No abnormalities - ENMT No abnormalities - Neck No abnormalities - CVS RRR - Chest No abnormalities - Abd + bowel sounds - GI Soft Deferred - No abnormalities - Ext No significant edema - MSK 1/5 weakness in left upper and 3/5 weakness in left lower extremity. - Neuro 1/5 weakness in left upper and 3/5 weakness in left lower extremity. - Psych No abnormalities ASSESSMENT: Pt. is a 73 yo Right-handed black male.On 12/19/[address] [facility] with sudden onset of left-side weakness.On 12/19/2019 he was admitted to [facility] with diagnosis Rest ricted Diffusioon of the right internal capsule consistant w/acute infarct.His impairment category is Stroke 01 - Left Body (Right Brain) (01.1).Pre-morbidly, Pt. was independent/mod-I in Transfers Con trol, Locomotion, and Self-Care; and he had good Balance, Safety Awareness, Social Cognition, and Sph incter Control.Currently, he has deficits of Transfers Control, Balance, Safety Awareness, Locomotion , Self-Care, and Social Cognition.Pt. is now referred to [facility] for acute in-patient rehabilitation in order to maximize patient's functional independence in activities of yasmin ly living, strength, ROM, and mobility.- Rehab Goal Patient has realistic goal of being discharged at assistance level 6-Graeme to reside at Home with Fam daphnie/Relatives. MDM/PLAN: - Physical Therapy Gait dysfunction - to improve, our physical therapists will perform initial evaluation of pt's statu s upon admission and devise an individualized program for Gait Training, and Wheel Chair mobility Inability to transfer - to improve, our physical therapists will perform initial evaluation of pt's status upon admission and devise an individualized program for Bed mobility Need for home safety evaluation - to improve, our physical therapists will perform initial evaluatio n of pt's status upon admission and devise an individualized program for Home Evaluation Need in caregiver upon discharge - to improve, our physical therapists will perform initial evaluati on of pt's status upon admission and devise an individualized program for Caregiver Training Edema - to improve, our physical therapists will perform initial evaluation of pt's status upon admi ssion and devise an individualized program for Elevation Training, and Lymphedema Therapy New precaution - to improve, our physical therapists will perform initial evaluation of pt's status upon admission and devise an individualized program for Patient precaution education Poor balance - to improve, our physical therapists will perform initial evaluation of pt's status up on admission and devise an individualized program for Balance Training Weakness - to improve, our physical therapists will perform initial evaluation of pt's status upon a dmission and devise an individualized program for Aquatic Therapy, Neuromuscular Reeducation, and Str engthening Achieving independence - to improve, our physical therapists will perform initial evaluation of pt's status upon admission and devise an individualized program for Community Reintegration Activities - Occupational Therapy ADL deficits - to improve, our occupation therapists will perform initial evaluation of pt's status upon admission and devise an individualized program for Bathing, Bed mobility, Community Reintegratio n, Cooking, Dressing, Eating, Fine Motor Skills, Grooming, Homemaking, Kitchen Mobility, Laundry, Pat ient Education, Safety Awareness, Splinting - Positioning, Transfers(Toilet, Tub, Shower), and Wheel Chair Management Cognitive deficits - to improve, our occupation therapists will perform initial evaluation of pt's s tatus upon admission and devise an individualized program for Cognition - orientation Need for home child care provider - to improve, our occupation therapists will perform initial evaluation of pt's status upon admission and devise an individualized program for Caregiver Training Weakness - to improve, our occupation therapists will perform initial evaluation of pt's status upon admission and devise an individualized program for Aquatic Therapy, Balance, Endurance, UE ROM, and UE strengthening - Other See attached MAR (Medication Administration Record) - Diet Type Continue Regular - Diet - Liquid Texture Continue Regular - Tube Feed Continue N/A - Bladder care per protocol - Weight Bearing Precaution WBAT left LE - Skin care per protocol - Diet - Solid Texture Continue Regular - Shower allowing shower for Dementia, TBI, Stroke, or others FUNCTIONAL STATUS: - Self-Care A. Eating sup B. Grooming Graeme C. Bathing sup D. Dressing - Upper sup E. Dressing - Lower sup F. Toileting sup - Sphincter Control G. Bladder control sup H. Bowel control sup - Transfers Control I. Bed/Chair/Wheelchair sup J. Toilet sup K. Tub/Shower Kimberly - Locomotion L. Walk/Wheelchair (B) Kimberly M. Stairs modA - Communication N. Comprehension (B) Kimberly O. Expression (B) sup - Social Cognition P. Social Interaction sup Q. Problem Solving sup R. Memory sup - Endurance Fair - Balance Fair - Safety Awareness Fair QI SCORES: - Self-Care A. Eating 05-Setup or clean-up assistance B. Oral hygiene 04-Supervision or touching assistance C. Toileting hygiene 03-Partial/moderate assistance E. Shower/bathe self 10-Not attempted due to environmental limitations F. Upper body dressing 03-Partial/moderate assistance G. Lower body dressing 01-Dependent H. Putting on/taking off footwear 01-Dependent - Mobility A. Roll left and right 02-Substantial/maximal assistance B. Sit to lying 02-Substantial/maximal assistance C. Lying to sitting on side of bed 02-Substantial/maximal assistance D. Sit to stand 02-Substantial/maximal assistance E. Chair/[id number]-[id number] transfer 02-Substantial/maximal assistance F. Toilet transfer 02-Substantial/maximal assistance G. Car transfer 88-Not attempted due to medical condition or safety concerns I. Walk 10 feet 88-Not attempted due to medical condition or safety concerns J. Walk 50 feet with two turns 88-Not attempted due to medical condition or safety concerns K. Walk 150 feet 88-Not attempted due to medical condition or safety concerns L. Walking 10 feet on uneven surfaces 88-Not attempted due to medical condition or safety concerns M. 1 step (curb) 88-Not attempted due to medical condition or safety concerns N. 4 steps 88-Not attempted due to medical condition or safety concerns O. 12 steps 88-Not attempted due to medical condition or safety concerns P. Picking up object 88-Not attempted due to medical condition or safety concerns R. Wheel 50 feet with two turns S. Wheel 150 feet - Bladder and Bowel Bladder continence 0-Always continent Bowel continence 0-Always continent - Endurance Poor - Balance Poor - Safety Awareness Poor CURRENT FUNC. DEFICITS: Self-Care, Mobility, Endurance, Balance, and Safety Awareness SIGNATURE PANEL: (CDT)
[2020-01-02] MEDS: MONTELUKAST 10 MG TAB PO SCH (20:27)
[2020-01-02] MEDS: MELATONIN 3 MG TABLET PO PRN (20:27)
[2020-01-02] MEDS: ATORVASTATIN 20 MG TAB PO SCH (20:27)
[2020-01-03] MEDS: INSULIN -REGULAR HUMAN 50 UNIT/0.5 ML ML SQ SCH ×4 (07:30→20:03)
[2020-01-03] MEDS: METFORMIN ER 500 MG TAB PO SCH ×2 (09:00→17:13)
[2020-01-03] MEDS: LOSARTAN POTASSIUM 50 MG TABLET PO SCH (09:00)
[2020-01-03] MEDS: CRANBERRY FRUIT EXTRACT 200 MG CAP PO SCH ×2 (09:00→19:07)
[2020-01-03] MEDS: METOPROLOL TAR 25 MG TAB PO SCH ×2 (09:03→19:08)
[2020-01-03] MEDS: SMZ./TMP. 800/160 MG TABLET PO SCH ×2 (09:03→19:07)
[2020-01-03] MEDS: FLUOXETINE 20 MG CAP PO SCH (09:03)
[2020-01-03] MEDS: APIXABAN 5 MG TABLET PO SCH ×2 (09:03→19:07)
[2020-01-03] MEDS: INSULIN LISPRO 100 UNIT/1 ML SQ SCH ×3 (09:04→17:14)
[2020-01-03] MEDS: INSULIN GLARGINE 100 UNITS/ML SQ SCH (09:04)
--- NOTE | 2020-01-03 17:37 | R.PN ---
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 SUBJECTIVE: Pt denied any Shortness of Breath. Pt denied any depression. Ambulated 16' with mod assistance in the parallel bars. Self-propelled wheelchair 125' with right upp er extremity with maximum assistance. WBC 6.8, Hgb 12.5, glucose 120 to 153, prealbumin 21.1. Barium swallow show prolonged mastication of pudding but thin liquid cleared by straw. He ambulated 30' with moderate assistance with a right hemiwalker. VITAL SIGNS Temperature: 98.2 F SBP/DBP: 140/70 Pulse: 69 Resp: 16 MEDICATION ALLERGIES: No Known Drug Allergies (NKDA) ENVIRONMENTAL ALLERGIES: None Known - Substance Allergies None Known - Other Allergies None Known NURSING: - Shower allowing shower - Bladder care per protocol - Skin care per protocol PRECAUTIONS: - Weight Bearing Precaution WBAT left LE ACTIVITIES OOB only with supervision THERAPIES: - Occupational Therapy Cognitive Retraining. Visual Perceptual Training. - Dietary and Nutrition Adequate Nutrition. Nutritional Education. Nutritional Supplements. - Speech Therapy Cognitive Training. Expressive Language Skills. Memory Strategies. Receptive Language Skills. Speech Intelligibility Training. PHYSICAL EXAM - Gen Alert and awake Lying in bed No apparent distress Oriented to: person, time, and place - Skin No skin breakdown. Normacephalic - Eyes No abnormalities - ENMT No abnormalities - Neck No abnormalities - CVS RRR - Chest No abnormalities - Abd + bowel sounds - GI Soft Deferred - No abnormalities - Ext No significant edema - MSK 1/5 weakness in left upper and 3/5 weakness in left lower extremity. - Neuro 1/5 weakness in left upper and 3/5 weakness in left lower extremity. - Psych No abnormalities ASSESSMENT: Pt. is a 73 yo Right-handed black male.On 12/19/2019 Pt. presented to [facility] with sudden onset of left-side weakness.On 12/19/2019 he was admitted to [facility] with diagnosis Rest ricted Diffusioon of the right internal capsule consistant w/acute infarct.His impairment category is Stroke 01 - Left Body (Right Brain) (01.1).Pre-morbidly, Pt. was independent/mod-I in Transfers Con trol, Locomotion, and Self-Care; and he had good Balance, Safety Awareness, Social Cognition, and Sph incter Control.Currently, he has deficits of Transfers Control, Balance, Safety Awareness, Locomotion , Self-Care, and Social Cognition.Pt. is now referred to [facility] for acute in-patient rehabilitation in order to maximize patient's functional independence in activities of yasmin ly living, strength, ROM, and mobility.- Rehab Goal Patient has realistic goal of being discharged at assistance level 6-Graeme to reside at Home with Fam daphnie/Relatives. MDM/PLAN: - Physical Therapy Gait dysfunction - to improve, our physical therapists will perform initial evaluation of pt's statu s upon admission and devise an individualized program for Gait Training, and Wheel Chair mobility Inability to transfer - to improve, our physical therapists will perform initial evaluation of pt's status upon admission and devise an individualized program for Bed mobility Need for home safety evaluation - to improve, our physical therapists will perform initial evaluatio n of pt's status upon admission and devise an individualized program for Home Evaluation Need in caregiver upon discharge - to improve, our physical therapists will perform initial evaluati on of pt's status upon admission and devise an individualized program for Caregiver Training Edema - to improve, our physical therapists will perform initial evaluation of pt's status upon admi ssion and devise an individualized program for Elevation Training, and Lymphedema Therapy New precaution - to improve, our physical therapists will perform initial evaluation of pt's status upon admission and devise an individualized program for Patient precaution education Poor balance - to improve, our physical therapists will perform initial evaluation of pt's status up on admission and devise an individualized program for Balance Training Weakness - to improve, our physical therapists will perform initial evaluation of pt's status upon a dmission and devise an individualized program for Aquatic Therapy, Neuromuscular Reeducation, and Str engthening Achieving independence - to improve, our physical therapists will perform initial evaluation of pt's status upon admission and devise an individualized program for Community Reintegration Activities - Occupational Therapy ADL deficits - to improve, our occupation therapists will perform initial evaluation of pt's status upon admission and devise an individualized program for Bathing, Bed mobility, Community Reintegratio n, Cooking, Dressing, Eating, Fine Motor Skills, Grooming, Homemaking, Kitchen Mobility, Laundry, Pat ient Education, Safety Awareness, Splinting - Positioning, Transfers(Toilet, Tub, Shower), and Wheel Chair Management Cognitive deficits - to improve, our occupation therapists will perform initial evaluation of pt's s tatus upon admission and devise an individualized program for Cognition - orientation Need for health care social worker - to improve, our occupation therapists will perform initial evaluation of pt's status upon admission and devise an individualized program for Caregiver Training Weakness - to improve, our occupation therapists will perform initial evaluation of pt's status upon admission and devise an individualized program for Aquatic Therapy, Balance, Endurance, UE ROM, and UE strengthening - Other See attached MAR (Medication Administration Record) - Diet Type Continue Regular - Diet - Liquid Texture Continue Regular - Tube Feed Continue N/A - Bladder care per protocol - Weight Bearing Precaution WBAT left LE - Skin care per protocol - Diet - Solid Texture Continue Regular - Shower allowing shower for Dementia, TBI, Stroke, or others FUNCTIONAL STATUS: - Self-Care A. Eating sup B. Grooming Graeme C. Bathing sup D. Dressing - Upper sup E. Dressing - Lower sup F. Toileting sup - Sphincter Control G. Bladder control sup H. Bowel control sup - Transfers Control I. Bed/Chair/Wheelchair sup J. Toilet sup K. Tub/Shower Kimberly - Locomotion L. Walk/Wheelchair (B) Kimberly M. Stairs modA - Communication N. Comprehension (B) Kimberly O. Expression (B) sup - Social Cognition P. Social Interaction sup Q. Problem Solving sup R. Memory sup - Endurance Fair - Balance Fair - Safety Awareness Fair QI SCORES: - Self-Care A. Eating 05-Setup or clean-up assistance B. Oral hygiene 04-Supervision or touching assistance C. Toileting hygiene 03-Partial/moderate assistance E. Shower/bathe self 10-Not attempted due to environmental limitations F. Upper body dressing 03-Partial/moderate assistance G. Lower body dressing 01-Dependent H. Putting on/taking off footwear 01-Dependent - Mobility A. Roll left and right 02-Substantial/maximal assistance B. Sit to lying 02-Substantial/maximal assistance C. Lying to sitting on side of bed 02-Substantial/maximal assistance D. Sit to stand 02-Substantial/maximal assistance E. Chair/[id number] transfer 02-Substantial/maximal assistance F. Toilet transfer 02-Substantial/maximal assistance G. Car transfer 88-Not attempted due to medical condition or safety concerns I. Walk 10 feet 88-Not attempted due to medical condition or safety concerns J. Walk 50 feet with two turns 88-Not attempted due to medical condition or safety concerns K. Walk 150 feet 88-Not attempted due to medical condition or safety concerns L. Walking 10 feet on uneven surfaces 88-Not attempted due to medical condition or safety concerns M. 1 step (curb) 88-Not attempted due to medical condition or safety concerns N. 4 steps 88-Not attempted due to medical condition or safety concerns O. 12 steps 88-Not attempted due to medical condition or safety concerns P. Picking up object 88-Not attempted due to medical condition or safety concerns R. Wheel 50 feet with two turns S. Wheel 150 feet - Bladder and Bowel Bladder continence 0-Always continent Bowel continence 0-Always continent - Endurance Poor - Balance Poor - Safety Awareness Poor CURRENT FUNC. DEFICITS: Self-Care, Mobility, Endurance, Balance, and Safety Awareness SIGNATURE PANEL: (CDT)
[2020-01-03] MEDS: TRAMADOL HCL 50 MG TAB PO PRN (19:08)
[2020-01-03] MEDS: ATORVASTATIN 20 MG TAB PO SCH (20:02)
[2020-01-03] MEDS: MONTELUKAST 10 MG TAB PO SCH (20:03)
[2020-01-03] MEDS: TRAZODONE 50 MG TABLET PO PRN (20:03)
[2020-01-04 07:22] LABS: Absolute Lymphocytes (CBC) 2.2 K/uL (0.7-4.9); Basophils % 0.8 % (0-1.3); Hematocrit 36.7 % (39.6-49.0); Lymphocytes % 42.4 % (15.3-44.8); RBC Red Blood Cell Count 5.14 M/uL (4.33-5.43)
[2020-01-04] MEDS: INSULIN -REGULAR HUMAN 50 UNIT/0.5 ML ML SQ SCH ×4 (07:30→20:12)
[2020-01-04] MEDS: APIXABAN 5 MG TABLET PO SCH ×2 (07:38→19:00)
[2020-01-04] MEDS: CRANBERRY FRUIT EXTRACT 200 MG CAP PO SCH ×2 (07:38→19:00)
[2020-01-04] MEDS: FLUOXETINE 20 MG CAP PO SCH (07:38)
[2020-01-04] MEDS: METOPROLOL TAR 25 MG TAB PO SCH ×2 (07:38→19:02)
[2020-01-04] MEDS: SMZ./TMP. 800/160 MG TABLET PO SCH ×2 (07:38→19:00)
[2020-01-04] MEDS: LOSARTAN POTASSIUM 50 MG TABLET PO SCH (07:39)
[2020-01-04] MEDS: METFORMIN ER 500 MG TAB PO SCH ×2 (07:39→16:30)
[2020-01-04] MEDS: INSULIN LISPRO 100 UNIT/1 ML SQ SCH ×3 (07:39→16:27)
[2020-01-04 07:42] LABS: Albumin 2.8 g/dL (3.4-5.0); Potassium 4.2 mmol/L (3.5-5.1); Prealbumin 21.9 mg/dL (20-40)
[2020-01-04] MEDS: TRAMADOL HCL 50 MG TAB PO PRN (10:06)
[2020-01-04] MEDS: INSULIN GLARGINE 100 UNITS/ML SQ SCH (11:31)
--- NOTE | 2020-01-04 15:15 | FAST ---
SHIFT START DATE/TIME: 01/03/2020 07:00 (CDT) SHIFT END DATE/TIME: 01/03/2020 19:00 (CDT) NAME JOHNSON VAZQUEZ DATE OF : 1945 DATE OF ADMISSION: 12/26/2019 18:56 (CDT) PHONE: AGE: 73 N# [id number] GENDER: Male ENCOUNTER PHYSICIAN: Dr. Reyes Womack M.D. 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 EATING: EATING - STEP 1: Does the patient complete the activity by him/herself with no assistance (physical, verbal/nonverbal cueing, setup/clean-up)? No. EATING - STEP 2: Does the patient need only setup/clean-up assistance from one helper? No. EATING - STEP 3: Does the patient need only verbal/nonverbal cueing or touching/steadying/contact guard assistance fro m one helper? Yes. 1. [id number] ADMISSION PERFORMANCE: Supervision or touching assistance CODE: 04 ORAL HYGIENE: ORAL HYGIENE - STEP 1: Does the patient complete the activity by him/herself with no assistance (physical, verbal/nonverbal cueing, setup/clean-up)? No. ORAL HYGIENE - STEP 2: Does the patient need only setup/clean-up assistance from one helper? Yes. 1. [id number] ADMISSION PERFORMANCE: Setup or clean-up assistance CODE: 05 TOILETING HYGIENE: TOILETING HYGIENE - STEP 1: Does the patient complete the activity by him/herself with no assistance (physical, verbal/nonverbal cueing, setup/clean-up)? No. TOILETING HYGIENE - STEP 2: Does the patient need only setup/clean-up assistance from one helper? No. TOILETING HYGIENE - STEP 3: Does the patient need only verbal/nonverbal cueing or touching/steadying/contact guard assistance fro m one helper? No. TOILETING HYGIENE - STEP 4: Does the patient need physical assistance - for example lifting or trunk support from one helper - wi th the helper providing less than half of the effort? No. TOILETING HYGIENE - STEP 5: Does the patient need physical assistance - for example lifting or trunk support from one helper - wi th the helper providing more than half of the effort? Yes. 1. [id number] ADMISSION PERFORMANCE: Substantial/maximal assistance CODE: 02 BATHING: Not assessed/no information CODE: - DRESSING - UPPER BODY: DRESSING - UPPER BODY - STEP 1: Does the patient complete the activity by him/herself with no assistance (physical, verbal/nonverbal cueing, setup/clean-up)? No. DRESSING - UPPER BODY - STEP 2: Does the patient need only setup/clean-up assistance from one helper? No. DRESSING - UPPER BODY - STEP 3: Does the patient need only verbal/nonverbal cueing or touching/steadying/contact guard assistance fro m one helper? No. DRESSING - UPPER BODY - STEP 4: Does the patient need physical assistance - for example lifting or trunk support from one helper - wi th the helper providing less than half of the effort? No. DRESSING - UPPER BODY - STEP 5: Does the patient need physical assistance - for example lifting or trunk support from one helper - wi th the helper providing more than half of the effort? Yes. 1. [id number] ADMISSION PERFORMANCE: Substantial/maximal assistance CODE: 02 DRESSING - LOWER BODY: DRESSING - LOWER BODY - STEP 1: Does the patient complete the activity by him/herself with no assistance (physical, verbal/nonverbal cueing, setup/clean-up)? No. DRESSING - LOWER BODY - STEP 2: Does the patient need only setup/clean-up assistance from one helper? No. DRESSING - LOWER BODY - STEP 3: Does the patient need only verbal/nonverbal cueing or touching/steadying/contact guard assistance fro m one helper? No. DRESSING - LOWER BODY - STEP 4: Does the patient need physical assistance - for example lifting or trunk support from one helper - wi th the helper providing less than half of the effort? No. DRESSING - LOWER BODY - STEP 5: Does the patient need physical assistance - for example lifting or trunk support from one helper - wi th the helper providing more than half of the effort? Yes. 1. [id number] ADMISSION PERFORMANCE: Substantial/maximal assistance CODE: 02 PUTTING ON/TAKING OFF FOOTWEAR: FOOTWEAR - STEP 1: Does the patient complete the activity by him/herself with no assistance (physical, verbal/nonverbal cueing, setup/clean-up)? No. FOOTWEAR - STEP 2: Does the patient need only setup/clean-up assistance from one helper? No. FOOTWEAR - STEP 3: Does the patient need only verbal/nonverbal cueing or touching/steadying/contact guard assistance fro m one helper? No. FOOTWEAR - STEP 4: Does the patient need physical assistance - for example lifting or trunk support from one helper - wi th the helper providing less than half of the effort? No. FOOTWEAR - STEP 5: Does the patient need physical assistance - for example lifting or trunk support from one helper - wi th the helper providing more than half of the effort? Yes. 1. [id number] ADMISSION PERFORMANCE: Substantial/maximal assistance CODE: 02 ROLL LEFT AND RIGHT: ROLL LEFT AND RIGHT - STEP 1: Does the patient complete the activity by him/herself with no assistance (physical, verbal/nonverbal cueing, setup/clean-up)? No. ROLL LEFT AND RIGHT - STEP 2: Does the patient need only setup/clean-up assistance from one helper? No. ROLL LEFT AND RIGHT - STEP 3: Does the patient need only verbal/nonverbal cueing or touching/steadying/contact guard assistance fro m one helper? No. ROLL LEFT AND RIGHT - STEP 4: Does the patient need physical assistance - for example lifting or trunk support from one helper - wi th the helper providing less than half of the effort? No. ROLL LEFT AND RIGHT - STEP 5: Does the patient need physical assistance - for example lifting or trunk support from one helper - wi th the helper providing more than half of the effort? Yes. 1. [id number] ADMISSION PERFORMANCE: Substantial/maximal assistance CODE: 02 SIT TO LYING: SIT TO LYING - STEP 1: Does the patient complete the activity by him/herself with no assistance (physical, verbal/nonverbal cueing, setup/clean-up)? No. SIT TO LYING - STEP 2: Does the patient need only setup/clean-up assistance from one helper? No. SIT TO LYING - STEP 3: Does the patient need only verbal/nonverbal cueing or touching/steadying/contact guard assistance fro m one helper? No. SIT TO LYING - STEP 4: Does the patient need physical assistance - for example lifting or trunk support from one helper - wi th the helper providing less than half of the effort? No. SIT TO LYING - STEP 5: Does the patient need physical assistance - for example lifting or trunk support from one helper - wi th the helper providing more than half of the effort? Yes. 1. [id number] ADMISSION PERFORMANCE: Substantial/maximal assistance CODE: 02 LYING TO SITTING: LYING TO SITTING ON SIDE OF BED - STEP 1: Does the patient complete the activity by him/herself with no assistance (physical, verbal/nonverbal cueing, setup/clean-up)? No. LYING TO SITTING ON SIDE OF BED - STEP 2: Does the patient need only setup/clean-up assistance from one helper? No. LYING TO SITTING ON SIDE OF BED - STEP 3: Does the patient need only verbal/nonverbal cueing or touching/steadying/contact guard assistance fro m one helper? No. LYING TO SITTING ON SIDE OF BED - STEP 4: Does the patient need physical assistance - for example lifting or trunk support from one helper - wi th the helper providing less than half of the effort? Yes. 1. [id number] ADMISSION PERFORMANCE: Partial/moderate assistance CODE: 03 SIT TO STAND: SIT TO STAND - STEP 1: Does the patient complete the activity by him/herself with no assistance (physical, verbal/nonverbal cueing, setup/clean-up)? No. SIT TO STAND - STEP 2: Does the patient need only setup/clean-up assistance from one helper? No. SIT TO STAND - STEP 3: Does the patient need only verbal/nonverbal cueing or touching/steadying/contact guard assistance fro m one helper? No. SIT TO STAND - STEP 4: Does the patient need physical assistance - for example lifting or trunk support from one helper - wi th the helper providing less than half of the effort? No. SIT TO STAND - STEP 5: Does the patient need physical assistance - for example lifting or trunk support from one helper - wi th the helper providing more than half of the effort? Yes. 1. [id number] ADMISSION PERFORMANCE: Substantial/maximal assistance CODE: 02 TRANSFERS: BED, CHAIR: CHAIR/NED-CP-[id number] TRANSFER - STEP 1: Does the patient complete the activity by him/herself with no assistance (physical, verbal/nonverbal cueing, setup/clean-up)? No. CHAIR/[id number] TRANSFER - STEP 2: Does the patient need only setup/clean-up assistance from one helper? No. CHAIR/[id number]-WD-[id number] TRANSFER - STEP 3: Does the patient need only verbal/nonverbal cueing or touching/steadying/contact guard assistance fro m one helper? No. CHAIR/[id number] TRANSFER - STEP 4: Does the patient need physical assistance - for example lifting or trunk support from one helper - wi th the helper providing less than half of the effort? Yes. 1. [id number] ADMISSION PERFORMANCE: Partial/moderate assistance CODE: 03 TRANSFER TOILET: TOILET TRANSFER - STEP 1: Does the patient complete the activity by him/herself with no assistance (physical, verbal/nonverbal cueing, setup/clean-up)? No. TOILET TRANSFER - STEP 2: Does the patient need only setup/clean-up assistance from one helper? No. TOILET TRANSFER - STEP 3: Does the patient need only verbal/nonverbal cueing or touching/steadying/contact guard assistance fro m one helper? No. TOILET TRANSFER - STEP 4: Does the patient need physical assistance - for example lifting or trunk support from one helper - wi th the helper providing less than half of the effort? Yes. 1. [id number] ADMISSION PERFORMANCE: Partial/moderate assistance CODE: 03 TRANSFERS: CAR: Not assessed/no information CODE: - WALK 10 FEET: Not assessed/no information CODE: - 1 STEP (CURB): Not assessed/no information CODE: - PICKING UP OBJECT: Not assessed/no information CODE: - DOES THE PATIENT USE A WHEELCHAIR/SCOOTER? Q1. DOES THE PATIENT USE A WHEELCHAIR/SCOOTER?: Yes CODE: 1 WHEEL 50 FEET WITH TWO TURNS: WHEEL 50 FEET WITH TWO TURNS - STEP 1: Does the patient complete the activity by him/herself with no assistance (physical, verbal/nonverbal cueing, setup/clean-up)? No. WHEEL 50 FEET WITH TWO TURNS - STEP 2: Does the patient need only setup/clean-up assistance from one helper? No. WHEEL 50 FEET WITH TWO TURNS - STEP 3: Does the patient need only verbal/nonverbal cueing or touching/steadying/contact guard assistance fro m one helper? No. WHEEL 50 FEET WITH TWO TURNS - STEP 4: Does the patient need physical assistance - for example lifting or trunk support from one helper - wi th the helper providing less than half of the effort? No. WHEEL 50 FEET WITH TWO TURNS - STEP 5: Does the patient need physical assistance - for example lifting or trunk support from one helper - wi th the helper providing more than half of the effort? Yes. 1. [id number] ADMISSION PERFORMANCE: Substantial/maximal assistance CODE: 02 INDICATE THE TYPE OF WHEELCHAIR/SCOOTER USED: RR1. INDICATE THE TYPE OF WHEELCHAIR/SCOOTER USED.: Manual CODE: 1 WHEEL 150 FEET: WHEEL 150 FEET - STEP 1: Does the patient complete the activity by him/herself with no assistance (physical, verbal/nonverbal cueing, setup/clean-up)? No. WHEEL 150 FEET - STEP 2: Does the patient need only setup/clean-up assistance from one helper? No. WHEEL 150 FEET - STEP 3: Does the patient need only verbal/nonverbal cueing or touching/steadying/contact guard assistance fro m one helper? No. WHEEL 150 FEET - STEP 4: Does the patient need physical assistance - for example lifting or trunk support from one helper - wi th the helper providing less than half of the effort? No. WHEEL 150 FEET - STEP 5: Does the patient need physical assistance - for example lifting or trunk support from one helper - wi th the helper providing more than half of the effort? Yes. 1. [id number] ADMISSION PERFORMANCE: Substantial/maximal assistance CODE: 02 INDICATE THE TYPE OF WHEELCHAIR/SCOOTER USED: SS1. INDICATE THE TYPE OF WHEELCHAIR/SCOOTER USED.: Manual CODE: 1 BLADDER AND BOWEL: H350. BLADDER CONTINENCE (3-DAY ASSESSMENT PERIOD): Always continent (no documented incontinence) CODE: 0 H400. BOWEL CONTINENCE (3-DAY ASSESSMENT PERIOD): Always continent CODE: 0 SIGNATURE PANEL: The following modified sections: 1. [id number] Admission Performance, 1. [id number] Admission Performance, 1. [id number] Admission Performance, 1. [id number] Admission Performance, 1. [id number] Admission Performance, 1. [id number] Admission Performance, 1. [id number] Admission Performance, 1. [id number] Admission Performance , 1. [id number] Admission Performance, 1. [id number] Admission Performance, 1. [id number] Admission Performanc e, 1. [id number] Admission Performance, 1. [id number] Admission Performance, Q1. Does the patient use a whe elchair/scooter?, 1. [id number] Admission Performance, 1. [id number] Admission Performance, RR1. Indicate t he type of wheelchair/scooter used., 1. [id number] Admission Performance, Code, SS1. Indicate the type o f wheelchair/scooter used., H350. Bladder Continence (3-day assessment period), H400. Bowel Continenc e (3-day assessment period), 1. [id number] Admission Performance, 1. [id number] Admission Performance were [electronically] signed by Tawny [email or web address] on WedJan 04 2020 15:14:55 T-0500 ([facility])
--- NOTE | 2020-01-04 15:35 | FAST ---
SHIFT START DATE/TIME: 01/04/2020 07:00 (CDT) SHIFT END DATE/TIME: 01/04/2020 19:00 (CDT) NAME JOHNSON VAZQUEZ DATE OF : 1945 DATE OF ADMISSION: 12/26/2019 18:56 (CDT) PHONE: AGE: 73 N# [id number] GENDER: Male ENCOUNTER PHYSICIAN: Dr. Reyes Womack M.D. 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 EATING: EATING - STEP 1: Does the patient complete the activity by him/herself with no assistance (physical, verbal/nonverbal cueing, setup/clean-up)? No. EATING - STEP 2: Does the patient need only setup/clean-up assistance from one helper? Yes. 1. [id number] ADMISSION PERFORMANCE: Setup or clean-up assistance CODE: 05 ORAL HYGIENE: ORAL HYGIENE - STEP 1: Does the patient complete the activity by him/herself with no assistance (physical, verbal/nonverbal cueing, setup/clean-up)? No. ORAL HYGIENE - STEP 2: Does the patient need only setup/clean-up assistance from one helper? Yes. 1. [id number] ADMISSION PERFORMANCE: Setup or clean-up assistance CODE: 05 TOILETING HYGIENE: TOILETING HYGIENE - STEP 1: Does the patient complete the activity by him/herself with no assistance (physical, verbal/nonverbal cueing, setup/clean-up)? No. TOILETING HYGIENE - STEP 2: Does the patient need only setup/clean-up assistance from one helper? No. TOILETING HYGIENE - STEP 3: Does the patient need only verbal/nonverbal cueing or touching/steadying/contact guard assistance fro m one helper? No. TOILETING HYGIENE - STEP 4: Does the patient need physical assistance - for example lifting or trunk support from one helper - wi th the helper providing less than half of the effort? Yes. 1. [id number] ADMISSION PERFORMANCE: Partial/moderate assistance CODE: 03 BATHING: Not assessed/no information CODE: - DRESSING - UPPER BODY: DRESSING - UPPER BODY - STEP 1: Does the patient complete the activity by him/herself with no assistance (physical, verbal/nonverbal cueing, setup/clean-up)? No. DRESSING - UPPER BODY - STEP 2: Does the patient need only setup/clean-up assistance from one helper? No. DRESSING - UPPER BODY - STEP 3: Does the patient need only verbal/nonverbal cueing or touching/steadying/contact guard assistance fro m one helper? No. DRESSING - UPPER BODY - STEP 4: Does the patient need physical assistance - for example lifting or trunk support from one helper - wi th the helper providing less than half of the effort? Yes. 1. [id number] ADMISSION PERFORMANCE: Partial/moderate assistance CODE: 03 DRESSING - LOWER BODY: DRESSING - LOWER BODY - STEP 1: Does the patient complete the activity by him/herself with no assistance (physical, verbal/nonverbal cueing, setup/clean-up)? No. DRESSING - LOWER BODY - STEP 2: Does the patient need only setup/clean-up assistance from one helper? No. DRESSING - LOWER BODY - STEP 3: Does the patient need only verbal/nonverbal cueing or touching/steadying/contact guard assistance fro m one helper? No. DRESSING - LOWER BODY - STEP 4: Does the patient need physical assistance - for example lifting or trunk support from one helper - wi th the helper providing less than half of the effort? No. DRESSING - LOWER BODY - STEP 5: Does the patient need physical assistance - for example lifting or trunk support from one helper - wi th the helper providing more than half of the effort? Yes. 1. [id number] ADMISSION PERFORMANCE: Substantial/maximal assistance CODE: 02 PUTTING ON/TAKING OFF FOOTWEAR: FOOTWEAR - STEP 1: Does the patient complete the activity by him/herself with no assistance (physical, verbal/nonverbal cueing, setup/clean-up)? No. FOOTWEAR - STEP 2: Does the patient need only setup/clean-up assistance from one helper? No. FOOTWEAR - STEP 3: Does the patient need only verbal/nonverbal cueing or touching/steadying/contact guard assistance fro m one helper? No. FOOTWEAR - STEP 4: Does the patient need physical assistance - for example lifting or trunk support from one helper - wi th the helper providing less than half of the effort? Yes. 1. [id number] ADMISSION PERFORMANCE: Partial/moderate assistance CODE: 03 ROLL LEFT AND RIGHT: ROLL LEFT AND RIGHT - STEP 1: Does the patient complete the activity by him/herself with no assistance (physical, verbal/nonverbal cueing, setup/clean-up)? No. ROLL LEFT AND RIGHT - STEP 2: Does the patient need only setup/clean-up assistance from one helper? No. ROLL LEFT AND RIGHT - STEP 3: Does the patient need only verbal/nonverbal cueing or touching/steadying/contact guard assistance fro m one helper? No. ROLL LEFT AND RIGHT - STEP 4: Does the patient need physical assistance - for example lifting or trunk support from one helper - wi th the helper providing less than half of the effort? Yes. 1. [id number] ADMISSION PERFORMANCE: Partial/moderate assistance CODE: 03 SIT TO LYING: SIT TO LYING - STEP 1: Does the patient complete the activity by him/herself with no assistance (physical, verbal/nonverbal cueing, setup/clean-up)? No. SIT TO LYING - STEP 2: Does the patient need only setup/clean-up assistance from one helper? No. SIT TO LYING - STEP 3: Does the patient need only verbal/nonverbal cueing or touching/steadying/contact guard assistance fro m one helper? No. SIT TO LYING - STEP 4: Does the patient need physical assistance - for example lifting or trunk support from one helper - wi th the helper providing less than half of the effort? Yes. 1. [id number] ADMISSION PERFORMANCE: Partial/moderate assistance CODE: 03 LYING TO SITTING: LYING TO SITTING ON SIDE OF BED - STEP 1: Does the patient complete the activity by him/herself with no assistance (physical, verbal/nonverbal cueing, setup/clean-up)? No. LYING TO SITTING ON SIDE OF BED - STEP 2: Does the patient need only setup/clean-up assistance from one helper? No. LYING TO SITTING ON SIDE OF BED - STEP 3: Does the patient need only verbal/nonverbal cueing or touching/steadying/contact guard assistance fro m one helper? No. LYING TO SITTING ON SIDE OF BED - STEP 4: Does the patient need physical assistance - for example lifting or trunk support from one helper - wi th the helper providing less than half of the effort? Yes. 1. [id number] ADMISSION PERFORMANCE: Partial/moderate assistance CODE: 03 SIT TO STAND: SIT TO STAND - STEP 1: Does the patient complete the activity by him/herself with no assistance (physical, verbal/nonverbal cueing, setup/clean-up)? No. SIT TO STAND - STEP 2: Does the patient need only setup/clean-up assistance from one helper? No. SIT TO STAND - STEP 3: Does the patient need only verbal/nonverbal cueing or touching/steadying/contact guard assistance fro m one helper? No. SIT TO STAND - STEP 4: Does the patient need physical assistance - for example lifting or trunk support from one helper - wi th the helper providing less than half of the effort? Yes. 1. [id number] ADMISSION PERFORMANCE: Partial/moderate assistance CODE: 03 TRANSFERS: BED, CHAIR: CHAIR/[id number] TRANSFER - STEP 1: Does the patient complete the activity by him/herself with no assistance (physical, verbal/nonverbal cueing, setup/clean-up)? No. CHAIR/[id number] TRANSFER - STEP 2: Does the patient need only setup/clean-up assistance from one helper? No. CHAIR/[id number] TRANSFER - STEP 3: Does the patient need only verbal/nonverbal cueing or touching/steadying/contact guard assistance fro m one helper? No. CHAIR/[id number] TRANSFER - STEP 4: Does the patient need physical assistance - for example lifting or trunk support from one helper - wi th the helper providing less than half of the effort? Yes. 1. [id number] ADMISSION PERFORMANCE: Partial/moderate assistance CODE: 03 TRANSFER TOILET: TOILET TRANSFER - STEP 1: Does the patient complete the activity by him/herself with no assistance (physical, verbal/nonverbal cueing, setup/clean-up)? No. TOILET TRANSFER - STEP 2: Does the patient need only setup/clean-up assistance from one helper? No. TOILET TRANSFER - STEP 3: Does the patient need only verbal/nonverbal cueing or touching/steadying/contact guard assistance fro m one helper? No. TOILET TRANSFER - STEP 4: Does the patient need physical assistance - for example lifting or trunk support from one helper - wi th the helper providing less than half of the effort? Yes. 1. [id number] ADMISSION PERFORMANCE: Partial/moderate assistance CODE: 03 TRANSFERS: CAR: Not assessed/no information CODE: - WALK 10 FEET: Not assessed/no information CODE: - 1 STEP (CURB): Not assessed/no information CODE: - PICKING UP OBJECT: Not assessed/no information CODE: - DOES THE PATIENT USE A WHEELCHAIR/SCOOTER? Q1. DOES THE PATIENT USE A WHEELCHAIR/SCOOTER?: Yes CODE: 1 WHEEL 50 FEET WITH TWO TURNS: WHEEL 50 FEET WITH TWO TURNS - STEP 1: Does the patient complete the activity by him/herself with no assistance (physical, verbal/nonverbal cueing, setup/clean-up)? No. WHEEL 50 FEET WITH TWO TURNS - STEP 2: Does the patient need only setup/clean-up assistance from one helper? No. WHEEL 50 FEET WITH TWO TURNS - STEP 3: Does the patient need only verbal/nonverbal cueing or touching/steadying/contact guard assistance fro m one helper? No. WHEEL 50 FEET WITH TWO TURNS - STEP 4: Does the patient need physical assistance - for example lifting or trunk support from one helper - wi th the helper providing less than half of the effort? Yes. 1. [id number] ADMISSION PERFORMANCE: Partial/moderate assistance CODE: 03 INDICATE THE TYPE OF WHEELCHAIR/SCOOTER USED: RR1. INDICATE THE TYPE OF WHEELCHAIR/SCOOTER USED.: Manual CODE: 1 WHEEL 150 FEET: WHEEL 150 FEET - STEP 1: Does the patient complete the activity by him/herself with no assistance (physical, verbal/nonverbal cueing, setup/clean-up)? No. WHEEL 150 FEET - STEP 2: Does the patient need only setup/clean-up assistance from one helper? No. WHEEL 150 FEET - STEP 3: Does the patient need only verbal/nonverbal cueing or touching/steadying/contact guard assistance fro m one helper? No. WHEEL 150 FEET - STEP 4: Does the patient need physical assistance - for example lifting or trunk support from one helper - wi th the helper providing less than half of the effort? Yes. 1. [id number] ADMISSION PERFORMANCE: Partial/moderate assistance CODE: 03 INDICATE THE TYPE OF WHEELCHAIR/SCOOTER USED: SS1. INDICATE THE TYPE OF WHEELCHAIR/SCOOTER USED.: Manual CODE: 1 BLADDER AND BOWEL: H350. BLADDER CONTINENCE (3-DAY ASSESSMENT PERIOD): Always continent (no documented incontinence) CODE: 0 H400. BOWEL CONTINENCE (3-DAY ASSESSMENT PERIOD): Always continent CODE: 0 SIGNATURE PANEL: The following modified sections: 1. [id number] Admission Performance, 1. [id number] Admission Performance, 1. IP5501D Admission Performance, 1. HP6194A Admission Performance, 1. NP4766r Admission Performance, 1. TC7455h Admission Performance, 1. [id number] Admission Performance, 1. TS4352g Admission Performance , 1. LD4773D Admission Performance, 1. [id number] Admission Performance, 1. [id number] Admission Performanc e, 1. NS6290C Admission Performance, 1. [id number] Admission Performance, 1. [id number] Admission Performan ce, Q1. Does the patient use a wheelchair/scooter?, 1. [id number] Admission Performance, 1. [id number] Admi ssion Performance, RR1. Indicate the type of wheelchair/scooter used., 1. LS4896P Admission Performan ce, Code, SS1. Indicate the type of wheelchair/scooter used., H350. Bladder Continence (3-day assessm ent period), H400. Bowel Continence (3-day assessment period), 1. [id number] Admission Performance were [electronically] signed by Tawny IvanNAnastasia on WedJan 04 2020 15:34:54 T-0500 ([facility])
--- NOTE | 2020-01-04 17:22 | R.PN ---
ENCOUNTER DATE AND TIME: 01/04/2020 17:17 (CDT) NAME JOHNSON VAZQUEZ DATE OF : 1945 DATE OF ADMISSION: 12/26/2019 18:56 (CDT) Restricted Diffusion of the right internal capsule consistent w/acute infarctCHIEF COMPLAINT: Right brain stroke with left sided weakness. SUBJECTIVE: Pt denied any Shortness of Breath. Pt denied any depression. Ambulated 40' with mod assistance using a hemiwaker. Self-propelled wheelchair 250' with right upper extremity with maximum assistance. WBC 5.3, Hgb 11.5, glucose 93 to 169, prealbumin 21.9. Barium swallow show prolonged mastication of pudding but thin liquid cleared by straw. VITAL SIGNS Temperature: 97.4 F SBP/DBP: 134/69 Pulse: 63 Resp: 16 MEDICATION ALLERGIES: No Known Drug Allergies (NKDA) ENVIRONMENTAL ALLERGIES: None Known - Substance Allergies None Known - Other Allergies None Known NURSING: - Shower allowing shower - Bladder care per protocol - Skin care per protocol PRECAUTIONS: - Weight Bearing Precaution WBAT left LE ACTIVITIES OOB only with supervision THERAPIES: - Occupational Therapy Cognitive Retraining. Visual Perceptual Training. - Dietary and Nutrition Adequate Nutrition. Nutritional Education. Nutritional Supplements. - Speech Therapy Cognitive Training. Expressive Language Skills. Memory Strategies. Receptive Language Skills. Speech Intelligibility Training. PHYSICAL EXAM - Gen Alert and awake Lying in bed No apparent distress Oriented to: person, time, and place - Skin No skin breakdown. Normacephalic - Eyes No abnormalities - ENMT No abnormalities - Neck No abnormalities - CVS RRR - Chest No abnormalities - Abd + bowel sounds - GI Soft Deferred - No abnormalities - Ext No significant edema - MSK 1/5 weakness in left upper and 3/5 weakness in left lower extremity. - Neuro 1/5 weakness in left upper and 3/5 weakness in left lower extremity. - Psych No abnormalities ASSESSMENT: Pt. is a 73 yo Right-handed black male.On 12/19/2019 Pt. presented to [facility] with sudden onset of left-side weakness.On 12/19/2019 he was admitted to [facility] with diagnosis Rest ricted Diffusioon of the right internal capsule consistant w/acute infarct.His impairment category is Stroke 01 - Left Body (Right Brain) (01.1).Pre-morbidly, Pt. was independent/mod-I in Transfers Con trol, Locomotion, and Self-Care; and he had good Balance, Safety Awareness, Social Cognition, and Sph incter Control.Currently, he has deficits of Transfers Control, Balance, Safety Awareness, Locomotion , Self-Care, and Social Cognition.Pt. is now referred to [facility] for acute in-patient rehabilitation in order to maximize patient's functional independence in activities of yasmin ly living, strength, ROM, and mobility.- Rehab Goal Patient has realistic goal of being discharged at assistance level 6-Graeme to reside at Home with Fam daphnie/Relatives. MDM/PLAN: - Physical Therapy Gait dysfunction - to improve, our physical therapists will perform initial evaluation of pt's statu s upon admission and devise an individualized program for Gait Training, and Wheel Chair mobility Inability to transfer - to improve, our physical therapists will perform initial evaluation of pt's status upon admission and devise an individualized program for Bed mobility Need for home safety evaluation - to improve, our physical therapists will perform initial evaluatio n of pt's status upon admission and devise an individualized program for Home Evaluation Need in caregiver upon discharge - to improve, our physical therapists will perform initial evaluati on of pt's status upon admission and devise an individualized program for Caregiver Training Edema - to improve, our physical therapists will perform initial evaluation of pt's status upon admi ssion and devise an individualized program for Elevation Training, and Lymphedema Therapy New precaution - to improve, our physical therapists will perform initial evaluation of pt's status upon admission and devise an individualized program for Patient precaution education Poor balance - to improve, our physical therapists will perform initial evaluation of pt's status up on admission and devise an individualized program for Balance Training Weakness - to improve, our physical therapists will perform initial evaluation of pt's status upon a dmission and devise an individualized program for Aquatic Therapy, Neuromuscular Reeducation, and Str engthening Achieving independence - to improve, our physical therapists will perform initial evaluation of pt's status upon admission and devise an individualized program for Community Reintegration Activities - Occupational Therapy ADL deficits - to improve, our occupation therapists will perform initial evaluation of pt's status upon admission and devise an individualized program for Bathing, Bed mobility, Community Reintegratio n, Cooking, Dressing, Eating, Fine Motor Skills, Grooming, Homemaking, Kitchen Mobility, Laundry, Pat ient Education, Safety Awareness, Splinting - Positioning, Transfers(Toilet, Tub, Shower), and Wheel Chair Management Cognitive deficits - to improve, our occupation therapists will perform initial evaluation of pt's s tatus upon admission and devise an individualized program for Cognition - orientation Need for rn patient care - to improve, our occupation therapists will perform initial evaluation of pt's status upon admission and devise an individualized program for Caregiver Training Weakness - to improve, our occupation therapists will perform initial evaluation of pt's status upon admission and devise an individualized program for Aquatic Therapy, Balance, Endurance, UE ROM, and UE strengthening - Other See attached MAR (Medication Administration Record) - Diet Type Continue Regular - Diet - Liquid Texture Continue Regular - Tube Feed Continue N/A - Bladder care per protocol - Weight Bearing Precaution WBAT left LE - Skin care per protocol - Diet - Solid Texture Continue Regular - Shower allowing shower for Dementia, TBI, Stroke, or others FUNCTIONAL STATUS: - Self-Care A. Eating sup B. Grooming Graeme C. Bathing sup D. Dressing - Upper sup E. Dressing - Lower sup F. Toileting sup - Sphincter Control G. Bladder control sup H. Bowel control sup - Transfers Control I. Bed/Chair/Wheelchair sup J. Toilet sup K. Tub/Shower Kimberly - Locomotion L. Walk/Wheelchair (B) Kimberly M. Stairs modA - Communication N. Comprehension (B) Kimberly O. Expression (B) sup - Social Cognition P. Social Interaction sup Q. Problem Solving sup R. Memory sup - Endurance Fair - Balance Fair - Safety Awareness Fair QI SCORES: - Self-Care A. Eating 05-Setup or clean-up assistance B. Oral hygiene 04-Supervision or touching assistance C. Toileting hygiene 03-Partial/moderate assistance E. Shower/bathe self 10-Not attempted due to environmental limitations F. Upper body dressing 03-Partial/moderate assistance G. Lower body dressing 01-Dependent H. Putting on/taking off footwear 01-Dependent - Mobility A. Roll left and right 02-Substantial/maximal assistance B. Sit to lying 02-Substantial/maximal assistance C. Lying to sitting on side of bed 02-Substantial/maximal assistance D. Sit to stand 02-Substantial/maximal assistance E. Chair/[id number] transfer 02-Substantial/maximal assistance F. Toilet transfer 02-Substantial/maximal assistance G. Car transfer 88-Not attempted due to medical condition or safety concerns I. Walk 10 feet 88-Not attempted due to medical condition or safety concerns J. Walk 50 feet with two turns 88-Not attempted due to medical condition or safety concerns K. Walk 150 feet 88-Not attempted due to medical condition or safety concerns L. Walking 10 feet on uneven surfaces 88-Not attempted due to medical condition or safety concerns M. 1 step (curb) 88-Not attempted due to medical condition or safety concerns N. 4 steps 88-Not attempted due to medical condition or safety concerns O. 12 steps 88-Not attempted due to medical condition or safety concerns P. Picking up object 88-Not attempted due to medical condition or safety concerns R. Wheel 50 feet with two turns S. Wheel 150 feet - Bladder and Bowel Bladder continence 0-Always continent Bowel continence 0-Always continent - Endurance Poor - Balance Poor - Safety Awareness Poor CURRENT FUNC. DEFICITS: Self-Care, Mobility, Endurance, Balance, and Safety Awareness SIGNATURE PANEL: (CDT)
[2020-01-04] MEDS: TRAZODONE 50 MG TABLET PO PRN (20:11)
[2020-01-04] MEDS: ATORVASTATIN 20 MG TAB PO SCH (20:12)
[2020-01-04] MEDS: MELATONIN 3 MG TABLET PO PRN (20:12)
[2020-01-04] MEDS: MONTELUKAST 10 MG TAB PO SCH (20:12)
[2020-01-05] MEDS: INSULIN -REGULAR HUMAN 50 UNIT/0.5 ML ML SQ SCH ×4 (07:30→20:15)
[2020-01-05] MEDS: METFORMIN ER 500 MG TAB PO SCH ×2 (07:35→17:03)
[2020-01-05] MEDS: CRANBERRY FRUIT EXTRACT 200 MG CAP PO SCH ×2 (07:35→19:58)
[2020-01-05] MEDS: LOSARTAN POTASSIUM 50 MG TABLET PO SCH (07:36)
[2020-01-05] MEDS: FLUOXETINE 20 MG CAP PO SCH (07:36)
[2020-01-05] MEDS: METOPROLOL TAR 25 MG TAB PO SCH ×2 (07:37→19:58)
[2020-01-05] MEDS: APIXABAN 5 MG TABLET PO SCH ×2 (07:52→19:58)
[2020-01-05] MEDS: INSULIN LISPRO 100 UNIT/1 ML SQ SCH ×3 (08:21→17:14)
[2020-01-05] MEDS: INSULIN GLARGINE 100 UNITS/ML SQ SCH (08:22)
--- NOTE | 2020-01-05 09:18 | P.RH.PN ---
Estimated Length of Stay: 24 Expected Discharge Date: 01/18/20 Discharge Disposition Plan: Home Family Support: Yes Longterm Goal: Mobility, Transfers, Self Care Vital Signs: Last Vital Signs Temp 98.9 F 01/05/20 06:25 Pulse 61 01/05/20 07:37 Resp 16 01/05/20 06:25 BP 118/62 01/05/20 07:37 Pulse Ox 93 01/05/20 06:25 Laboratory: Laboratory Last Values WBC 5.3 K/uL (4.3-10.9) D 01/04/20 06:31 RBC 5.14 M/uL (4.33-5.43) 01/04/20 06:31 Hgb 11.5 g/dL (13.6-17.9) L 01/04/20 06:31 Hct 36.7 % (39.6-49.0) L 01/04/20 06:31 MCV 71.5 fL (80-100) L 01/04/20 06:31 MCH 22.5 pg (27.0-35.0) L 01/04/20 06:31 MCHC 31.4 g/dL (32.0-36.0) L 01/04/20 06:31 RDW 16.3 % (12.1-15.2) H 01/04/20 06:31 Plt Count 267 K/uL (152-406) 01/04/20 06:31 MPV 8.0 fL (7.6-11.3) 01/04/20 06:31 Neutrophils % 49.6 % (41.7-73.7) 01/04/20 06:31 Lymphocytes % 42.4 % (15.3-44.8) 01/04/20 06:31 Monocytes % 5.2 % (3.3-12.3) 01/04/20 06:31 Eosinophils % 2.0 % (0-4.4) 01/04/20 06:31 Basophils % 0.8 % (0-1.3) 01/04/20 06:31 Absolute Neutrophils 2.6 K/uL (1.8-8.0) 01/04/20 06:31 Absolute Lymphocytes 2.2 K/uL (0.7-4.9) 01/04/20 06:31 Absolute Monocytes 0.3 K/uL (0.1-1.3) 01/04/20 06:31 Absolute Eosinophils 0.1 K/uL (0-0.5) 01/04/20 06:31 Absolute Basophils 0.0 K/uL (0-0.5) 01/04/20 06:31 Sodium 142 mmol/L (136-145) 01/04/20 06:31 Potassium 4.2 mmol/L (3.5-5.1) 01/04/20 06:31 Chloride 109 mmol/L (98-107) H 01/04/20 06:31 Carbon Dioxide 26 mmol/L (21-32) 01/04/20 06:31 BUN 12 mg/dL (7-18) 01/04/20 06:31 Creatinine 1.16 mg/dL (0.55-1.3) 01/04/20 06:31 Estimated GFR 74 mL/min (=/>90) L 01/04/20 06:31 Glucose 101 mg/dL (74-106) 01/04/20 06:31 POC Glucose 118 mg/dL (65-120) 01/05/20 06:42 Calcium 8.9 mg/dL (8.5-10.1) 01/04/20 06:31 Magnesium 2.0 mg/dL (1.8-2.4) 12/28/19 15:42 Albumin 2.8 g/dL (3.4-5.0) L 01/04/20 06:31 Prealbumin 21.9 mg/dL (20-40) 01/04/20 06:31 Urine Color Yellow 12/26/19 19:33 Urine Appearance Cloudy 12/26/19 19:33 Urine pH 5.5 (5.0-7.0) 12/26/19 19:33 Ur Specific [place] 1.020 (1.005-1.030) 12/26/19 19:33 Glucose (UA)(Auto) Negative (NEG) 12/26/19 19:33 Urine Ketones Negative (NEG) 12/26/19 19:33 Urine Blood Negative (NEG) 12/26/19 19:33 Urine Nitrite Negative (NEG) 12/26/19 19:33 Urine Bilirubin Negative (NEG) 12/26/19 19:33 Urine Urobilinogen 0.2 mg/dL (0.2-1.0) 05/26/20 19:33 Ur Leukocyte Esterase 2+ (NEG) H 12/26/19 19:33 Urine RBC <5 /HPF (NONE SEEN) 12/26/19 19:33 Urine WBC 10-20 /HPF (<5) H 12/26/19 19:33 Ur Squamous Epith Cells <5 /HPF (NONE SEEN) 12/26/19 19:33 Urine Bacteria Loaded /HPF (NONE SEEN) H 12/26/19 19:33 Urine Culture Reflexed Reflexed 12/26/19 19:33 Urine Total Protein Trace (NEG) 12/26/19 19:33 Weight: 214 lb 12.8 oz Wound Present: No Closed Surgical Incision Present: No Negative Pressure Wound Therapy Present: No Physician Update: His labs reviewed are stable. Vital signs are stable. Walking 40' moderate assistance with a hemiwalker. His has dense left arm paresis. He is doing well with speech now on a regular diet. He is compliant with therapy. He has mild dysarthria. Speech Therapy Update: Patient has made significant progress towards meeting his speech and swallowing goals; patient has been upgraded from a mechanical soft diet, ground meats, thin liquids, meds crushed to a regular solid diet, thin liquids, meds whole in pudding. Patient performs oral care before and after breakfast with set-up. Patient employs compensatory dysarthria strategies during functional speech tasks to improve strength, ROM, and coordination of orofacial musculature as well as simultaneously improving speech intelligibility. Summary: Patient's care plan and terminal make up operator goals have been reviewed and revised as necessary. Please see the Rehabilitation Signature page for all necessary signatures.
[2020-01-05] MEDS: LIDOCAINE 4% PATCH TOP PRN (12:49)
--- NOTE | 2020-01-05 15:40 | FAST ---
ENCOUNTER DATE AND TIME: 01/05/2020 08:00 (CDT) NAME JOHNSON VAZQUEZ DATE OF : 1945 DATE OF ADMISSION: 12/26/2019 18:56 (CDT) PHONE: AGE: 73 N# [id number] GENDER: Male ENCOUNTER PHYSICIAN: Dr. Reyes Womack M.D. 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 EATING: Not assessed/no information CODE: - ORAL HYGIENE: ORAL HYGIENE - STEP 1: Does the patient complete the activity by him/herself with no assistance (physical, verbal/nonverbal cueing, setup/clean-up)? Yes. 1. [id number] ADMISSION PERFORMANCE: Independent CODE: 06 TOILETING HYGIENE: Not assessed/no information CODE: - BATHING: SHOWER/BATHE SELF - STEP 1: Does the patient complete the activity by him/herself with no assistance (physical, verbal/nonverbal cueing, setup/clean-up)? No. SHOWER/BATHE SELF - STEP 2: Does the patient need only setup/clean-up assistance from one helper? No. SHOWER/BATHE SELF - STEP 3: Does the patient need only verbal/nonverbal cueing or touching/steadying/contact guard assistance fro m one helper? No. SHOWER/BATHE SELF - STEP 4: Does the patient need physical assistance - for example lifting or trunk support from one helper - wi th the helper providing less than half of the effort? Yes. 1. [id number] ADMISSION PERFORMANCE: Partial/moderate assistance CODE: 03 DRESSING - UPPER BODY: DRESSING - UPPER BODY - STEP 1: Does the patient complete the activity by him/herself with no assistance (physical, verbal/nonverbal cueing, setup/clean-up)? No. DRESSING - UPPER BODY - STEP 2: Does the patient need only setup/clean-up assistance from one helper? No. DRESSING - UPPER BODY - STEP 3: Does the patient need only verbal/nonverbal cueing or touching/steadying/contact guard assistance fro m one helper? Yes. 1. [id number] ADMISSION PERFORMANCE: Supervision or touching assistance CODE: 04 DRESSING - LOWER BODY: DRESSING - LOWER BODY - STEP 1: Does the patient complete the activity by him/herself with no assistance (physical, verbal/nonverbal cueing, setup/clean-up)? No. DRESSING - LOWER BODY - STEP 2: Does the patient need only setup/clean-up assistance from one helper? No. DRESSING - LOWER BODY - STEP 3: Does the patient need only verbal/nonverbal cueing or touching/steadying/contact guard assistance fro m one helper? No. DRESSING - LOWER BODY - STEP 4: Does the patient need physical assistance - for example lifting or trunk support from one helper - wi th the helper providing less than half of the effort? Yes. 1. [id number] ADMISSION PERFORMANCE: Partial/moderate assistance CODE: 03 PUTTING ON/TAKING OFF FOOTWEAR: FOOTWEAR - STEP 1: Does the patient complete the activity by him/herself with no assistance (physical, verbal/nonverbal cueing, setup/clean-up)? No. FOOTWEAR - STEP 2: Does the patient need only setup/clean-up assistance from one helper? No. FOOTWEAR - STEP 3: Does the patient need only verbal/nonverbal cueing or touching/steadying/contact guard assistance fro m one helper? No. FOOTWEAR - STEP 4: Does the patient need physical assistance - for example lifting or trunk support from one helper - wi th the helper providing less than half of the effort? Yes. 1. [id number] ADMISSION PERFORMANCE: Partial/moderate assistance CODE: 03 DOES THE PATIENT USE A WHEELCHAIR/SCOOTER? CODE: EXPR INDICATE THE TYPE OF WHEELCHAIR/SCOOTER USED: CODE: EXPR INDICATE THE TYPE OF WHEELCHAIR/SCOOTER USED: CODE: EXPR BLADDER AND BOWEL: CODE: EXPR CODE: EXPR SIGNATURE PANEL: The following modified sections: 1. [id number] Admission Performance, 1. [id number] Admission Performance, 1. [id number] Admission Performance, 1. [id number] Admission Performance, 1. MB3744s Admission Performance, 1. [id number] Admission Performance were [electronically] signed by MIGUEL ANGEL Osorio on WedJan 05 2020 15:39:40 GMT-0500 (Central Daylight Time)
[2020-01-05] MEDS: MELATONIN 3 MG TABLET PO PRN (20:14)
[2020-01-05] MEDS: MONTELUKAST 10 MG TAB PO SCH (20:14)
[2020-01-05] MEDS: ATORVASTATIN 20 MG TAB PO SCH (20:14)
[2020-01-05] MEDS: DOCUSATE NA/SENNA CONC 1 TAB PO PRN (20:15)
--- NOTE | 2020-01-06 02:17 | FAST ---
SHIFT START DATE/TIME: 01/05/2020 19:00 (CDT) SHIFT END DATE/TIME: 01/06/2020 07:00 (CDT) NAME JOHNSON VAZQUEZ DATE OF : 1945 DATE OF ADMISSION: 12/26/2019 18:56 (CDT) PHONE: AGE: 73 N# [id number] GENDER: Male ENCOUNTER PHYSICIAN: Dr. Reyes Womack M.D. 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 EATING: Not assessed/no information CODE: - ORAL HYGIENE: Not assessed/no information CODE: - TOILETING HYGIENE: TOILETING HYGIENE - STEP 1: Does the patient complete the activity by him/herself with no assistance (physical, verbal/nonverbal cueing, setup/clean-up)? No. TOILETING HYGIENE - STEP 2: Does the patient need only setup/clean-up assistance from one helper? No. TOILETING HYGIENE - STEP 3: Does the patient need only verbal/nonverbal cueing or touching/steadying/contact guard assistance fro m one helper? No. TOILETING HYGIENE - STEP 4: Does the patient need physical assistance - for example lifting or trunk support from one helper - wi th the helper providing less than half of the effort? Yes. 1. [id number] ADMISSION PERFORMANCE: Partial/moderate assistance CODE: 03 BATHING: Not assessed/no information CODE: - DRESSING - UPPER BODY: Not assessed/no information CODE: - DRESSING - LOWER BODY: Not assessed/no information CODE: - PUTTING ON/TAKING OFF FOOTWEAR: Not assessed/no information CODE: - ROLL LEFT AND RIGHT: ROLL LEFT AND RIGHT - STEP 1: Does the patient complete the activity by him/herself with no assistance (physical, verbal/nonverbal cueing, setup/clean-up)? No. ROLL LEFT AND RIGHT - STEP 2: Does the patient need only setup/clean-up assistance from one helper? No. ROLL LEFT AND RIGHT - STEP 3: Does the patient need only verbal/nonverbal cueing or touching/steadying/contact guard assistance fro m one helper? No. ROLL LEFT AND RIGHT - STEP 4: Does the patient need physical assistance - for example lifting or trunk support from one helper - wi th the helper providing less than half of the effort? Yes. 1. [id number] ADMISSION PERFORMANCE: Partial/moderate assistance CODE: 03 SIT TO LYING: SIT TO LYING - STEP 1: Does the patient complete the activity by him/herself with no assistance (physical, verbal/nonverbal cueing, setup/clean-up)? No. SIT TO LYING - STEP 2: Does the patient need only setup/clean-up assistance from one helper? No. SIT TO LYING - STEP 3: Does the patient need only verbal/nonverbal cueing or touching/steadying/contact guard assistance fro m one helper? No. SIT TO LYING - STEP 4: Does the patient need physical assistance - for example lifting or trunk support from one helper - wi th the helper providing less than half of the effort? Yes. 1. [id number] ADMISSION PERFORMANCE: Partial/moderate assistance CODE: 03 LYING TO SITTING: Not assessed/no information CODE: - SIT TO STAND: Not assessed/no information CODE: - TRANSFERS: BED, CHAIR: Not assessed/no information CODE: - TRANSFER TOILET: Not assessed/no information CODE: - TRANSFERS: CAR: Not assessed/no information CODE: - WALK 10 FEET: Not assessed/no information CODE: - 1 STEP (CURB): Not assessed/no information CODE: - PICKING UP OBJECT: Not assessed/no information CODE: - DOES THE PATIENT USE A WHEELCHAIR/SCOOTER? CODE: EXPR WHEEL 50 FEET WITH TWO TURNS: Not assessed/no information CODE: - INDICATE THE TYPE OF WHEELCHAIR/SCOOTER USED: CODE: EXPR WHEEL 150 FEET: Not assessed/no information CODE: - INDICATE THE TYPE OF WHEELCHAIR/SCOOTER USED: CODE: EXPR BLADDER AND BOWEL: H350. BLADDER CONTINENCE (3-DAY ASSESSMENT PERIOD): Always continent (no documented incontinence) CODE: 0 H400. BOWEL CONTINENCE (3-DAY ASSESSMENT PERIOD): Always continent CODE: 0
[2020-01-06] MEDS: INSULIN -REGULAR HUMAN 50 UNIT/0.5 ML ML SQ SCH ×4 (07:30→21:00)
[2020-01-06] MEDS: INSULIN LISPRO 100 UNIT/1 ML SQ SCH ×3 (08:23→17:00)
[2020-01-06] MEDS: INSULIN GLARGINE 100 UNITS/ML SQ SCH (08:24)
[2020-01-06] MEDS: METOPROLOL TAR 25 MG TAB PO SCH ×2 (08:25→19:24)
[2020-01-06] MEDS: FLUOXETINE 20 MG CAP PO SCH (08:25)
[2020-01-06] MEDS: APIXABAN 5 MG TABLET PO SCH ×2 (08:25→19:23)
[2020-01-06] MEDS: CRANBERRY FRUIT EXTRACT 200 MG CAP PO SCH ×2 (08:25→19:23)
[2020-01-06] MEDS: METFORMIN ER 500 MG TAB PO SCH ×2 (08:26→17:06)
[2020-01-06] MEDS: LOSARTAN POTASSIUM 50 MG TABLET PO SCH (10:41)
[2020-01-06] MEDS: ATORVASTATIN 20 MG TAB PO SCH (19:23)
[2020-01-06] MEDS: MONTELUKAST 10 MG TAB PO SCH (19:23)
[2020-01-07] MEDS: INSULIN -REGULAR HUMAN 50 UNIT/0.5 ML ML SQ SCH ×4 (07:18→20:05)
[2020-01-07] MEDS: LOSARTAN POTASSIUM 50 MG TABLET PO SCH (08:23)
[2020-01-07] MEDS: APIXABAN 5 MG TABLET PO SCH ×2 (08:24→19:18)
[2020-01-07] MEDS: CRANBERRY FRUIT EXTRACT 200 MG CAP PO SCH ×2 (08:24→19:17)
[2020-01-07] MEDS: FLUOXETINE 20 MG CAP PO SCH (08:24)
[2020-01-07] MEDS: METFORMIN ER 500 MG TAB PO SCH ×2 (08:25→17:30)
[2020-01-07] MEDS: METOPROLOL TAR 25 MG TAB PO SCH ×2 (08:25→19:17)
[2020-01-07] MEDS: INSULIN LISPRO 100 UNIT/1 ML SQ SCH ×3 (08:26→17:29)
[2020-01-07] MEDS: INSULIN GLARGINE 100 UNITS/ML SQ SCH (08:26)
[2020-01-07] MEDS: MONTELUKAST 10 MG TAB PO SCH (20:05)
[2020-01-07] MEDS: ATORVASTATIN 20 MG TAB PO SCH (20:05)
[2020-01-07] MEDS: MELATONIN 3 MG TABLET PO PRN (20:06)
[2020-01-08] MEDS: INSULIN -REGULAR HUMAN 50 UNIT/0.5 ML ML SQ SCH ×4 (07:30→20:16)
[2020-01-08] MEDS: CRANBERRY FRUIT EXTRACT 200 MG CAP PO SCH ×2 (07:37→19:18)
[2020-01-08] MEDS: LOSARTAN POTASSIUM 50 MG TABLET PO SCH (07:37)
[2020-01-08] MEDS: APIXABAN 5 MG TABLET PO SCH ×2 (07:38→19:19)
[2020-01-08] MEDS: FLUOXETINE 20 MG CAP PO SCH (07:38)
[2020-01-08] MEDS: METOPROLOL TAR 25 MG TAB PO SCH ×2 (07:38→19:19)
[2020-01-08] MEDS: METFORMIN ER 500 MG TAB PO SCH ×2 (07:38→17:29)
[2020-01-08] MEDS: INSULIN GLARGINE 100 UNITS/ML SQ SCH (07:39)
[2020-01-08] MEDS: INSULIN LISPRO 100 UNIT/1 ML SQ SCH ×3 (07:39→16:51)
[2020-01-08] MEDS: TRAMADOL HCL 50 MG TAB PO PRN (10:58)
[2020-01-08] MEDS: LIDOCAINE 4% PATCH TOP PRN (10:58)
--- NOTE | 2020-01-08 14:47 | FAST ---
ENCOUNTER DATE AND TIME: 01/08/2020 08:00 (CDT) NAME JOHNSON VAZQUEZ DATE OF : 1945 DATE OF ADMISSION: 12/26/2019 18:56 (CDT) PHONE: AGE: 73 N# [id number] GENDER: Male ENCOUNTER PHYSICIAN: Dr. Reyes Womack M.D. 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 EATING: Not assessed/no information CODE: - ORAL HYGIENE: ORAL HYGIENE - STEP 1: Does the patient complete the activity by him/herself with no assistance (physical, verbal/nonverbal cueing, setup/clean-up)? Yes. 1. [id number] ADMISSION PERFORMANCE: Independent CODE: 06 TOILETING HYGIENE: Not assessed/no information CODE: - BATHING: SHOWER/BATHE SELF - STEP 1: Does the patient complete the activity by him/herself with no assistance (physical, verbal/nonverbal cueing, setup/clean-up)? No. SHOWER/BATHE SELF - STEP 2: Does the patient need only setup/clean-up assistance from one helper? No. SHOWER/BATHE SELF - STEP 3: Does the patient need only verbal/nonverbal cueing or touching/steadying/contact guard assistance fro m one helper? Yes. 1. [id number] ADMISSION PERFORMANCE: Supervision or touching assistance CODE: 04 DRESSING - UPPER BODY: DRESSING - UPPER BODY - STEP 1: Does the patient complete the activity by him/herself with no assistance (physical, verbal/nonverbal cueing, setup/clean-up)? No. DRESSING - UPPER BODY - STEP 2: Does the patient need only setup/clean-up assistance from one helper? No. DRESSING - UPPER BODY - STEP 3: Does the patient need only verbal/nonverbal cueing or touching/steadying/contact guard assistance fro m one helper? Yes. 1. [id number] ADMISSION PERFORMANCE: Supervision or touching assistance CODE: 04 DRESSING - LOWER BODY: DRESSING - LOWER BODY - STEP 1: Does the patient complete the activity by him/herself with no assistance (physical, verbal/nonverbal cueing, setup/clean-up)? No. DRESSING - LOWER BODY - STEP 2: Does the patient need only setup/clean-up assistance from one helper? No. DRESSING - LOWER BODY - STEP 3: Does the patient need only verbal/nonverbal cueing or touching/steadying/contact guard assistance fro m one helper? No. DRESSING - LOWER BODY - STEP 4: Does the patient need physical assistance - for example lifting or trunk support from one helper - wi th the helper providing less than half of the effort? Yes. 1. [id number] ADMISSION PERFORMANCE: Partial/moderate assistance CODE: 03 PUTTING ON/TAKING OFF FOOTWEAR: FOOTWEAR - STEP 1: Does the patient complete the activity by him/herself with no assistance (physical, verbal/nonverbal cueing, setup/clean-up)? No. FOOTWEAR - STEP 2: Does the patient need only setup/clean-up assistance from one helper? No. FOOTWEAR - STEP 3: Does the patient need only verbal/nonverbal cueing or touching/steadying/contact guard assistance fro m one helper? Yes. 1. [id number] ADMISSION PERFORMANCE: Supervision or touching assistance CODE: 04 DOES THE PATIENT USE A WHEELCHAIR/SCOOTER? CODE: EXPR INDICATE THE TYPE OF WHEELCHAIR/SCOOTER USED: CODE: EXPR INDICATE THE TYPE OF WHEELCHAIR/SCOOTER USED: CODE: EXPR BLADDER AND BOWEL: CODE: EXPR CODE: EXPR SIGNATURE PANEL: The following modified sections: 1. [id number] Admission Performance, 1. [id number] Admission Performance, 1. [id number] Admission Performance, 1. [id number] Admission Performance, 1. [id number] Admission Performance were [electronically] signed by MIGUEL ANGEL Osorio on WedJan 08 2020 14:45:46 GMT-0500 (Central Daylight Time)
--- NOTE | 2020-01-08 17:56 | R.PN ---
ENCOUNTER DATE AND TIME: 01/08/2020 17:52 (CDT) NAME JOHNSON VAZQUEZ DATE OF : 1945 DATE OF ADMISSION: 12/26/2019 18:56 (CDT) Restricted Diffusion of the right internal capsule consistent w/acute infarctCHIEF COMPLAINT: Right brain stroke with left sided weakness. SUBJECTIVE: Pt denied any Shortness of Breath. Pt denied any depression. Ambulated 40' with mod assistance using a hemiwaker. Self-propelled wheelchair 250' with right upper extremity with maximum assistance. WBC 5.3, Hgb 11.5, glucose 72 to 141, prealbumin 21.9. Barium swallow show prolonged mastication of pudding but thin liquid cleared by straw. VITAL SIGNS Temperature: 97.9 F SBP/DBP: 144/68 Pulse: 66 Resp: 16 MEDICATION ALLERGIES: No Known Drug Allergies (NKDA) ENVIRONMENTAL ALLERGIES: None Known - Substance Allergies None Known - Other Allergies None Known NURSING: - Shower allowing shower - Bladder care per protocol - Skin care per protocol PRECAUTIONS: - Weight Bearing Precaution WBAT left LE ACTIVITIES OOB only with supervision THERAPIES: - Occupational Therapy Cognitive Retraining. Visual Perceptual Training. - Dietary and Nutrition Adequate Nutrition. Nutritional Education. Nutritional Supplements. - Speech Therapy Cognitive Training. Expressive Language Skills. Memory Strategies. Receptive Language Skills. Speech Intelligibility Training. PHYSICAL EXAM - Gen Alert and awake Lying in bed No apparent distress Oriented to: person, time, and place - Skin No skin breakdown. Normacephalic - Eyes No abnormalities - ENMT No abnormalities - Neck No abnormalities - CVS RRR - Chest No abnormalities - Abd + bowel sounds - GI Soft Deferred - No abnormalities - Ext No significant edema - MSK 1/5 weakness in left upper and 3/5 weakness in left lower extremity. - Neuro 1/5 weakness in left upper and 3/5 weakness in left lower extremity. - Psych No abnormalities ASSESSMENT: Pt. is a 73 yo Right-handed black male.On 12/19/[address] [facility] with sudden onset of left-side weakness.On 12/19/2019 he was admitted to [facility] with diagnosis Rest ricted Diffusioon of the right internal capsule consistant w/acute infarct.His impairment category is Stroke 01 - Left Body (Right Brain) (01.1).Pre-morbidly, Pt. was independent/mod-I in Transfers Con trol, Locomotion, and Self-Care; and he had good Balance, Safety Awareness, Social Cognition, and Sph incter Control.Currently, he has deficits of Transfers Control, Balance, Safety Awareness, Locomotion , Self-Care, and Social Cognition.Pt. is now referred to [facility] for acute in-patient rehabilitation in order to maximize patient's functional independence in activities of yamsin ly living, strength, ROM, and mobility.- Rehab Goal Patient has realistic goal of being discharged at assistance level 6-Graeme to reside at Home with Fam daphnie/Relatives. MDM/PLAN: - Physical Therapy Gait dysfunction - to improve, our physical therapists will perform initial evaluation of pt's statu s upon admission and devise an individualized program for Gait Training, and Wheel Chair mobility Inability to transfer - to improve, our physical therapists will perform initial evaluation of pt's status upon admission and devise an individualized program for Bed mobility Need for home safety evaluation - to improve, our physical therapists will perform initial evaluatio n of pt's status upon admission and devise an individualized program for Home Evaluation Need in caregiver upon discharge - to improve, our physical therapists will perform initial evaluati on of pt's status upon admission and devise an individualized program for Caregiver Training Edema - to improve, our physical therapists will perform initial evaluation of pt's status upon admi ssion and devise an individualized program for Elevation Training, and Lymphedema Therapy New precaution - to improve, our physical therapists will perform initial evaluation of pt's status upon admission and devise an individualized program for Patient precaution education Poor balance - to improve, our physical therapists will perform initial evaluation of pt's status up on admission and devise an individualized program for Balance Training Weakness - to improve, our physical therapists will perform initial evaluation of pt's status upon a dmission and devise an individualized program for Aquatic Therapy, Neuromuscular Reeducation, and Str engthening Achieving independence - to improve, our physical therapists will perform initial evaluation of pt's status upon admission and devise an individualized program for Community Reintegration Activities - Occupational Therapy ADL deficits - to improve, our occupation therapists will perform initial evaluation of pt's status upon admission and devise an individualized program for Bathing, Bed mobility, Community Reintegratio n, Cooking, Dressing, Eating, Fine Motor Skills, Grooming, Homemaking, Kitchen Mobility, Laundry, Pat ient Education, Safety Awareness, Splinting - Positioning, Transfers(Toilet, Tub, Shower), and Wheel Chair Management Cognitive deficits - to improve, our occupation therapists will perform initial evaluation of pt's s tatus upon admission and devise an individualized program for Cognition - orientation Need for youth care specialist - to improve, our occupation therapists will perform initial evaluation of pt's status upon admission and devise an individualized program for Caregiver Training Weakness - to improve, our occupation therapists will perform initial evaluation of pt's status upon admission and devise an individualized program for Aquatic Therapy, Balance, Endurance, UE ROM, and UE strengthening - Other See attached MAR (Medication Administration Record) - Diet Type Continue Regular - Diet - Liquid Texture Continue Regular - Tube Feed Continue N/A - Bladder care per protocol - Weight Bearing Precaution WBAT left LE - Skin care per protocol - Diet - Solid Texture Continue Regular - Shower allowing shower for Dementia, TBI, Stroke, or others FUNCTIONAL STATUS: - Self-Care A. Eating sup B. Grooming Graeme C. Bathing sup D. Dressing - Upper sup E. Dressing - Lower sup F. Toileting sup - Sphincter Control G. Bladder control sup H. Bowel control sup - Transfers Control I. Bed/Chair/Wheelchair sup J. Toilet sup K. Tub/Shower Kimberly - Locomotion L. Walk/Wheelchair (B) Kimberly M. Stairs modA - Communication N. Comprehension (B) Kimberly O. Expression (B) sup - Social Cognition P. Social Interaction sup Q. Problem Solving sup R. Memory sup - Endurance Fair - Balance Fair - Safety Awareness Fair QI SCORES: - Self-Care A. Eating 05-Setup or clean-up assistance B. Oral hygiene 04-Supervision or touching assistance C. Toileting hygiene 03-Partial/moderate assistance E. Shower/bathe self 10-Not attempted due to environmental limitations F. Upper body dressing 03-Partial/moderate assistance G. Lower body dressing 01-Dependent H. Putting on/taking off footwear 01-Dependent - Mobility A. Roll left and right 02-Substantial/maximal assistance B. Sit to lying 02-Substantial/maximal assistance C. Lying to sitting on side of bed 02-Substantial/maximal assistance D. Sit to stand 02-Substantial/maximal assistance E. Chair/[id number] transfer 02-Substantial/maximal assistance F. Toilet transfer 02-Substantial/maximal assistance G. Car transfer 88-Not attempted due to medical condition or safety concerns I. Walk 10 feet 88-Not attempted due to medical condition or safety concerns J. Walk 50 feet with two turns 88-Not attempted due to medical condition or safety concerns K. Walk 150 feet 88-Not attempted due to medical condition or safety concerns L. Walking 10 feet on uneven surfaces 88-Not attempted due to medical condition or safety concerns M. 1 step (curb) 88-Not attempted due to medical condition or safety concerns N. 4 steps 88-Not attempted due to medical condition or safety concerns O. 12 steps 88-Not attempted due to medical condition or safety concerns P. Picking up object 88-Not attempted due to medical condition or safety concerns R. Wheel 50 feet with two turns S. Wheel 150 feet - Bladder and Bowel Bladder continence 0-Always continent Bowel continence 0-Always continent - Endurance Poor - Balance Poor - Safety Awareness Poor CURRENT FUNC. DEFICITS: Self-Care, Mobility, Endurance, Balance, and Safety Awareness SIGNATURE PANEL: (CDT)
[2020-01-08] MEDS: ATORVASTATIN 20 MG TAB PO SCH (20:16)
[2020-01-08] MEDS: MELATONIN 3 MG TABLET PO PRN (20:16)
[2020-01-08] MEDS: TRAZODONE 50 MG TABLET PO PRN (20:16)
[2020-01-08] MEDS: MONTELUKAST 10 MG TAB PO SCH (20:16)
[2020-01-09] MEDS: INSULIN -REGULAR HUMAN 50 UNIT/0.5 ML ML SQ SCH ×4 (07:21→20:41)
[2020-01-09] MEDS: INSULIN GLARGINE 100 UNITS/ML SQ SCH (07:50)
[2020-01-09] MEDS: INSULIN LISPRO 100 UNIT/1 ML SQ SCH ×3 (07:50→16:44)
[2020-01-09] MEDS: METOPROLOL TAR 25 MG TAB PO SCH ×2 (07:51→18:59)
[2020-01-09] MEDS: METFORMIN ER 500 MG TAB PO SCH ×2 (07:51→16:49)
[2020-01-09] MEDS: FLUOXETINE 20 MG CAP PO SCH (07:52)
[2020-01-09] MEDS: LOSARTAN POTASSIUM 50 MG TABLET PO SCH (07:52)
[2020-01-09] MEDS: APIXABAN 5 MG TABLET PO SCH ×2 (07:52→18:59)
[2020-01-09] MEDS: CRANBERRY FRUIT EXTRACT 200 MG CAP PO SCH ×2 (07:52→18:59)
--- NOTE | 2020-01-09 17:30 | R.PN ---
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 SUBJECTIVE: Pt denied any Shortness of Breath. Pt denied any depression. Ambulated 50' with mod assistance using a hemiwaker. Self-propelled wheelchair 250' with right upper extremity and maximum assistance. WBC 5.3, Hgb 11.5, glucose 74 to 142, prealbumin 21.9. Barium swallow show prolonged mastication of pudding but thin liquid cleared by straw. VITAL SIGNS Temperature: 97.2 F SBP/DBP: 118/60 Pulse: 63 Resp: 16 MEDICATION ALLERGIES: No Known Drug Allergies (NKDA) ENVIRONMENTAL ALLERGIES: None Known - Substance Allergies None Known - Other Allergies None Known NURSING: - Shower allowing shower - Bladder care per protocol - Skin care per protocol PRECAUTIONS: - Weight Bearing Precaution WBAT left LE ACTIVITIES OOB only with supervision THERAPIES: - Occupational Therapy Cognitive Retraining. Visual Perceptual Training. - Dietary and Nutrition Adequate Nutrition. Nutritional Education. Nutritional Supplements. - Speech Therapy Cognitive Training. Expressive Language Skills. Memory Strategies. Receptive Language Skills. Speech Intelligibility Training. PHYSICAL EXAM - Gen Alert and awake Lying in bed No apparent distress Oriented to: person, time, and place - Skin No skin breakdown. Normacephalic - Eyes No abnormalities - ENMT No abnormalities - Neck No abnormalities - CVS RRR - Chest No abnormalities - Abd + bowel sounds - GI Soft Deferred - No abnormalities - Ext No significant edema - MSK 1/5 weakness in left upper and 3/5 weakness in left lower extremity. - Neuro 1/5 weakness in left upper and 3/5 weakness in left lower extremity. - Psych No abnormalities ASSESSMENT: Pt. is a 73 yo Right-handed black male.On 12/19/2019 Pt. presented to [facility] with sudden onset of left-side weakness.On 12/19/2019 he was admitted to [facility] with diagnosis Rest ricted Diffusioon of the right internal capsule consistant w/acute infarct.His impairment category is Stroke 01 - Left Body (Right Brain) (01.1).Pre-morbidly, Pt. was independent/mod-I in Transfers Con trol, Locomotion, and Self-Care; and he had good Balance, Safety Awareness, Social Cognition, and Sph incter Control.Currently, he has deficits of Transfers Control, Balance, Safety Awareness, Locomotion , Self-Care, and Social Cognition.Pt. is now referred to [facility] for acute in-patient rehabilitation in order to maximize patient's functional independence in activities of yasmin ly living, strength, ROM, and mobility.- Rehab Goal Patient has realistic goal of being discharged at assistance level 6-Graeme to reside at Home with Fam daphnie/Relatives. MDM/PLAN: - Physical Therapy Gait dysfunction - to improve, our physical therapists will perform initial evaluation of pt's statu s upon admission and devise an individualized program for Gait Training, and Wheel Chair mobility Inability to transfer - to improve, our physical therapists will perform initial evaluation of pt's status upon admission and devise an individualized program for Bed mobility Need for home safety evaluation - to improve, our physical therapists will perform initial evaluatio n of pt's status upon admission and devise an individualized program for Home Evaluation Need in caregiver upon discharge - to improve, our physical therapists will perform initial evaluati on of pt's status upon admission and devise an individualized program for Caregiver Training Edema - to improve, our physical therapists will perform initial evaluation of pt's status upon admi ssion and devise an individualized program for Elevation Training, and Lymphedema Therapy New precaution - to improve, our physical therapists will perform initial evaluation of pt's status upon admission and devise an individualized program for Patient precaution education Poor balance - to improve, our physical therapists will perform initial evaluation of pt's status up on admission and devise an individualized program for Balance Training Weakness - to improve, our physical therapists will perform initial evaluation of pt's status upon a dmission and devise an individualized program for Aquatic Therapy, Neuromuscular Reeducation, and Str engthening Achieving independence - to improve, our physical therapists will perform initial evaluation of pt's status upon admission and devise an individualized program for Community Reintegration Activities - Occupational Therapy ADL deficits - to improve, our occupation therapists will perform initial evaluation of pt's status upon admission and devise an individualized program for Bathing, Bed mobility, Community Reintegratio n, Cooking, Dressing, Eating, Fine Motor Skills, Grooming, Homemaking, Kitchen Mobility, Laundry, Pat ient Education, Safety Awareness, Splinting - Positioning, Transfers(Toilet, Tub, Shower), and Wheel Chair Management Cognitive deficits - to improve, our occupation therapists will perform initial evaluation of pt's s tatus upon admission and devise an individualized program for Cognition - orientation Need for manager managed care - to improve, our occupation therapists will perform initial evaluation of pt's status upon admission and devise an individualized program for Caregiver Training Weakness - to improve, our occupation therapists will perform initial evaluation of pt's status upon admission and devise an individualized program for Aquatic Therapy, Balance, Endurance, UE ROM, and UE strengthening - Other See attached MAR (Medication Administration Record) - Diet Type Continue Regular - Diet - Liquid Texture Continue Regular - Tube Feed Continue N/A - Bladder care per protocol - Weight Bearing Precaution WBAT left LE - Skin care per protocol - Diet - Solid Texture Continue Regular - Shower allowing shower for Dementia, TBI, Stroke, or others FUNCTIONAL STATUS: - Self-Care A. Eating sup B. Grooming Graeme C. Bathing sup D. Dressing - Upper sup E. Dressing - Lower sup F. Toileting sup - Sphincter Control G. Bladder control sup H. Bowel control sup - Transfers Control I. Bed/Chair/Wheelchair sup J. Toilet sup K. Tub/Shower Kimberly - Locomotion L. Walk/Wheelchair (B) Kimberly M. Stairs modA - Communication N. Comprehension (B) Kimberly O. Expression (B) sup - Social Cognition P. Social Interaction sup Q. Problem Solving sup R. Memory sup - Endurance Fair - Balance Fair - Safety Awareness Fair QI SCORES: - Self-Care A. Eating 05-Setup or clean-up assistance B. Oral hygiene 04-Supervision or touching assistance C. Toileting hygiene 03-Partial/moderate assistance E. Shower/bathe self 10-Not attempted due to environmental limitations F. Upper body dressing 03-Partial/moderate assistance G. Lower body dressing 01-Dependent H. Putting on/taking off footwear 01-Dependent - Mobility A. Roll left and right 02-Substantial/maximal assistance B. Sit to lying 02-Substantial/maximal assistance C. Lying to sitting on side of bed 02-Substantial/maximal assistance D. Sit to stand 02-Substantial/maximal assistance E. Chair/rre-ne-pjqis transfer 02-Substantial/maximal assistance F. Toilet transfer 02-Substantial/maximal assistance G. Car transfer 88-Not attempted due to medical condition or safety concerns I. Walk 10 feet 88-Not attempted due to medical condition or safety concerns J. Walk 50 feet with two turns 88-Not attempted due to medical condition or safety concerns K. Walk 150 feet 88-Not attempted due to medical condition or safety concerns L. Walking 10 feet on uneven surfaces 88-Not attempted due to medical condition or safety concerns M. 1 step (curb) 88-Not attempted due to medical condition or safety concerns N. 4 steps 88-Not attempted due to medical condition or safety concerns O. 12 steps 88-Not attempted due to medical condition or safety concerns P. Picking up object 88-Not attempted due to medical condition or safety concerns R. Wheel 50 feet with two turns S. Wheel 150 feet - Bladder and Bowel Bladder continence 0-Always continent Bowel continence 0-Always continent - Endurance Poor - Balance Poor - Safety Awareness Poor CURRENT FUNC. DEFICITS: Self-Care, Mobility, Endurance, Balance, and Safety Awareness SIGNATURE PANEL: (CDT)
[2020-01-09] MEDS: MONTELUKAST 10 MG TAB PO SCH (20:35)
[2020-01-09] MEDS: TRAZODONE 50 MG TABLET PO PRN (20:35)
[2020-01-09] MEDS: ATORVASTATIN 20 MG TAB PO SCH (20:35)
[2020-01-09] MEDS: MELATONIN 3 MG TABLET PO PRN (20:35)
[2020-01-10] MEDS: INSULIN -REGULAR HUMAN 50 UNIT/0.5 ML ML SQ SCH ×4 (07:30→20:18)
[2020-01-10] MEDS: CRANBERRY FRUIT EXTRACT 200 MG CAP PO SCH ×2 (08:26→19:22)
[2020-01-10] MEDS: FLUOXETINE 20 MG CAP PO SCH (08:27)
[2020-01-10] MEDS: METFORMIN ER 500 MG TAB PO SCH ×2 (08:27→17:26)
[2020-01-10] MEDS: APIXABAN 5 MG TABLET PO SCH ×2 (08:27→19:21)
[2020-01-10] MEDS: TRAMADOL HCL 50 MG TAB PO PRN (08:29)
[2020-01-10] MEDS: INSULIN GLARGINE 100 UNITS/ML SQ SCH (08:30)
[2020-01-10] MEDS: INSULIN LISPRO 100 UNIT/1 ML SQ SCH ×3 (08:30→16:58)
[2020-01-10] MEDS ORDERED: ONDANSETRON 4 MG (ODT) TAB PO PRN (10:07)
[2020-01-10] MEDS: METOPROLOL TAR 25 MG TAB PO SCH ×2 (12:30→19:21)
[2020-01-10] MEDS: LOSARTAN POTASSIUM 50 MG TABLET PO SCH (12:30)
[2020-01-10] MEDS: LIDOCAINE 4% PATCH TOP PRN (12:31)
--- NOTE | 2020-01-10 14:07 | FAST ---
SHIFT START DATE/TIME: 01/10/2020 07:00 (CDT) SHIFT END DATE/TIME: 01/10/2020 19:00 (CDT) NAME JOHNSON VAZQUEZ DATE OF : 1945 DATE OF ADMISSION: 12/26/2019 18:56 (CDT) PHONE: AGE: 73 N# [id number] GENDER: Male ENCOUNTER PHYSICIAN: Dr. Reyes Womack M.D. 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 EATING: EATING - STEP 1: Does the patient complete the activity by him/herself with no assistance (physical, verbal/nonverbal cueing, setup/clean-up)? No. EATING - STEP 2: Does the patient need only setup/clean-up assistance from one helper? Yes. 1. [id number] ADMISSION PERFORMANCE: Setup or clean-up assistance CODE: 05 ORAL HYGIENE: ORAL HYGIENE - STEP 1: Does the patient complete the activity by him/herself with no assistance (physical, verbal/nonverbal cueing, setup/clean-up)? No. ORAL HYGIENE - STEP 2: Does the patient need only setup/clean-up assistance from one helper? Yes. 1. [id number] ADMISSION PERFORMANCE: Setup or clean-up assistance CODE: 05 TOILETING HYGIENE: TOILETING HYGIENE - STEP 1: Does the patient complete the activity by him/herself with no assistance (physical, verbal/nonverbal cueing, setup/clean-up)? No. TOILETING HYGIENE - STEP 2: Does the patient need only setup/clean-up assistance from one helper? No. TOILETING HYGIENE - STEP 3: Does the patient need only verbal/nonverbal cueing or touching/steadying/contact guard assistance fro m one helper? Yes. 1. [id number] ADMISSION PERFORMANCE: Supervision or touching assistance CODE: 04 BATHING: Not assessed/no information CODE: - DRESSING - UPPER BODY: DRESSING - UPPER BODY - STEP 1: Does the patient complete the activity by him/herself with no assistance (physical, verbal/nonverbal cueing, setup/clean-up)? No. DRESSING - UPPER BODY - STEP 2: Does the patient need only setup/clean-up assistance from one helper? No. DRESSING - UPPER BODY - STEP 3: Does the patient need only verbal/nonverbal cueing or touching/steadying/contact guard assistance fro m one helper? Yes. 1. [id number] ADMISSION PERFORMANCE: Supervision or touching assistance CODE: 04 DRESSING - LOWER BODY: DRESSING - LOWER BODY - STEP 1: Does the patient complete the activity by him/herself with no assistance (physical, verbal/nonverbal cueing, setup/clean-up)? No. DRESSING - LOWER BODY - STEP 2: Does the patient need only setup/clean-up assistance from one helper? No. DRESSING - LOWER BODY - STEP 3: Does the patient need only verbal/nonverbal cueing or touching/steadying/contact guard assistance fro m one helper? No. DRESSING - LOWER BODY - STEP 4: Does the patient need physical assistance - for example lifting or trunk support from one helper - wi th the helper providing less than half of the effort? Yes. 1. [id number] ADMISSION PERFORMANCE: Partial/moderate assistance CODE: 03 PUTTING ON/TAKING OFF FOOTWEAR: FOOTWEAR - STEP 1: Does the patient complete the activity by him/herself with no assistance (physical, verbal/nonverbal cueing, setup/clean-up)? No. FOOTWEAR - STEP 2: Does the patient need only setup/clean-up assistance from one helper? No. FOOTWEAR - STEP 3: Does the patient need only verbal/nonverbal cueing or touching/steadying/contact guard assistance fro m one helper? No. FOOTWEAR - STEP 4: Does the patient need physical assistance - for example lifting or trunk support from one helper - wi th the helper providing less than half of the effort? No. FOOTWEAR - STEP 5: Does the patient need physical assistance - for example lifting or trunk support from one helper - wi th the helper providing more than half of the effort? Yes. 1. [id number] ADMISSION PERFORMANCE: Substantial/maximal assistance CODE: 02 ROLL LEFT AND RIGHT: ROLL LEFT AND RIGHT - STEP 1: Does the patient complete the activity by him/herself with no assistance (physical, verbal/nonverbal cueing, setup/clean-up)? No. ROLL LEFT AND RIGHT - STEP 2: Does the patient need only setup/clean-up assistance from one helper? No. ROLL LEFT AND RIGHT - STEP 3: Does the patient need only verbal/nonverbal cueing or touching/steadying/contact guard assistance fro m one helper? Yes. 1. [id number] ADMISSION PERFORMANCE: Supervision or touching assistance CODE: 04 SIT TO LYING: SIT TO LYING - STEP 1: Does the patient complete the activity by him/herself with no assistance (physical, verbal/nonverbal cueing, setup/clean-up)? No. SIT TO LYING - STEP 2: Does the patient need only setup/clean-up assistance from one helper? No. SIT TO LYING - STEP 3: Does the patient need only verbal/nonverbal cueing or touching/steadying/contact guard assistance fro m one helper? Yes. 1. [id number] ADMISSION PERFORMANCE: Supervision or touching assistance CODE: 04 LYING TO SITTING: LYING TO SITTING ON SIDE OF BED - STEP 1: Does the patient complete the activity by him/herself with no assistance (physical, verbal/nonverbal cueing, setup/clean-up)? No. LYING TO SITTING ON SIDE OF BED - STEP 2: Does the patient need only setup/clean-up assistance from one helper? No. LYING TO SITTING ON SIDE OF BED - STEP 3: Does the patient need only verbal/nonverbal cueing or touching/steadying/contact guard assistance fro m one helper? Yes. 1. [id number] ADMISSION PERFORMANCE: Supervision or touching assistance CODE: 04 SIT TO STAND: SIT TO STAND - STEP 1: Does the patient complete the activity by him/herself with no assistance (physical, verbal/nonverbal cueing, setup/clean-up)? No. SIT TO STAND - STEP 2: Does the patient need only setup/clean-up assistance from one helper? No. SIT TO STAND - STEP 3: Does the patient need only verbal/nonverbal cueing or touching/steadying/contact guard assistance fro m one helper? Yes. 1. [id number] ADMISSION PERFORMANCE: Supervision or touching assistance CODE: 04 TRANSFERS: BED, CHAIR: CHAIR/[id number] TRANSFER - STEP 1: Does the patient complete the activity by him/herself with no assistance (physical, verbal/nonverbal cueing, setup/clean-up)? No. CHAIR/[id number] TRANSFER - STEP 2: Does the patient need only setup/clean-up assistance from one helper? No. CHAIR/[id number] TRANSFER - STEP 3: Does the patient need only verbal/nonverbal cueing or touching/steadying/contact guard assistance fro m one helper? No. CHAIR/[id number] TRANSFER - STEP 4: Does the patient need physical assistance - for example lifting or trunk support from one helper - wi th the helper providing less than half of the effort? Yes. 1. [id number] ADMISSION PERFORMANCE: Partial/moderate assistance CODE: 03 TRANSFER TOILET: TOILET TRANSFER - STEP 1: Does the patient complete the activity by him/herself with no assistance (physical, verbal/nonverbal cueing, setup/clean-up)? No. TOILET TRANSFER - STEP 2: Does the patient need only setup/clean-up assistance from one helper? No. TOILET TRANSFER - STEP 3: Does the patient need only verbal/nonverbal cueing or touching/steadying/contact guard assistance fro m one helper? No. TOILET TRANSFER - STEP 4: Does the patient need physical assistance - for example lifting or trunk support from one helper - wi th the helper providing less than half of the effort? Yes. 1. [id number] ADMISSION PERFORMANCE: Partial/moderate assistance CODE: 03 TRANSFERS: CAR: Not assessed/no information CODE: - WALK 10 FEET: Not assessed/no information CODE: - 1 STEP (CURB): Not assessed/no information CODE: - PICKING UP OBJECT: Not assessed/no information CODE: - DOES THE PATIENT USE A WHEELCHAIR/SCOOTER? Q1. DOES THE PATIENT USE A WHEELCHAIR/SCOOTER?: Yes CODE: 1 WHEEL 50 FEET WITH TWO TURNS: WHEEL 50 FEET WITH TWO TURNS - STEP 1: Does the patient complete the activity by him/herself with no assistance (physical, verbal/nonverbal cueing, setup/clean-up)? No. WHEEL 50 FEET WITH TWO TURNS - STEP 2: Does the patient need only setup/clean-up assistance from one helper? No. WHEEL 50 FEET WITH TWO TURNS - STEP 3: Does the patient need only verbal/nonverbal cueing or touching/steadying/contact guard assistance fro m one helper? No. WHEEL 50 FEET WITH TWO TURNS - STEP 4: Does the patient need physical assistance - for example lifting or trunk support from one helper - wi th the helper providing less than half of the effort? No. WHEEL 50 FEET WITH TWO TURNS - STEP 5: Does the patient need physical assistance - for example lifting or trunk support from one helper - wi th the helper providing more than half of the effort? Yes. 1. [id number] ADMISSION PERFORMANCE: Substantial/maximal assistance CODE: 02 INDICATE THE TYPE OF WHEELCHAIR/SCOOTER USED: RR1. INDICATE THE TYPE OF WHEELCHAIR/SCOOTER USED.: Manual CODE: 1 WHEEL 150 FEET: WHEEL 150 FEET - STEP 1: Does the patient complete the activity by him/herself with no assistance (physical, verbal/nonverbal cueing, setup/clean-up)? No. WHEEL 150 FEET - STEP 2: Does the patient need only setup/clean-up assistance from one helper? No. WHEEL 150 FEET - STEP 3: Does the patient need only verbal/nonverbal cueing or touching/steadying/contact guard assistance fro m one helper? No. WHEEL 150 FEET - STEP 4: Does the patient need physical assistance - for example lifting or trunk support from one helper - wi th the helper providing less than half of the effort? No. WHEEL 150 FEET - STEP 5: Does the patient need physical assistance - for example lifting or trunk support from one helper - wi th the helper providing more than half of the effort? Yes. 1. [id number] ADMISSION PERFORMANCE: Substantial/maximal assistance CODE: 02 INDICATE THE TYPE OF WHEELCHAIR/SCOOTER USED: SS1. INDICATE THE TYPE OF WHEELCHAIR/SCOOTER USED.: Manual CODE: 1 BLADDER AND BOWEL: H350. BLADDER CONTINENCE (3-DAY ASSESSMENT PERIOD): Always continent (no documented incontinence) CODE: 0 H400. BOWEL CONTINENCE (3-DAY ASSESSMENT PERIOD): Always continent CODE: 0 SIGNATURE PANEL: The following modified sections: 1. [id number] Admission Performance, 1. [id number] Admission Performance, 1. [id number] Admission Performance, 1. [id number] Admission Performance, 1. [id number] Admission Performance, 1. [id number] Admission Performance, 1. IT8520a Admission Performance, 1. MX7019p Admission Performance , 1. [id number] Admission Performance, 1. [id number] Admission Performance, 1. [id number] Admission Performanc e, 1. [id number] Admission Performance, 1. [id number] Admission Performance, 1. [id number] Admission Performan ce, 1. [id number] Admission Performance, Q1. Does the patient use a wheelchair/scooter?, 1. [id number] Admi ssion Performance, RR1. Indicate the type of wheelchair/scooter used., 1. [id number] Admission Performan ce, Code, SS1. Indicate the type of wheelchair/scooter used., H350. Bladder Continence (3-day assessm ent period), H400. Bowel Continence (3-day assessment period) were [electronically] signed by Jeri Catherine C.N.A. on WedJan 10 2020 14:07:28 GMT-0500 (Central Daylight Time)
--- NOTE | 2020-01-10 14:44 | FAST ---
ENCOUNTER DATE AND TIME: 01/10/2020 08:00 (CDT) NAME JOHNSON VAZQUEZ DATE OF : 1945 DATE OF ADMISSION: 12/26/2019 18:56 (CDT) PHONE: AGE: 73 N# [id number] GENDER: Male ENCOUNTER PHYSICIAN: Dr. Reyes Womack M.D. 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 EATING: Not assessed/no information CODE: - ORAL HYGIENE: ORAL HYGIENE - STEP 1: Does the patient complete the activity by him/herself with no assistance (physical, verbal/nonverbal cueing, setup/clean-up)? No. ORAL HYGIENE - STEP 2: Does the patient need only setup/clean-up assistance from one helper? No. ORAL HYGIENE - STEP 3: Does the patient need only verbal/nonverbal cueing or touching/steadying/contact guard assistance fro m one helper? Yes. 1. [id number] ADMISSION PERFORMANCE: Supervision or touching assistance CODE: 04 TOILETING HYGIENE: Not assessed/no information CODE: - BATHING: SHOWER/BATHE SELF - STEP 1: Does the patient complete the activity by him/herself with no assistance (physical, verbal/nonverbal cueing, setup/clean-up)? No. SHOWER/BATHE SELF - STEP 2: Does the patient need only setup/clean-up assistance from one helper? No. SHOWER/BATHE SELF - STEP 3: Does the patient need only verbal/nonverbal cueing or touching/steadying/contact guard assistance fro m one helper? Yes. 1. [id number] ADMISSION PERFORMANCE: Supervision or touching assistance CODE: 04 DRESSING - UPPER BODY: DRESSING - UPPER BODY - STEP 1: Does the patient complete the activity by him/herself with no assistance (physical, verbal/nonverbal cueing, setup/clean-up)? No. DRESSING - UPPER BODY - STEP 2: Does the patient need only setup/clean-up assistance from one helper? No. DRESSING - UPPER BODY - STEP 3: Does the patient need only verbal/nonverbal cueing or touching/steadying/contact guard assistance fro m one helper? Yes. 1. [id number] ADMISSION PERFORMANCE: Supervision or touching assistance CODE: 04 DRESSING - LOWER BODY: DRESSING - LOWER BODY - STEP 1: Does the patient complete the activity by him/herself with no assistance (physical, verbal/nonverbal cueing, setup/clean-up)? No. DRESSING - LOWER BODY - STEP 2: Does the patient need only setup/clean-up assistance from one helper? No. DRESSING - LOWER BODY - STEP 3: Does the patient need only verbal/nonverbal cueing or touching/steadying/contact guard assistance fro m one helper? Yes. 1. [id number] ADMISSION PERFORMANCE: Supervision or touching assistance CODE: 04 PUTTING ON/TAKING OFF FOOTWEAR: FOOTWEAR - STEP 1: Does the patient complete the activity by him/herself with no assistance (physical, verbal/nonverbal cueing, setup/clean-up)? No. FOOTWEAR - STEP 2: Does the patient need only setup/clean-up assistance from one helper? No. FOOTWEAR - STEP 3: Does the patient need only verbal/nonverbal cueing or touching/steadying/contact guard assistance fro m one helper? Yes. 1. [id number] ADMISSION PERFORMANCE: Supervision or touching assistance CODE: 04 DOES THE PATIENT USE A WHEELCHAIR/SCOOTER? CODE: EXPR INDICATE THE TYPE OF WHEELCHAIR/SCOOTER USED: CODE: EXPR INDICATE THE TYPE OF WHEELCHAIR/SCOOTER USED: CODE: EXPR BLADDER AND BOWEL: CODE: EXPR CODE: EXPR SIGNATURE PANEL: The following modified sections: 1. [id number] Admission Performance, 1. [id number] Admission Performance, 1. ZH2687w Admission Performance, 1. [id number] Admission Performance, 1. QQ0068f Admission Performance, 1. UQ0044n Admission Performance were [electronically] signed by MIGUEL ANGEL Osorio on WedJan 10 2020 14:43:05 GMT-0500 (Central Daylight Time)
--- NOTE | 2020-01-10 18:16 | R.PN ---
ENCOUNTER DATE AND TIME: 01/10/2020 18:13 (CDT) NAME JOHNSON VAZQUEZ DATE OF : 1945 DATE OF ADMISSION: 12/26/2019 18:56 (CDT) Restricted Diffusion of the right internal capsule consistent w/acute infarctCHIEF COMPLAINT: Right brain stroke with left sided weakness. SUBJECTIVE: Pt denied any Shortness of Breath. Pt denied any depression. Ambulated 50' with mod assistance using a hemiwaker. Self-propelled wheelchair 250' with right upper extremity and maximum assistance. WBC 5.3, Hgb 11.5, glucose 91 to 148, prealbumin 21.9. Barium swallow show prolonged mastication of pudding but thin liquid cleared by straw. VITAL SIGNS Temperature: 98.8 F SBP/DBP: 135/69 Pulse: 72 Resp: 16 MEDICATION ALLERGIES: No Known Drug Allergies (NKDA) ENVIRONMENTAL ALLERGIES: None Known - Substance Allergies None Known - Other Allergies None Known NURSING: - Shower allowing shower - Bladder care per protocol - Skin care per protocol PRECAUTIONS: - Weight Bearing Precaution WBAT left LE ACTIVITIES OOB only with supervision THERAPIES: - Occupational Therapy Cognitive Retraining. Visual Perceptual Training. - Dietary and Nutrition Adequate Nutrition. Nutritional Education. Nutritional Supplements. - Speech Therapy Cognitive Training. Expressive Language Skills. Memory Strategies. Receptive Language Skills. Speech Intelligibility Training. PHYSICAL EXAM - Gen Alert and awake Lying in bed No apparent distress Oriented to: person, time, and place - Skin No skin breakdown. Normacephalic - Eyes No abnormalities - ENMT No abnormalities - Neck No abnormalities - CVS RRR - Chest No abnormalities - Abd + bowel sounds - GI Soft Deferred - No abnormalities - Ext No significant edema - MSK 1/5 weakness in left upper and 3/5 weakness in left lower extremity. - Neuro 1/5 weakness in left upper and 3/5 weakness in left lower extremity. - Psych No abnormalities ASSESSMENT: Pt. is a 73 yo Right-handed black male.On 12/19/[address] [facility] with sudden onset of left-side weakness.On 12/19/2019 he was admitted to [facility] with diagnosis Rest ricted Diffusioon of the right internal capsule consistant w/acute infarct.His impairment category is Stroke 01 - Left Body (Right Brain) (01.1).Pre-morbidly, Pt. was independent/mod-I in Transfers Con trol, Locomotion, and Self-Care; and he had good Balance, Safety Awareness, Social Cognition, and Sph incter Control.Currently, he has deficits of Transfers Control, Balance, Safety Awareness, Locomotion , Self-Care, and Social Cognition.Pt. is now referred to [facility] for acute in-patient rehabilitation in order to maximize patient's functional independence in activities of yasmin ly living, strength, ROM, and mobility.- Rehab Goal Patient has realistic goal of being discharged at assistance level 6-Graeme to reside at Home with Fam daphnie/Relatives. MDM/PLAN: - Physical Therapy Gait dysfunction - to improve, our physical therapists will perform initial evaluation of pt's statu s upon admission and devise an individualized program for Gait Training, and Wheel Chair mobility Inability to transfer - to improve, our physical therapists will perform initial evaluation of pt's status upon admission and devise an individualized program for Bed mobility Need for home safety evaluation - to improve, our physical therapists will perform initial evaluatio n of pt's status upon admission and devise an individualized program for Home Evaluation Need in caregiver upon discharge - to improve, our physical therapists will perform initial evaluati on of pt's status upon admission and devise an individualized program for Caregiver Training Edema - to improve, our physical therapists will perform initial evaluation of pt's status upon admi ssion and devise an individualized program for Elevation Training, and Lymphedema Therapy New precaution - to improve, our physical therapists will perform initial evaluation of pt's status upon admission and devise an individualized program for Patient precaution education Poor balance - to improve, our physical therapists will perform initial evaluation of pt's status up on admission and devise an individualized program for Balance Training Weakness - to improve, our physical therapists will perform initial evaluation of pt's status upon a dmission and devise an individualized program for Aquatic Therapy, Neuromuscular Reeducation, and Str engthening Achieving independence - to improve, our physical therapists will perform initial evaluation of pt's status upon admission and devise an individualized program for Community Reintegration Activities - Occupational Therapy ADL deficits - to improve, our occupation therapists will perform initial evaluation of pt's status upon admission and devise an individualized program for Bathing, Bed mobility, Community Reintegratio n, Cooking, Dressing, Eating, Fine Motor Skills, Grooming, Homemaking, Kitchen Mobility, Laundry, Pat ient Education, Safety Awareness, Splinting - Positioning, Transfers(Toilet, Tub, Shower), and Wheel Chair Management Cognitive deficits - to improve, our occupation therapists will perform initial evaluation of pt's s tatus upon admission and devise an individualized program for Cognition - orientation Need for wound care center consultant - to improve, our occupation therapists will perform initial evaluation of pt's status upon admission and devise an individualized program for Caregiver Training Weakness - to improve, our occupation therapists will perform initial evaluation of pt's status upon admission and devise an individualized program for Aquatic Therapy, Balance, Endurance, UE ROM, and UE strengthening - Other See attached MAR (Medication Administration Record) - Diet Type Continue Regular - Diet - Liquid Texture Continue Regular - Tube Feed Continue N/A - Bladder care per protocol - Weight Bearing Precaution WBAT left LE - Skin care per protocol - Diet - Solid Texture Continue Regular - Shower allowing shower for Dementia, TBI, Stroke, or others FUNCTIONAL STATUS: - Self-Care A. Eating sup B. Grooming Graeme C. Bathing sup D. Dressing - Upper sup E. Dressing - Lower sup F. Toileting sup - Sphincter Control G. Bladder control sup H. Bowel control sup - Transfers Control I. Bed/Chair/Wheelchair sup J. Toilet sup K. Tub/Shower Kimberly - Locomotion L. Walk/Wheelchair (B) Kimberly M. Stairs modA - Communication N. Comprehension (B) Kimberly O. Expression (B) sup - Social Cognition P. Social Interaction sup Q. Problem Solving sup R. Memory sup - Endurance Fair - Balance Fair - Safety Awareness Fair QI SCORES: - Self-Care A. Eating 05-Setup or clean-up assistance B. Oral hygiene 04-Supervision or touching assistance C. Toileting hygiene 03-Partial/moderate assistance E. Shower/bathe self 10-Not attempted due to environmental limitations F. Upper body dressing 03-Partial/moderate assistance G. Lower body dressing 01-Dependent H. Putting on/taking off footwear 01-Dependent - Mobility A. Roll left and right 02-Substantial/maximal assistance B. Sit to lying 02-Substantial/maximal assistance C. Lying to sitting on side of bed 02-Substantial/maximal assistance D. Sit to stand 02-Substantial/maximal assistance E. Chair/ien-hp-byelp transfer 02-Substantial/maximal assistance F. Toilet transfer 02-Substantial/maximal assistance G. Car transfer 88-Not attempted due to medical condition or safety concerns I. Walk 10 feet 88-Not attempted due to medical condition or safety concerns J. Walk 50 feet with two turns 88-Not attempted due to medical condition or safety concerns K. Walk 150 feet 88-Not attempted due to medical condition or safety concerns L. Walking 10 feet on uneven surfaces 88-Not attempted due to medical condition or safety concerns M. 1 step (curb) 88-Not attempted due to medical condition or safety concerns N. 4 steps 88-Not attempted due to medical condition or safety concerns O. 12 steps 88-Not attempted due to medical condition or safety concerns P. Picking up object 88-Not attempted due to medical condition or safety concerns R. Wheel 50 feet with two turns S. Wheel 150 feet - Bladder and Bowel Bladder continence 0-Always continent Bowel continence 0-Always continent - Endurance Poor - Balance Poor - Safety Awareness Poor CURRENT FUNC. DEFICITS: Self-Care, Mobility, Endurance, Balance, and Safety Awareness SIGNATURE PANEL: (CDT)
[2020-01-10] MEDS: MONTELUKAST 10 MG TAB PO SCH (20:17)
[2020-01-10] MEDS: ATORVASTATIN 20 MG TAB PO SCH (20:18)
[2020-01-11 06:06] LABS: Absolute Lymphocytes (CBC) 2.3 K/uL (0.7-4.9); Hematocrit 35.6 % (39.6-49.0); Lymphocytes % 35.8 % (15.3-44.8); MPV 7.6 fL (7.6-11.3); RBC Red Blood Cell Count 4.92 M/uL (4.33-5.43)
[2020-01-11 06:33] LABS: Potassium 4.1 mmol/L (3.5-5.1); Prealbumin 23.5 mg/dL (20-40)
[2020-01-11] MEDS: INSULIN -REGULAR HUMAN 50 UNIT/0.5 ML ML SQ SCH ×4 (07:30→20:10)
[2020-01-11] MEDS: LIDOCAINE 4% PATCH TOP PRN (09:01)
[2020-01-11] MEDS: METFORMIN ER 500 MG TAB PO SCH ×2 (09:02→17:17)
[2020-01-11] MEDS: CRANBERRY FRUIT EXTRACT 200 MG CAP PO SCH ×2 (09:02→19:05)
[2020-01-11] MEDS: LOSARTAN POTASSIUM 50 MG TABLET PO SCH (09:03)
[2020-01-11] MEDS: APIXABAN 5 MG TABLET PO SCH ×2 (09:03→19:05)
[2020-01-11] MEDS: TRAMADOL HCL 50 MG TAB PO PRN (09:03)
[2020-01-11] MEDS: METOPROLOL TAR 25 MG TAB PO SCH ×2 (09:04→19:05)
[2020-01-11] MEDS: FLUOXETINE 20 MG CAP PO SCH (09:04)
[2020-01-11] MEDS: INSULIN LISPRO 100 UNIT/1 ML SQ SCH ×3 (09:04→17:16)
[2020-01-11] MEDS: INSULIN GLARGINE 100 UNITS/ML SQ SCH (09:05)
[2020-01-11] MEDS: ATORVASTATIN 20 MG TAB PO SCH (20:09)
[2020-01-11] MEDS: MONTELUKAST 10 MG TAB PO SCH (20:09)
[2020-01-12] MEDS: INSULIN -REGULAR HUMAN 50 UNIT/0.5 ML ML SQ SCH ×4 (07:24→21:00)
[2020-01-12] MEDS: INSULIN LISPRO 100 UNIT/1 ML SQ SCH ×3 (07:30→16:45)
[2020-01-12] MEDS: INSULIN GLARGINE 100 UNITS/ML SQ SCH (07:32)
[2020-01-12] MEDS: CRANBERRY FRUIT EXTRACT 200 MG CAP PO SCH ×2 (07:33→21:00)
[2020-01-12] MEDS: METFORMIN ER 500 MG TAB PO SCH ×2 (07:33→16:52)
[2020-01-12] MEDS: METOPROLOL TAR 25 MG TAB PO SCH ×2 (07:34→21:00)
[2020-01-12] MEDS: LOSARTAN POTASSIUM 50 MG TABLET PO SCH (07:34)
[2020-01-12] MEDS: FLUOXETINE 20 MG CAP PO SCH (07:34)
[2020-01-12] MEDS: APIXABAN 5 MG TABLET PO SCH ×2 (07:34→21:00)
--- NOTE | 2020-01-12 09:34 | P.RH.PN ---
Estimated Length of Stay: 24 Expected Discharge Date: 01/18/20 Discharge Disposition Plan: Home Vital Signs: Last Vital Signs Temp 97.5 F 01/12/20 07:30 Pulse 59 01/12/20 07:34 Resp 16 01/12/20 07:30 BP 120/71 01/12/20 07:34 Pulse Ox 97 01/12/20 07:30 Laboratory: Laboratory Last Values WBC 6.4 K/uL (4.3-10.9) D 01/11/20 05:51 RBC 4.92 M/uL (4.33-5.43) 01/11/20 05:51 Hgb 11.3 g/dL (13.6-17.9) L 01/11/20 05:51 Hct 35.6 % (39.6-49.0) L 01/11/20 05:51 MCV 72.2 fL (80-100) L 01/11/20 05:51 MCH 23.0 pg (27.0-35.0) L 01/11/20 05:51 MCHC 31.8 g/dL (32.0-36.0) L 01/11/20 05:51 RDW 15.8 % (12.1-15.2) H 01/11/20 05:51 Plt Count 245 K/uL (152-406) 01/11/20 05:51 MPV 7.6 fL (7.6-11.3) 01/11/20 05:51 Neutrophils % 56.4 % (41.7-73.7) 01/11/20 05:51 Lymphocytes % 35.8 % (15.3-44.8) 01/11/20 05:51 Monocytes % 5.3 % (3.3-12.3) 01/11/20 05:51 Eosinophils % 1.5 % (0-4.4) 01/11/20 05:51 Basophils % 1.0 % (0-1.3) 01/11/20 05:51 Absolute Neutrophils 3.6 K/uL (1.8-8.0) 01/11/20 05:51 Absolute Lymphocytes 2.3 K/uL (0.7-4.9) 01/11/20 05:51 Absolute Monocytes 0.3 K/uL (0.1-1.3) 01/11/20 05:51 Absolute Eosinophils 0.1 K/uL (0-0.5) 01/11/20 05:51 Absolute Basophils 0.1 K/uL (0-0.5) 01/11/20 05:51 Sodium 139 mmol/L (136-145) 01/11/20 05:51 Potassium 4.1 mmol/L (3.5-5.1) 01/11/20 05:51 Chloride 106 mmol/L (98-107) 01/11/20 05:51 Carbon Dioxide 27 mmol/L (21-32) 01/11/20 05:51 BUN 12 mg/dL (7-18) 01/11/20 05:51 Creatinine 1.00 mg/dL (0.55-1.3) 01/11/20 05:51 Estimated GFR 88 mL/min (=/>90) L 01/11/20 05:51 Glucose 104 mg/dL (74-106) 01/11/20 05:51 POC Glucose 100 mg/dL (65-120) 01/12/20 07:22 Calcium 8.7 mg/dL (8.5-10.1) 01/11/20 05:51 Magnesium 2.0 mg/dL (1.8-2.4) 12/28/19 15:42 Albumin 3.0 g/dL (3.4-5.0) L 01/11/20 05:51 Prealbumin 23.5 mg/dL (20-40) 01/11/20 05:51 Urine Color Yellow 12/26/19 19:33 Urine Appearance Cloudy 12/26/19 19:33 Urine pH 5.5 (5.0-7.0) 12/26/19 19:33 Ur Specific Jackson 1.020 (1.005-1.030) 12/26/19 19:33 Glucose (UA)(Auto) Negative (NEG) 12/26/19 19:33 Urine Ketones Negative (NEG) 12/26/19 19:33 Urine Blood Negative (NEG) 12/26/19 19:33 Urine Nitrite Negative (NEG) 12/26/19 19:33 Urine Bilirubin Negative (NEG) 12/26/19 19:33 Urine Urobilinogen 0.2 mg/dL (0.2-1.0) 12/26/19 19:33 Ur Leukocyte Esterase 2+ (NEG) H 12/26/19 19:33 Urine RBC <5 /HPF (NONE SEEN) 12/26/19 19:33 Urine WBC 10-20 /HPF (<5) H 12/26/19 19:33 Ur Squamous Epith Cells <5 /HPF (NONE SEEN) 12/26/19 19:33 Urine Bacteria Loaded /HPF (NONE SEEN) H 12/26/19 19:33 Urine Culture Reflexed Reflexed 12/26/19 19:33 Urine Total Protein Trace (NEG) 12/26/19 19:33 Weight: 210 lb 14.4 oz Wound Present: No Closed Surgical Incision Present: No Negative Pressure Wound Therapy Present: No Physician Update: Labs reviewed and are stable. Very mild improvement in his left shoulder and arm strength. He requires moderate assistance with ADLs. Walks 50' with minimum assistance to contact guard with a right hand hemiwalker. He is doing well in speech on a mechanical soft diet. He is compliant but with th erapy. He has loose stools and will have imodium. Functional Improvement: pt has demonstrated good progress throughout the week. pt has improved his balance and stability while in standing as well as endurance to ambulation. pt continues to require assist with transfers and functional ambulation, but his performance is improving. pt continues to require skilled PT services to enhance safety and performance prior to return home. Speech Therapy Update: Patient continues to make gains in the areas of speech, voice, and swallowing. Patient works diligently in therapy but has not demonstrated carryover outside of structured setting. Patient is tolerating mechanical soft solids and thin liquids. He c/o difficulty chewing and swallowing the green beans because of the way they're prepared. 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 Please see the Rehabilitation Signature page for all necessary signatures.
--- NOTE | 2020-01-12 10:24 | P.PN ---
Date of Service: 01/12/20 Mr. Chanel is now advancing to a platform walker as his left upper extremity strength is improving. He is now using a right julia-walker but has some balance issues. He is working hard with all therapy. He will likely require an extension in his acute rehab stay.
[2020-01-12] MEDS: LIDOCAINE 4% PATCH TOP SCH (10:49)
[2020-01-12] MEDS ORDERED: DIPHENOX/ATROP SULF 1 TAB PO PRN (11:48)
--- NOTE | 2020-01-12 15:22 | FAST ---
ENCOUNTER DATE AND TIME: 01/12/2020 08:00 (CDT) NAME JOHNSON VAZQUEZ DATE OF : 1945 DATE OF ADMISSION: 12/26/2019 18:56 (CDT) PHONE: AGE: 73 N# [id number] GENDER: Male ENCOUNTER PHYSICIAN: Dr. Reyes Womack M.D. 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 EATING: Not assessed/no information CODE: - ORAL HYGIENE: ORAL HYGIENE - STEP 1: Does the patient complete the activity by him/herself with no assistance (physical, verbal/nonverbal cueing, setup/clean-up)? No. ORAL HYGIENE - STEP 2: Does the patient need only setup/clean-up assistance from one helper? No. ORAL HYGIENE - STEP 3: Does the patient need only verbal/nonverbal cueing or touching/steadying/contact guard assistance fro m one helper? Yes. 1. [id number] ADMISSION PERFORMANCE: Supervision or touching assistance CODE: 04 TOILETING HYGIENE: Not assessed/no information CODE: - BATHING: SHOWER/BATHE SELF - STEP 1: Does the patient complete the activity by him/herself with no assistance (physical, verbal/nonverbal cueing, setup/clean-up)? No. SHOWER/BATHE SELF - STEP 2: Does the patient need only setup/clean-up assistance from one helper? No. SHOWER/BATHE SELF - STEP 3: Does the patient need only verbal/nonverbal cueing or touching/steadying/contact guard assistance fro m one helper? Yes. 1. [id number] ADMISSION PERFORMANCE: Supervision or touching assistance CODE: 04 DRESSING - UPPER BODY: DRESSING - UPPER BODY - STEP 1: Does the patient complete the activity by him/herself with no assistance (physical, verbal/nonverbal cueing, setup/clean-up)? No. DRESSING - UPPER BODY - STEP 2: Does the patient need only setup/clean-up assistance from one helper? No. DRESSING - UPPER BODY - STEP 3: Does the patient need only verbal/nonverbal cueing or touching/steadying/contact guard assistance fro m one helper? Yes. 1. [id number] ADMISSION PERFORMANCE: Supervision or touching assistance CODE: 04 DRESSING - LOWER BODY: DRESSING - LOWER BODY - STEP 1: Does the patient complete the activity by him/herself with no assistance (physical, verbal/nonverbal cueing, setup/clean-up)? No. DRESSING - LOWER BODY - STEP 2: Does the patient need only setup/clean-up assistance from one helper? No. DRESSING - LOWER BODY - STEP 3: Does the patient need only verbal/nonverbal cueing or touching/steadying/contact guard assistance fro m one helper? Yes. 1. [id number] ADMISSION PERFORMANCE: Supervision or touching assistance CODE: 04 PUTTING ON/TAKING OFF FOOTWEAR: FOOTWEAR - STEP 1: Does the patient complete the activity by him/herself with no assistance (physical, verbal/nonverbal cueing, setup/clean-up)? No. FOOTWEAR - STEP 2: Does the patient need only setup/clean-up assistance from one helper? No. FOOTWEAR - STEP 3: Does the patient need only verbal/nonverbal cueing or touching/steadying/contact guard assistance fro m one helper? Yes. 1. [id number] ADMISSION PERFORMANCE: Supervision or touching assistance CODE: 04 DOES THE PATIENT USE A WHEELCHAIR/SCOOTER? CODE: EXPR INDICATE THE TYPE OF WHEELCHAIR/SCOOTER USED: CODE: EXPR INDICATE THE TYPE OF WHEELCHAIR/SCOOTER USED: CODE: EXPR BLADDER AND BOWEL: CODE: EXPR CODE: EXPR SIGNATURE PANEL: The following modified sections: 1. [id number] Admission Performance, 1. [id number] Admission Performance, 1. [id number] Admission Performance, 1. [id number] Admission Performance, 1. [id number] Admission Performance were [electronically] signed by MIGUEL ANGEL Osorio on WedJan 12 2020 15:21:10 GMT-0500 (Central Daylight Time)
[2020-01-12] MEDS: MONTELUKAST 10 MG TAB PO SCH (21:00)
[2020-01-12] MEDS: ATORVASTATIN 20 MG TAB PO SCH (21:00)
--- NOTE | 2020-01-13 02:34 | FAST ---
SHIFT START DATE/TIME: 01/12/2020 19:00 (CDT) SHIFT END DATE/TIME: 01/13/2020 07:00 (CDT) NAME JOHNSON VAZQUEZ DATE OF : 1945 DATE OF ADMISSION: 12/26/2019 18:56 (CDT) PHONE: AGE: 73 N# [id number] GENDER: Male ENCOUNTER PHYSICIAN: Dr. Reyes Womack M.D. 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 EATING: Not assessed/no information CODE: - ORAL HYGIENE: Not assessed/no information CODE: - TOILETING HYGIENE: TOILETING HYGIENE - STEP 1: Does the patient complete the activity by him/herself with no assistance (physical, verbal/nonverbal cueing, setup/clean-up)? No. TOILETING HYGIENE - STEP 2: Does the patient need only setup/clean-up assistance from one helper? No. TOILETING HYGIENE - STEP 3: Does the patient need only verbal/nonverbal cueing or touching/steadying/contact guard assistance fro m one helper? No. TOILETING HYGIENE - STEP 4: Does the patient need physical assistance - for example lifting or trunk support from one helper - wi th the helper providing less than half of the effort? Yes. 1. [id number] ADMISSION PERFORMANCE: Partial/moderate assistance CODE: 03 BATHING: Not assessed/no information CODE: - DRESSING - UPPER BODY: Not assessed/no information CODE: - DRESSING - LOWER BODY: Not assessed/no information CODE: - PUTTING ON/TAKING OFF FOOTWEAR: Not assessed/no information CODE: - ROLL LEFT AND RIGHT: ROLL LEFT AND RIGHT - STEP 1: Does the patient complete the activity by him/herself with no assistance (physical, verbal/nonverbal cueing, setup/clean-up)? No. ROLL LEFT AND RIGHT - STEP 2: Does the patient need only setup/clean-up assistance from one helper? No. ROLL LEFT AND RIGHT - STEP 3: Does the patient need only verbal/nonverbal cueing or touching/steadying/contact guard assistance fro m one helper? No. ROLL LEFT AND RIGHT - STEP 4: Does the patient need physical assistance - for example lifting or trunk support from one helper - wi th the helper providing less than half of the effort? Yes. 1. [id number] ADMISSION PERFORMANCE: Partial/moderate assistance CODE: 03 SIT TO LYING: SIT TO LYING - STEP 1: Does the patient complete the activity by him/herself with no assistance (physical, verbal/nonverbal cueing, setup/clean-up)? No. SIT TO LYING - STEP 2: Does the patient need only setup/clean-up assistance from one helper? No. SIT TO LYING - STEP 3: Does the patient need only verbal/nonverbal cueing or touching/steadying/contact guard assistance fro m one helper? No. SIT TO LYING - STEP 4: Does the patient need physical assistance - for example lifting or trunk support from one helper - wi th the helper providing less than half of the effort? Yes. 1. [id number] ADMISSION PERFORMANCE: Partial/moderate assistance CODE: 03 LYING TO SITTING: LYING TO SITTING ON SIDE OF BED - STEP 1: Does the patient complete the activity by him/herself with no assistance (physical, verbal/nonverbal cueing, setup/clean-up)? No. LYING TO SITTING ON SIDE OF BED - STEP 2: Does the patient need only setup/clean-up assistance from one helper? No. LYING TO SITTING ON SIDE OF BED - STEP 3: Does the patient need only verbal/nonverbal cueing or touching/steadying/contact guard assistance fro m one helper? No. LYING TO SITTING ON SIDE OF BED - STEP 4: Does the patient need physical assistance - for example lifting or trunk support from one helper - wi th the helper providing less than half of the effort? Yes. 1. [id number] ADMISSION PERFORMANCE: Partial/moderate assistance CODE: 03 SIT TO STAND: SIT TO STAND - STEP 1: Does the patient complete the activity by him/herself with no assistance (physical, verbal/nonverbal cueing, setup/clean-up)? No. SIT TO STAND - STEP 2: Does the patient need only setup/clean-up assistance from one helper? No. SIT TO STAND - STEP 3: Does the patient need only verbal/nonverbal cueing or touching/steadying/contact guard assistance fro m one helper? No. SIT TO STAND - STEP 4: Does the patient need physical assistance - for example lifting or trunk support from one helper - wi th the helper providing less than half of the effort? Yes. 1. [id number] ADMISSION PERFORMANCE: Partial/moderate assistance CODE: 03 TRANSFERS: BED, CHAIR: CHAIR/[id number] TRANSFER - STEP 1: Does the patient complete the activity by him/herself with no assistance (physical, verbal/nonverbal cueing, setup/clean-up)? No. CHAIR/[id number] TRANSFER - STEP 2: Does the patient need only setup/clean-up assistance from one helper? No. CHAIR/[id number] TRANSFER - STEP 3: Does the patient need only verbal/nonverbal cueing or touching/steadying/contact guard assistance fro m one helper? No. CHAIR/[id number] TRANSFER - STEP 4: Does the patient need physical assistance - for example lifting or trunk support from one helper - wi th the helper providing less than half of the effort? Yes. 1. [id number] ADMISSION PERFORMANCE: Partial/moderate assistance CODE: 03 TRANSFER TOILET: TOILET TRANSFER - STEP 1: Does the patient complete the activity by him/herself with no assistance (physical, verbal/nonverbal cueing, setup/clean-up)? No. TOILET TRANSFER - STEP 2: Does the patient need only setup/clean-up assistance from one helper? No. TOILET TRANSFER - STEP 3: Does the patient need only verbal/nonverbal cueing or touching/steadying/contact guard assistance fro m one helper? No. TOILET TRANSFER - STEP 4: Does the patient need physical assistance - for example lifting or trunk support from one helper - wi th the helper providing less than half of the effort? Yes. 1. [id number] ADMISSION PERFORMANCE: Partial/moderate assistance CODE: 03 TRANSFERS: CAR: Not assessed/no information CODE: - WALK 10 FEET: Not assessed/no information CODE: - 1 STEP (CURB): Not assessed/no information CODE: - PICKING UP OBJECT: Not assessed/no information CODE: - DOES THE PATIENT USE A WHEELCHAIR/SCOOTER? CODE: EXPR WHEEL 50 FEET WITH TWO TURNS: Not assessed/no information CODE: - INDICATE THE TYPE OF WHEELCHAIR/SCOOTER USED: CODE: EXPR WHEEL 150 FEET: Not assessed/no information CODE: - INDICATE THE TYPE OF WHEELCHAIR/SCOOTER USED: CODE: EXPR BLADDER AND BOWEL: H350. BLADDER CONTINENCE (3-DAY ASSESSMENT PERIOD): Always continent (no documented incontinence) CODE: 0 H400. BOWEL CONTINENCE (3-DAY ASSESSMENT PERIOD): Always continent CODE: 0
[2020-01-13] MEDS: INSULIN -REGULAR HUMAN 50 UNIT/0.5 ML ML SQ SCH ×4 (06:48→19:39)
[2020-01-13] MEDS: CRANBERRY FRUIT EXTRACT 200 MG CAP PO SCH ×2 (08:11→19:37)
[2020-01-13] MEDS: METOPROLOL TAR 25 MG TAB PO SCH ×2 (08:12→19:36)
[2020-01-13] MEDS: FLUOXETINE 20 MG CAP PO SCH (08:12)
[2020-01-13] MEDS: METFORMIN ER 500 MG TAB PO SCH ×2 (08:12→17:06)
[2020-01-13] MEDS: LOSARTAN POTASSIUM 50 MG TABLET PO SCH (08:12)
[2020-01-13] MEDS: APIXABAN 5 MG TABLET PO SCH ×2 (08:12→19:39)
[2020-01-13] MEDS: INSULIN GLARGINE 100 UNITS/ML SQ SCH (08:13)
[2020-01-13] MEDS: LIDOCAINE 4% PATCH TOP SCH (08:14)
[2020-01-13] MEDS: INSULIN LISPRO 100 UNIT/1 ML SQ SCH ×4 (08:14→16:47)
[2020-01-13] MEDS: ACETAMINOPHEN 325 MG TABLET PO PRN (17:42)
[2020-01-13] MEDS: MONTELUKAST 10 MG TAB PO SCH (19:37)
[2020-01-13] MEDS: ATORVASTATIN 20 MG TAB PO SCH (19:37)
[2020-01-14] MEDS: LIDOCAINE 4% PATCH TOP SCH (07:06)
[2020-01-14] MEDS: INSULIN -REGULAR HUMAN 50 UNIT/0.5 ML ML SQ SCH ×4 (07:29→20:31)
[2020-01-14] MEDS: INSULIN LISPRO 100 UNIT/1 ML SQ SCH ×3 (08:20→16:18)
[2020-01-14] MEDS: METOPROLOL TAR 25 MG TAB PO SCH ×2 (08:21→20:33)
[2020-01-14] MEDS: INSULIN GLARGINE 100 UNITS/ML SQ SCH (08:21)
[2020-01-14] MEDS: CRANBERRY FRUIT EXTRACT 200 MG CAP PO SCH ×2 (08:22→20:33)
[2020-01-14] MEDS: METFORMIN ER 500 MG TAB PO SCH ×2 (08:22→17:03)
[2020-01-14] MEDS: APIXABAN 5 MG TABLET PO SCH ×2 (08:22→20:34)
[2020-01-14] MEDS: FLUOXETINE 20 MG CAP PO SCH (08:22)
[2020-01-14] MEDS: LOSARTAN POTASSIUM 50 MG TABLET PO SCH (08:22)
[2020-01-14] MEDS: ATORVASTATIN 20 MG TAB PO SCH (20:33)
[2020-01-14] MEDS: MONTELUKAST 10 MG TAB PO SCH (20:34)
[2020-01-15] MEDS: INSULIN -REGULAR HUMAN 50 UNIT/0.5 ML ML SQ SCH ×4 (07:10→20:08)
[2020-01-15] MEDS: CRANBERRY FRUIT EXTRACT 200 MG CAP PO SCH ×2 (08:09→19:16)
[2020-01-15] MEDS: LIDOCAINE 4% PATCH TOP SCH (08:09)
[2020-01-15] MEDS: METFORMIN ER 500 MG TAB PO SCH ×2 (08:09→16:47)
[2020-01-15] MEDS: FLUOXETINE 20 MG CAP PO SCH (08:09)
[2020-01-15] MEDS: ACETAMINOPHEN 325 MG TABLET PO PRN (08:10)
[2020-01-15] MEDS: APIXABAN 5 MG TABLET PO SCH ×2 (08:11→19:16)
[2020-01-15] MEDS: INSULIN GLARGINE 100 UNITS/ML SQ SCH (08:11)
[2020-01-15] MEDS: LOSARTAN POTASSIUM 50 MG TABLET PO SCH (08:11)
[2020-01-15] MEDS: METOPROLOL TAR 25 MG TAB PO SCH ×2 (08:11→19:16)
[2020-01-15] MEDS: INSULIN LISPRO 100 UNIT/1 ML SQ SCH ×3 (08:12→16:16)
--- NOTE | 2020-01-15 19:17 | R.PN ---
ENCOUNTER DATE AND TIME: 01/15/2020 19:14 (CDT) NAME JOHNSON VAZQUEZ DATE OF : 1945 DATE OF ADMISSION: 12/26/2019 18:56 (CDT) Restricted Diffusion of the right internal capsule consistent w/acute infarctCHIEF COMPLAINT: Right brain stroke with left sided weakness. SUBJECTIVE: Pt denied any Shortness of Breath. Pt denied any depression. Ambulated 250' with contact guard assistance using a platform walker. Self-propelled wheelchair 270' with right upper extremity and maximum assistance. WBC 5.3, Hgb 11.5, glucose 91 to 148, prealbumin 21.9. Barium swallow show prolonged mastication of pudding but thin liquid cleared by straw. VITAL SIGNS Temperature: 98.8 F SBP/DBP: 153/78 Pulse: 60 Resp: 16 MEDICATION ALLERGIES: No Known Drug Allergies (NKDA) ENVIRONMENTAL ALLERGIES: None Known - Substance Allergies None Known - Other Allergies None Known NURSING: - Shower allowing shower - Bladder care per protocol - Skin care per protocol PRECAUTIONS: - Weight Bearing Precaution WBAT left LE ACTIVITIES OOB only with supervision THERAPIES: - Occupational Therapy Cognitive Retraining. Visual Perceptual Training. - Dietary and Nutrition Adequate Nutrition. Nutritional Education. Nutritional Supplements. - Speech Therapy Cognitive Training. Expressive Language Skills. Memory Strategies. Receptive Language Skills. Speech Intelligibility Training. PHYSICAL EXAM - Gen Alert and awake Lying in bed No apparent distress Oriented to: person, time, and place - Skin No skin breakdown. Normacephalic - Eyes No abnormalities - ENMT No abnormalities - Neck No abnormalities - CVS RRR - Chest No abnormalities - Abd + bowel sounds - GI Soft Deferred - No abnormalities - Ext No significant edema - MSK 1/5 weakness in left upper and 3/5 weakness in left lower extremity. - Neuro 1/5 weakness in left upper and 3/5 weakness in left lower extremity. - Psych No abnormalities ASSESSMENT: Pt. is a 73 yo Right-handed black male.On 12/19/2019 Pt. presented to [facility] with sudden onset of left-side weakness.On 12/19/2019 he was admitted to [facility] with diagnosis Rest ricted Diffusioon of the right internal capsule consistant w/acute infarct.His impairment category is Stroke 01 - Left Body (Right Brain) (01.1).Pre-morbidly, Pt. was independent/mod-I in Transfers Con trol, Locomotion, and Self-Care; and he had good Balance, Safety Awareness, Social Cognition, and Sph incter Control.Currently, he has deficits of Transfers Control, Balance, Safety Awareness, Locomotion , Self-Care, and Social Cognition.Pt. is now referred to [facility] for acute in-patient rehabilitation in order to maximize patient's functional independence in activities of yasmin ly living, strength, ROM, and mobility.- Rehab Goal Patient has realistic goal of being discharged at assistance level 6-Graeme to reside at Home with Fam daphnie/Relatives. MDM/PLAN: - Physical Therapy Gait dysfunction - to improve, our physical therapists will perform initial evaluation of pt's statu s upon admission and devise an individualized program for Gait Training, and Wheel Chair mobility Inability to transfer - to improve, our physical therapists will perform initial evaluation of pt's status upon admission and devise an individualized program for Bed mobility Need for home safety evaluation - to improve, our physical therapists will perform initial evaluatio n of pt's status upon admission and devise an individualized program for Home Evaluation Need in caregiver upon discharge - to improve, our physical therapists will perform initial evaluati on of pt's status upon admission and devise an individualized program for Caregiver Training Edema - to improve, our physical therapists will perform initial evaluation of pt's status upon admi ssion and devise an individualized program for Elevation Training, and Lymphedema Therapy New precaution - to improve, our physical therapists will perform initial evaluation of pt's status upon admission and devise an individualized program for Patient precaution education Poor balance - to improve, our physical therapists will perform initial evaluation of pt's status up on admission and devise an individualized program for Balance Training Weakness - to improve, our physical therapists will perform initial evaluation of pt's status upon a dmission and devise an individualized program for Aquatic Therapy, Neuromuscular Reeducation, and Str engthening Achieving independence - to improve, our physical therapists will perform initial evaluation of pt's status upon admission and devise an individualized program for Community Reintegration Activities - Occupational Therapy ADL deficits - to improve, our occupation therapists will perform initial evaluation of pt's status upon admission and devise an individualized program for Bathing, Bed mobility, Community Reintegratio n, Cooking, Dressing, Eating, Fine Motor Skills, Grooming, Homemaking, Kitchen Mobility, Laundry, Pat ient Education, Safety Awareness, Splinting - Positioning, Transfers(Toilet, Tub, Shower), and Wheel Chair Management Cognitive deficits - to improve, our occupation therapists will perform initial evaluation of pt's s tatus upon admission and devise an individualized program for Cognition - orientation Need for rn wound care - to improve, our occupation therapists will perform initial evaluation of pt's status upon admission and devise an individualized program for Caregiver Training Weakness - to improve, our occupation therapists will perform initial evaluation of pt's status upon admission and devise an individualized program for Aquatic Therapy, Balance, Endurance, UE ROM, and UE strengthening - Other See attached MAR (Medication Administration Record) - Diet Type Continue Regular - Diet - Liquid Texture Continue Regular - Tube Feed Continue N/A - Bladder care per protocol - Weight Bearing Precaution WBAT left LE - Skin care per protocol - Diet - Solid Texture Continue Regular - Shower allowing shower for Dementia, TBI, Stroke, or others FUNCTIONAL STATUS: - Self-Care A. Eating sup B. Grooming Graeme C. Bathing sup D. Dressing - Upper sup E. Dressing - Lower sup F. Toileting sup - Sphincter Control G. Bladder control sup H. Bowel control sup - Transfers Control I. Bed/Chair/Wheelchair sup J. Toilet sup K. Tub/Shower Kimberly - Locomotion L. Walk/Wheelchair (B) Kimberly M. Stairs modA - Communication N. Comprehension (B) Kimberly O. Expression (B) sup - Social Cognition P. Social Interaction sup Q. Problem Solving sup R. Memory sup - Endurance Fair - Balance Fair - Safety Awareness Fair QI SCORES: - Self-Care A. Eating 05-Setup or clean-up assistance B. Oral hygiene 04-Supervision or touching assistance C. Toileting hygiene 03-Partial/moderate assistance E. Shower/bathe self 10-Not attempted due to environmental limitations F. Upper body dressing 03-Partial/moderate assistance G. Lower body dressing 01-Dependent H. Putting on/taking off footwear 01-Dependent - Mobility A. Roll left and right 02-Substantial/maximal assistance B. Sit to lying 02-Substantial/maximal assistance C. Lying to sitting on side of bed 02-Substantial/maximal assistance D. Sit to stand 02-Substantial/maximal assistance E. Chair/bgh-bm-wevio transfer 02-Substantial/maximal assistance F. Toilet transfer 02-Substantial/maximal assistance G. Car transfer 88-Not attempted due to medical condition or safety concerns I. Walk 10 feet 88-Not attempted due to medical condition or safety concerns J. Walk 50 feet with two turns 88-Not attempted due to medical condition or safety concerns K. Walk 150 feet 88-Not attempted due to medical condition or safety concerns L. Walking 10 feet on uneven surfaces 88-Not attempted due to medical condition or safety concerns M. 1 step (curb) 88-Not attempted due to medical condition or safety concerns N. 4 steps 88-Not attempted due to medical condition or safety concerns O. 12 steps 88-Not attempted due to medical condition or safety concerns P. Picking up object 88-Not attempted due to medical condition or safety concerns R. Wheel 50 feet with two turns S. Wheel 150 feet - Bladder and Bowel Bladder continence 0-Always continent Bowel continence 0-Always continent - Endurance Poor - Balance Poor - Safety Awareness Poor CURRENT FUNC. DEFICITS: Self-Care, Mobility, Endurance, Balance, and Safety Awareness SIGNATURE PANEL: (CDT)
[2020-01-15] MEDS: MONTELUKAST 10 MG TAB PO SCH (20:07)
[2020-01-15] MEDS: MELATONIN 3 MG TABLET PO PRN (20:08)
--- NOTE | 2020-01-16 06:58 | FAST ---
ENCOUNTER DATE AND TIME: 01/15/2020 08:00 (CDT) NAME JOHNSON VAZQUEZ DATE OF : 1945 DATE OF ADMISSION: 12/26/2019 18:56 (CDT) PHONE: AGE: 73 N# [id number] GENDER: Male ENCOUNTER PHYSICIAN: Dr. Reyes Womack M.D. 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 EATING: Not assessed/no information CODE: - ORAL HYGIENE: ORAL HYGIENE - STEP 1: Does the patient complete the activity by him/herself with no assistance (physical, verbal/nonverbal cueing, setup/clean-up)? Yes. 1. [id number] ADMISSION PERFORMANCE: Independent CODE: 06 TOILETING HYGIENE: Not assessed/no information CODE: - BATHING: SHOWER/BATHE SELF - STEP 1: Does the patient complete the activity by him/herself with no assistance (physical, verbal/nonverbal cueing, setup/clean-up)? No. SHOWER/BATHE SELF - STEP 2: Does the patient need only setup/clean-up assistance from one helper? No. SHOWER/BATHE SELF - STEP 3: Does the patient need only verbal/nonverbal cueing or touching/steadying/contact guard assistance fro m one helper? Yes. 1. [id number] ADMISSION PERFORMANCE: Supervision or touching assistance CODE: 04 DRESSING - UPPER BODY: DRESSING - UPPER BODY - STEP 1: Does the patient complete the activity by him/herself with no assistance (physical, verbal/nonverbal cueing, setup/clean-up)? No. DRESSING - UPPER BODY - STEP 2: Does the patient need only setup/clean-up assistance from one helper? No. DRESSING - UPPER BODY - STEP 3: Does the patient need only verbal/nonverbal cueing or touching/steadying/contact guard assistance fro m one helper? Yes. 1. [id number] ADMISSION PERFORMANCE: Supervision or touching assistance CODE: 04 DRESSING - LOWER BODY: DRESSING - LOWER BODY - STEP 1: Does the patient complete the activity by him/herself with no assistance (physical, verbal/nonverbal cueing, setup/clean-up)? No. DRESSING - LOWER BODY - STEP 2: Does the patient need only setup/clean-up assistance from one helper? No. DRESSING - LOWER BODY - STEP 3: Does the patient need only verbal/nonverbal cueing or touching/steadying/contact guard assistance fro m one helper? Yes. 1. [id number] ADMISSION PERFORMANCE: Supervision or touching assistance CODE: 04 PUTTING ON/TAKING OFF FOOTWEAR: FOOTWEAR - STEP 1: Does the patient complete the activity by him/herself with no assistance (physical, verbal/nonverbal cueing, setup/clean-up)? No. FOOTWEAR - STEP 2: Does the patient need only setup/clean-up assistance from one helper? No. FOOTWEAR - STEP 3: Does the patient need only verbal/nonverbal cueing or touching/steadying/contact guard assistance fro m one helper? Yes. 1. [id number] ADMISSION PERFORMANCE: Supervision or touching assistance CODE: 04 DOES THE PATIENT USE A WHEELCHAIR/SCOOTER? CODE: EXPR INDICATE THE TYPE OF WHEELCHAIR/SCOOTER USED: CODE: EXPR INDICATE THE TYPE OF WHEELCHAIR/SCOOTER USED: CODE: EXPR BLADDER AND BOWEL: CODE: EXPR CODE: EXPR SIGNATURE PANEL: The following modified sections: 1. [id number] Admission Performance, 1. [id number] Admission Performance, 1. [id number] Admission Performance, 1. [id number] Admission Performance, 1. [id number] Admission Performance were [electronically] signed by MIGUEL ANGEL Osorio on WedJan 16 2020 06:56:34 GMT-0500 (Central Daylight Time)
[2020-01-16] MEDS: INSULIN -REGULAR HUMAN 50 UNIT/0.5 ML ML SQ SCH ×4 (07:30→20:07)
[2020-01-16] MEDS: LOSARTAN POTASSIUM 50 MG TABLET PO SCH (08:37)
[2020-01-16] MEDS: CRANBERRY FRUIT EXTRACT 200 MG CAP PO SCH ×2 (08:37→19:04)
[2020-01-16] MEDS: ACETAMINOPHEN 325 MG TABLET PO PRN (08:38)
[2020-01-16] MEDS: METFORMIN ER 500 MG TAB PO SCH ×2 (08:38→17:19)
[2020-01-16] MEDS: APIXABAN 5 MG TABLET PO SCH ×2 (08:38→19:05)
[2020-01-16] MEDS: FLUOXETINE 20 MG CAP PO SCH (08:38)
[2020-01-16] MEDS: INSULIN GLARGINE 100 UNITS/ML SQ SCH (08:39)
[2020-01-16] MEDS: METOPROLOL TAR 25 MG TAB PO SCH ×2 (08:39→19:05)
[2020-01-16] MEDS: INSULIN LISPRO 100 UNIT/1 ML SQ SCH ×3 (08:40→17:20)
[2020-01-16] MEDS: LIDOCAINE 4% PATCH TOP SCH (08:56)
--- NOTE | 2020-01-16 16:01 | FAST ---
SHIFT START DATE/TIME: 01/16/2020 07:00 (CDT) SHIFT END DATE/TIME: 01/16/2020 19:00 (CDT) NAME JOHNSON VAZQUEZ DATE OF : 1945 DATE OF ADMISSION: 12/26/2019 18:56 (CDT) PHONE: AGE: 73 N# [id number] GENDER: Male ENCOUNTER PHYSICIAN: Dr. Reyes Womack M.D. 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 EATING: EATING - STEP 1: Does the patient complete the activity by him/herself with no assistance (physical, verbal/nonverbal cueing, setup/clean-up)? No. EATING - STEP 2: Does the patient need only setup/clean-up assistance from one helper? Yes. 1. [id number] ADMISSION PERFORMANCE: Setup or clean-up assistance CODE: 05 ORAL HYGIENE: ORAL HYGIENE - STEP 1: Does the patient complete the activity by him/herself with no assistance (physical, verbal/nonverbal cueing, setup/clean-up)? No. ORAL HYGIENE - STEP 2: Does the patient need only setup/clean-up assistance from one helper? Yes. 1. [id number] ADMISSION PERFORMANCE: Setup or clean-up assistance CODE: 05 TOILETING HYGIENE: TOILETING HYGIENE - STEP 1: Does the patient complete the activity by him/herself with no assistance (physical, verbal/nonverbal cueing, setup/clean-up)? No. TOILETING HYGIENE - STEP 2: Does the patient need only setup/clean-up assistance from one helper? No. TOILETING HYGIENE - STEP 3: Does the patient need only verbal/nonverbal cueing or touching/steadying/contact guard assistance fro m one helper? Yes. 1. [id number] ADMISSION PERFORMANCE: Supervision or touching assistance CODE: 04 BATHING: Not assessed/no information CODE: - DRESSING - UPPER BODY: DRESSING - UPPER BODY - STEP 1: Does the patient complete the activity by him/herself with no assistance (physical, verbal/nonverbal cueing, setup/clean-up)? No. DRESSING - UPPER BODY - STEP 2: Does the patient need only setup/clean-up assistance from one helper? No. DRESSING - UPPER BODY - STEP 3: Does the patient need only verbal/nonverbal cueing or touching/steadying/contact guard assistance fro m one helper? Yes. 1. [id number] ADMISSION PERFORMANCE: Supervision or touching assistance CODE: 04 DRESSING - LOWER BODY: DRESSING - LOWER BODY - STEP 1: Does the patient complete the activity by him/herself with no assistance (physical, verbal/nonverbal cueing, setup/clean-up)? No. DRESSING - LOWER BODY - STEP 2: Does the patient need only setup/clean-up assistance from one helper? No. DRESSING - LOWER BODY - STEP 3: Does the patient need only verbal/nonverbal cueing or touching/steadying/contact guard assistance fro m one helper? Yes. 1. [id number] ADMISSION PERFORMANCE: Supervision or touching assistance CODE: 04 PUTTING ON/TAKING OFF FOOTWEAR: FOOTWEAR - STEP 1: Does the patient complete the activity by him/herself with no assistance (physical, verbal/nonverbal cueing, setup/clean-up)? No. FOOTWEAR - STEP 2: Does the patient need only setup/clean-up assistance from one helper? No. FOOTWEAR - STEP 3: Does the patient need only verbal/nonverbal cueing or touching/steadying/contact guard assistance fro m one helper? No. FOOTWEAR - STEP 4: Does the patient need physical assistance - for example lifting or trunk support from one helper - wi th the helper providing less than half of the effort? No. FOOTWEAR - STEP 5: Does the patient need physical assistance - for example lifting or trunk support from one helper - wi th the helper providing more than half of the effort? Yes. 1. [id number] ADMISSION PERFORMANCE: Substantial/maximal assistance CODE: 02 ROLL LEFT AND RIGHT: ROLL LEFT AND RIGHT - STEP 1: Does the patient complete the activity by him/herself with no assistance (physical, verbal/nonverbal cueing, setup/clean-up)? No. ROLL LEFT AND RIGHT - STEP 2: Does the patient need only setup/clean-up assistance from one helper? No. ROLL LEFT AND RIGHT - STEP 3: Does the patient need only verbal/nonverbal cueing or touching/steadying/contact guard assistance fro m one helper? Yes. 1. [id number] ADMISSION PERFORMANCE: Supervision or touching assistance CODE: 04 SIT TO LYING: SIT TO LYING - STEP 1: Does the patient complete the activity by him/herself with no assistance (physical, verbal/nonverbal cueing, setup/clean-up)? No. SIT TO LYING - STEP 2: Does the patient need only setup/clean-up assistance from one helper? No. SIT TO LYING - STEP 3: Does the patient need only verbal/nonverbal cueing or touching/steadying/contact guard assistance fro m one helper? Yes. 1. [id number] ADMISSION PERFORMANCE: Supervision or touching assistance CODE: 04 LYING TO SITTING: LYING TO SITTING ON SIDE OF BED - STEP 1: Does the patient complete the activity by him/herself with no assistance (physical, verbal/nonverbal cueing, setup/clean-up)? No. LYING TO SITTING ON SIDE OF BED - STEP 2: Does the patient need only setup/clean-up assistance from one helper? No. LYING TO SITTING ON SIDE OF BED - STEP 3: Does the patient need only verbal/nonverbal cueing or touching/steadying/contact guard assistance fro m one helper? Yes. 1. [id number] ADMISSION PERFORMANCE: Supervision or touching assistance CODE: 04 SIT TO STAND: SIT TO STAND - STEP 1: Does the patient complete the activity by him/herself with no assistance (physical, verbal/nonverbal cueing, setup/clean-up)? No. SIT TO STAND - STEP 2: Does the patient need only setup/clean-up assistance from one helper? No. SIT TO STAND - STEP 3: Does the patient need only verbal/nonverbal cueing or touching/steadying/contact guard assistance fro m one helper? Yes. 1. [id number] ADMISSION PERFORMANCE: Supervision or touching assistance CODE: 04 TRANSFERS: BED, CHAIR: CHAIR/[id number] TRANSFER - STEP 1: Does the patient complete the activity by him/herself with no assistance (physical, verbal/nonverbal cueing, setup/clean-up)? No. CHAIR/[id number] TRANSFER - STEP 2: Does the patient need only setup/clean-up assistance from one helper? No. CHAIR/[id number] TRANSFER - STEP 3: Does the patient need only verbal/nonverbal cueing or touching/steadying/contact guard assistance fro m one helper? Yes. 1. [id number] ADMISSION PERFORMANCE: Supervision or touching assistance CODE: 04 TRANSFER TOILET: TOILET TRANSFER - STEP 1: Does the patient complete the activity by him/herself with no assistance (physical, verbal/nonverbal cueing, setup/clean-up)? No. TOILET TRANSFER - STEP 2: Does the patient need only setup/clean-up assistance from one helper? No. TOILET TRANSFER - STEP 3: Does the patient need only verbal/nonverbal cueing or touching/steadying/contact guard assistance fro m one helper? Yes. 1. [id number] ADMISSION PERFORMANCE: Supervision or touching assistance CODE: 04 TRANSFERS: CAR: Not assessed/no information CODE: - WALK 10 FEET: Not assessed/no information CODE: - 1 STEP (CURB): Not assessed/no information CODE: - PICKING UP OBJECT: Not assessed/no information CODE: - DOES THE PATIENT USE A WHEELCHAIR/SCOOTER? Q1. DOES THE PATIENT USE A WHEELCHAIR/SCOOTER?: Yes CODE: 1 WHEEL 50 FEET WITH TWO TURNS: WHEEL 50 FEET WITH TWO TURNS - STEP 1: Does the patient complete the activity by him/herself with no assistance (physical, verbal/nonverbal cueing, setup/clean-up)? No. WHEEL 50 FEET WITH TWO TURNS - STEP 2: Does the patient need only setup/clean-up assistance from one helper? No. WHEEL 50 FEET WITH TWO TURNS - STEP 3: Does the patient need only verbal/nonverbal cueing or touching/steadying/contact guard assistance fro m one helper? No. WHEEL 50 FEET WITH TWO TURNS - STEP 4: Does the patient need physical assistance - for example lifting or trunk support from one helper - wi th the helper providing less than half of the effort? Yes. 1. [id number] ADMISSION PERFORMANCE: Partial/moderate assistance CODE: 03 INDICATE THE TYPE OF WHEELCHAIR/SCOOTER USED: RR1. INDICATE THE TYPE OF WHEELCHAIR/SCOOTER USED.: Manual CODE: 1 WHEEL 150 FEET: WHEEL 150 FEET - STEP 1: Does the patient complete the activity by him/herself with no assistance (physical, verbal/nonverbal cueing, setup/clean-up)? No. WHEEL 150 FEET - STEP 2: Does the patient need only setup/clean-up assistance from one helper? No. WHEEL 150 FEET - STEP 3: Does the patient need only verbal/nonverbal cueing or touching/steadying/contact guard assistance fro m one helper? Yes. 1. [id number] ADMISSION PERFORMANCE: Supervision or touching assistance CODE: 04 INDICATE THE TYPE OF WHEELCHAIR/SCOOTER USED: SS1. INDICATE THE TYPE OF WHEELCHAIR/SCOOTER USED.: Manual CODE: 1 BLADDER AND BOWEL: H350. BLADDER CONTINENCE (3-DAY ASSESSMENT PERIOD): Always continent (no documented incontinence) CODE: 0 H400. BOWEL CONTINENCE (3-DAY ASSESSMENT PERIOD): Always continent CODE: 0 SIGNATURE PANEL: The following modified sections: 1. [id number] Admission Performance, 1. [id number] Admission Performance, 1. [id number] Admission Performance, 1. [id number] Admission Performance, 1. TX0075v Admission Performance, 1. [id number] Admission Performance, 1. [id number] Admission Performance, 1. [id number] Admission Performance , 1. [id number] Admission Performance, 1. [id number] Admission Performance, 1. [id number] Admission Performanc e, 1. [id number] Admission Performance, 1. [id number] Admission Performance, 1. [id number] Admission Performan ce, Q1. Does the patient use a wheelchair/scooter?, 1. [id number] Admission Performance, RR1. Indicate t he type of wheelchair/scooter used., 1. [id number] Admission Performance, Code, SS1. Indicate the type o f wheelchair/scooter used., H350. Bladder Continence (3-day assessment period), H400. Bowel Continenc e (3-day assessment period) were [electronically] signed by Tawny IvanNAnastasia on WedJan 16 2020 1 5:59:54 [facility]-0500 (Central Daylight Time)
[2020-01-16] MEDS: MONTELUKAST 10 MG TAB PO SCH (20:07)
[2020-01-16] MEDS: ATORVASTATIN 20 MG TAB PO SCH (20:07)
[2020-01-17] MEDS: INSULIN -REGULAR HUMAN 50 UNIT/0.5 ML ML SQ SCH ×4 (07:27→19:30)
[2020-01-17] MEDS: METOPROLOL TAR 25 MG TAB PO SCH ×2 (07:37→19:29)
[2020-01-17] MEDS: CRANBERRY FRUIT EXTRACT 200 MG CAP PO SCH ×2 (07:37→19:28)
[2020-01-17] MEDS: FLUOXETINE 20 MG CAP PO SCH (07:37)
[2020-01-17] MEDS: APIXABAN 5 MG TABLET PO SCH ×2 (07:37→19:28)
[2020-01-17] MEDS: INSULIN LISPRO 100 UNIT/1 ML SQ SCH ×3 (07:38→16:33)
[2020-01-17] MEDS: METFORMIN ER 500 MG TAB PO SCH ×2 (07:38→16:33)
[2020-01-17] MEDS: LOSARTAN POTASSIUM 50 MG TABLET PO SCH (07:38)
[2020-01-17] MEDS: INSULIN GLARGINE 100 UNITS/ML SQ SCH (07:39)
[2020-01-17] MEDS: LIDOCAINE 4% PATCH TOP SCH ×2 (08:00→11:08)
--- NOTE | 2020-01-17 18:28 | R.PN ---
ENCOUNTER DATE AND TIME: 01/17/2020 18:24 (CDT) NAME JOHNSON VAZQUEZ DATE OF : 1945 DATE OF ADMISSION: 12/26/2019 18:56 (CDT) Restricted Diffusion of the right internal capsule consistent w/acute infarctCHIEF COMPLAINT: Right brain stroke with left sided weakness. SUBJECTIVE: Pt denied any Shortness of Breath. Pt denied any depression. Ambulated 320' with contact guard assistance using a left platform walker. Self-propelled wheelchair 270' with right upper extremity and maximum assistance. WBC 5.3, Hgb 11.5, glucose 91 to 110, prealbumin 21.9. Barium swallow show prolonged mastication of pudding but thin liquid cleared by straw. VITAL SIGNS Temperature: 97.7 F SBP/DBP: 154/80 Pulse: 63 Resp: 16 MEDICATION ALLERGIES: No Known Drug Allergies (NKDA) ENVIRONMENTAL ALLERGIES: None Known - Substance Allergies None Known - Other Allergies None Known NURSING: - Shower allowing shower - Bladder care per protocol - Skin care per protocol PRECAUTIONS: - Weight Bearing Precaution WBAT left LE ACTIVITIES OOB only with supervision THERAPIES: - Occupational Therapy Cognitive Retraining. Visual Perceptual Training. - Dietary and Nutrition Adequate Nutrition. Nutritional Education. Nutritional Supplements. - Speech Therapy Cognitive Training. Expressive Language Skills. Memory Strategies. Receptive Language Skills. Speech Intelligibility Training. PHYSICAL EXAM - Gen Alert and awake Lying in bed No apparent distress Oriented to: person, time, and place - Skin No skin breakdown. Normacephalic - Eyes No abnormalities - ENMT No abnormalities - Neck No abnormalities - CVS RRR - Chest No abnormalities - Abd + bowel sounds - GI Soft Deferred - No abnormalities - Ext No significant edema - MSK 1/5 weakness in left upper and 3/5 weakness in left lower extremity. - Neuro 1/5 weakness in left upper and 3/5 weakness in left lower extremity. - Psych No abnormalities ASSESSMENT: Pt. is a 73 yo Right-handed black male.On 12/19/[address] [facility] with sudden onset of left-side weakness.On 12/19/2019 he was admitted to [facility] with diagnosis Rest ricted Diffusioon of the right internal capsule consistant w/acute infarct.His impairment category is Stroke 01 - Left Body (Right Brain) (01.1).Pre-morbidly, Pt. was independent/mod-I in Transfers Con trol, Locomotion, and Self-Care; and he had good Balance, Safety Awareness, Social Cognition, and Sph incter Control.Currently, he has deficits of Transfers Control, Balance, Safety Awareness, Locomotion , Self-Care, and Social Cognition.Pt. is now referred to [facility] for acute in-patient rehabilitation in order to maximize patient's functional independence in activities of yasmin ly living, strength, ROM, and mobility.- Rehab Goal Patient has realistic goal of being discharged at assistance level 6-Graeme to reside at Home with Fam daphnie/Relatives. MDM/PLAN: - Physical Therapy Gait dysfunction - to improve, our physical therapists will perform initial evaluation of pt's statu s upon admission and devise an individualized program for Gait Training, and Wheel Chair mobility Inability to transfer - to improve, our physical therapists will perform initial evaluation of pt's status upon admission and devise an individualized program for Bed mobility Need for home safety evaluation - to improve, our physical therapists will perform initial evaluatio n of pt's status upon admission and devise an individualized program for Home Evaluation Need in caregiver upon discharge - to improve, our physical therapists will perform initial evaluati on of pt's status upon admission and devise an individualized program for Caregiver Training Edema - to improve, our physical therapists will perform initial evaluation of pt's status upon admi ssion and devise an individualized program for Elevation Training, and Lymphedema Therapy New precaution - to improve, our physical therapists will perform initial evaluation of pt's status upon admission and devise an individualized program for Patient precaution education Poor balance - to improve, our physical therapists will perform initial evaluation of pt's status up on admission and devise an individualized program for Balance Training Weakness - to improve, our physical therapists will perform initial evaluation of pt's status upon a dmission and devise an individualized program for Aquatic Therapy, Neuromuscular Reeducation, and Str engthening Achieving independence - to improve, our physical therapists will perform initial evaluation of pt's status upon admission and devise an individualized program for Community Reintegration Activities - Occupational Therapy ADL deficits - to improve, our occupation therapists will perform initial evaluation of pt's status upon admission and devise an individualized program for Bathing, Bed mobility, Community Reintegratio n, Cooking, Dressing, Eating, Fine Motor Skills, Grooming, Homemaking, Kitchen Mobility, Laundry, Pat ient Education, Safety Awareness, Splinting - Positioning, Transfers(Toilet, Tub, Shower), and Wheel Chair Management Cognitive deficits - to improve, our occupation therapists will perform initial evaluation of pt's s tatus upon admission and devise an individualized program for Cognition - orientation Need for director day care center - to improve, our occupation therapists will perform initial evaluation of pt's status upon admission and devise an individualized program for Caregiver Training Weakness - to improve, our occupation therapists will perform initial evaluation of pt's status upon admission and devise an individualized program for Aquatic Therapy, Balance, Endurance, UE ROM, and UE strengthening - Other See attached MAR (Medication Administration Record) - Diet Type Continue Regular - Diet - Liquid Texture Continue Regular - Tube Feed Continue N/A - Bladder care per protocol - Weight Bearing Precaution WBAT left LE - Skin care per protocol - Diet - Solid Texture Continue Regular - Shower allowing shower for Dementia, TBI, Stroke, or others FUNCTIONAL STATUS: - Self-Care A. Eating sup B. Grooming Graeme C. Bathing sup D. Dressing - Upper sup E. Dressing - Lower sup F. Toileting sup - Sphincter Control G. Bladder control sup H. Bowel control sup - Transfers Control I. Bed/Chair/Wheelchair sup J. Toilet sup K. Tub/Shower Kimberly - Locomotion L. Walk/Wheelchair (B) Kimberly M. Stairs modA - Communication N. Comprehension (B) Kimberly O. Expression (B) sup - Social Cognition P. Social Interaction sup Q. Problem Solving sup R. Memory sup - Endurance Fair - Balance Fair - Safety Awareness Fair QI SCORES: - Self-Care A. Eating 05-Setup or clean-up assistance B. Oral hygiene 04-Supervision or touching assistance C. Toileting hygiene 03-Partial/moderate assistance E. Shower/bathe self 10-Not attempted due to environmental limitations F. Upper body dressing 03-Partial/moderate assistance G. Lower body dressing 01-Dependent H. Putting on/taking off footwear 01-Dependent - Mobility A. Roll left and right 02-Substantial/maximal assistance B. Sit to lying 02-Substantial/maximal assistance C. Lying to sitting on side of bed 02-Substantial/maximal assistance D. Sit to stand 02-Substantial/maximal assistance E. Chair/dft-gc-purpa transfer 02-Substantial/maximal assistance F. Toilet transfer 02-Substantial/maximal assistance G. Car transfer 88-Not attempted due to medical condition or safety concerns I. Walk 10 feet 88-Not attempted due to medical condition or safety concerns J. Walk 50 feet with two turns 88-Not attempted due to medical condition or safety concerns K. Walk 150 feet 88-Not attempted due to medical condition or safety concerns L. Walking 10 feet on uneven surfaces 88-Not attempted due to medical condition or safety concerns M. 1 step (curb) 88-Not attempted due to medical condition or safety concerns N. 4 steps 88-Not attempted due to medical condition or safety concerns O. 12 steps 88-Not attempted due to medical condition or safety concerns P. Picking up object 88-Not attempted due to medical condition or safety concerns R. Wheel 50 feet with two turns S. Wheel 150 feet - Bladder and Bowel Bladder continence 0-Always continent Bowel continence 0-Always continent - Endurance Poor - Balance Poor - Safety Awareness Poor CURRENT FUNC. DEFICITS: Self-Care, Mobility, Endurance, Balance, and Safety Awareness SIGNATURE PANEL: (CDT)
[2020-01-17] MEDS: MONTELUKAST 10 MG TAB PO SCH (19:29)
[2020-01-17] MEDS: ATORVASTATIN 20 MG TAB PO SCH (19:30)
[2020-01-17] MEDS: ACETAMINOPHEN 325 MG TABLET PO PRN (19:35)
[2020-01-18 06:17] LABS: Absolute Lymphocytes (CBC) 1.8 K/uL (0.7-4.9); Basophils % 0.7 % (0-1.3); Hematocrit 35.7 % (39.6-49.0); Lymphocytes % 36.1 % (15.3-44.8); MPV 8.1 fL (7.6-11.3); RBC Red Blood Cell Count 4.95 M/uL (4.33-5.43)
[2020-01-18 06:29] LABS: BUN Blood Urea Nitrogen 12 mg/dL (7-18); Bicarbonate 29 mmol/L (21-32); Glucose Level 139 mg/dL (74-106); Potassium 3.7 mmol/L (3.5-5.1); Sodium Level 142 mmol/L (136-145)
[2020-01-18] MEDS: INSULIN -REGULAR HUMAN 50 UNIT/0.5 ML ML SQ SCH ×4 (06:52→20:23)
--- NOTE | 2020-01-18 07:38 | FAST ---
ENCOUNTER DATE AND TIME: 01/17/2020 08:00 (CDT) NAME JOHNSON VAZQUEZ DATE OF : 1945 DATE OF ADMISSION: 12/26/2019 18:56 (CDT) PHONE: AGE: 73 N# [id number] GENDER: Male ENCOUNTER PHYSICIAN: Dr. Reyes Womack M.D. 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 EATING: Not assessed/no information CODE: - ORAL HYGIENE: ORAL HYGIENE - STEP 1: Does the patient complete the activity by him/herself with no assistance (physical, verbal/nonverbal cueing, setup/clean-up)? Yes. 1. [id number] ADMISSION PERFORMANCE: Independent CODE: 06 TOILETING HYGIENE: Not assessed/no information CODE: - BATHING: SHOWER/BATHE SELF - STEP 1: Does the patient complete the activity by him/herself with no assistance (physical, verbal/nonverbal cueing, setup/clean-up)? No. SHOWER/BATHE SELF - STEP 2: Does the patient need only setup/clean-up assistance from one helper? No. SHOWER/BATHE SELF - STEP 3: Does the patient need only verbal/nonverbal cueing or touching/steadying/contact guard assistance fro m one helper? Yes. 1. [id number] ADMISSION PERFORMANCE: Supervision or touching assistance CODE: 04 DRESSING - UPPER BODY: DRESSING - UPPER BODY - STEP 1: Does the patient complete the activity by him/herself with no assistance (physical, verbal/nonverbal cueing, setup/clean-up)? No. DRESSING - UPPER BODY - STEP 2: Does the patient need only setup/clean-up assistance from one helper? No. DRESSING - UPPER BODY - STEP 3: Does the patient need only verbal/nonverbal cueing or touching/steadying/contact guard assistance fro m one helper? Yes. 1. [id number] ADMISSION PERFORMANCE: Supervision or touching assistance CODE: 04 DRESSING - LOWER BODY: DRESSING - LOWER BODY - STEP 1: Does the patient complete the activity by him/herself with no assistance (physical, verbal/nonverbal cueing, setup/clean-up)? No. DRESSING - LOWER BODY - STEP 2: Does the patient need only setup/clean-up assistance from one helper? No. DRESSING - LOWER BODY - STEP 3: Does the patient need only verbal/nonverbal cueing or touching/steadying/contact guard assistance fro m one helper? Yes. 1. [id number] ADMISSION PERFORMANCE: Supervision or touching assistance CODE: 04 PUTTING ON/TAKING OFF FOOTWEAR: FOOTWEAR - STEP 1: Does the patient complete the activity by him/herself with no assistance (physical, verbal/nonverbal cueing, setup/clean-up)? No. FOOTWEAR - STEP 2: Does the patient need only setup/clean-up assistance from one helper? No. FOOTWEAR - STEP 3: Does the patient need only verbal/nonverbal cueing or touching/steadying/contact guard assistance fro m one helper? Yes. 1. [id number] ADMISSION PERFORMANCE: Supervision or touching assistance CODE: 04 DOES THE PATIENT USE A WHEELCHAIR/SCOOTER? CODE: EXPR INDICATE THE TYPE OF WHEELCHAIR/SCOOTER USED: CODE: EXPR INDICATE THE TYPE OF WHEELCHAIR/SCOOTER USED: CODE: EXPR BLADDER AND BOWEL: CODE: EXPR CODE: EXPR SIGNATURE PANEL: The following modified sections: 1. [id number] Admission Performance, 1. [id number] Admission Performance, 1. [id number] Admission Performance, 1. [id number] Admission Performance, 1. [id number] Admission Performance were [electronically] signed by MIGUEL ANGEL Osorio on WedJan 18 2020 07:38:00 GMT-0500 (Central Daylight Time)
[2020-01-18] MEDS: FLUOXETINE 20 MG CAP PO SCH (08:15)
[2020-01-18] MEDS: LOSARTAN POTASSIUM 50 MG TABLET PO SCH (08:15)
[2020-01-18] MEDS: CRANBERRY FRUIT EXTRACT 200 MG CAP PO SCH ×2 (08:15→20:22)
[2020-01-18] MEDS: APIXABAN 5 MG TABLET PO SCH ×2 (08:16→20:22)
[2020-01-18] MEDS: ACETAMINOPHEN 325 MG TABLET PO PRN (08:16)
[2020-01-18] MEDS: METOPROLOL TAR 25 MG TAB PO SCH ×2 (08:17→20:22)
[2020-01-18] MEDS: METFORMIN ER 500 MG TAB PO SCH ×2 (08:17→17:14)
[2020-01-18] MEDS: LIDOCAINE 4% PATCH TOP SCH (08:18)
[2020-01-18] MEDS: INSULIN GLARGINE 100 UNITS/ML SQ SCH (09:43)
[2020-01-18] MEDS: INSULIN LISPRO 100 UNIT/1 ML SQ SCH ×3 (09:43→16:04)
[2020-01-18] MEDS ORDERED: LIDOCAINE 4% PATCH TOP PRN (15:01)
--- NOTE | 2020-01-18 18:18 | R.PN ---
ENCOUNTER DATE AND TIME: 01/18/2020 18:13 (CDT) NAME JOHNSON VAZQUEZ DATE OF : 1945 DATE OF ADMISSION: 12/26/2019 18:56 (CDT) Restricted Diffusion of the right internal capsule consistent w/acute infarctCHIEF COMPLAINT: Right brain stroke with left sided weakness. SUBJECTIVE: Pt denied any Shortness of Breath. Pt denied any depression. Ambulated 260' with standby assistance using a left platform walker. Self-propelled wheelchair 250' w ith right upper extremity and standby assistance. WBC 5.0, Hgb 11.2, glucose 91 to 139, prealbumin 21.0. Barium swallow show prolonged mastication of pudding but thin liquid cleared by straw. VITAL SIGNS Temperature: 97.6 F SBP/DBP: 151/74 Pulse: 60 Resp: 16 MEDICATION ALLERGIES: No Known Drug Allergies (NKDA) ENVIRONMENTAL ALLERGIES: None Known - Substance Allergies None Known - Other Allergies None Known NURSING: - Shower allowing shower - Bladder care per protocol - Skin care per protocol PRECAUTIONS: - Weight Bearing Precaution WBAT left LE ACTIVITIES OOB only with supervision THERAPIES: - Occupational Therapy Cognitive Retraining. Visual Perceptual Training. - Dietary and Nutrition Adequate Nutrition. Nutritional Education. Nutritional Supplements. - Speech Therapy Cognitive Training. Expressive Language Skills. Memory Strategies. Receptive Language Skills. Speech Intelligibility Training. PHYSICAL EXAM - Gen Alert and awake Lying in bed No apparent distress Oriented to: person, time, and place - Skin No skin breakdown. Normacephalic - Eyes No abnormalities - ENMT No abnormalities - Neck No abnormalities - CVS RRR - Chest No abnormalities - Abd + bowel sounds - GI Soft Deferred - No abnormalities - Ext No significant edema - MSK 1/5 weakness in left upper and 3/5 weakness in left lower extremity. - Neuro 1/5 weakness in left upper and 3/5 weakness in left lower extremity. - Psych No abnormalities ASSESSMENT: Pt. is a 73 yo Right-handed black male.On 12/19/2019 Pt. presented to [facility] with sudden onset of left-side weakness.On 12/19/2019 he was admitted to [facility] with diagnosis Rest ricted Diffusioon of the right internal capsule consistant w/acute infarct.His impairment category is Stroke 01 - Left Body (Right Brain) (01.1).Pre-morbidly, Pt. was independent/mod-I in Transfers Con trol, Locomotion, and Self-Care; and he had good Balance, Safety Awareness, Social Cognition, and Sph incter Control.Currently, he has deficits of Transfers Control, Balance, Safety Awareness, Locomotion , Self-Care, and Social Cognition.Pt. is now referred to [facility] for acute in-patient rehabilitation in order to maximize patient's functional independence in activities of yasmni ly living, strength, ROM, and mobility.- Rehab Goal Patient has realistic goal of being discharged at assistance level 6-Graeme to reside at Home with Fam daphnie/Relatives. MDM/PLAN: - Physical Therapy Gait dysfunction - to improve, our physical therapists will perform initial evaluation of pt's statu s upon admission and devise an individualized program for Gait Training, and Wheel Chair mobility Inability to transfer - to improve, our physical therapists will perform initial evaluation of pt's status upon admission and devise an individualized program for Bed mobility Need for home safety evaluation - to improve, our physical therapists will perform initial evaluatio n of pt's status upon admission and devise an individualized program for Home Evaluation Need in caregiver upon discharge - to improve, our physical therapists will perform initial evaluati on of pt's status upon admission and devise an individualized program for Caregiver Training Edema - to improve, our physical therapists will perform initial evaluation of pt's status upon admi ssion and devise an individualized program for Elevation Training, and Lymphedema Therapy New precaution - to improve, our physical therapists will perform initial evaluation of pt's status upon admission and devise an individualized program for Patient precaution education Poor balance - to improve, our physical therapists will perform initial evaluation of pt's status up on admission and devise an individualized program for Balance Training Weakness - to improve, our physical therapists will perform initial evaluation of pt's status upon a dmission and devise an individualized program for Aquatic Therapy, Neuromuscular Reeducation, and Str engthening Achieving independence - to improve, our physical therapists will perform initial evaluation of pt's status upon admission and devise an individualized program for Community Reintegration Activities - Occupational Therapy ADL deficits - to improve, our occupation therapists will perform initial evaluation of pt's status upon admission and devise an individualized program for Bathing, Bed mobility, Community Reintegratio n, Cooking, Dressing, Eating, Fine Motor Skills, Grooming, Homemaking, Kitchen Mobility, Laundry, Pat ient Education, Safety Awareness, Splinting - Positioning, Transfers(Toilet, Tub, Shower), and Wheel Chair Management Cognitive deficits - to improve, our occupation therapists will perform initial evaluation of pt's s tatus upon admission and devise an individualized program for Cognition - orientation Need for career development counselor - to improve, our occupation therapists will perform initial evaluation of pt's status upon admission and devise an individualized program for Caregiver Training Weakness - to improve, our occupation therapists will perform initial evaluation of pt's status upon admission and devise an individualized program for Aquatic Therapy, Balance, Endurance, UE ROM, and UE strengthening - Other See attached MAR (Medication Administration Record) - Diet Type Continue Regular - Diet - Liquid Texture Continue Regular - Tube Feed Continue N/A - Bladder care per protocol - Weight Bearing Precaution WBAT left LE - Skin care per protocol - Diet - Solid Texture Continue Regular - Shower allowing shower for Dementia, TBI, Stroke, or others FUNCTIONAL STATUS: - Self-Care A. Eating sup B. Grooming Graeme C. Bathing sup D. Dressing - Upper sup E. Dressing - Lower sup F. Toileting sup - Sphincter Control G. Bladder control sup H. Bowel control sup - Transfers Control I. Bed/Chair/Wheelchair sup J. Toilet sup K. Tub/Shower Kimberly - Locomotion L. Walk/Wheelchair (B) Kimberly M. Stairs modA - Communication N. Comprehension (B) Kimberly O. Expression (B) sup - Social Cognition P. Social Interaction sup Q. Problem Solving sup R. Memory sup - Endurance Fair - Balance Fair - Safety Awareness Fair QI SCORES: - Self-Care A. Eating 05-Setup or clean-up assistance B. Oral hygiene 04-Supervision or touching assistance C. Toileting hygiene 03-Partial/moderate assistance E. Shower/bathe self 10-Not attempted due to environmental limitations F. Upper body dressing 03-Partial/moderate assistance G. Lower body dressing 01-Dependent H. Putting on/taking off footwear 01-Dependent - Mobility A. Roll left and right 02-Substantial/maximal assistance B. Sit to lying 02-Substantial/maximal assistance C. Lying to sitting on side of bed 02-Substantial/maximal assistance D. Sit to stand 02-Substantial/maximal assistance E. Chair/jem-ry-tivta transfer 02-Substantial/maximal assistance F. Toilet transfer 02-Substantial/maximal assistance G. Car transfer 88-Not attempted due to medical condition or safety concerns I. Walk 10 feet 88-Not attempted due to medical condition or safety concerns J. Walk 50 feet with two turns 88-Not attempted due to medical condition or safety concerns K. Walk 150 feet 88-Not attempted due to medical condition or safety concerns L. Walking 10 feet on uneven surfaces 88-Not attempted due to medical condition or safety concerns M. 1 step (curb) 88-Not attempted due to medical condition or safety concerns N. 4 steps 88-Not attempted due to medical condition or safety concerns O. 12 steps 88-Not attempted due to medical condition or safety concerns P. Picking up object 88-Not attempted due to medical condition or safety concerns R. Wheel 50 feet with two turns S. Wheel 150 feet - Bladder and Bowel Bladder continence 0-Always continent Bowel continence 0-Always continent - Endurance Poor - Balance Poor - Safety Awareness Poor CURRENT FUNC. DEFICITS: Self-Care, Mobility, Endurance, Balance, and Safety Awareness SIGNATURE PANEL: (CDT)
[2020-01-18] MEDS: MELATONIN 3 MG TABLET PO PRN (20:21)
[2020-01-18] MEDS: MONTELUKAST 10 MG TAB PO SCH (20:22)
[2020-01-18] MEDS: ATORVASTATIN 20 MG TAB PO SCH (20:23)
[2020-01-19] MEDS: INSULIN -REGULAR HUMAN 50 UNIT/0.5 ML ML SQ SCH ×4 (07:30→21:00)
[2020-01-19] MEDS: CRANBERRY FRUIT EXTRACT 200 MG CAP PO SCH ×2 (07:59→19:21)
[2020-01-19] MEDS: FLUOXETINE 20 MG CAP PO SCH (07:59)
[2020-01-19] MEDS: METFORMIN ER 500 MG TAB PO SCH ×3 (08:00→16:43)
[2020-01-19] MEDS: INSULIN LISPRO 100 UNIT/1 ML SQ SCH ×3 (08:00→16:16)
[2020-01-19] MEDS: METOPROLOL TAR 25 MG TAB PO SCH ×2 (08:00→19:22)
[2020-01-19] MEDS: LOSARTAN POTASSIUM 50 MG TABLET PO SCH (08:00)
[2020-01-19] MEDS: APIXABAN 5 MG TABLET PO SCH ×2 (08:00→19:21)
[2020-01-19] MEDS: INSULIN GLARGINE 100 UNITS/ML SQ SCH (08:01)
--- NOTE | 2020-01-19 09:49 | P.RH.PN ---
Estimated Length of Stay: 31 Expected Discharge Date: 01/25/20 Discharge Disposition Plan: Home Family Support: Yes Fpc Goal: Mobility, Transfers, Self Care Vital Signs: Last Vital Signs Temp 98.3 F 01/19/20 07:49 Pulse 67 01/19/20 08:00 Resp 16 01/19/20 07:49 BP 150/74 H 01/19/20 08:00 Pulse Ox 97 01/19/20 07:49 Laboratory: Laboratory Last Values WBC 5.0 K/uL (4.3-10.9) D 01/18/20 05:42 RBC 4.95 M/uL (4.33-5.43) 01/18/20 05:42 Hgb 11.2 g/dL (13.6-17.9) L 01/18/20 05:42 Hct 35.7 % (39.6-49.0) L 01/18/20 05:42 MCV 72.1 fL (80-100) L 01/18/20 05:42 MCH 22.5 pg (27.0-35.0) L 01/18/20 05:42 MCHC 31.2 g/dL (32.0-36.0) L 01/18/20 05:42 RDW 16.3 % (12.1-15.2) H 01/18/20 05:42 Plt Count 228 K/uL (152-406) 01/18/20 05:42 MPV 8.1 fL (7.6-11.3) 01/18/20 05:42 Neutrophils % 53.6 % (41.7-73.7) 01/18/20 05:42 Lymphocytes % 36.1 % (15.3-44.8) 01/18/20 05:42 Monocytes % 7.8 % (3.3-12.3) 01/18/20 05:42 Eosinophils % 1.8 % (0-4.4) 01/18/20 05:42 Basophils % 0.7 % (0-1.3) 01/18/20 05:42 Absolute Neutrophils 2.7 K/uL (1.8-8.0) 01/18/20 05:42 Absolute Lymphocytes 1.8 K/uL (0.7-4.9) 01/18/20 05:42 Absolute Monocytes 0.4 K/uL (0.1-1.3) 01/18/20 05:42 Absolute Eosinophils 0.1 K/uL (0-0.5) 01/18/20 05:42 Absolute Basophils 0.0 K/uL (0-0.5) 01/18/20 05:42 Sodium 142 mmol/L (136-145) 01/18/20 05:42 Potassium 3.7 mmol/L (3.5-5.1) 01/18/20 05:42 Chloride 108 mmol/L (98-107) H 01/18/20 05:42 Carbon Dioxide 29 mmol/L (21-32) 01/18/20 05:42 BUN 12 mg/dL (7-18) 01/18/20 05:42 Creatinine 0.98 mg/dL (0.55-1.3) 01/18/20 05:42 Estimated GFR > 90 mL/min (=/>90) 01/18/20 05:42 Glucose 139 mg/dL (74-106) H 01/18/20 05:42 POC Glucose 118 mg/dL (65-120) 01/19/20 06:55 Calcium 8.8 mg/dL (8.5-10.1) 01/18/20 05:42 Magnesium 2.0 mg/dL (1.8-2.4) 12/28/19 15:42 Albumin 3.0 g/dL (3.4-5.0) L 01/18/20 05:42 Prealbumin 21.0 mg/dL (20-40) 01/18/20 05:42 Urine Color Yellow 12/26/19 19:33 Urine Appearance Cloudy 12/26/19 19:33 Urine pH 5.5 (5.0-7.0) 12/26/19 19:33 Ur Specific [place] 1.020 (1.005-1.030) 12/26/19 19:33 Glucose (UA)(Auto) Negative (NEG) 12/26/19 19:33 Urine Ketones Negative (NEG) 12/26/19 19:33 Urine Blood Negative (NEG) 12/26/19 19:33 Urine Nitrite Negative (NEG) 12/26/19 19:33 Urine Bilirubin Negative (NEG) 12/26/19 19:33 Urine Urobilinogen 0.2 mg/dL (0.2-1.0) 12/26/19 19:33 Ur Leukocyte Esterase 2+ (NEG) H 12/26/19 19:33 Urine RBC <5 /HPF (NONE SEEN) 12/26/19 19:33 Urine WBC 10-20 /HPF (<5) H 12/26/19 19:33 Ur Squamous Epith Cells <5 /HPF (NONE SEEN) 12/26/19 19:33 Urine Bacteria Loaded /HPF (NONE SEEN) H 12/26/19 19:33 Urine Culture Reflexed Reflexed 12/26/19 19:33 Urine Total Protein Trace (NEG) 12/26/19 19:33 Weight: 211 lb 12.8 oz Wound Present: No Closed Surgical Incision Present: No Negative Pressure Wound Therapy Present: No Physician Update: Labs reviewed and are stable. He is doing fairly well with physical and occupational therapy. He still has significant left upper extremity weakness. He is doing well with speech with mild dysarthria. He is still on a mechanical soft diet but can tolerate a regular diet. His cognition is good. Functional Improvement: Patient has met all short-term goals and is progressing well toward long-term goals. Patient presents w/ good work ethic and safety awareness. Speech Therapy Update: Patient is gradually progression on his speech and swallowing goals. He continues to present with mild weakness on the left side impacting his speech and swallowing. However, patient is able to make wants/needs known effectively and is currently tolerating current diet: mechanical soft solids, thin liquids, whole medications with water. Summary: Patient's care plan and half-way goals have been reviewed and revised as necessary. Please see the Rehabilitation Signature page for all necessary signatures.
--- NOTE | 2020-01-19 14:28 | FAST ---
ENCOUNTER DATE AND TIME: 01/19/2020 08:00 (CDT) NAME JOHNSON VAZQUEZ DATE OF : 1945 DATE OF ADMISSION: 12/26/2019 18:56 (CDT) PHONE: AGE: 73 N# [id number] GENDER: Male ENCOUNTER PHYSICIAN: Dr. Reyes Womack M.D. 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 EATING: Not assessed/no information CODE: - ORAL HYGIENE: ORAL HYGIENE - STEP 1: Does the patient complete the activity by him/herself with no assistance (physical, verbal/nonverbal cueing, setup/clean-up)? Yes. 1. [id number] ADMISSION PERFORMANCE: Independent CODE: 06 TOILETING HYGIENE: Not assessed/no information CODE: - BATHING: SHOWER/BATHE SELF - STEP 1: Does the patient complete the activity by him/herself with no assistance (physical, verbal/nonverbal cueing, setup/clean-up)? No. SHOWER/BATHE SELF - STEP 2: Does the patient need only setup/clean-up assistance from one helper? No. SHOWER/BATHE SELF - STEP 3: Does the patient need only verbal/nonverbal cueing or touching/steadying/contact guard assistance fro m one helper? Yes. 1. [id number] ADMISSION PERFORMANCE: Supervision or touching assistance CODE: 04 DRESSING - UPPER BODY: DRESSING - UPPER BODY - STEP 1: Does the patient complete the activity by him/herself with no assistance (physical, verbal/nonverbal cueing, setup/clean-up)? No. DRESSING - UPPER BODY - STEP 2: Does the patient need only setup/clean-up assistance from one helper? No. DRESSING - UPPER BODY - STEP 3: Does the patient need only verbal/nonverbal cueing or touching/steadying/contact guard assistance fro m one helper? Yes. 1. [id number] ADMISSION PERFORMANCE: Supervision or touching assistance CODE: 04 DRESSING - LOWER BODY: DRESSING - LOWER BODY - STEP 1: Does the patient complete the activity by him/herself with no assistance (physical, verbal/nonverbal cueing, setup/clean-up)? No. DRESSING - LOWER BODY - STEP 2: Does the patient need only setup/clean-up assistance from one helper? No. DRESSING - LOWER BODY - STEP 3: Does the patient need only verbal/nonverbal cueing or touching/steadying/contact guard assistance fro m one helper? Yes. 1. [id number] ADMISSION PERFORMANCE: Supervision or touching assistance CODE: 04 PUTTING ON/TAKING OFF FOOTWEAR: FOOTWEAR - STEP 1: Does the patient complete the activity by him/herself with no assistance (physical, verbal/nonverbal cueing, setup/clean-up)? No. FOOTWEAR - STEP 2: Does the patient need only setup/clean-up assistance from one helper? No. FOOTWEAR - STEP 3: Does the patient need only verbal/nonverbal cueing or touching/steadying/contact guard assistance fro m one helper? Yes. 1. [id number] ADMISSION PERFORMANCE: Supervision or touching assistance CODE: 04 DOES THE PATIENT USE A WHEELCHAIR/SCOOTER? CODE: EXPR INDICATE THE TYPE OF WHEELCHAIR/SCOOTER USED: CODE: EXPR INDICATE THE TYPE OF WHEELCHAIR/SCOOTER USED: CODE: EXPR BLADDER AND BOWEL: CODE: EXPR CODE: EXPR SIGNATURE PANEL: The following modified sections: 1. [id number] Admission Performance, 1. [id number] Admission Performance, 1. [id number] Admission Performance, 1. [id number] Admission Performance, 1. [id number] Admission Performance were [electronically] signed by MIGUEL ANGEL Osorio on WedJan 19 2020 14:27:16 T-0500 (Central Daylight Time)
[2020-01-19] MEDS: ATORVASTATIN 20 MG TAB PO SCH (21:18)
[2020-01-19] MEDS: MONTELUKAST 10 MG TAB PO SCH (21:19)
[2020-01-19] MEDS: MELATONIN 3 MG TABLET PO PRN (21:21)
[2020-01-20] MEDS: INSULIN -REGULAR HUMAN 50 UNIT/0.5 ML ML SQ SCH ×4 (07:30→19:37)
[2020-01-20] MEDS: CRANBERRY FRUIT EXTRACT 200 MG CAP PO SCH ×2 (08:52→19:36)
[2020-01-20] MEDS: APIXABAN 5 MG TABLET PO SCH ×2 (08:53→19:36)
[2020-01-20] MEDS: LOSARTAN POTASSIUM 50 MG TABLET PO SCH (08:53)
[2020-01-20] MEDS: FLUOXETINE 20 MG CAP PO SCH (08:53)
[2020-01-20] MEDS: METOPROLOL TAR 25 MG TAB PO SCH ×2 (08:53→19:36)
[2020-01-20] MEDS: METFORMIN ER 500 MG TAB PO SCH ×2 (08:53→17:07)
[2020-01-20] MEDS: INSULIN GLARGINE 100 UNITS/ML SQ SCH (08:54)
[2020-01-20] MEDS: INSULIN LISPRO 100 UNIT/1 ML SQ SCH ×3 (08:54→16:25)
[2020-01-20] MEDS: MELATONIN 3 MG TABLET PO PRN (19:36)
[2020-01-20] MEDS: ATORVASTATIN 20 MG TAB PO SCH (19:36)
[2020-01-20] MEDS: MONTELUKAST 10 MG TAB PO SCH (19:36)
[2020-01-21] MEDS: INSULIN -REGULAR HUMAN 50 UNIT/0.5 ML ML SQ SCH ×4 (07:30→21:00)
[2020-01-21] MEDS: INSULIN LISPRO 100 UNIT/1 ML SQ SCH ×3 (08:23→16:54)
[2020-01-21] MEDS: INSULIN GLARGINE 100 UNITS/ML SQ SCH (08:23)
[2020-01-21] MEDS: LOSARTAN POTASSIUM 50 MG TABLET PO SCH (08:24)
[2020-01-21] MEDS: METOPROLOL TAR 25 MG TAB PO SCH ×2 (08:24→20:00)
[2020-01-21] MEDS: FLUOXETINE 20 MG CAP PO SCH (08:24)
[2020-01-21] MEDS: APIXABAN 5 MG TABLET PO SCH ×2 (08:24→20:00)
[2020-01-21] MEDS: CRANBERRY FRUIT EXTRACT 200 MG CAP PO SCH ×2 (08:24→20:00)
[2020-01-21] MEDS: METFORMIN ER 500 MG TAB PO SCH ×2 (08:24→16:53)
[2020-01-21] MEDS: ATORVASTATIN 20 MG TAB PO SCH (20:00)
[2020-01-21] MEDS: MONTELUKAST 10 MG TAB PO SCH (20:00)
[2020-01-21] MEDS: MELATONIN 3 MG TABLET PO PRN (20:15)
[2020-01-22] MEDS: INSULIN -REGULAR HUMAN 50 UNIT/0.5 ML ML SQ SCH ×4 (07:00→19:46)
[2020-01-22] MEDS: CRANBERRY FRUIT EXTRACT 200 MG CAP PO SCH ×2 (08:43→19:44)
[2020-01-22] MEDS: LOSARTAN POTASSIUM 50 MG TABLET PO SCH (08:43)
[2020-01-22] MEDS: METOPROLOL TAR 25 MG TAB PO SCH ×2 (08:44→19:46)
[2020-01-22] MEDS: APIXABAN 5 MG TABLET PO SCH ×2 (08:44→19:44)
[2020-01-22] MEDS: FLUOXETINE 20 MG CAP PO SCH (08:44)
[2020-01-22] MEDS: METFORMIN ER 500 MG TAB PO SCH ×2 (08:44→17:22)
[2020-01-22] MEDS: INSULIN GLARGINE 100 UNITS/ML SQ SCH (08:54)
[2020-01-22] MEDS: INSULIN LISPRO 100 UNIT/1 ML SQ SCH ×3 (08:55→17:27)
--- NOTE | 2020-01-22 17:26 | R.PN ---
ENCOUNTER DATE AND TIME: 01/22/2020 17:20 (CDT) NAME JOHNSON VAZQUEZ DATE OF : 1945 DATE OF ADMISSION: 12/26/2019 18:56 (CDT) Restricted Diffusion of the right internal capsule consistent w/acute infarctCHIEF COMPLAINT: Right brain stroke with left sided weakness. SUBJECTIVE: Pt denied any Shortness of Breath. Pt denied any depression. Ambulated 260' with standby assistance using a left platform walker. Self-propelled wheelchair 250' w ith right upper extremity and standby assistance. WBC 5.0, Hgb 11.2, glucose 97 to 123, prealbumin 21.0. Barium swallow show prolonged mastication of pudding but thin liquid cleared by straw. VITAL SIGNS Temperature: 97.6 F SBP/DBP: 149/72 Pulse: 69 Resp: 15 MEDICATION ALLERGIES: No Known Drug Allergies (NKDA) ENVIRONMENTAL ALLERGIES: None Known - Substance Allergies None Known - Other Allergies None Known NURSING: - Shower allowing shower - Bladder care per protocol - Skin care per protocol PRECAUTIONS: - Weight Bearing Precaution WBAT left LE ACTIVITIES OOB only with supervision THERAPIES: - Occupational Therapy Cognitive Retraining. Visual Perceptual Training. - Dietary and Nutrition Adequate Nutrition. Nutritional Education. Nutritional Supplements. - Speech Therapy Cognitive Training. Expressive Language Skills. Memory Strategies. Receptive Language Skills. Speech Intelligibility Training. PHYSICAL EXAM - Gen Alert and awake Lying in bed No apparent distress Oriented to: person, time, and place - Skin No skin breakdown. Normacephalic - Eyes No abnormalities - ENMT No abnormalities - Neck No abnormalities - CVS RRR - Chest No abnormalities - Abd + bowel sounds - GI Soft Deferred - No abnormalities - Ext No significant edema - MSK 1/5 weakness in left upper and 3/5 weakness in left lower extremity. - Neuro 1/5 weakness in left upper and 3/5 weakness in left lower extremity. - Psych No abnormalities ASSESSMENT: Pt. is a 73 yo Right-handed black male.On 12/19/2019 Pt. presented to [facility] with sudden onset of left-side weakness.On 12/19/2019 he was admitted to [facility] with diagnosis Rest ricted Diffusioon of the right internal capsule consistant w/acute infarct.His impairment category is Stroke 01 - Left Body (Right Brain) (01.1).Pre-morbidly, Pt. was independent/mod-I in Transfers Con trol, Locomotion, and Self-Care; and he had good Balance, Safety Awareness, Social Cognition, and Sph incter Control.Currently, he has deficits of Transfers Control, Balance, Safety Awareness, Locomotion , Self-Care, and Social Cognition.Pt. is now referred to [facility] for acute in-patient rehabilitation in order to maximize patient's functional independence in activities of yasmin ly living, strength, ROM, and mobility.- Rehab Goal Patient has realistic goal of being discharged at assistance level 6-Graeme to reside at Home with Fam daphnie/Relatives. MDM/PLAN: - Physical Therapy Gait dysfunction - to improve, our physical therapists will perform initial evaluation of pt's statu s upon admission and devise an individualized program for Gait Training, and Wheel Chair mobility Inability to transfer - to improve, our physical therapists will perform initial evaluation of pt's status upon admission and devise an individualized program for Bed mobility Need for home safety evaluation - to improve, our physical therapists will perform initial evaluatio n of pt's status upon admission and devise an individualized program for Home Evaluation Need in caregiver upon discharge - to improve, our physical therapists will perform initial evaluati on of pt's status upon admission and devise an individualized program for Caregiver Training Edema - to improve, our physical therapists will perform initial evaluation of pt's status upon admi ssion and devise an individualized program for Elevation Training, and Lymphedema Therapy New precaution - to improve, our physical therapists will perform initial evaluation of pt's status upon admission and devise an individualized program for Patient precaution education Poor balance - to improve, our physical therapists will perform initial evaluation of pt's status up on admission and devise an individualized program for Balance Training Weakness - to improve, our physical therapists will perform initial evaluation of pt's status upon a dmission and devise an individualized program for Aquatic Therapy, Neuromuscular Reeducation, and Str engthening Achieving independence - to improve, our physical therapists will perform initial evaluation of pt's status upon admission and devise an individualized program for Community Reintegration Activities - Occupational Therapy ADL deficits - to improve, our occupation therapists will perform initial evaluation of pt's status upon admission and devise an individualized program for Bathing, Bed mobility, Community Reintegratio n, Cooking, Dressing, Eating, Fine Motor Skills, Grooming, Homemaking, Kitchen Mobility, Laundry, Pat ient Education, Safety Awareness, Splinting - Positioning, Transfers(Toilet, Tub, Shower), and Wheel Chair Management Cognitive deficits - to improve, our occupation therapists will perform initial evaluation of pt's s tatus upon admission and devise an individualized program for Cognition - orientation Need for pharmacy care coordinator - to improve, our occupation therapists will perform initial evaluation of pt's status upon admission and devise an individualized program for Caregiver Training Weakness - to improve, our occupation therapists will perform initial evaluation of pt's status upon admission and devise an individualized program for Aquatic Therapy, Balance, Endurance, UE ROM, and UE strengthening - Other See attached MAR (Medication Administration Record) - Diet Type Continue Regular - Diet - Liquid Texture Continue Regular - Tube Feed Continue N/A - Bladder care per protocol - Weight Bearing Precaution WBAT left LE - Skin care per protocol - Diet - Solid Texture Continue Regular - Shower allowing shower for Dementia, TBI, Stroke, or others FUNCTIONAL STATUS: - Self-Care A. Eating sup B. Grooming Graeme C. Bathing sup D. Dressing - Upper sup E. Dressing - Lower sup F. Toileting sup - Sphincter Control G. Bladder control sup H. Bowel control sup - Transfers Control I. Bed/Chair/Wheelchair sup J. Toilet sup K. Tub/Shower Kimberly - Locomotion L. Walk/Wheelchair (B) Kimberly M. Stairs modA - Communication N. Comprehension (B) Kimberly O. Expression (B) sup - Social Cognition P. Social Interaction sup Q. Problem Solving sup R. Memory sup - Endurance Fair - Balance Fair - Safety Awareness Fair QI SCORES: - Self-Care A. Eating 05-Setup or clean-up assistance B. Oral hygiene 04-Supervision or touching assistance C. Toileting hygiene 03-Partial/moderate assistance E. Shower/bathe self 10-Not attempted due to environmental limitations F. Upper body dressing 03-Partial/moderate assistance G. Lower body dressing 01-Dependent H. Putting on/taking off footwear 01-Dependent - Mobility A. Roll left and right 02-Substantial/maximal assistance B. Sit to lying 02-Substantial/maximal assistance C. Lying to sitting on side of bed 02-Substantial/maximal assistance D. Sit to stand 02-Substantial/maximal assistance E. Chair/[id number] transfer 02-Substantial/maximal assistance F. Toilet transfer 02-Substantial/maximal assistance G. Car transfer 88-Not attempted due to medical condition or safety concerns I. Walk 10 feet 88-Not attempted due to medical condition or safety concerns J. Walk 50 feet with two turns 88-Not attempted due to medical condition or safety concerns K. Walk 150 feet 88-Not attempted due to medical condition or safety concerns L. Walking 10 feet on uneven surfaces 88-Not attempted due to medical condition or safety concerns M. 1 step (curb) 88-Not attempted due to medical condition or safety concerns N. 4 steps 88-Not attempted due to medical condition or safety concerns O. 12 steps 88-Not attempted due to medical condition or safety concerns P. Picking up object 88-Not attempted due to medical condition or safety concerns R. Wheel 50 feet with two turns S. Wheel 150 feet - Bladder and Bowel Bladder continence 0-Always continent Bowel continence 0-Always continent - Endurance Poor - Balance Poor - Safety Awareness Poor CURRENT FUNC. DEFICITS: Self-Care, Mobility, Endurance, Balance, and Safety Awareness SIGNATURE PANEL: (CDT)
[2020-01-22] MEDS: ATORVASTATIN 20 MG TAB PO SCH (19:45)
[2020-01-22] MEDS: MONTELUKAST 10 MG TAB PO SCH (19:45)
[2020-01-23] MEDS: INSULIN -REGULAR HUMAN 50 UNIT/0.5 ML ML SQ SCH ×4 (07:30→20:32)
[2020-01-23] MEDS: INSULIN LISPRO 100 UNIT/1 ML SQ SCH ×3 (08:17→16:58)
[2020-01-23] MEDS: INSULIN GLARGINE 100 UNITS/ML SQ SCH (08:17)
[2020-01-23] MEDS: FLUOXETINE 20 MG CAP PO SCH (08:18)
[2020-01-23] MEDS: METFORMIN ER 500 MG TAB PO SCH ×2 (08:18→17:10)
[2020-01-23] MEDS: LOSARTAN POTASSIUM 50 MG TABLET PO SCH (08:18)
[2020-01-23] MEDS: METOPROLOL TAR 25 MG TAB PO SCH ×2 (08:18→19:14)
[2020-01-23] MEDS: APIXABAN 5 MG TABLET PO SCH ×2 (08:18→19:14)
[2020-01-23] MEDS: CRANBERRY FRUIT EXTRACT 200 MG CAP PO SCH ×2 (08:18→19:13)
--- NOTE | 2020-01-23 17:31 | R.PN ---
ENCOUNTER DATE AND TIME: 01/23/2020 17:27 (CDT) NAME JOHNSON VAZQUEZ DATE OF : 1945 DATE OF ADMISSION: 12/26/2019 18:56 (CDT) Restricted Diffusion of the right internal capsule consistent w/acute infarctCHIEF COMPLAINT: Right brain stroke with left sided weakness. SUBJECTIVE: Pt denied any Shortness of Breath. Pt denied any depression. Ambulated 180' with contact assistance using a left platform walker. Self-propelled wheelchair 500' w ith right upper extremity and standby assistance. WBC 5.0, Hgb 11.2, glucose 93 to 135, prealbumin 21.0. Barium swallow show prolonged mastication of pudding but thin liquid cleared by straw. VITAL SIGNS Temperature: 97.2 F SBP/DBP: 162/77 Pulse: 64 Resp: 16 MEDICATION ALLERGIES: No Known Drug Allergies (NKDA) ENVIRONMENTAL ALLERGIES: None Known - Substance Allergies None Known - Other Allergies None Known NURSING: - Shower allowing shower - Bladder care per protocol - Skin care per protocol PRECAUTIONS: - Weight Bearing Precaution WBAT left LE ACTIVITIES OOB only with supervision THERAPIES: - Occupational Therapy Cognitive Retraining. Visual Perceptual Training. - Dietary and Nutrition Adequate Nutrition. Nutritional Education. Nutritional Supplements. - Speech Therapy Cognitive Training. Expressive Language Skills. Memory Strategies. Receptive Language Skills. Speech Intelligibility Training. PHYSICAL EXAM - Gen Alert and awake Lying in bed No apparent distress Oriented to: person, time, and place - Skin No skin breakdown. Normacephalic - Eyes No abnormalities - ENMT No abnormalities - Neck No abnormalities - CVS RRR - Chest No abnormalities - Abd + bowel sounds - GI Soft Deferred - No abnormalities - Ext No significant edema - MSK 1/5 weakness in left upper and 3/5 weakness in left lower extremity. - Neuro 1/5 weakness in left upper and 3/5 weakness in left lower extremity. - Psych No abnormalities ASSESSMENT: Pt. is a 73 yo Right-handed black male.On 12/19/2019 Pt. presented to [facility] with sudden onset of left-side weakness.On 12/19/2019 he was admitted to [facility] with diagnosis Rest ricted Diffusioon of the right internal capsule consistant w/acute infarct.His impairment category is Stroke 01 - Left Body (Right Brain) (01.1).Pre-morbidly, Pt. was independent/mod-I in Transfers Con trol, Locomotion, and Self-Care; and he had good Balance, Safety Awareness, Social Cognition, and Sph incter Control.Currently, he has deficits of Transfers Control, Balance, Safety Awareness, Locomotion , Self-Care, and Social Cognition.Pt. is now referred to [facility] for acute in-patient rehabilitation in order to maximize patient's functional independence in activities of yasmin ly living, strength, ROM, and mobility.- Rehab Goal Patient has realistic goal of being discharged at assistance level 6-Graeme to reside at Home with Fam daphnie/Relatives. MDM/PLAN: - Physical Therapy Gait dysfunction - to improve, our physical therapists will perform initial evaluation of pt's statu s upon admission and devise an individualized program for Gait Training, and Wheel Chair mobility Inability to transfer - to improve, our physical therapists will perform initial evaluation of pt's status upon admission and devise an individualized program for Bed mobility Need for home safety evaluation - to improve, our physical therapists will perform initial evaluatio n of pt's status upon admission and devise an individualized program for Home Evaluation Need in caregiver upon discharge - to improve, our physical therapists will perform initial evaluati on of pt's status upon admission and devise an individualized program for Caregiver Training Edema - to improve, our physical therapists will perform initial evaluation of pt's status upon admi ssion and devise an individualized program for Elevation Training, and Lymphedema Therapy New precaution - to improve, our physical therapists will perform initial evaluation of pt's status upon admission and devise an individualized program for Patient precaution education Poor balance - to improve, our physical therapists will perform initial evaluation of pt's status up on admission and devise an individualized program for Balance Training Weakness - to improve, our physical therapists will perform initial evaluation of pt's status upon a dmission and devise an individualized program for Aquatic Therapy, Neuromuscular Reeducation, and Str engthening Achieving independence - to improve, our physical therapists will perform initial evaluation of pt's status upon admission and devise an individualized program for Community Reintegration Activities - Occupational Therapy ADL deficits - to improve, our occupation therapists will perform initial evaluation of pt's status upon admission and devise an individualized program for Bathing, Bed mobility, Community Reintegratio n, Cooking, Dressing, Eating, Fine Motor Skills, Grooming, Homemaking, Kitchen Mobility, Laundry, Pat ient Education, Safety Awareness, Splinting - Positioning, Transfers(Toilet, Tub, Shower), and Wheel Chair Management Cognitive deficits - to improve, our occupation therapists will perform initial evaluation of pt's s tatus upon admission and devise an individualized program for Cognition - orientation Need for managed care nurse - to improve, our occupation therapists will perform initial evaluation of pt's status upon admission and devise an individualized program for Caregiver Training Weakness - to improve, our occupation therapists will perform initial evaluation of pt's status upon admission and devise an individualized program for Aquatic Therapy, Balance, Endurance, UE ROM, and UE strengthening - Other See attached MAR (Medication Administration Record) - Diet Type Continue Regular - Diet - Liquid Texture Continue Regular - Tube Feed Continue N/A - Bladder care per protocol - Weight Bearing Precaution WBAT left LE - Skin care per protocol - Diet - Solid Texture Continue Regular - Shower allowing shower for Dementia, TBI, Stroke, or others FUNCTIONAL STATUS: - Self-Care A. Eating sup B. Grooming Graeme C. Bathing sup D. Dressing - Upper sup E. Dressing - Lower sup F. Toileting sup - Sphincter Control G. Bladder control sup H. Bowel control sup - Transfers Control I. Bed/Chair/Wheelchair sup J. Toilet sup K. Tub/Shower Kimberly - Locomotion L. Walk/Wheelchair (B) Kimberly M. Stairs modA - Communication N. Comprehension (B) Kimberly O. Expression (B) sup - Social Cognition P. Social Interaction sup Q. Problem Solving sup R. Memory sup - Endurance Fair - Balance Fair - Safety Awareness Fair QI SCORES: - Self-Care A. Eating 05-Setup or clean-up assistance B. Oral hygiene 04-Supervision or touching assistance C. Toileting hygiene 03-Partial/moderate assistance E. Shower/bathe self 10-Not attempted due to environmental limitations F. Upper body dressing 03-Partial/moderate assistance G. Lower body dressing 01-Dependent H. Putting on/taking off footwear 01-Dependent - Mobility A. Roll left and right 02-Substantial/maximal assistance B. Sit to lying 02-Substantial/maximal assistance C. Lying to sitting on side of bed 02-Substantial/maximal assistance D. Sit to stand 02-Substantial/maximal assistance E. Chair/[id number]-[id number] transfer 02-Substantial/maximal assistance F. Toilet transfer 02-Substantial/maximal assistance G. Car transfer 88-Not attempted due to medical condition or safety concerns I. Walk 10 feet 88-Not attempted due to medical condition or safety concerns J. Walk 50 feet with two turns 88-Not attempted due to medical condition or safety concerns K. Walk 150 feet 88-Not attempted due to medical condition or safety concerns L. Walking 10 feet on uneven surfaces 88-Not attempted due to medical condition or safety concerns M. 1 step (curb) 88-Not attempted due to medical condition or safety concerns N. 4 steps 88-Not attempted due to medical condition or safety concerns O. 12 steps 88-Not attempted due to medical condition or safety concerns P. Picking up object 88-Not attempted due to medical condition or safety concerns R. Wheel 50 feet with two turns S. Wheel 150 feet - Bladder and Bowel Bladder continence 0-Always continent Bowel continence 0-Always continent - Endurance Poor - Balance Poor - Safety Awareness Poor CURRENT FUNC. DEFICITS: Self-Care, Mobility, Endurance, Balance, and Safety Awareness SIGNATURE PANEL: (CDT)
[2020-01-23] MEDS: ATORVASTATIN 20 MG TAB PO SCH (19:13)
[2020-01-23] MEDS: MONTELUKAST 10 MG TAB PO SCH (19:14)
[2020-01-24] MEDS: INSULIN -REGULAR HUMAN 50 UNIT/0.5 ML ML SQ SCH ×4 (06:58→20:59)
[2020-01-24] MEDS: APIXABAN 5 MG TABLET PO SCH ×2 (08:42→19:30)
[2020-01-24] MEDS: CRANBERRY FRUIT EXTRACT 200 MG CAP PO SCH ×2 (08:42→19:30)
[2020-01-24] MEDS: METFORMIN ER 500 MG TAB PO SCH ×2 (08:43→17:09)
[2020-01-24] MEDS: LOSARTAN POTASSIUM 50 MG TABLET PO SCH (08:43)
[2020-01-24] MEDS: METOPROLOL TAR 25 MG TAB PO SCH ×2 (08:43→19:31)
[2020-01-24] MEDS: FLUOXETINE 20 MG CAP PO SCH (08:43)
[2020-01-24] MEDS: INSULIN LISPRO 100 UNIT/1 ML SQ SCH ×3 (08:47→18:12)
[2020-01-24] MEDS: INSULIN GLARGINE 100 UNITS/ML SQ SCH (08:47)
--- NOTE | 2020-01-24 14:57 | FAST ---
ENCOUNTER DATE AND TIME: 01/24/2020 08:00 (CDT) NAME JOHNSON VAZQUEZ DATE OF : 1945 DATE OF ADMISSION: 12/26/2019 18:56 (CDT) PHONE: AGE: 73 N# [id number] GENDER: Male ENCOUNTER PHYSICIAN: Dr. Reyes Womack M.D. 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 EATING: Not assessed/no information CODE: - ORAL HYGIENE: ORAL HYGIENE - STEP 1: Does the patient complete the activity by him/herself with no assistance (physical, verbal/nonverbal cueing, setup/clean-up)? Yes. 1. [id number] ADMISSION PERFORMANCE: Independent CODE: TOILETING HYGIENE: Not assessed/no information CODE: - BATHING: SHOWER/BATHE SELF - STEP 1: Does the patient complete the activity by him/herself with no assistance (physical, verbal/nonverbal cueing, setup/clean-up)? No. SHOWER/BATHE SELF - STEP 2: Does the patient need only setup/clean-up assistance from one helper? No. SHOWER/BATHE SELF - STEP 3: Does the patient need only verbal/nonverbal cueing or touching/steadying/contact guard assistance fro m one helper? Yes. 1. [id number] ADMISSION PERFORMANCE: Supervision or touching assistance CODE: 04 DRESSING - UPPER BODY: DRESSING - UPPER BODY - STEP 1: Does the patient complete the activity by him/herself with no assistance (physical, verbal/nonverbal cueing, setup/clean-up)? No. DRESSING - UPPER BODY - STEP 2: Does the patient need only setup/clean-up assistance from one helper? No. DRESSING - UPPER BODY - STEP 3: Does the patient need only verbal/nonverbal cueing or touching/steadying/contact guard assistance fro m one helper? Yes. 1. [id number] ADMISSION PERFORMANCE: Supervision or touching assistance CODE: 04 DRESSING - LOWER BODY: DRESSING - LOWER BODY - STEP 1: Does the patient complete the activity by him/herself with no assistance (physical, verbal/nonverbal cueing, setup/clean-up)? No. DRESSING - LOWER BODY - STEP 2: Does the patient need only setup/clean-up assistance from one helper? No. DRESSING - LOWER BODY - STEP 3: Does the patient need only verbal/nonverbal cueing or touching/steadying/contact guard assistance fro m one helper? Yes. 1. [id number] ADMISSION PERFORMANCE: Supervision or touching assistance CODE: 04 PUTTING ON/TAKING OFF FOOTWEAR: FOOTWEAR - STEP 1: Does the patient complete the activity by him/herself with no assistance (physical, verbal/nonverbal cueing, setup/clean-up)? No. FOOTWEAR - STEP 2: Does the patient need only setup/clean-up assistance from one helper? No. FOOTWEAR - STEP 3: Does the patient need only verbal/nonverbal cueing or touching/steadying/contact guard assistance fro m one helper? Yes. 1. [id number] ADMISSION PERFORMANCE: Supervision or touching assistance CODE: 04 DOES THE PATIENT USE A WHEELCHAIR/SCOOTER? CODE: EXPR INDICATE THE TYPE OF WHEELCHAIR/SCOOTER USED: CODE: EXPR INDICATE THE TYPE OF WHEELCHAIR/SCOOTER USED: CODE: EXPR BLADDER AND BOWEL: CODE: EXPR CODE: EXPR SIGNATURE PANEL: The following modified sections: 1. [id number] Admission Performance, 1. [id number] Admission Performance, 1. [id number] Admission Performance, 1. [id number] Admission Performance, 1. [id number] Admission Performance were [electronically] signed by MIGUEL ANGEL Osorio on WedJan 24 2020 14:56:34 T-0500 (Central Daylight Time)
--- NOTE | 2020-01-24 18:18 | R.PN ---
ENCOUNTER DATE AND TIME: 01/24/2020 18:15 (CDT) NAME JOHNSON VAZQUEZ DATE OF : 1945 DATE OF ADMISSION: 12/26/2019 18:56 (CDT) Restricted Diffusion of the right internal capsule consistent w/acute infarctCHIEF COMPLAINT: Right brain stroke with left sided weakness. SUBJECTIVE: Pt denied any Shortness of Breath. Pt denied any depression. Ambulated 180' with contact assistance using a left platform walker. Self-propelled wheelchair 500' w ith right upper extremity and standby assistance. WBC 5.0, Hgb 11.2, glucose 93 to 135, prealbumin 21.0. Barium swallow show prolonged mastication of pudding but thin liquid cleared by straw. VITAL SIGNS Temperature: 97.9 F SBP/DBP: 151/75 Pulse: 70 Resp: 16 MEDICATION ALLERGIES: No Known Drug Allergies (NKDA) ENVIRONMENTAL ALLERGIES: None Known - Substance Allergies None Known - Other Allergies None Known NURSING: - Shower allowing shower - Bladder care per protocol - Skin care per protocol PRECAUTIONS: - Weight Bearing Precaution WBAT left LE ACTIVITIES OOB only with supervision THERAPIES: - Occupational Therapy Cognitive Retraining. Visual Perceptual Training. - Dietary and Nutrition Adequate Nutrition. Nutritional Education. Nutritional Supplements. - Speech Therapy Cognitive Training. Expressive Language Skills. Memory Strategies. Receptive Language Skills. Speech Intelligibility Training. PHYSICAL EXAM - Gen Alert and awake Lying in bed No apparent distress Oriented to: person, time, and place - Skin No skin breakdown. Normacephalic - Eyes No abnormalities - ENMT No abnormalities - Neck No abnormalities - CVS RRR - Chest No abnormalities - Abd + bowel sounds - GI Soft Deferred - No abnormalities - Ext No significant edema - MSK 1/5 weakness in left upper and 3/5 weakness in left lower extremity. - Neuro 1/5 weakness in left upper and 3/5 weakness in left lower extremity. - Psych No abnormalities ASSESSMENT: Pt. is a 73 yo Right-handed black male.On 12/19/2019 Pt. presented to [facility] with sudden onset of left-side weakness.On 12/19/2019 he was admitted to [facility] with diagnosis Rest ricted Diffusioon of the right internal capsule consistant w/acute infarct.His impairment category is Stroke 01 - Left Body (Right Brain) (01.1).Pre-morbidly, Pt. was independent/mod-I in Transfers Con trol, Locomotion, and Self-Care; and he had good Balance, Safety Awareness, Social Cognition, and Sph incter Control.Currently, he has deficits of Transfers Control, Balance, Safety Awareness, Locomotion , Self-Care, and Social Cognition.Pt. is now referred to [facility] for acute in-patient rehabilitation in order to maximize patient's functional independence in activities of yasmin ly living, strength, ROM, and mobility.- Rehab Goal Patient has realistic goal of being discharged at assistance level 6-Graeme to reside at Home with Fam daphnie/Relatives. MDM/PLAN: - Physical Therapy Gait dysfunction - to improve, our physical therapists will perform initial evaluation of pt's statu s upon admission and devise an individualized program for Gait Training, and Wheel Chair mobility Inability to transfer - to improve, our physical therapists will perform initial evaluation of pt's status upon admission and devise an individualized program for Bed mobility Need for home safety evaluation - to improve, our physical therapists will perform initial evaluatio n of pt's status upon admission and devise an individualized program for Home Evaluation Need in caregiver upon discharge - to improve, our physical therapists will perform initial evaluati on of pt's status upon admission and devise an individualized program for Caregiver Training Edema - to improve, our physical therapists will perform initial evaluation of pt's status upon admi ssion and devise an individualized program for Elevation Training, and Lymphedema Therapy New precaution - to improve, our physical therapists will perform initial evaluation of pt's status upon admission and devise an individualized program for Patient precaution education Poor balance - to improve, our physical therapists will perform initial evaluation of pt's status up on admission and devise an individualized program for Balance Training Weakness - to improve, our physical therapists will perform initial evaluation of pt's status upon a dmission and devise an individualized program for Aquatic Therapy, Neuromuscular Reeducation, and Str engthening Achieving independence - to improve, our physical therapists will perform initial evaluation of pt's status upon admission and devise an individualized program for Community Reintegration Activities - Occupational Therapy ADL deficits - to improve, our occupation therapists will perform initial evaluation of pt's status upon admission and devise an individualized program for Bathing, Bed mobility, Community Reintegratio n, Cooking, Dressing, Eating, Fine Motor Skills, Grooming, Homemaking, Kitchen Mobility, Laundry, Pat ient Education, Safety Awareness, Splinting - Positioning, Transfers(Toilet, Tub, Shower), and Wheel Chair Management Cognitive deficits - to improve, our occupation therapists will perform initial evaluation of pt's s tatus upon admission and devise an individualized program for Cognition - orientation Need for family day care worker - to improve, our occupation therapists will perform initial evaluation of pt's status upon admission and devise an individualized program for Caregiver Training Weakness - to improve, our occupation therapists will perform initial evaluation of pt's status upon admission and devise an individualized program for Aquatic Therapy, Balance, Endurance, UE ROM, and UE strengthening - Other See attached MAR (Medication Administration Record) - Diet Type Continue Regular - Diet - Liquid Texture Continue Regular - Tube Feed Continue N/A - Bladder care per protocol - Weight Bearing Precaution WBAT left LE - Skin care per protocol - Diet - Solid Texture Continue Regular - Shower allowing shower for Dementia, TBI, Stroke, or others FUNCTIONAL STATUS: - Self-Care A. Eating sup B. Grooming Graeme C. Bathing sup D. Dressing - Upper sup E. Dressing - Lower sup F. Toileting sup - Sphincter Control G. Bladder control sup H. Bowel control sup - Transfers Control I. Bed/Chair/Wheelchair sup J. Toilet sup K. Tub/Shower Kimberly - Locomotion L. Walk/Wheelchair (B) Kimberly M. Stairs modA - Communication N. Comprehension (B) Kimberly O. Expression (B) sup - Social Cognition P. Social Interaction sup Q. Problem Solving sup R. Memory sup - Endurance Fair - Balance Fair - Safety Awareness Fair QI SCORES: - Self-Care A. Eating 05-Setup or clean-up assistance B. Oral hygiene 04-Supervision or touching assistance C. Toileting hygiene 03-Partial/moderate assistance E. Shower/bathe self 10-Not attempted due to environmental limitations F. Upper body dressing 03-Partial/moderate assistance G. Lower body dressing 01-Dependent H. Putting on/taking off footwear 01-Dependent - Mobility A. Roll left and right 02-Substantial/maximal assistance B. Sit to lying 02-Substantial/maximal assistance C. Lying to sitting on side of bed 02-Substantial/maximal assistance D. Sit to stand 02-Substantial/maximal assistance E. Chair/tku-ed-ogfum transfer 02-Substantial/maximal assistance F. Toilet transfer 02-Substantial/maximal assistance G. Car transfer 88-Not attempted due to medical condition or safety concerns I. Walk 10 feet 88-Not attempted due to medical condition or safety concerns J. Walk 50 feet with two turns 88-Not attempted due to medical condition or safety concerns K. Walk 150 feet 88-Not attempted due to medical condition or safety concerns L. Walking 10 feet on uneven surfaces 88-Not attempted due to medical condition or safety concerns M. 1 step (curb) 88-Not attempted due to medical condition or safety concerns N. 4 steps 88-Not attempted due to medical condition or safety concerns O. 12 steps 88-Not attempted due to medical condition or safety concerns P. Picking up object 88-Not attempted due to medical condition or safety concerns R. Wheel 50 feet with two turns S. Wheel 150 feet - Bladder and Bowel Bladder continence 0-Always continent Bowel continence 0-Always continent - Endurance Poor - Balance Poor - Safety Awareness Poor CURRENT FUNC. DEFICITS: Self-Care, Mobility, Endurance, Balance, and Safety Awareness SIGNATURE PANEL: (CDT)
[2020-01-24] MEDS: MONTELUKAST 10 MG TAB PO SCH (20:59)
[2020-01-24] MEDS: ATORVASTATIN 20 MG TAB PO SCH (20:59)
[2020-01-25 06:03] LABS: Absolute Lymphocytes (CBC) 1.9 K/uL (0.7-4.9); Basophils % 0.7 % (0-1.3); Hematocrit 35.3 % (39.6-49.0); Lymphocytes % 33.9 % (15.3-44.8)
[2020-01-25 06:09] LABS: Albumin 3.1 g/dL (3.4-5.0); BUN Blood Urea Nitrogen 8 mg/dL (7-18); Bicarbonate 30 mmol/L (21-32); Glucose Level 125 mg/dL (74-106); Prealbumin 20.1 mg/dL (20-40); Sodium Level 144 mmol/L (136-145)
[2020-01-25] MEDS: INSULIN -REGULAR HUMAN 50 UNIT/0.5 ML ML SQ SCH ×4 (07:30→19:57)
[2020-01-25] MEDS: INSULIN GLARGINE 100 UNITS/ML SQ SCH ×2 (08:00→11:05)
[2020-01-25] MEDS: METFORMIN ER 500 MG TAB PO SCH ×3 (08:00→17:18)
[2020-01-25] MEDS: LOSARTAN POTASSIUM 50 MG TABLET PO SCH ×2 (08:00→10:19)
[2020-01-25] MEDS: METOPROLOL TAR 25 MG TAB PO SCH ×3 (08:00→19:57)
[2020-01-25] MEDS: INSULIN LISPRO 100 UNIT/1 ML SQ SCH ×3 (08:00→17:18)
[2020-01-25] MEDS: FLUOXETINE 20 MG CAP PO SCH ×2 (08:00→11:07)
[2020-01-25] MEDS: CRANBERRY FRUIT EXTRACT 200 MG CAP PO SCH ×2 (08:00→19:56)
[2020-01-25] MEDS: APIXABAN 5 MG TABLET PO SCH ×2 (09:41→19:56)
[2020-01-25] MEDS ORDERED: DIPHENHYDRAMINE 25 MG TAB/CAP PO PRN (10:29)
[2020-01-25] MEDS ORDERED: ACETAMINOPHEN 325 MG TABLET PO PRN (10:32)
[2020-01-25] MEDS ORDERED: TRAMADOL HCL 50 MG TAB PO PRN (10:32)
[2020-01-25] MEDS ORDERED: GLUCAGON 1 MG/VIAL IM PRN (10:33)
[2020-01-25] MEDS ORDERED: D50W 25 GM/50 ML SYRINGE/VIAL IV PRN (10:33)
[2020-01-25] MEDS ORDERED: DOCUSATE NA/SENNA CONC 1 TAB PO PRN (10:34)
[2020-01-25] MEDS ORDERED: TRAZODONE 50 MG TABLET PO PRN (10:34)
[2020-01-25] MEDS ORDERED: MELATONIN 3 MG TABLET PO PRN (10:34)
[2020-01-25] MEDS ORDERED: DIPHENOX/ATROP SULF 1 TAB PO PRN (10:36)
[2020-01-25] MEDS ORDERED: ONDANSETRON 4 MG (ODT) TAB PO PRN (10:36)
[2020-01-25] MEDS ORDERED: LIDOCAINE 4% PATCH TOP PRN (10:37)
--- NOTE | 2020-01-25 14:04 | FAST ---
SHIFT START DATE/TIME: 01/24/2020 07:00 (CDT) SHIFT END DATE/TIME: 01/24/2020 19:00 (CDT) NAME JOHNSON VAZQUEZ DATE OF : 1945 DATE OF ADMISSION: 12/26/2019 18:56 (CDT) PHONE: AGE: 73 N# [id number] GENDER: Male ENCOUNTER PHYSICIAN: Dr. Reyes Womack M.D. 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 EATING: EATING - STEP 1: Does the patient complete the activity by him/herself with no assistance (physical, verbal/nonverbal cueing, setup/clean-up)? No. EATING - STEP 2: Does the patient need only setup/clean-up assistance from one helper? Yes. 1. [id number] ADMISSION PERFORMANCE: Setup or clean-up assistance CODE: 05 ORAL HYGIENE: ORAL HYGIENE - STEP 1: Does the patient complete the activity by him/herself with no assistance (physical, verbal/nonverbal cueing, setup/clean-up)? No. ORAL HYGIENE - STEP 2: Does the patient need only setup/clean-up assistance from one helper? Yes. 1. [id number] ADMISSION PERFORMANCE: Setup or clean-up assistance CODE: 05 TOILETING HYGIENE: TOILETING HYGIENE - STEP 1: Does the patient complete the activity by him/herself with no assistance (physical, verbal/nonverbal cueing, setup/clean-up)? No. TOILETING HYGIENE - STEP 2: Does the patient need only setup/clean-up assistance from one helper? Yes. 1. [id number] ADMISSION PERFORMANCE: Setup or clean-up assistance CODE: 05 BATHING: Not assessed/no information CODE: - DRESSING - UPPER BODY: DRESSING - UPPER BODY - STEP 1: Does the patient complete the activity by him/herself with no assistance (physical, verbal/nonverbal cueing, setup/clean-up)? No. DRESSING - UPPER BODY - STEP 2: Does the patient need only setup/clean-up assistance from one helper? Yes. 1. [id number] ADMISSION PERFORMANCE: Setup or clean-up assistance CODE: 05 DRESSING - LOWER BODY: DRESSING - LOWER BODY - STEP 1: Does the patient complete the activity by him/herself with no assistance (physical, verbal/nonverbal cueing, setup/clean-up)? No. DRESSING - LOWER BODY - STEP 2: Does the patient need only setup/clean-up assistance from one helper? Yes. 1. [id number] ADMISSION PERFORMANCE: Setup or clean-up assistance CODE: 05 PUTTING ON/TAKING OFF FOOTWEAR: FOOTWEAR - STEP 1: Does the patient complete the activity by him/herself with no assistance (physical, verbal/nonverbal cueing, setup/clean-up)? No. FOOTWEAR - STEP 2: Does the patient need only setup/clean-up assistance from one helper? Yes. 1. [id number] ADMISSION PERFORMANCE: Setup or clean-up assistance CODE: 05 ROLL LEFT AND RIGHT: ROLL LEFT AND RIGHT - STEP 1: Does the patient complete the activity by him/herself with no assistance (physical, verbal/nonverbal cueing, setup/clean-up)? No. ROLL LEFT AND RIGHT - STEP 2: Does the patient need only setup/clean-up assistance from one helper? Yes. 1. [id number] ADMISSION PERFORMANCE: Setup or clean-up assistance CODE: 05 SIT TO LYING: SIT TO LYING - STEP 1: Does the patient complete the activity by him/herself with no assistance (physical, verbal/nonverbal cueing, setup/clean-up)? No. SIT TO LYING - STEP 2: Does the patient need only setup/clean-up assistance from one helper? Yes. 1. [id number] ADMISSION PERFORMANCE: Setup or clean-up assistance CODE: 05 LYING TO SITTING: LYING TO SITTING ON SIDE OF BED - STEP 1: Does the patient complete the activity by him/herself with no assistance (physical, verbal/nonverbal cueing, setup/clean-up)? No. LYING TO SITTING ON SIDE OF BED - STEP 2: Does the patient need only setup/clean-up assistance from one helper? Yes. 1. [id number] ADMISSION PERFORMANCE: Setup or clean-up assistance CODE: 05 SIT TO STAND: SIT TO STAND - STEP 1: Does the patient complete the activity by him/herself with no assistance (physical, verbal/nonverbal cueing, setup/clean-up)? No. SIT TO STAND - STEP 2: Does the patient need only setup/clean-up assistance from one helper? Yes. 1. [id number] ADMISSION PERFORMANCE: Setup or clean-up assistance CODE: 05 TRANSFERS: BED, CHAIR: CHAIR/[id number] TRANSFER - STEP 1: Does the patient complete the activity by him/herself with no assistance (physical, verbal/nonverbal cueing, setup/clean-up)? No. [id number]/[id number] TRANSFER - STEP 2: Does the patient need only setup/clean-up assistance from one helper? Yes. 1. [id number] ADMISSION PERFORMANCE: Setup or clean-up assistance CODE: 05 TRANSFER TOILET: TOILET TRANSFER - STEP 1: Does the patient complete the activity by him/herself with no assistance (physical, verbal/nonverbal cueing, setup/clean-up)? No. TOILET TRANSFER - STEP 2: Does the patient need only setup/clean-up assistance from one helper? Yes. 1. [id number] ADMISSION PERFORMANCE: Setup or clean-up assistance CODE: 05 TRANSFERS: CAR: Not assessed/no information CODE: - WALK 10 FEET: Not assessed/no information CODE: - 1 STEP (CURB): Not assessed/no information CODE: - PICKING UP OBJECT: Not assessed/no information CODE: - DOES THE PATIENT USE A WHEELCHAIR/SCOOTER? Q1. DOES THE PATIENT USE A WHEELCHAIR/SCOOTER?: Yes CODE: 1 WHEEL 50 FEET WITH TWO TURNS: WHEEL 50 FEET WITH TWO TURNS - STEP 1: Does the patient complete the activity by him/herself with no assistance (physical, verbal/nonverbal cueing, setup/clean-up)? No. WHEEL 50 FEET WITH TWO TURNS - STEP 2: Does the patient need only setup/clean-up assistance from one helper? Yes. 1. [id number] ADMISSION PERFORMANCE: Setup or clean-up assistance CODE: 05 INDICATE THE TYPE OF WHEELCHAIR/SCOOTER USED: RR1. INDICATE THE TYPE OF WHEELCHAIR/SCOOTER USED.: Manual CODE: 1 WHEEL 150 FEET: WHEEL 150 FEET - STEP 1: Does the patient complete the activity by him/herself with no assistance (physical, verbal/nonverbal cueing, setup/clean-up)? No. WHEEL 150 FEET - STEP 2: Does the patient need only setup/clean-up assistance from one helper? Yes. 1. [id number] ADMISSION PERFORMANCE: Setup or clean-up assistance CODE: 05 INDICATE THE TYPE OF WHEELCHAIR/SCOOTER USED: SS1. INDICATE THE TYPE OF WHEELCHAIR/SCOOTER USED.: Manual CODE: 1 BLADDER AND BOWEL: H350. BLADDER CONTINENCE (3-DAY ASSESSMENT PERIOD): Always continent (no documented incontinence) CODE: 0 H400. BOWEL CONTINENCE (3-DAY ASSESSMENT PERIOD): Always continent CODE: 0 SIGNATURE PANEL: The following modified sections: 1. [id number] Admission Performance, 1. [id number] Admission Performance, 1. [id number] Admission Performance, 1. JU3226d Admission Performance, 1. QL1925p Admission Performance, 1. NB9169y Admission Performance, 1. GN9800l Admission Performance, 1. ER9641V Admission Performance , 1. YC7232V Admission Performance, 1. [id number] Admission Performance, 1. [id number] Admission Performanc e, 1. [id number] Admission Performance, 1. TG9862H Admission Performance, Q1. Does the patient use a whe elchair/scooter?, 1. [id number] Admission Performance, RR1. Indicate the type of wheelchair/scooter used ., 1. [id number] Admission Performance, Code, SS1. Indicate the type of wheelchair/scooter used., H350. Bladder Continence (3-day assessment period), H400. Bowel Continence (3-day assessment period) were [ electronically] signed by Tawny IvanNAnastasia on WedJan 25 2020 14:03:14 T-0500 (Central Daylight Time)
--- NOTE | 2020-01-25 17:48 | R.PN ---
ENCOUNTER DATE AND TIME: 01/25/2020 17:41 (CDT) NAME JOHNSON VAZQUEZ DATE OF : 1945 DATE OF ADMISSION: 12/26/2019 18:56 (CDT) Restricted Diffusion of the right internal capsule consistent w/acute infarctCHIEF COMPLAINT: Right brain stroke with left sided weakness. SUBJECTIVE: Pt denied any Shortness of Breath. Pt denied any depression. Ambulated 230' with contact assistance using a left platform walker. Self-propelled wheelchair 300' w ith right upper extremity and standby assistance. WBC 5.7, Hgb 11.2, glucose 118 to 145, prealbumin 20.1. Barium swallow show prolonged mastication of pudding but thin liquid cleared by straw. VITAL SIGNS Temperature: 97.9 F SBP/DBP: 141/76 Pulse: 64 Resp: 16 MEDICATION ALLERGIES: No Known Drug Allergies (NKDA) ENVIRONMENTAL ALLERGIES: None Known - Substance Allergies None Known - Other Allergies None Known NURSING: - Shower allowing shower - Bladder care per protocol - Skin care per protocol PRECAUTIONS: - Weight Bearing Precaution WBAT left LE ACTIVITIES OOB only with supervision THERAPIES: - Occupational Therapy Cognitive Retraining. Visual Perceptual Training. - Dietary and Nutrition Adequate Nutrition. Nutritional Education. Nutritional Supplements. - Speech Therapy Cognitive Training. Expressive Language Skills. Memory Strategies. Receptive Language Skills. Speech Intelligibility Training. PHYSICAL EXAM - Gen Alert and awake Lying in bed No apparent distress Oriented to: person, time, and place - Skin No skin breakdown. Normacephalic - Eyes No abnormalities - ENMT No abnormalities - Neck No abnormalities - CVS RRR - Chest No abnormalities - Abd + bowel sounds - GI Soft Deferred - No abnormalities - Ext No significant edema - MSK 1/5 weakness in left upper and 3/5 weakness in left lower extremity. - Neuro 1/5 weakness in left upper and 3/5 weakness in left lower extremity. - Psych No abnormalities ASSESSMENT: Pt. is a 73 yo Right-handed black male.On 12/19/2019 Pt. presented to [facility] with sudden onset of left-side weakness.On 12/19/2019 he was admitted to [facility] with diagnosis Rest ricted Diffusioon of the right internal capsule consistant w/acute infarct.His impairment category is Stroke 01 - Left Body (Right Brain) (01.1).Pre-morbidly, Pt. was independent/mod-I in Transfers Con trol, Locomotion, and Self-Care; and he had good Balance, Safety Awareness, Social Cognition, and Sph incter Control.Currently, he has deficits of Transfers Control, Balance, Safety Awareness, Locomotion , Self-Care, and Social Cognition.Pt. is now referred to [facility] for acute in-patient rehabilitation in order to maximize patient's functional independence in activities of yasmin ly living, strength, ROM, and mobility.- Rehab Goal Patient has realistic goal of being discharged at assistance level 6-Graeme to reside at Home with Fam daphnie/Relatives. MDM/PLAN: - Physical Therapy Gait dysfunction - to improve, our physical therapists will perform initial evaluation of pt's statu s upon admission and devise an individualized program for Gait Training, and Wheel Chair mobility Inability to transfer - to improve, our physical therapists will perform initial evaluation of pt's status upon admission and devise an individualized program for Bed mobility Need for home safety evaluation - to improve, our physical therapists will perform initial evaluatio n of pt's status upon admission and devise an individualized program for Home Evaluation Need in caregiver upon discharge - to improve, our physical therapists will perform initial evaluati on of pt's status upon admission and devise an individualized program for Caregiver Training Edema - to improve, our physical therapists will perform initial evaluation of pt's status upon admi ssion and devise an individualized program for Elevation Training, and Lymphedema Therapy New precaution - to improve, our physical therapists will perform initial evaluation of pt's status upon admission and devise an individualized program for Patient precaution education Poor balance - to improve, our physical therapists will perform initial evaluation of pt's status up on admission and devise an individualized program for Balance Training Weakness - to improve, our physical therapists will perform initial evaluation of pt's status upon a dmission and devise an individualized program for Aquatic Therapy, Neuromuscular Reeducation, and Str engthening Achieving independence - to improve, our physical therapists will perform initial evaluation of pt's status upon admission and devise an individualized program for Community Reintegration Activities - Occupational Therapy ADL deficits - to improve, our occupation therapists will perform initial evaluation of pt's status upon admission and devise an individualized program for Bathing, Bed mobility, Community Reintegratio n, Cooking, Dressing, Eating, Fine Motor Skills, Grooming, Homemaking, Kitchen Mobility, Laundry, Pat ient Education, Safety Awareness, Splinting - Positioning, Transfers(Toilet, Tub, Shower), and Wheel Chair Management Cognitive deficits - to improve, our occupation therapists will perform initial evaluation of pt's s tatus upon admission and devise an individualized program for Cognition - orientation Need for health care recruiter - to improve, our occupation therapists will perform initial evaluation of pt's status upon admission and devise an individualized program for Caregiver Training Weakness - to improve, our occupation therapists will perform initial evaluation of pt's status upon admission and devise an individualized program for Aquatic Therapy, Balance, Endurance, UE ROM, and UE strengthening - Other See attached MAR (Medication Administration Record) - Diet Type Continue Regular - Diet - Liquid Texture Continue Regular - Tube Feed Continue N/A - Bladder care per protocol - Weight Bearing Precaution WBAT left LE - Skin care per protocol - Diet - Solid Texture Continue Regular - Shower allowing shower for Dementia, TBI, Stroke, or others FUNCTIONAL STATUS: - Self-Care A. Eating sup B. Grooming Graeme C. Bathing sup D. Dressing - Upper sup E. Dressing - Lower sup F. Toileting sup - Sphincter Control G. Bladder control sup H. Bowel control sup - Transfers Control I. Bed/Chair/Wheelchair sup J. Toilet sup K. Tub/Shower Kimberly - Locomotion L. Walk/Wheelchair (B) Kimberly M. Stairs modA - Communication N. Comprehension (B) Kimberly O. Expression (B) sup - Social Cognition P. Social Interaction sup Q. Problem Solving sup R. Memory sup - Endurance Fair - Balance Fair - Safety Awareness Fair QI SCORES: - Self-Care A. Eating 05-Setup or clean-up assistance B. Oral hygiene 04-Supervision or touching assistance C. Toileting hygiene 03-Partial/moderate assistance E. Shower/bathe self 10-Not attempted due to environmental limitations F. Upper body dressing 03-Partial/moderate assistance G. Lower body dressing 01-Dependent H. Putting on/taking off footwear 01-Dependent - Mobility A. Roll left and right 02-Substantial/maximal assistance B. Sit to lying 02-Substantial/maximal assistance C. Lying to sitting on side of bed 02-Substantial/maximal assistance D. Sit to stand 02-Substantial/maximal assistance E. Chair/[id number]-[id number] transfer 02-Substantial/maximal assistance F. Toilet transfer 02-Substantial/maximal assistance G. Car transfer 88-Not attempted due to medical condition or safety concerns I. Walk 10 feet 88-Not attempted due to medical condition or safety concerns J. Walk 50 feet with two turns 88-Not attempted due to medical condition or safety concerns K. Walk 150 feet 88-Not attempted due to medical condition or safety concerns L. Walking 10 feet on uneven surfaces 88-Not attempted due to medical condition or safety concerns M. 1 step (curb) 88-Not attempted due to medical condition or safety concerns N. 4 steps 88-Not attempted due to medical condition or safety concerns O. 12 steps 88-Not attempted due to medical condition or safety concerns P. Picking up object 88-Not attempted due to medical condition or safety concerns R. Wheel 50 feet with two turns S. Wheel 150 feet - Bladder and Bowel Bladder continence 0-Always continent Bowel continence 0-Always continent - Endurance Poor - Balance Poor - Safety Awareness Poor CURRENT FUNC. DEFICITS: Self-Care, Mobility, Endurance, Balance, and Safety Awareness SIGNATURE PANEL: (CDT)
[2020-01-25] MEDS: MONTELUKAST 10 MG TAB PO SCH (19:56)
[2020-01-25] MEDS ORDERED: ATORVASTATIN 40 MG TAB PO SCH (21:00)
[2020-01-26] MEDS: INSULIN -REGULAR HUMAN 50 UNIT/0.5 ML ML SQ SCH ×4 (07:30→20:05)
[2020-01-26] MEDS: METOPROLOL TAR 25 MG TAB PO SCH ×2 (07:52→20:04)
[2020-01-26] MEDS: INSULIN GLARGINE 100 UNITS/ML SQ SCH (07:53)
[2020-01-26] MEDS: CRANBERRY FRUIT EXTRACT 200 MG CAP PO SCH ×2 (07:53→20:05)
[2020-01-26] MEDS: INSULIN LISPRO 100 UNIT/1 ML SQ SCH ×3 (07:54→16:45)
[2020-01-26] MEDS: FLUOXETINE 20 MG CAP PO SCH (07:54)
[2020-01-26] MEDS: APIXABAN 5 MG TABLET PO SCH ×2 (07:54→20:05)
[2020-01-26] MEDS: LOSARTAN POTASSIUM 50 MG TABLET PO SCH (07:54)
[2020-01-26] MEDS: METFORMIN ER 500 MG TAB PO SCH ×2 (07:55→16:45)
--- NOTE | 2020-01-26 09:25 | P.RH.PN ---
Estimated Length of Stay: 38 Expected Discharge Date: 02/01/20 Discharge Disposition Plan: Home Family Support: Yes [facility] Goal: Mobility, Transfers, Self Care Vital Signs: Last Vital Signs Temp 97.7 F 01/25/20 19:45 Pulse 63 01/26/20 07:52 Resp 18 01/25/20 19:45 BP 149/73 H 01/26/20 07:52 Pulse Ox 98 01/25/20 19:45 Laboratory: Laboratory Last Values WBC 5.7 K/uL (4.3-10.9) 01/25/20 05:28 RBC 4.90 M/uL (4.33-5.43) 01/25/20 05:28 Hgb 11.2 g/dL (13.6-17.9) L 01/25/20 05:28 Hct 35.3 % (39.6-49.0) L 01/25/20 05:28 MCV 72.2 fL (80-100) L 01/25/20 05:28 MCH 22.9 pg (27.0-35.0) L 01/25/20 05:28 MCHC 31.7 g/dL (32.0-36.0) L 01/25/20 05:28 RDW 16.0 % (12.1-15.2) H 01/25/20 05:28 Plt Count 215 K/uL (152-406) 01/25/20 05:28 MPV 8.0 fL (7.6-11.3) 01/25/20 05:28 Neutrophils % 55.9 % (41.7-73.7) 01/25/20 05:28 Lymphocytes % 33.9 % (15.3-44.8) 01/25/20 05:28 Monocytes % 7.4 % (3.3-12.3) 01/25/20 05:28 Eosinophils % 2.1 % (0-4.4) 01/25/20 05:28 Basophils % 0.7 % (0-1.3) 01/25/20 05:28 Absolute Neutrophils 3.2 K/uL (1.8-8.0) 01/25/20 05:28 Absolute Lymphocytes 1.9 K/uL (0.7-4.9) 01/25/20 05:28 Absolute Monocytes 0.4 K/uL (0.1-1.3) 01/25/20 05:28 Absolute Eosinophils 0.1 K/uL (0-0.5) 01/25/20 05:28 Absolute Basophils 0.0 K/uL (0-0.5) 01/25/20 05:28 Sodium 144 mmol/L (136-145) 01/25/20 05:28 Potassium 4.0 mmol/L (3.5-5.1) 01/25/20 05:28 Chloride 109 mmol/L (98-107) H 01/25/20 05:28 Carbon Dioxide 30 mmol/L (21-32) 01/25/20 05:28 BUN 8 mg/dL (7-18) 01/25/20 05:28 Creatinine 0.93 mg/dL (0.55-1.3) 01/25/20 05:28 Estimated GFR > 90 mL/min (=/>90) 01/25/20 05:28 Glucose 125 mg/dL (74-106) H 01/25/20 05:28 POC Glucose 120 mg/dL (65-120) 01/26/20 07:07 Calcium 8.8 mg/dL (8.5-10.1) 01/25/20 05:28 Magnesium 2.0 mg/dL (1.8-2.4) 12/28/19 15:42 Albumin 3.1 g/dL (3.4-5.0) L 01/25/20 05:28 Prealbumin 20.1 mg/dL (20-40) 01/25/20 05:28 Urine Color Yellow 12/26/19 19:33 Urine Appearance Cloudy 12/26/19 19:33 Urine pH 5.5 (5.0-7.0) 12/26/19 19:33 Ur Specific [place] 1.020 (1.005-1.030) 12/26/19 19:33 Glucose (UA)(Auto) Negative (NEG) 12/26/19 19: Urine Ketones Negative (NEG) 12/26/19 19:33 Urine Blood Negative (NEG) 12/26/19 19:33 Urine Nitrite Negative (NEG) 12/26/19 19:33 Urine Bilirubin Negative (NEG) 12/26/19 19:33 Urine Urobilinogen 0.2 mg/dL (0.2-1.0) 12/26/19 19:33 Ur Leukocyte Esterase 2+ (NEG) H 12/26/19 19:33 Urine RBC <5 /HPF (NONE SEEN) 12/26/19 19:33 Urine WBC 10-20 /HPF (<5) H 12/26/19 19:33 Ur Squamous Epith Cells <5 /HPF (NONE SEEN) 12/26/19 19:33 Urine Bacteria Loaded /HPF (NONE SEEN) H 12/26/19 19:33 Urine Culture Reflexed Reflexed 12/26/19 19:33 Urine Total Protein Trace (NEG) 12/26/19 19:33 Weight: 207 lb Wound Present: No Closed Surgical Incision Present: No Negative Pressure Wound Therapy Present: No Physician Update: Labs reviewed and are stable. He is doing better overall. Family training was done with his and she did well. His speech is improving. He is mobilizing well with the wheelchair. He is using the platform walker but he will be safer with the wheelchair. He has one more week of therapy. Since he is still unsteady on his feet and his will be with him, it is recommended that he go home with a wheelchair and a walker. Functional Improvement: Patient has met all short-term goals and is progressing well toward long-term goals. Patient presents w/ good work ethic and safety awareness. Speech Therapy Update: Patient presents with mild dysarthria and mild dysphagia. He currently tolerates mechanical soft solids with thin liquids without difficulty. Patient exhibits difficulty carrying over techniques into spontaneous, conversational speech. Summary: Patient's care plan and long term care social worker goals have been reviewed and revised as necessary. Please see the Rehabilitation Signature page for all necessary signatures.
[2020-01-26] MEDS: MONTELUKAST 10 MG TAB PO SCH (20:06)
[2020-01-27 05:25] VITALS: BMI 28.9
[2020-01-27] MEDS: INSULIN -REGULAR HUMAN 50 UNIT/0.5 ML ML SQ SCH ×4 (07:30→20:17)
[2020-01-27] MEDS: CRANBERRY FRUIT EXTRACT 200 MG CAP PO SCH ×2 (08:07→19:01)
[2020-01-27] MEDS: FLUOXETINE 20 MG CAP PO SCH (08:07)
[2020-01-27] MEDS: LOSARTAN POTASSIUM 50 MG TABLET PO SCH (08:07)
[2020-01-27] MEDS: APIXABAN 5 MG TABLET PO SCH ×2 (08:08→19:01)
[2020-01-27] MEDS: METFORMIN ER 500 MG TAB PO SCH ×2 (08:08→17:20)
[2020-01-27] MEDS: METOPROLOL TAR 25 MG TAB PO SCH ×2 (08:08→19:01)
[2020-01-27] MEDS: INSULIN GLARGINE 100 UNITS/ML SQ SCH (08:11)
[2020-01-27] MEDS: INSULIN LISPRO 100 UNIT/1 ML SQ SCH ×3 (08:11→16:31)
[2020-01-27] MEDS: MONTELUKAST 10 MG TAB PO SCH (20:16)
[2020-01-28] MEDS: METOPROLOL TAR 25 MG TAB PO SCH ×2 (06:30→20:23)
[2020-01-28] MEDS: INSULIN -REGULAR HUMAN 50 UNIT/0.5 ML ML SQ SCH ×4 (07:22→20:24)
[2020-01-28] MEDS: LOSARTAN POTASSIUM 50 MG TABLET PO SCH (07:35)
[2020-01-28] MEDS: APIXABAN 5 MG TABLET PO SCH ×2 (07:35→20:24)
[2020-01-28] MEDS: CRANBERRY FRUIT EXTRACT 200 MG CAP PO SCH ×2 (07:35→20:24)
[2020-01-28] MEDS: FLUOXETINE 20 MG CAP PO SCH (07:36)
[2020-01-28] MEDS: INSULIN GLARGINE 100 UNITS/ML SQ SCH (07:36)
[2020-01-28] MEDS: METFORMIN ER 500 MG TAB PO SCH ×2 (07:36→16:46)
[2020-01-28] MEDS: INSULIN LISPRO 100 UNIT/1 ML SQ SCH ×3 (07:37→16:44)
[2020-01-28] MEDS: MONTELUKAST 10 MG TAB PO SCH (20:25)
--- NOTE | 2020-01-29 02:48 | FAST ---
SHIFT START DATE/TIME: 01/28/2020 19:00 (CDT) SHIFT END DATE/TIME: 01/29/2020 07:00 (CDT) NAME JOHNSON VAZQUEZ DATE OF : 1945 DATE OF ADMISSION: 12/26/2019 18:56 (CDT) PHONE: AGE: 73 N# [id number] GENDER: Male ENCOUNTER PHYSICIAN: Dr. Reyes Womack M.D. 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 EATING: Not assessed/no information CODE: - ORAL HYGIENE: Not assessed/no information CODE: - TOILETING HYGIENE: TOILETING HYGIENE - STEP 1: Does the patient complete the activity by him/herself with no assistance (physical, verbal/nonverbal cueing, setup/clean-up)? No. TOILETING HYGIENE - STEP 2: Does the patient need only setup/clean-up assistance from one helper? No. TOILETING HYGIENE - STEP 3: Does the patient need only verbal/nonverbal cueing or touching/steadying/contact guard assistance fro m one helper? Yes. 1. [id number] ADMISSION PERFORMANCE: Supervision or touching assistance CODE: 04 BATHING: Not assessed/no information CODE: - DRESSING - UPPER BODY: Not assessed/no information CODE: - DRESSING - LOWER BODY: Not assessed/no information CODE: - PUTTING ON/TAKING OFF FOOTWEAR: Not assessed/no information CODE: - ROLL LEFT AND RIGHT: ROLL LEFT AND RIGHT - STEP 1: Does the patient complete the activity by him/herself with no assistance (physical, verbal/nonverbal cueing, setup/clean-up)? No. ROLL LEFT AND RIGHT - STEP 2: Does the patient need only setup/clean-up assistance from one helper? No. ROLL LEFT AND RIGHT - STEP 3: Does the patient need only verbal/nonverbal cueing or touching/steadying/contact guard assistance fro m one helper? No. ROLL LEFT AND RIGHT - STEP 4: Does the patient need physical assistance - for example lifting or trunk support from one helper - wi th the helper providing less than half of the effort? Yes. 1. [id number] ADMISSION PERFORMANCE: Partial/moderate assistance CODE: 03 SIT TO LYING: Not assessed/no information CODE: - LYING TO SITTING: Not assessed/no information CODE: - SIT TO STAND: Not assessed/no information CODE: - TRANSFERS: BED, CHAIR: Not assessed/no information CODE: - TRANSFER TOILET: Not assessed/no information CODE: - TRANSFERS: CAR: Not assessed/no information CODE: - WALK 10 FEET: Not assessed/no information CODE: - 1 STEP (CURB): Not assessed/no information CODE: - PICKING UP OBJECT: Not assessed/no information CODE: - DOES THE PATIENT USE A WHEELCHAIR/SCOOTER? CODE: EXPR WHEEL 50 FEET WITH TWO TURNS: Not assessed/no information CODE: - INDICATE THE TYPE OF WHEELCHAIR/SCOOTER USED: CODE: EXPR WHEEL 150 FEET: Not assessed/no information CODE: - INDICATE THE TYPE OF WHEELCHAIR/SCOOTER USED: CODE: EXPR BLADDER AND BOWEL: H350. BLADDER CONTINENCE (3-DAY ASSESSMENT PERIOD): Always continent (no documented incontinence) CODE: 0 H400. BOWEL CONTINENCE (3-DAY ASSESSMENT PERIOD): Always continent CODE: 0
[2020-01-29] MEDS: INSULIN -REGULAR HUMAN 50 UNIT/0.5 ML ML SQ SCH ×4 (07:30→20:01)
[2020-01-29] MEDS: CRANBERRY FRUIT EXTRACT 200 MG CAP PO SCH ×2 (08:28→19:08)
[2020-01-29] MEDS: APIXABAN 5 MG TABLET PO SCH ×2 (08:29→19:09)
[2020-01-29] MEDS: FLUOXETINE 20 MG CAP PO SCH (08:29)
[2020-01-29] MEDS: METFORMIN ER 500 MG TAB PO SCH ×2 (08:29→17:12)
[2020-01-29] MEDS: LOSARTAN POTASSIUM 50 MG TABLET PO SCH (08:29)
[2020-01-29] MEDS: METOPROLOL TAR 25 MG TAB PO SCH ×2 (08:30→19:09)
[2020-01-29] MEDS: INSULIN GLARGINE 100 UNITS/ML SQ SCH (09:42)
[2020-01-29] MEDS: INSULIN LISPRO 100 UNIT/1 ML SQ SCH ×3 (09:42→16:57)
--- NOTE | 2020-01-29 17:46 | R.PN ---
ENCOUNTER DATE AND TIME: 01/29/2020 17:38 (CDT) NAME JOHNSON VAZQUEZ DATE OF : 1945 DATE OF ADMISSION: 12/26/2019 18:56 (CDT) Restricted Diffusion of the right internal capsule consistent w/acute infarctCHIEF COMPLAINT: Right brain stroke with left sided weakness. SUBJECTIVE: Pt denied any Shortness of Breath. Pt denied any depression. Ambulated 250' with contact assistance using a left platform walker. Self-propelled wheelchair 300' w ith right upper extremity and standby assistance. WBC 5.7, Hgb 11.2, glucose 87 to 106, prealbumin 20.1. Barium swallow show prolonged mastication of pudding but thin liquid cleared by straw. VITAL SIGNS Temperature: 97.6 F SBP/DBP: 151/79 Pulse: 74 Resp: 16 MEDICATION ALLERGIES: No Known Drug Allergies (NKDA) ENVIRONMENTAL ALLERGIES: None Known - Substance Allergies None Known - Other Allergies None Known NURSING: - Shower allowing shower - Bladder care per protocol - Skin care per protocol PRECAUTIONS: - Weight Bearing Precaution WBAT left LE ACTIVITIES OOB only with supervision THERAPIES: - Occupational Therapy Cognitive Retraining. Visual Perceptual Training. - Dietary and Nutrition Adequate Nutrition. Nutritional Education. Nutritional Supplements. - Speech Therapy Cognitive Training. Expressive Language Skills. Memory Strategies. Receptive Language Skills. Speech Intelligibility Training. PHYSICAL EXAM - Gen Alert and awake Lying in bed No apparent distress Oriented to: person, time, and place - Skin No skin breakdown. Normacephalic - Eyes No abnormalities - ENMT No abnormalities - Neck No abnormalities - CVS RRR - Chest No abnormalities - Abd + bowel sounds - GI Soft Deferred - No abnormalities - Ext No significant edema - MSK 1/5 weakness in left upper and 3/5 weakness in left lower extremity. - Neuro 1/5 weakness in left upper and 3/5 weakness in left lower extremity. - Psych No abnormalities ASSESSMENT: Pt. is a 73 yo Right-handed black male.On 12/19/2019 Pt. presented to [facility] with sudden onset of left-side weakness.On 12/19/2019 he was admitted to [facility] with diagnosis Rest ricted Diffusioon of the right internal capsule consistant w/acute infarct.His impairment category is Stroke 01 - Left Body (Right Brain) (01.1).Pre-morbidly, Pt. was independent/mod-I in Transfers Con trol, Locomotion, and Self-Care; and he had good Balance, Safety Awareness, Social Cognition, and Sph incter Control.Currently, he has deficits of Transfers Control, Balance, Safety Awareness, Locomotion , Self-Care, and Social Cognition.Pt. is now referred to [facility] for acute in-patient rehabilitation in order to maximize patient's functional independence in activities of yasmin ly living, strength, ROM, and mobility.- Rehab Goal Patient has realistic goal of being discharged at assistance level 6-Graeme to reside at Home with Fam daphnie/Relatives. MDM/PLAN: - Physical Therapy Gait dysfunction - to improve, our physical therapists will perform initial evaluation of pt's statu s upon admission and devise an individualized program for Gait Training, and Wheel Chair mobility Inability to transfer - to improve, our physical therapists will perform initial evaluation of pt's status upon admission and devise an individualized program for Bed mobility Need for home safety evaluation - to improve, our physical therapists will perform initial evaluatio n of pt's status upon admission and devise an individualized program for Home Evaluation Need in caregiver upon discharge - to improve, our physical therapists will perform initial evaluati on of pt's status upon admission and devise an individualized program for Caregiver Training Edema - to improve, our physical therapists will perform initial evaluation of pt's status upon admi ssion and devise an individualized program for Elevation Training, and Lymphedema Therapy New precaution - to improve, our physical therapists will perform initial evaluation of pt's status upon admission and devise an individualized program for Patient precaution education Poor balance - to improve, our physical therapists will perform initial evaluation of pt's status up on admission and devise an individualized program for Balance Training Weakness - to improve, our physical therapists will perform initial evaluation of pt's status upon a dmission and devise an individualized program for Aquatic Therapy, Neuromuscular Reeducation, and Str engthening Achieving independence - to improve, our physical therapists will perform initial evaluation of pt's status upon admission and devise an individualized program for Community Reintegration Activities - Occupational Therapy ADL deficits - to improve, our occupation therapists will perform initial evaluation of pt's status upon admission and devise an individualized program for Bathing, Bed mobility, Community Reintegratio n, Cooking, Dressing, Eating, Fine Motor Skills, Grooming, Homemaking, Kitchen Mobility, Laundry, Pat ient Education, Safety Awareness, Splinting - Positioning, Transfers(Toilet, Tub, Shower), and Wheel Chair Management Cognitive deficits - to improve, our occupation therapists will perform initial evaluation of pt's s tatus upon admission and devise an individualized program for Cognition - orientation Need for managed care liaison - to improve, our occupation therapists will perform initial evaluation of pt's status upon admission and devise an individualized program for Caregiver Training Weakness - to improve, our occupation therapists will perform initial evaluation of pt's status upon admission and devise an individualized program for Aquatic Therapy, Balance, Endurance, UE ROM, and UE strengthening - Other See attached MAR (Medication Administration Record) - Diet Type Continue Regular - Diet - Liquid Texture Continue Regular - Tube Feed Continue N/A - Bladder care per protocol - Weight Bearing Precaution WBAT left LE - Skin care per protocol - Diet - Solid Texture Continue Regular - Shower allowing shower for Dementia, TBI, Stroke, or others FUNCTIONAL STATUS: - Self-Care A. Eating sup B. Grooming Graeme C. Bathing sup D. Dressing - Upper sup E. Dressing - Lower sup F. Toileting sup - Sphincter Control G. Bladder control sup H. Bowel control sup - Transfers Control I. Bed/Chair/Wheelchair sup J. Toilet sup K. Tub/Shower Kimberly - Locomotion L. Walk/Wheelchair (B) Kimberly M. Stairs modA - Communication N. Comprehension (B) Kimberly O. Expression (B) sup - Social Cognition P. Social Interaction sup Q. Problem Solving sup R. Memory sup - Endurance Fair - Balance Fair - Safety Awareness Fair QI SCORES: - Self-Care A. Eating 05-Setup or clean-up assistance B. Oral hygiene 04-Supervision or touching assistance C. Toileting hygiene 03-Partial/moderate assistance E. Shower/bathe self 10-Not attempted due to environmental limitations F. Upper body dressing 03-Partial/moderate assistance G. Lower body dressing 01-Dependent H. Putting on/taking off footwear 01-Dependent - Mobility A. Roll left and right 02-Substantial/maximal assistance B. Sit to lying 02-Substantial/maximal assistance C. Lying to sitting on side of bed 02-Substantial/maximal assistance D. Sit to stand 02-Substantial/maximal assistance E. Chair/cix-ok-hbewy transfer 02-Substantial/maximal assistance F. Toilet transfer 02-Substantial/maximal assistance G. Car transfer 88-Not attempted due to medical condition or safety concerns I. Walk 10 feet 88-Not attempted due to medical condition or safety concerns J. Walk 50 feet with two turns 88-Not attempted due to medical condition or safety concerns K. Walk 150 feet 88-Not attempted due to medical condition or safety concerns L. Walking 10 feet on uneven surfaces 88-Not attempted due to medical condition or safety concerns M. 1 step (curb) 88-Not attempted due to medical condition or safety concerns N. 4 steps 88-Not attempted due to medical condition or safety concerns O. 12 steps 88-Not attempted due to medical condition or safety concerns P. Picking up object 88-Not attempted due to medical condition or safety concerns R. Wheel 50 feet with two turns S. Wheel 150 feet - Bladder and Bowel Bladder continence 0-Always continent Bowel continence 0-Always continent - Endurance Poor - Balance Poor - Safety Awareness Poor CURRENT FUNC. DEFICITS: Self-Care, Mobility, Endurance, Balance, and Safety Awareness SIGNATURE PANEL: (CDT)
[2020-01-29] MEDS: MONTELUKAST 10 MG TAB PO SCH (20:00)
[2020-01-30] MEDS: METOPROLOL TAR 25 MG TAB PO SCH ×2 (06:46→19:08)
[2020-01-30] MEDS: INSULIN -REGULAR HUMAN 50 UNIT/0.5 ML ML SQ SCH ×4 (07:30→20:05)
[2020-01-30] MEDS: CRANBERRY FRUIT EXTRACT 200 MG CAP PO SCH ×2 (07:56→19:08)
[2020-01-30] MEDS: LOSARTAN POTASSIUM 50 MG TABLET PO SCH (07:56)
[2020-01-30] MEDS: APIXABAN 5 MG TABLET PO SCH ×2 (07:56→19:07)
[2020-01-30] MEDS: METFORMIN ER 500 MG TAB PO SCH ×2 (07:56→17:15)
[2020-01-30] MEDS: INSULIN GLARGINE 100 UNITS/ML SQ SCH (07:56)
[2020-01-30] MEDS: FLUOXETINE 20 MG CAP PO SCH (07:56)
[2020-01-30] MEDS: INSULIN LISPRO 100 UNIT/1 ML SQ SCH ×3 (07:57→17:15)
--- NOTE | 2020-01-30 17:22 | R.PN ---
ENCOUNTER DATE AND TIME: 01/30/2020 17:10 (CDT) NAME JOHNSON VAZQUEZ DATE OF : 1945 DATE OF ADMISSION: 12/26/2019 18:56 (CDT) Restricted Diffusion of the right internal capsule consistent w/acute infarctCHIEF COMPLAINT: Right brain stroke with left sided weakness. SUBJECTIVE: Pt denied any Shortness of Breath. Pt denied any depression. Ambulated 250' with contact assistance using a left platform walker. Self-propelled wheelchair 250' w ith both upper extremities and independence. WBC 5.7, Hgb 11.2, glucose 100 to 134, prealbumin 20.1. Barium swallow show prolonged mastication of pudding but thin liquid cleared by straw. VITAL SIGNS Temperature: 98.4 F SBP/DBP: 145/74 Pulse: 64 Resp: 16 MEDICATION ALLERGIES: No Known Drug Allergies (NKDA) ENVIRONMENTAL ALLERGIES: None Known - Substance Allergies None Known - Other Allergies None Known NURSING: - Shower allowing shower - Bladder care per protocol - Skin care per protocol PRECAUTIONS: - Weight Bearing Precaution WBAT left LE ACTIVITIES OOB only with supervision THERAPIES: - Occupational Therapy Cognitive Retraining. Visual Perceptual Training. - Dietary and Nutrition Adequate Nutrition. Nutritional Education. Nutritional Supplements. - Speech Therapy Cognitive Training. Expressive Language Skills. Memory Strategies. Receptive Language Skills. Speech Intelligibility Training. PHYSICAL EXAM - Gen Alert and awake Lying in bed No apparent distress Oriented to: person, time, and place - Skin No skin breakdown. Normacephalic - Eyes No abnormalities - ENMT No abnormalities - Neck No abnormalities - CVS RRR - Chest No abnormalities - Abd + bowel sounds - GI Soft Deferred - No abnormalities - Ext No significant edema - MSK 1/5 weakness in left upper and 3/5 weakness in left lower extremity. - Neuro 1/5 weakness in left upper and 3/5 weakness in left lower extremity. - Psych No abnormalities ASSESSMENT: Pt. is a 73 yo Right-handed black male.On 12/19/[address] [facility] with sudden onset of left-side weakness.On 12/19/2019 he was admitted to [facility] with diagnosis Rest ricted Diffusioon of the right internal capsule consistant w/acute infarct.His impairment category is Stroke 01 - Left Body (Right Brain) (01.1).Pre-morbidly, Pt. was independent/mod-I in Transfers Con trol, Locomotion, and Self-Care; and he had good Balance, Safety Awareness, Social Cognition, and Sph incter Control.Currently, he has deficits of Transfers Control, Balance, Safety Awareness, Locomotion , Self-Care, and Social Cognition.Pt. is now referred to [facility] for acute in-patient rehabilitation in order to maximize patient's functional independence in activities of yasmin ly living, strength, ROM, and mobility.- Rehab Goal Patient has realistic goal of being discharged at assistance level 6-Graeme to reside at Home with Fam daphnie/Relatives. MDM/PLAN: - Physical Therapy Gait dysfunction - to improve, our physical therapists will perform initial evaluation of pt's statu s upon admission and devise an individualized program for Gait Training, and Wheel Chair mobility Inability to transfer - to improve, our physical therapists will perform initial evaluation of pt's status upon admission and devise an individualized program for Bed mobility Need for home safety evaluation - to improve, our physical therapists will perform initial evaluatio n of pt's status upon admission and devise an individualized program for Home Evaluation Need in caregiver upon discharge - to improve, our physical therapists will perform initial evaluati on of pt's status upon admission and devise an individualized program for Caregiver Training Edema - to improve, our physical therapists will perform initial evaluation of pt's status upon admi ssion and devise an individualized program for Elevation Training, and Lymphedema Therapy New precaution - to improve, our physical therapists will perform initial evaluation of pt's status upon admission and devise an individualized program for Patient precaution education Poor balance - to improve, our physical therapists will perform initial evaluation of pt's status up on admission and devise an individualized program for Balance Training Weakness - to improve, our physical therapists will perform initial evaluation of pt's status upon a dmission and devise an individualized program for Aquatic Therapy, Neuromuscular Reeducation, and Str engthening Achieving independence - to improve, our physical therapists will perform initial evaluation of pt's status upon admission and devise an individualized program for Community Reintegration Activities - Occupational Therapy ADL deficits - to improve, our occupation therapists will perform initial evaluation of pt's status upon admission and devise an individualized program for Bathing, Bed mobility, Community Reintegratio n, Cooking, Dressing, Eating, Fine Motor Skills, Grooming, Homemaking, Kitchen Mobility, Laundry, Pat ient Education, Safety Awareness, Splinting - Positioning, Transfers(Toilet, Tub, Shower), and Wheel Chair Management Cognitive deficits - to improve, our occupation therapists will perform initial evaluation of pt's s tatus upon admission and devise an individualized program for Cognition - orientation Need for healthcare administration internship - to improve, our occupation therapists will perform initial evaluation of pt's status upon admission and devise an individualized program for Caregiver Training Weakness - to improve, our occupation therapists will perform initial evaluation of pt's status upon admission and devise an individualized program for Aquatic Therapy, Balance, Endurance, UE ROM, and UE strengthening - Other See attached MAR (Medication Administration Record) - Diet Type Continue Regular - Diet - Liquid Texture Continue Regular - Tube Feed Continue N/A - Bladder care per protocol - Weight Bearing Precaution WBAT left LE - Skin care per protocol - Diet - Solid Texture Continue Regular - Shower allowing shower for Dementia, TBI, Stroke, or others FUNCTIONAL STATUS: - Self-Care A. Eating sup B. Grooming Graeme C. Bathing sup D. Dressing - Upper sup E. Dressing - Lower sup F. Toileting sup - Sphincter Control G. Bladder control sup H. Bowel control sup - Transfers Control I. Bed/Chair/Wheelchair sup J. Toilet sup K. Tub/Shower Kimberly - Locomotion L. Walk/Wheelchair (B) Kimberly M. Stairs modA - Communication N. Comprehension (B) Kimberly O. Expression (B) sup - Social Cognition P. Social Interaction sup Q. Problem Solving sup R. Memory sup - Endurance Fair - Balance Fair - Safety Awareness Fair QI SCORES: - Self-Care A. Eating 05-Setup or clean-up assistance B. Oral hygiene 04-Supervision or touching assistance C. Toileting hygiene 03-Partial/moderate assistance E. Shower/bathe self 10-Not attempted due to environmental limitations F. Upper body dressing 03-Partial/moderate assistance G. Lower body dressing 01-Dependent H. Putting on/taking off footwear 01-Dependent - Mobility A. Roll left and right 02-Substantial/maximal assistance B. Sit to lying 02-Substantial/maximal assistance C. Lying to sitting on side of bed 02-Substantial/maximal assistance D. Sit to stand 02-Substantial/maximal assistance E. Chair/xih-ot-rjbxd transfer 02-Substantial/maximal assistance F. Toilet transfer 02-Substantial/maximal assistance G. Car transfer 88-Not attempted due to medical condition or safety concerns I. Walk 10 feet 88-Not attempted due to medical condition or safety concerns J. Walk 50 feet with two turns 88-Not attempted due to medical condition or safety concerns K. Walk 150 feet 88-Not attempted due to medical condition or safety concerns L. Walking 10 feet on uneven surfaces 88-Not attempted due to medical condition or safety concerns M. 1 step (curb) 88-Not attempted due to medical condition or safety concerns N. 4 steps 88-Not attempted due to medical condition or safety concerns O. 12 steps 88-Not attempted due to medical condition or safety concerns P. Picking up object 88-Not attempted due to medical condition or safety concerns R. Wheel 50 feet with two turns S. Wheel 150 feet - Bladder and Bowel Bladder continence 0-Always continent Bowel continence 0-Always continent - Endurance Poor - Balance Poor - Safety Awareness Poor CURRENT FUNC. DEFICITS: Self-Care, Mobility, Endurance, Balance, and Safety Awareness SIGNATURE PANEL: (CDT)
[2020-01-30] MEDS: MONTELUKAST 10 MG TAB PO SCH (20:03)
[2020-01-31] MEDS: INSULIN -REGULAR HUMAN 50 UNIT/0.5 ML ML SQ SCH ×4 (07:30→19:28)
[2020-01-31] MEDS: FLUOXETINE 20 MG CAP PO SCH (08:48)
[2020-01-31] MEDS: APIXABAN 5 MG TABLET PO SCH ×2 (08:48→19:28)
[2020-01-31] MEDS: CRANBERRY FRUIT EXTRACT 200 MG CAP PO SCH ×2 (08:48→19:27)
[2020-01-31] MEDS: METFORMIN ER 500 MG TAB PO SCH ×2 (08:48→17:20)
[2020-01-31] MEDS: LOSARTAN POTASSIUM 50 MG TABLET PO SCH (08:48)
[2020-01-31] MEDS: INSULIN LISPRO 100 UNIT/1 ML SQ SCH ×3 (08:49→16:54)
[2020-01-31] MEDS: INSULIN GLARGINE 100 UNITS/ML SQ SCH (08:49)
[2020-01-31] MEDS: METOPROLOL TAR 25 MG TAB PO SCH ×2 (08:51→19:28)
--- NOTE | 2020-01-31 14:51 | FAST ---
ENCOUNTER DATE AND TIME: 01/31/2020 08:00 (CDT) NAME JOHNSON VAZQUEZ DATE OF : 1945 DATE OF ADMISSION: 12/26/2019 18:56 (CDT) PHONE: AGE: 73 N# [id number] GENDER: Male ENCOUNTER PHYSICIAN: Dr. Reyes Womack M.D. 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 EATING: Not assessed/no information CODE: - ORAL HYGIENE: ORAL HYGIENE - STEP 1: Does the patient complete the activity by him/herself with no assistance (physical, verbal/nonverbal cueing, setup/clean-up)? Yes. 1. [id number] ADMISSION PERFORMANCE: Independent CODE: 06 TOILETING HYGIENE: Not assessed/no information CODE: - BATHING: SHOWER/BATHE SELF - STEP 1: Does the patient complete the activity by him/herself with no assistance (physical, verbal/nonverbal cueing, setup/clean-up)? No. SHOWER/BATHE SELF - STEP 2: Does the patient need only setup/clean-up assistance from one helper? No. SHOWER/BATHE SELF - STEP 3: Does the patient need only verbal/nonverbal cueing or touching/steadying/contact guard assistance fro m one helper? Yes. 1. [id number] ADMISSION PERFORMANCE: Supervision or touching assistance CODE: 04 DRESSING - UPPER BODY: DRESSING - UPPER BODY - STEP 1: Does the patient complete the activity by him/herself with no assistance (physical, verbal/nonverbal cueing, setup/clean-up)? Yes. 1. [id number] ADMISSION PERFORMANCE: Independent CODE: 06 DRESSING - LOWER BODY: DRESSING - LOWER BODY - STEP 1: Does the patient complete the activity by him/herself with no assistance (physical, verbal/nonverbal cueing, setup/clean-up)? No. DRESSING - LOWER BODY - STEP 2: Does the patient need only setup/clean-up assistance from one helper? No. DRESSING - LOWER BODY - STEP 3: Does the patient need only verbal/nonverbal cueing or touching/steadying/contact guard assistance fro m one helper? Yes. 1. [id number] ADMISSION PERFORMANCE: Supervision or touching assistance CODE: 04 PUTTING ON/TAKING OFF FOOTWEAR: FOOTWEAR - STEP 1: Does the patient complete the activity by him/herself with no assistance (physical, verbal/nonverbal cueing, setup/clean-up)? Yes. 1. [id number] ADMISSION PERFORMANCE: Independent CODE: 06 DOES THE PATIENT USE A WHEELCHAIR/SCOOTER? CODE: EXPR INDICATE THE TYPE OF WHEELCHAIR/SCOOTER USED: CODE: EXPR INDICATE THE TYPE OF WHEELCHAIR/SCOOTER USED: CODE: EXPR BLADDER AND BOWEL: CODE: EXPR CODE: EXPR SIGNATURE PANEL: The following modified sections: 1. [id number] Admission Performance, 1. [id number] Admission Performance, 1. [id number] Admission Performance, 1. [id number] Admission Performance, 1. [id number] Admission Performance were [electronically] signed by MIGUEL ANGEL Osorio on WedJan 31 2020 14:50:38 GMT-0500 (Central Daylight Time)
[2020-01-31] MEDS: MONTELUKAST 10 MG TAB PO SCH (19:27)
[2020-02-01 06:18] LABS: Absolute Lymphocytes (CBC) 1.7 K/uL (0.7-4.9); Basophils % 0.7 % (0-1.3); Lymphocytes % 33.6 % (15.3-44.8); MPV 7.6 fL (7.6-11.3)
[2020-02-01 07:01] LABS: Albumin 2.9 g/dL (3.4-5.0); BUN Blood Urea Nitrogen 9 mg/dL (7-18); Bicarbonate 26 mmol/L (21-32); Glucose Level 165 mg/dL (74-106); Magnesium 1.8 mg/dL (1.8-2.4); Potassium 3.9 mmol/L (3.5-5.1); Prealbumin 17.8 mg/dL (20-40); Sodium Level 142 mmol/L (136-145)
[2020-02-01] MEDS: METOPROLOL TAR 25 MG TAB PO SCH (07:14)
[2020-02-01 07:16] VITALS: BP 142/76
[2020-02-01] MEDS: INSULIN -REGULAR HUMAN 50 UNIT/0.5 ML ML SQ SCH ×2 (07:30→11:30)
[2020-02-01] MEDS: CRANBERRY FRUIT EXTRACT 200 MG CAP PO SCH (07:41)
[2020-02-01] MEDS: APIXABAN 5 MG TABLET PO SCH (07:41)
[2020-02-01] MEDS: LOSARTAN POTASSIUM 50 MG TABLET PO SCH (07:41)
[2020-02-01] MEDS: METFORMIN ER 500 MG TAB PO SCH (07:41)
[2020-02-01] MEDS: FLUOXETINE 20 MG CAP PO SCH (07:41)
[2020-02-01] MEDS: INSULIN LISPRO 100 UNIT/1 ML SQ SCH ×2 (07:42→12:03)
[2020-02-01] MEDS: INSULIN GLARGINE 100 UNITS/ML SQ SCH (07:42)
[2020-02-01 07:53] VITALS: TEMP 97
--- NOTE | 2020-02-01 10:26 | R.PN ---
ENCOUNTER DATE AND TIME: 01/31/2020 10:21 (CDT) NAME JOHNSON VAZQUEZ DATE OF : 1945 DATE OF ADMISSION: 12/26/2019 18:56 (CDT) Restricted Diffusion of the right internal capsule consistent w/acute infarctCHIEF COMPLAINT: Right brain stroke with left sided weakness. SUBJECTIVE: Pt denied any Shortness of Breath. Pt denied any depression. Ambulated 400' with standby assistance using a left platform walker. Self-propelled wheelchair 250' w ith both upper extremities and independence. WBC 5.7, Hgb 11.2, glucose 68 to 116, prealbumin 20.1. Barium swallow show prolonged mastication of pudding but thin liquid cleared by straw. VITAL SIGNS Temperature: 97.4 F SBP/DBP: 155/79 Pulse: 64 Resp: 15 MEDICATION ALLERGIES: No Known Drug Allergies (NKDA) ENVIRONMENTAL ALLERGIES: None Known - Substance Allergies None Known - Other Allergies None Known NURSING: - Shower allowing shower - Bladder care per protocol - Skin care per protocol PRECAUTIONS: - Weight Bearing Precaution WBAT left LE ACTIVITIES OOB only with supervision THERAPIES: - Occupational Therapy Cognitive Retraining. Visual Perceptual Training. - Dietary and Nutrition Adequate Nutrition. Nutritional Education. Nutritional Supplements. - Speech Therapy Cognitive Training. Expressive Language Skills. Memory Strategies. Receptive Language Skills. Speech Intelligibility Training. PHYSICAL EXAM - Gen Alert and awake Lying in bed No apparent distress Oriented to: person, time, and place - Skin No skin breakdown. Normacephalic - Eyes No abnormalities - ENMT No abnormalities - Neck No abnormalities - CVS RRR - Chest No abnormalities - Abd + bowel sounds - GI Soft Deferred - No abnormalities - Ext No significant edema - MSK 1/5 weakness in left upper and 3/5 weakness in left lower extremity. - Neuro 1/5 weakness in left upper and 3/5 weakness in left lower extremity. - Psych No abnormalities ASSESSMENT: Pt. is a 73 yo Right-handed black male.On 12/19/[address] [facility] with sudden onset of left-side weakness.On 12/19/2019 he was admitted to [facility] with diagnosis Rest ricted Diffusioon of the right internal capsule consistant w/acute infarct.His impairment category is Stroke 01 - Left Body (Right Brain) (01.1).Pre-morbidly, Pt. was independent/mod-I in Transfers Con trol, Locomotion, and Self-Care; and he had good Balance, Safety Awareness, Social Cognition, and Sph incter Control.Currently, he has deficits of Transfers Control, Balance, Safety Awareness, Locomotion , Self-Care, and Social Cognition.Pt. is now referred to [facility] for acute in-patient rehabilitation in order to maximize patient's functional independence in activities of yasmin ly living, strength, ROM, and mobility.- Rehab Goal Patient has realistic goal of being discharged at assistance level 6-Graeme to reside at Home with Fam daphnie/Relatives. MDM/PLAN: - Physical Therapy Gait dysfunction - to improve, our physical therapists will perform initial evaluation of pt's statu s upon admission and devise an individualized program for Gait Training, and Wheel Chair mobility Inability to transfer - to improve, our physical therapists will perform initial evaluation of pt's status upon admission and devise an individualized program for Bed mobility Need for home safety evaluation - to improve, our physical therapists will perform initial evaluatio n of pt's status upon admission and devise an individualized program for Home Evaluation Need in caregiver upon discharge - to improve, our physical therapists will perform initial evaluati on of pt's status upon admission and devise an individualized program for Caregiver Training Edema - to improve, our physical therapists will perform initial evaluation of pt's status upon admi ssion and devise an individualized program for Elevation Training, and Lymphedema Therapy New precaution - to improve, our physical therapists will perform initial evaluation of pt's status upon admission and devise an individualized program for Patient precaution education Poor balance - to improve, our physical therapists will perform initial evaluation of pt's status up on admission and devise an individualized program for Balance Training Weakness - to improve, our physical therapists will perform initial evaluation of pt's status upon a dmission and devise an individualized program for Aquatic Therapy, Neuromuscular Reeducation, and Str engthening Achieving independence - to improve, our physical therapists will perform initial evaluation of pt's status upon admission and devise an individualized program for Community Reintegration Activities - Occupational Therapy ADL deficits - to improve, our occupation therapists will perform initial evaluation of pt's status upon admission and devise an individualized program for Bathing, Bed mobility, Community Reintegratio n, Cooking, Dressing, Eating, Fine Motor Skills, Grooming, Homemaking, Kitchen Mobility, Laundry, Pat ient Education, Safety Awareness, Splinting - Positioning, Transfers(Toilet, Tub, Shower), and Wheel Chair Management Cognitive deficits - to improve, our occupation therapists will perform initial evaluation of pt's s tatus upon admission and devise an individualized program for Cognition - orientation Need for home health caregiver - to improve, our occupation therapists will perform initial evaluation of pt's status upon admission and devise an individualized program for Caregiver Training Weakness - to improve, our occupation therapists will perform initial evaluation of pt's status upon admission and devise an individualized program for Aquatic Therapy, Balance, Endurance, UE ROM, and UE strengthening - Other See attached MAR (Medication Administration Record) - Diet Type Continue Regular - Diet - Liquid Texture Continue Regular - Tube Feed Continue N/A - Bladder care per protocol - Weight Bearing Precaution WBAT left LE - Skin care per protocol - Diet - Solid Texture Continue Regular - Shower allowing shower for Dementia, TBI, Stroke, or others FUNCTIONAL STATUS: - Self-Care A. Eating sup B. Grooming Graeme C. Bathing sup D. Dressing - Upper sup E. Dressing - Lower sup F. Toileting sup - Sphincter Control G. Bladder control sup H. Bowel control sup - Transfers Control I. Bed/Chair/Wheelchair sup J. Toilet sup K. Tub/Shower Kimberly - Locomotion L. Walk/Wheelchair (B) Kimberly M. Stairs modA - Communication N. Comprehension (B) Kimberly O. Expression (B) sup - Social Cognition P. Social Interaction sup Q. Problem Solving sup R. Memory sup - Endurance Fair - Balance Fair - Safety Awareness Fair QI SCORES: - Self-Care A. Eating 05-Setup or clean-up assistance B. Oral hygiene 04-Supervision or touching assistance C. Toileting hygiene 03-Partial/moderate assistance E. Shower/bathe self 10-Not attempted due to environmental limitations F. Upper body dressing 03-Partial/moderate assistance G. Lower body dressing 01-Dependent H. Putting on/taking off footwear 01-Dependent - Mobility A. Roll left and right 02-Substantial/maximal assistance B. Sit to lying 02-Substantial/maximal assistance C. Lying to sitting on side of bed 02-Substantial/maximal assistance D. Sit to stand 02-Substantial/maximal assistance E. Chair/[id number]-irlog transfer 02-Substantial/maximal assistance F. Toilet transfer 02-Substantial/maximal assistance G. Car transfer 88-Not attempted due to medical condition or safety concerns I. Walk 10 feet 88-Not attempted due to medical condition or safety concerns J. Walk 50 feet with two turns 88-Not attempted due to medical condition or safety concerns K. Walk 150 feet 88-Not attempted due to medical condition or safety concerns L. Walking 10 feet on uneven surfaces 88-Not attempted due to medical condition or safety concerns M. 1 step (curb) 88-Not attempted due to medical condition or safety concerns N. 4 steps 88-Not attempted due to medical condition or safety concerns O. 12 steps 88-Not attempted due to medical condition or safety concerns P. Picking up object 88-Not attempted due to medical condition or safety concerns R. Wheel 50 feet with two turns S. Wheel 150 feet - Bladder and Bowel Bladder continence 0-Always continent Bowel continence 0-Always continent - Endurance Poor - Balance Poor - Safety Awareness Poor CURRENT FUNC. DEFICITS: Self-Care, Mobility, Endurance, Balance, and Safety Awareness SIGNATURE PANEL: (CDT)
== END 2020-02-01 15:25 | disposition home health service (06) | DRG 57 ==
LOC: 5TH 18:56
PROVIDERS: ADMIT Psychiatry & Neurology Neurology with Special Qualifications in Child Neurology; ATTEND Psychiatry & Neurology Neurology with Special Qualifications in Child Neurology
DX: I69.354 Hemiplegia and hemiparesis following cerebral infarction affecting left non-dominant side (principal); E11.9 Type 2 diabetes mellitus without complications; I10 Essential (primary) hypertension; J45.909 Unspecified asthma, uncomplicated
CPT/HCPCS: 36415; 74230; 80048; 81001; 82040; 82947; 83735; 84134; 85025; 87077; 87086; 87088; 87186; 92507; 92523; 92526; 92611; 97032; 97110; 97112; 97116; 97161; 97530; 97542; J1815

== ENCOUNTER 2022-09-13 16:10 | Emergency (ER) | payer OTHER ==
--- OUTSIDE RECORDS SUMMARY | 2022-09-13 16:16 | XMS REPORT | Continuity of Care Document ---
:1945 Author Organization [facility] t Address [address] [place] [address] Care Team Providers Name Role Phone No, Pcp [facility] Primary Care Physician Unavailable Tomas Marinelli Attending Clinician Unavailable PAULINE MOYA I. Attending Clinician Unavailable PAULINE MOYA I. Admitting Clinician Unavailable Payers Payer Name Policy Type Policy Number Effective Date Expiration Date S [facility] [id number] 2021 (MEDICARE 00:00:00 REPLACEMENT HMO) Problems Condition Condition Condition Status Onset Resolution Last Treating Co mments Source Name Details Category Date Date Treatment Clinician Date Acute Acute Disease Active [facility]18 [facility] stroke stroke 00:00: Medical 00 [place] Essential Essential Disease Active [facility] hypertensi hypertensi 12-18 Katerine kes on on 00:00: Medical 00 Center Type 2 Type 2 Disease Active 2020-[address] diabetes diabetes 12-18 [facility] mellitus mellitus 00:00: Medica l 00 [place] Asthma Asthma Disease Active 2019-[address] [facility] [address] [facility] 00:[facility]: Medical 00 [place] Atrial Atrial Disease Active 2019-[address] fibrillati fibrillati 12-18 Katerine kes on on 00:00: Medical 00 [place] S/P admn S/P admn Disease Active 2019-0 [facility] t tPA in tPA in 12-18 [facility] diff fac diff fac 00:00: Medica l w/n last w/n last 00 Center 24 hr bef 24 hr bef adm to adm to crnt fac crnt fac Cataract Cataracts, Problem Com mon bilateral Spirit - [facility] [id number] Mixed Problem Common hyperlipid Spirit emia - [facility] [id number] WEST Problem Common (generaliz Spirit ed anxiety - CHI disorder) [facility] [id number] Hemiplegia Problem Co mmon of left Spirit nondominan - CHI t side as St late [facility] effect of Medical cerebrovas Center cular disease, unspecifie d cerebrovas cular disease type, unspecifie d hemiplegia type [id number] Cerebrovas Problem Co mmon cular Spirit accident [facility] mechanism Center [id number] penitentiary Problem Com mon (current) Spirit use of - [facility] insulin [facility] [id number] Iron Problem Common deficiency Spirit anemia, - [facility] unspecifie d iron [facility] deficiency Medica l anemia Center type [id number] Hemiparesi Problem Co mmon s Spirit affecting - CHI left side St as late [facility] effect of Medical cerebrovas Center cular accident [id number] History of Problem Co mmon cerebrovas Spirit cular - CHI accident St (CVA) with [facility] deficit Center [id number] 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 - [facility] [id number] Current Problem 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[facility] major [facility] depressive [facility] disorder Medical without Center prior episode Allergies, Adverse Reactions, Alerts Allergy Allergy Status Severity Reaction(s) Onset Inactive Treating Comm ents Source Name Type Date Date Clinician NO KNOWN Allergy Active [facility] Social History Social Habit Start Date Stop Date Quantity Comments Source History of Tobacco [facility] - Use [facility] History SDOH [facility] Alcohol Comment Medical C enter Tobacco Comment 2019-12-19 2019-12-19 2-3 [facility] 00:00:00 00:00:00 cigarettes/day Medical Ce nter Tobacco use and 2019-12-19 2019-12-[address] Katerine kes exposure 00:00:00 00:00:00 Medical Center Alcohol intake 2019-12-19 2019-12-19 [facility]er [facility]:00:00 of alcohol Medical Center (finding) History [facility] 2019-12-19 2019-12-[address] [facility] Alcohol Frequency 00:00:00 00:00:00 Medical Center History [facility] 2019-12-19 2019-12-[address] [facility] Alcohol Std Drinks 00:00:00 00:00:00 Medica l Center History [facility] 2019-12-19 2019-12-[address] [facility] Alcohol Binge 00:00:00 00:00:[address] Sex [birth year] [facility] kes 00:00:00 00:00:00 Medical Center Smoking Status Start Date Stop Date Source Former Smoker 2022-08-27 00:00:00 2022-08-27 00:00:00 Common S pirit - [facility] Ce nter Current every day 2019-12-19 00:00:[address] [facility] [address] [facility] Medical smoker Center Medications Ordered Filled Start Stop Current Ordering Indication Dosage Frequency Signature Comments Components Source Medication Medication Date Date Medication? Clinician (SIG) Name Name Pen [place] No Pen 31G X 5 MM 31G X 5 MM 3-24 [place] 00:00: 31G X 5 MM 00 Pen [place] Pen [place] 2021-0 No Pen 31G X 5 MM 31G X 5 MM 3-24 [place] 00:00: 31G X 5 MM 00 Pen [place] Pen [place] 2021-0 No Pen 31G X 5 MM 31G X 5 MM 3-24 [place] 00:00: 31G X 5 MM 00 Pen [place] Pen [place] 2021-0 No Pen 31G X 5 MM 31G X 5 MM 3-24 [place] 00:00: 31G X 5 MM 00 Pen [place] Pen [place] 2021-0 No Pen 31G X 5 MM 31G X 5 MM 3-24 [place] 00:00: 31G X 5 MM 00 losartan 0 Yes 50mg QD Take [address] (COZAAR) 50 5-26 by mouth Luke s MG tablet 17:52: daily. Medica l 29 Center metFORMIN Yes 750mg Take [address] (GLUCOPHAGE 5-26 mg by [facility] -XR) 750 MG 17:52: mouth 2 Med ical 24 hr 29 (two) Center tablet times daily before meals. atorvastati 2020-0 Yes 20mg QD Take [address] n (LIPITOR) 5-26 by mouth Luke s 20 MG 17:52: daily. Medical tablet 29 Center montelukast 0 Yes 10mg QD Take [address] (SINGULAIR) 5-26 by mouth Luke s 10 mg 17:52: nightly. Medical tablet 29 Center insulin 2019-0 Yes 26U QD Inject 26 CHI S t degludec 5-26 Units [facility]ukes (TRESIBA 17:52: subcutaneo Med ical FLEXTOUCH 29 [facility] Center U-100) 100 daily. unit/mL (3 mL) InPn diphenhydrA Yes 25mg Take [address] MINE 5-03 by mouth [facility] (BENADRYL) 00:00: daily as Med ical 25 mg 00 needed for Center tablet Allergies. Tresiba Tresiba No QD Tresiba FlexTouch FlexTouch FlexTouch 100 UNIT/ML 100 UNIT/ML 100 UNIT/ML Ozempic Ozempic No Ozempic (0.25 or (0.25 or (0.25 or 0.5 0.5 0.5 MG/DOSE) 2 MG/DOSE) 2 MG/DOSE) 2 MG/1.5ML MG/1.5ML MG/1.5ML Atorvastati Atorvastati No 1{table QD Atorvastat n Calcium n Calcium t} in Calcium 10 MG 10 MG 10 MG FLUoxetine FLUoxetine No 1{capsu QD FLUoxetine HCl 20 MG HCl 20 MG le} HCl 20 MG One A Day One A Day No One A Day Mens Mens Mens VitaCraves VitaCraves VitaCraves Eliquis 5 Eliquis 5 No 1{table BID Eliquis 5 MG MG t} MG Eliquis 5 Eliquis 5 No Eliquis 5 MG MG MG metFORMIN metFORMIN No 1{table BID metFORMIN HCl ER 750 HCl ER 750 t_with_ HCl ER 750 MG MG evening MG _meal} Tylenol 8 Tylenol 8 No Tylenol 8 Hour Hour Hour Montelukast Montelukast No 1{table QD Montelukas Sodium 10 Sodium 10 t} t Sodium MG MG 10 MG Metoprolol Metoprolol No 1{table BID Metoprolol Tartrate 25 Tartrate 25 t_with_ Tartrate MG MG food} 25 MG Vitamin B12 Vitamin B12 No Vitamin B12 Montelukast Montelukast No 1{table QD Montelukas Sodium 10 Sodium 10 t} t Sodium MG MG 10 MG Metoprolol Metoprolol No 1{table BID Metoprolol Tartrate 25 Tartrate 25 t_with_ Tartrate MG MG food} 25 MG Atorvastati Atorvastati No 1{table QD Atorvastat n Calcium n Calcium t} in Calcium 10 MG 10 MG 10 MG Tresiba Tresiba No QD Tresiba FlexTouch FlexTouch FlexTouch 100 UNIT/ML 100 UNIT/ML 100 UNIT/ML Eliquis 5 Eliquis 5 No 1{table BID Eliquis 5 MG MG t} MG FLUoxetine FLUoxetine No 1{capsu QD FLUoxetine HCl 20 MG HCl 20 MG le} HCl 20 MG Ozempic Ozempic No Ozempic (0.25 or (0.25 or (0.25 or 0.5 0.5 0.5 MG/DOSE) 2 MG/DOSE) 2 MG/DOSE) 2 MG/1.5ML MG/1.5ML MG/1.5ML Losartan Losartan No 1{table QD Losartan Potassium Potassium t} Potassium 50 MG 50 MG 50 MG metFORMIN metFORMIN No 1{table BID metFORMIN HCl ER 750 HCl ER 750 t_with_ HCl ER 750 MG MG evening MG _meal} Montelukast Montelukast No 1{table QD Montelukas Sodium 10 Sodium 10 t} t Sodium MG MG 10 MG Metoprolol Metoprolol No 1{table BID Metoprolol Tartrate 25 Tartrate 25 t_with_ Tartrate MG MG food} 25 MG Atorvastati Atorvastati No 1{table QD Atorvastat n Calcium n Calcium t} in Calcium 10 MG 10 MG 10 MG Tresiba Tresiba No QD Tresiba FlexTouch FlexTouch FlexTouch 100 UNIT/ML 100 UNIT/ML 100 UNIT/ML Eliquis 5 Eliquis 5 No 1{table BID Eliquis 5 MG MG t} MG FLUoxetine FLUoxetine No 1{capsu QD FLUoxetine HCl 20 MG HCl 20 MG le} HCl 20 MG Ozempic Ozempic No Ozempic (0.25 or (0.25 or (0.25 or 0.5 0.5 0.5 MG/DOSE) 2 MG/DOSE) 2 MG/DOSE) 2 MG/1.5ML MG/1.5ML MG/1.5ML Losartan Losartan No 1{table QD Losartan Potassium Potassium t} Potassium 50 MG 50 MG 50 MG metFORMIN metFORMIN No 1{table BID metFORMIN HCl ER 750 HCl ER 750 t_with_ HCl ER 750 MG MG evening MG _meal} One A Day One A Day No One A Day Mens Mens Mens VitaCraves VitaCraves VitaCraves Eliquis 5 Eliquis 5 No 1{table BID Eliquis 5 MG MG t} MG Losartan Losartan No 1{table QD Losartan Potassium Potassium t} Potassium 50 MG 50 MG 50 MG FLUoxetine FLUoxetine No 1{capsu QD FLUoxetine HCl 20 MG HCl 20 MG le} HCl 20 MG Ozempic Ozempic No Ozempic (0.25 or (0.25 or (0.25 or 0.5 0.5 0.5 MG/DOSE) 2 MG/DOSE) 2 MG/DOSE) 2 MG/1.5ML MG/1.5ML MG/1.5ML Tylenol 8 Tylenol 8 No Tylenol 8 Hour Hour Hour Eliquis 5 Eliquis 5 No Eliquis 5 MG MG MG Atorvastati Atorvastati No 1{table QD Atorvastat n Calcium n Calcium t} in Calcium 10 MG 10 MG 10 MG Metoprolol Metoprolol No 1{table BID Metoprolol Tartrate 25 Tartrate 25 t_with_ Tartrate MG MG food} 25 MG metFORMIN metFORMIN No 1{table BID metFORMIN HCl ER 750 HCl ER 750 t_with_ HCl ER 750 MG MG evening MG _meal} Montelukast Montelukast No 1{table QD Montelukas Sodium 10 Sodium 10 t} t Sodium MG MG 10 MG Tresiba Tresiba No QD Tresiba FlexTouch FlexTouch FlexTouch 100 UNIT/ML 100 UNIT/ML 100 UNIT/ML Tylenol 8 Tylenol 8 No Tylenol 8 Hour Hour Hour One A Day One A Day No One A Day Mens Mens Mens VitaCraves VitaCraves VitaCraves metFORMIN metFORMIN No 1{table BID metFORMIN HCl ER 750 HCl ER 750 t_with_ HCl ER 750 MG MG evening MG _meal} Metoprolol Metoprolol No 1{table BID Metoprolol Tartrate 25 Tartrate 25 t_with_ Tartrate MG MG food} 25 MG Eliquis 5 Eliquis 5 No Eliquis 5 MG MG MG FLUoxetine FLUoxetine No 1{capsu QD FLUoxetine HCl 20 MG HCl 20 MG le} HCl 20 MG Losartan Losartan No 1{table QD Losartan Potassium Potassium t} Potassium 50 MG 50 MG 50 MG Eliquis 5 Eliquis 5 No 1{table BID Eliquis 5 MG MG t} MG Montelukast Montelukast No 1{table QD Montelukas Sodium 10 Sodium 10 t} t Sodium MG MG 10 MG Atorvastati Atorvastati No 1{table QD Atorvastat n Calcium n Calcium t} in Calcium 10 MG 10 MG 10 MG Tresiba Tresiba No QD Tresiba FlexTouch FlexTouch FlexTouch 100 UNIT/ML 100 UNIT/ML 100 UNIT/ML Ozempic Ozempic No Ozempic (0.25 or (0.25 or (0.25 or 0.5 0.5 0.5 MG/DOSE) 2 MG/DOSE) 2 MG/DOSE) 2 MG/1.5ML MG/1.5ML MG/1.5ML Metoprolol Metoprolol No 1{table BID Metoprolol Tartrate 25 Tartrate 25 t_with_ Tartrate MG MG food} 25 MG Eliquis 5 Eliquis 5 No 1{table BID Eliquis 5 MG MG t} MG Losartan Losartan No 1{table QD Losartan Potassium Potassium t} Potassium 50 MG 50 MG 50 MG FLUoxetine FLUoxetine No 1{capsu QD FLUoxetine HCl 20 MG HCl 20 MG le} HCl 20 MG Ozempic Ozempic No Ozempic (0.25 or (0.25 or (0.25 or 0.5 0.5 0.5 MG/DOSE) 2 MG/DOSE) 2 MG/DOSE) 2 MG/1.5ML MG/1.5ML MG/1.5ML Eliquis 5 Eliquis 5 No Eliquis 5 MG MG MG One A Day One A Day No One A Day Mens Mens Mens VitaCraves VitaCraves VitaCraves Atorvastati Atorvastati No 1{table QD Atorvastat n Calcium n Calcium t} in Calcium 10 MG 10 MG 10 MG metFORMIN metFORMIN No 1{table BID metFORMIN HCl ER 750 HCl ER 750 t_with_ HCl ER 750 MG MG evening MG _meal} Tylenol 8 Tylenol 8 No Tylenol 8 Hour Hour Hour Montelukast Montelukast No 1{table QD Montelukas Sodium 10 Sodium 10 t} t Sodium MG MG 10 MG Tresiba Tresiba No QD Tresiba FlexTouch FlexTouch FlexTouch 100 UNIT/ML 100 UNIT/ML 100 UNIT/ML One A Day One A Day No One A Day Mens Mens Mens VitaCraves VitaCraves VitaCraves Eliquis 5 Eliquis 5 No 1{table BID Eliquis 5 MG MG t} MG Losartan Losartan No 1{table QD Losartan Potassium Potassium t} Potassium 50 MG 50 MG 50 MG FLUoxetine FLUoxetine No 1{capsu QD FLUoxetine HCl 20 MG HCl 20 MG le} HCl 20 MG Ozempic Ozempic No Ozempic (0.25 or (0.25 or (0.25 or 0.5 0.5 0.5 MG/DOSE) 2 MG/DOSE) 2 MG/DOSE) 2 MG/1.5ML MG/1.5ML MG/1.5ML Tylenol 8 Tylenol 8 No Tylenol 8 Hour Hour Hour Eliquis 5 Eliquis 5 No Eliquis 5 MG MG MG Atorvastati Atorvastati No 1{table QD Atorvastat n Calcium n Calcium t} in Calcium 10 MG 10 MG 10 MG Metoprolol Metoprolol No 1{table BID Metoprolol Tartrate 25 Tartrate 25 t_with_ Tartrate MG MG food} 25 MG metFORMIN metFORMIN No 1{table BID metFORMIN HCl ER 750 HCl ER 750 t_with_ HCl ER 750 MG MG evening MG _meal} Montelukast Montelukast No 1{table QD Montelukas Sodium 10 Sodium 10 t} t Sodium MG MG 10 MG Tresiba Tresiba No QD Tresiba FlexTouch FlexTouch FlexTouch 100 UNIT/ML 100 UNIT/ML 100 UNIT/ML Losartan Losartan No 1{table QD Losartan Potassium Potassium t} Potassium 50 MG 50 MG 50 MG Immunizations Ordered Immunization Filled Immunization Date Status Commen ts Source Name Name FLUZONE HIGH DOSE FLUZONE HIGH DOSE 2022-05-28 Completed [facility] OVER 65 OVER 65 11:06:00 [facility] FLUZONE HIGH DOSE FLUZONE HIGH DOSE 2022-05-28 Completed [facility] OVER 65 OVER 65 11:06:00 [facility] FLUZONE HIGH DOSE FLUZONE HIGH DOSE 2022-05-28 Completed [facility] OVER 65 OVER 65 11:06:00 - [facility] FluAD FluAD 2021-05-29 Completed [facility] 10:23:00 - [facility] FluAD FluAD 2021-05-29 Completed [facility] 10:23:00 - [facility] FluAD FluAD 2021-05-29 Completed [facility] 10::00 - [facility] FluAD FluAD 2021-05-29 Completed [facility] 10:23:00 - [facility] FluAD FluAD 2021-05-29 Completed [facility] 10::00 - [facility] FluAD FluAD 2021-05-29 Completed [facility] 10::00 - [facility] FluAD FluAD 2021-05-29 Completed [facility] 10:23:00 - [facility] Shingrix Shingrix 2021-03-20 Completed [facility] 11:14:00 - [facility] Shingrix Shingrix 2021-03-20 Completed [facility] 11:14:00 - [facility] Shingrix Shingrix 2021-03-20 Completed [facility] 11:14:00 - [facility] Shingrix Shingrix 2021-03-20 Completed [facility] 11:14:00 - [facility] Shingrix Shingrix 2021-03-20 Completed [facility] 11:14:00 - [facility] Shingrix Shingrix 2021-03-20 Completed [facility] 11:14:00 - [facility] Shingrix Shingrix 2021-03-20 Completed [facility] 11:14:00 [facility] Pneumovax (PPSV23) Pneumovax (PPSV23) 2020-07-01 Completed [facility] 11:14:00 [facility] Adacel (Tdap) Adacel (Tdap) 2020-07-01 Completed [facility] 11:14:00 [facility] Pneumovax (PPSV23) Pneumovax (PPSV23) 2020-07-01 Completed [facility] 11:14:00 [facility] Adacel (Tdap) Adacel (Tdap) 2020-07-01 Completed [facility] 11:14:00 [facility] Pneumovax (PPSV23) Pneumovax (PPSV23) 2020-07-01 Completed [facility] 11:14:00 [facility] Adacel (Tdap) Adacel (Tdap) 2020-07-01 Completed [facility] 11:14:00 [facility] Pneumovax (PPSV23) Pneumovax (PPSV23) 2020-07-01 Completed [facility] 11:14:00 [facility] Adacel (Tdap) Adacel (Tdap) 2020-07-01 Completed [facility] 11:14:00 [facility] Pneumovax (PPSV23) Pneumovax (PPSV23) 2020-07-01 Completed [facility] 11:14:00 [facility] Adacel (Tdap) Adacel (Tdap) 2020-07-01 Completed [facility] 11:14:00 [facility] Pneumovax (PPSV23) Pneumovax (PPSV23) 2020-07-01 Completed [facility] 11:14:00 [facility] Adacel (Tdap) Adacel (Tdap) 2020-07-01 Completed [facility] 11:14:00 [facility] Pneumovax (PPSV23) Pneumovax (PPSV23) 2020-07-01 Completed [facility] 11:14:00 [facility] Adacel (Tdap) Adacel (Tdap) 2020-07-01 Completed [facility] S [facility] 11:14:00 [facility] Prevnar 13 (PCV13) Prevnar 13 (PCV13) 2020-07-01 Completed [facility] 11:13:00 [facility] Prevnar 13 (PCV13) Prevnar 13 (PCV13) 2020-07-01 Completed [facility] 11:13:00 [facility] Prevnar 13 (PCV13) Prevnar 13 (PCV13) 2020-07-01 Completed [facility] 11:13:00 [facility] Prevnar 13 (PCV13) Prevnar 13 (PCV13) 2020-07-01 Completed [facility] 11:13:00 - [facility] Prevnar 13 (PCV13) Prevnar 13 (PCV13) 2020-07-01 Completed [facility] 11:13:00 - [facility] Prevnar 13 (PCV13) Prevnar 13 (PCV13) 2020-07-01 Completed [facility] 11:13:00 - [facility] Prevnar 13 (PCV13) Prevnar 13 (PCV13) 2020-07-01 Completed [facility] 11:13:00 [facility] Vital Signs Vital Name Observation Time Observation Value Comments Source HEIGHT 2019-12-19 00:00:00 180.3 cm WEIGHT 2019-12-19 00:00:00 98.8 kg height 2022-08-27 10:00:00 71 [in_i] [facility] weight 2022-08-27 10:00:00 208 [lb_av] [facility] temperature 2022-08-27 10:00:00 97.9 [degF] [facility] bmi 2022-08-27 10:00:00 29.01 kg/m2 [facility] oximetry 2022-08-27 10:00:00 96 % [facility] respiratory rate 2022-08-27 10:00:00 16 /min Comm on [facility] blood pressure 2022-08-27 10:00:00 137 mm[Hg] Common [facility] - systolic [facility] blood pressure 2022-08-27 10:00:00 70 mm[Hg] [facility] - diastolic [facility] height 2022-08-27 10:20:00 71 [in_i] [facility] weight 2022-08-27 10:20:00 208 [lb_av] [facility] temperature 2022-08-27 10:20:00 97.9 [degF] [facility] bmi 2022-08-27 10:20:00 29.01 kg/m2 [facility] oximetry 2022-08-27 10:20:00 96 % [facility] respiratory rate 2022-08-27 10:20:00 16 /min Comm on [facility] blood pressure 2022-08-27 10:20:00 137 mm[Hg] Common [facility] - systolic [facility] blood pressure 2022-08-27 10:20:00 70 mm[Hg] Common [facility] - diastolic [facility] height 2022-05-28 10:20:00 71 [in_i] Common [facility] weight 2022-05-28 10:20:00 208.0 [lb_av] [facility] temperature 2022-05-28 10:20:00 97.3 [degF] [facility] bmi 2022-05-28 10:20:00 29.01 kg/m2 [facility] oximetry 2022-05-28 10:20:00 99 % [facility] respiratory rate 2022-05-28 10:20:00 18 /min Comm on [facility] blood pressure 2022-05-28 10:20:00 136 mm[Hg] [facility] systolic [facility] blood pressure 2022-05-28 10:20:00 73 mm[Hg] [facility] diastolic [facility] height 2022-02-26 09:50:00 71 [in_i] Common [facility] weight 2022-02-26 09:50:00 208.0 [lb_av] [facility] temperature 2022-02-26 09:50:00 98.9 [degF] [facility] bmi 2022-02-26 09:50:00 29.01 kg/m2 [facility] oximetry 2022-02-26 09:50:00 97 % [facility] respiratory rate 2022-02-26 09:50:00 17 /min Comm on [facility] blood pressure 2022-02-26 09:50:00 132 mm[Hg] Common [facility] - systolic [facility] blood pressure 2022-02-26 09:50:00 65 mm[Hg] Common [facility] - diastolic [facility] height 2021-11-27 10:50:00 71 [in_i] [facility] weight 2021-11-27 10:50:00 208.0 [lb_av] Common [facility] temperature 2021-11-27 10:50:00 97.5 [degF] Common [facility] bmi 2021-11-27 10:50:00 29.01 kg/m2 [facility] oximetry 2021-11-27 10:50:00 99 % [facility] respiratory rate 2021-11-27 10:50:00 18 /min Comm on [facility] blood pressure 2021-11-27 10:50:00 135 mm[Hg] Common [facility] - systolic [facility] blood pressure 2021-11-27 10:50:00 75 mm[Hg] Common [facility] - diastolic [facility] HEIGHT 2019-12-19 00:00:00 180.3 cm WEIGHT 2019-12-19 00:00:00 98.8 kg Procedures This patient has no known procedures. Plan of Care Planned Activity Planned Date Details Comments Source Future Scheduled 2022-08-[address] [facility] Test 00:00:00 (12+) [code = Medical Center DEPRESSION SCREENING (12+)] Future Scheduled 2022-08-02 FALLS RISK SCREENING [facility] Test 00:00:00 [code = FALLS RISK Medical C enter SCREENING] Future Scheduled 2022-04-02 INFLUENZA VACCINE (#1) [facility] 00:00:00 [code = INFLUENZA Medical Ce nter VACCINE (#1)] Future Scheduled 2020-12-[address] [facility] Test 00:00:00 Counseling and Medical Cente r Screening (12+) [code = Tobacco Cessation Counseling and Screening (12+)] Future Scheduled 2020-12-[address] [facility] Test 00:00:00 WELLNESS (YEAR 2 or Medical Center FIRST YEAR if no IPPE) [code = MEDICARE ANNUAL WELLNESS (YEAR 2 or FIRST YEAR if no IPPE)] Future Scheduled 2020-03-[address] [facility] Test 00:00:00 measurement Medical Center (procedure) [code = 67958463] Future Scheduled 1994 SHINGLES VACCINES ([address] [facility] Test 00:00:00 of 2) [code = SHINGLES Medic al Center VACCINES (1 of 2)] Future Scheduled 1963-12-29 DTAP/TDAP/TD VACCINES [facility] Test 00:00:00 (1 - Tdap) [code = Medical C enter DTAP/TDAP/TD VACCINES (1 - Tdap)] Future Scheduled 1962 HEPATITIS C SCREENING [facility] 00:00:00 [code = HEPATITIS C Medical Center SCREENING] Future Scheduled 1954 DIABETIC EYE EXAM [facility] Test 00:00:00 [code = DIABETIC EYE Medical Center EXAM] Future Scheduled [address] [facility] Test 00:00:00 examination Medical Center (regime/therapy) [code = 839253939] Future Scheduled 1954 Urine screening for [facility] Test 00:00:00 protein (procedure) [facility] [code = 544258366] Future Scheduled 1950 PNEUMOCOCCAL 65+ YRS [facility] Test 00:00:00 (1 - PCV) [code = Medical Ce nter PNEUMOCOCCAL 65+ YRS (1 - PCV)] Future Scheduled 1945-06-30 COVID-19 VACCINE (#1) [facility] 00:00:00 [code = COVID-[address] VACCINE (#1)] Encounters Start End Encounter Admission Attending Care Care Encounter Source Date/Time Date/Time Type Type Clinicians Facility Department ID 2022-08-27 [id number] [id number] [facility] 2022-08-25 [facility], [facility] [id number] [facility] 08:47:02 [facility] [address] [facility] 2022-05-26 Outpatient [facility], [facility] [id number] Common 10:50:01 [facility] - [facility] 2021-11-27 Outpatient Marinelli, STL[facility] ST[facility] [id number] Common 10:54:03 [facility] - [facility] 2019-12-19 [facility] [id number] [facility] 04:32:00 [place] 2022-08-27 2022-08-27 OFFICE STLMLC STLMLC [id number] Co mmon 00:00:00 00:00:00 VISIT [facility] ESTAB PT - CHI LEVEL 4 [facility] 2022-08-27 2022-08-27 SUB ANNUAL STLMLC STLMLC [id number] Common 00:00:00 00:00:00 MCR [facility] WELLNESS - [facility] VISIT [facility] 2022-05-28 2022-05-28 OFFICE STLMLC STLMLC [id number] Co mmon 00:00:00 00:00:00 VISIT [facility] ESTAB PT - [facility] LEVEL 4 [facility] 2022-05-01 2022-05-01 (TEL) STLMLC STLMLC [id number] Co mmon 00:00:00 00:00:00 [facility] - [facility] 2022-02-26 2022-02-26 OFFICE STLMLC STLMLC [id number] Co mmon 00:00:00 00:00:00 VISIT [facility] ESTAB PT - [facility] LEVEL 4 [facility] 2021-11-27 2021-11-27 OFFICE STLMLC STLMLC [id number] Co mmon 00:00:00 00:00:00 VISIT Spirit ESTAB PT - CHI LEVEL 4 [facility] 2021-05-22 2021-05-22 Outpatient DMG DMG [id number] Devoted 08:02:00 08:02:00 1021 Medica l Group Results Test Description Test Time Test Comments Results Result [facility] e Comments [place], ANGIOGRAM, 2019-12-29 Reason for FINAL REPORT PATIENT CEREBRAL 15:57:00 exam:->possibl ID: [id number] DATE: e dural AV December 23, 2019 NAME: fistula Johnson Vazquez ATTENDING: Diego Carlin MD BUSBOY: Lilian Lake M.D. 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 5 Zimbabwean long sheath 25 cm2. 4 Zimbabwean Berenstein catheter3. Bentson guidewire4. Terumo 0.035 LT glidewire5. 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 Consent for conscious sedation was also obtained. The risks discussed included but were not limited to stroke, intracranial hemorrhage, injury to the cervical femoral or aortic vessels, contrast reaction, kidney to toxicity, groin hematoma, weakness paralysis and even . They demonstrated understanding of the risk benefit profile and agreed to proceed. PROCEDURE:After appropriate consent was obtained, the patient was brought to the angiographic suite and cardiopulmonary monitoring was placed. The nursing staff performed conscious sedation. A timeout was performed. Both groins were prepped and draped in the usual sterile fashion. After administration of 10 mL of 2% lidocaine, a micropuncture needle was used to perform a single wall puncture of the right common femoral artery, a micropuncture sheath was inserted, and an angled DSA angiogram was performed through the sheath. Once good location of the puncture site was confirmed, a 5 Zimbabwean long sheath was inserted over a Bentson wire and was maintained on heparinized saline flush throughout the remainder of the procedure. Using coaxial technique, a preflushed 5 Zimbabwean Terumo glide catheter on constant heparinized saline flush was advanced over the Glidewire into the descending aorta, the Glidewire was removed, the catheter back bled, flushed in usual fashion and the catheter was maintained on heparinized flushed throughout duration of the case. Using coaxial technique, the catheter was advanced into the aortic arch and with the aid of roadmapping, digital fluoroscopy, and careful guidewire manipulation, the right common carotid, right internal carotid, right external carotid, right subclavian artery, right vertebral artery, left common carotid, left internal carotid, left external carotid artery, left subclavian, left vertebral arteries were selectively catheterized. Upon each successive catheterization, digital subtraction angiography using the appropriate rate and volume of contrast in multiple projections was performed. The catheter was retracted into the aorta and the images reviewed at the outside workstation for quality and content. The femoral sheath was removed and hemostasis achieved with a 5 Zimbabwean Mynx device and manual compression. The patient tolerated the procedure well and was present transported from the images read in unchanged neurological status without groin hematoma and with good distal lower extremity pulses. The patient was transferred to the recovery area to be monitored as per protocol. FINDINGS:RIGHT COMMON FEMORAL ARTERY (DSA, PA)Normal location of the puncture site above the bifurcation and below markers of the inguinal ligament. There is evidence of distal atherosclerotic disease. RIGHT COMMON CAROTID ARTERY (DSA, PA, LATERAL, CERVICAL)The distal cervical common carotid as well as the origins of the right internal and external carotid arteries are widely patent without evidence of ulceration or stenosis. There is tortuosity of the origin of the internal carotid artery RIGHT INTERNAL CAROTID ARTERY (DSA, PA, LATERAL, CRANIAL)Normal distal cervical, petrous, cavernous and supraclinoid internal carotid artery with physiological filling of the MCA and PIOTR branches. There is a spontaneous cross filling across the anterior commuting artery. There is a medium size posterior to indicating artery with filling of the posterior cerebral artery. Capillary phase and venous phase are unremarkable. No aneurysms or other vascular lesions are seen. There is no significant atherosclerosis or stenosis. The venous phase demonstrates patent transverse and sigmoid sinuses. RIGHT EXTERNAL CAROTID ARTERY (DSA, PA, LATERAL CRANIAL x 3)There is a well visualized superficial temporal artery, middle meningeal artery, internal maxillary artery, occipital artery and their branches. There is faintly visualize right occipital artery filling into dilated posterior fossa veins better visualized on the selective occipital artery runs. However, motion degradation limits evaluation. There is no evidence of aneurysm or other vascular malformation. RIGHT OCCIPITAL ARTERY (DSA, PA, lateral cranial x3)The right occipital artery into dilated cortical veins near the foramen magnum as well as several prominent spinal veins consistent with a dural AV fistula. There is also likely drainage into the deep cerebral venous system though motion degradation limits evaluation with clear filling of the anterior and posterior median veins on the spinal cord with retrograde filling into the veins of the cervical spinal canal. The RIGHT SUBCLAVIAN ARTERY (ROADMAP, PA)There is normal course and caliber of the subclavian artery with physiological filling of its distal branches. There is a patent right vertebral artery origin, and visualized origins of the internal mamillary artery, thyrocervical and costocervical trunks. RIGHT VERTEBRAL ARTERY (DSA, PA, LATERAL, CERVICAL)Cervical course of the vertebral artery is extremely tortuous. The vertebral artery is patent without stenotic lesion. RIGHT VERTEBRAL ARTERY (DSA, PA, LATERAL, OBLIQUE, CRANIAL x3)Unremarkable distal cervical and intracranial vertebral artery with physiological filling of the basilar artery and its distal branches. There is normal filling of the ipsilateral PICA, AICAs, SCAs and inpatient pharmacist. There is feeding via a small meningeal branches of the right posterior cerebellar artery to a nidus of dilated cortical veins consistent with arteriovenous shunting. No aneurysms or other vascular lesions are seen. The capillary phase and venous phase are unremarkable. There is no contrast reflux into the contralateral vertebral artery. LEFT COMMON CAROTID ARTERY (DSA, PA, LATERAL, CERVICAL) The distal cervical common carotid as well as the origins of the left internal and external carotid arteries are widely patent without evidence of ulceration or stenosis. LEFT INTERNAL CAROTID ARTERY (DSA, PA, LATERAL)Normal distal cervical, petrous, cavernous and supraclinoid internal carotid artery with physiological filling of the MCA and PIOTR branches. Capillary phase and venous phase are unremarkable. No aneurysms, arteriovenous shunting, or other vascular lesions are seen. There is no significant atherosclerosis or stenosis. The venous phase demonstrates patent transverse sinuses. LEFT EXTERNAL CAROTID ARTERY (DSA, PA, LATERAL, OBLIQUE CRANIAL X3)There is a normal course and caliber of the external carotid artery and its branches. There is a well visualized superficial temporal artery, middle meningeal artery, internal maxillary artery, occipital artery and their branches. There is no evidence of AV fistula, aneurysm or vascular malformations. LEFT VERTEBRAL ARTERY (DSA, PA, LATERAL)Unremarkable distal cervical and intracranial vertebral artery with physiological filling of the basilar artery and its distal branches. There is normal filling of the ipsilateral PICA, AICAs, SCAs and inpatient pharmacist. No aneurysms or other vascular lesions are seen. The capillary phase and venous phase are unremarkable. IMPRESSION1. 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 Signed: Diego Carlin MDReport Verified Date/Time: 12/29/2019 15:57:53 Reading Location: [facility] Y026 Neuro Angio Reading Room -GLUCOSE METER 2019-12-26 12:32:00 Test Item Value Reference Range Interpretation Comme nts POC-GLUCOSE METER ([facility]) 208 mg/dL 70-110 H : TESTED AT [address] (test code = 153) [facility], [address]: Telegrapher Agent/Techni stan ID = [id number] for NOVAK, LURDES POCT-GLUCOSE [id number] 08:30:00 Test Item Value Reference Range Interpretation Comments POC-GLUCOSE METER 127 mg/dL 70-110 H : TESTED A [facility] 6720 ([facility]) (test code = [facility], 1537) [address]: Telegrapher Agent/Techni stan ID = [id number] for HU NT, LURDES POCT-GLUCOSE [id number] 20:41:00 Test Item Value Reference Range Interpretation Comments POC-GLUCOSE METER 222 mg/dL 70-110 H : Notified RN/MD: ([facility]) (test code = TESTED AT [place] [address] 153) [facility], [address]: Telegrapher Agent/Techni stan ID = [id number] for DO VE, CHEKARA POCT-GLUCOSE [id number] 17:46:00 Test Item Value Reference Range Interpretation Comments POC-GLUCOSE METER 96 mg/dL 70-110 : [facility] ([facility]) (test code = [facility], 1537) [address]: Telegrapher Agent/Techni stan ID = [id number] for Suzette North POCT-GLUCOSE [id number] 12:07:00 Test Item Value Reference Range Interpretation Comments POC-GLUCOSE METER 185 mg/dL 70-110 H : TESTED A T [facility] 6720 ([facility]) (test code = [facility], 153) [address]: Telegrapher Agent/Techni stan ID = [id number] for AK INSONU, ALO POCT-GLUCOSE [id number] 08:19:00 Test Item Value Reference Range Interpretation Comments POC-GLUCOSE METER 125 mg/dL 70-110 H : TESTED A T [facility] 6720 ([facility]) (test code = [facility], 153) [address]: Telegrapher Agent/Techni stan ID = [id number] for AK INSONU, ALO POCT-GLUCOSE [id number] 21:04:00 Test Item Value Reference Range Interpretation Comments POC-GLUCOSE METER 164 mg/dL 70-110 H : Notified RN/MD: ([facility]) (test code = [facility] 1538) [facility], [address]: Telegrapher Agent/Techni stan ID = [id number] for LATHBRIDGE, MARCIA ICE POCT-GLUCOSE [id number] 18:59:00 Test Item Value Reference Range Interpretation Comments POC-GLUCOSE METER 219 mg/dL 70-110 H : [facility] ([facility]) (test code = [facility], 153) [address]: Telegrapher Agent/Techni stan ID = [id number] for Sm ith, Jayda POCT-GLUCOSE [id number] 08:12:00 Test Item Value Reference Range Interpretation Comments POC-GLUCOSE METER 148 mg/dL 70-110 H : TESTED A T [facility] 6720 ([facility]) (test code = [facility], 153) [address]: Telegrapher Agent/Techni stan ID = [id number] for Sm ith, Jayda POCT-GLUCOSE [id number] 21:31:00 Test Item Value Reference Range Interpretation Comments POC-GLUCOSE METER 223 mg/dL 70-110 H : TESTED A T [facility] 6720 ([facility]) (test code = [facility], 153) [address]: Telegrapher Agent/Techni stan ID = [id number] for LO PEZ, NADINA POCT-GLUCOSE [id number] 18:26:00 Test Item Value Reference Range Interpretation Comments POC-GLUCOSE METER 177 mg/dL 70-110 H : TESTED A T [facility] 6720 (BEAKER) (test code = [facility], 1538) [address]: Telegrapher Agent/Techni stan ID = [id number] for Sm ith, Jayda POCT-GLUCOSE [id number] 11:40:00 Test Item Value Reference Range Interpretation Comments POC-GLUCOSE METER 167 mg/dL 70-110 H : TESTED A T [facility] 6720 (BEAKER) (test code = [facility], 1538) [address]: Telegrapher Agent/Techni stan ID = [id number] for Sm ith, Jayda POCT-GLUCOSE [id number] 09:31:00 Test Item Value Reference Range Interpretation Comments POC-GLUCOSE METER 145 mg/dL 70-110 H : TESTED A T [facility] 6720 (BEAKER) (test code = [facility], 1538) [address]: Telegrapher Agent/Techni stan ID = [id number] for Sm ith, Jayda POCT-GLUCOSE [id number] 21:47:00 Test Item Value Reference Range Interpretation Comments POC-GLUCOSE METER 236 mg/dL 70-110 H : TESTED A T [facility] 6720 (BEAKER) (test code = [facility], 1538) [address]: Telegrapher Agent/Techni stan ID = [id number] for LO PEDonita, NADINA POCT-GLUCOSE [id number] 17:44:00 Test Item Value Reference Range Interpretation Comments POC-GLUCOSE METER 213 mg/dL 70-110 H : TESTED A T [facility] 6720 (BEAKER) (test code = [facility], 1538) [address]: Telegrapher Agent/Techni stan ID = [id number] for NW AJIAKU, JEFFREY RAD, CHEST, 1 VIEW, NON [id number] 14:05:00Reason for exam:- >PreoperativeShould this be performed at the bedside?->YesFINAL REPORT INDICATION: Preoperative COMPARISON: None TECHNIQUE: Single frontal view of the chest. FINDINGS: Lungs and pleura: Clear lungs. No effusion.Heart and mediastinum: Normal heart size. Unremarkable mediastinal contours.Osseous structures: No acute abnormality.Other: None. IMPRESSION: No acute intrathoracic abnormality. Signed: Chelo Riggins MDReport Verified Date/Time: 12/22/2019 14:05:17 Reading Location: [facility] Radiology Reading Room POCT-GLUCOSE [id number] 13:19:00 Test Item Value Reference Range Interpretation Comments POC-GLUCOSE METER 251 mg/dL 70-110 H : TESTED A T [facility] 6720 (BEAKER) (test code = [place] [place], 1538) [address]: Telegrapher Agent/Techni stan ID = [id number] for NW JEFFREY ODELL PROTHROMBIN TIME/[id number] 13:12:00 Test Item Value Reference Range Interpretation Comments PROTIME (BEAKER) (test code = 13.4 seconds 11.9-14.2 759) INR (BEAKER) (test code = 370) 1.1 <=5.9 Effective 2018: PT Reference Range ChangeNew: 11.9-14.2 Previous: 11.7- 14.7RECOMMENDED COUMADIN/WARFARIN INR THERAPY RANGESSTANDARD DOSE: 2.0-3.0 Includes: PROPHYLAXIS for venous thrombosis, systemic embolization; TREATMENT for venous thrombosis and/or pulmonary embolus.HIGH RISK: Target INR is 2.5-3.5 for patients wiht mechanical heart valves.[id number] 13:12:00 Test Item Value Reference Range Interpretation Comments PARTIAL THROMBOPLASTIN TIME 28.5 seconds 22.5-36.0 (BEAKER) (test code = 760) SARS-COV2/RT-PCR ([facility])2019-12-22 11:26:00 Test Item Value Reference Range Interpretation Comments SARS-COV2/RT-PCR (test Not Detected Not Detected, Negative code = 9781726) SARS-COV-2 PERFORMING LAB [facility] (test code = 6504821) Negative results do not preclude SARS-CoV-2 infection [...] of the Act.Fact Sheet for Healthcare Pro viders:https://www.[employer]ag[employer]/Documents/Xpert%20Xpress%20SARS%20CoV-2/Fact%20Sh eets/302-3802%00MEBC-UPG-5%20HEALTHCARE%20PROVIDERS%20FACT%20SHEET.pdfFact Sheet for Healthcare Patients:https://www.[employer]/Documents/Xpert%20Xpress%20SARS%20CoV-2/Fact%20Sheets/302-3801%20SARS-COV -2%20PATIENT%20FACT%20SHEET.pdfPerforming Laboratory:[address], [place] [address]HBKT-UKENOGW [id number] 08:16:00 Test Item Value Reference Range Interpretation Comments POC-GLUCOSE METER 182 mg/dL 70-110 H : TESTED A T [place] [address] ([facility]) (test code = [facility], 153) [address]: Telegrapher Agent/Techni stan ID = [id number] for VESNA TARACHRISTOPHER SCHWARZ POCT-GLUCOSE [id number] 21:18:00 Test Item Value Reference Range Interpretation Comments POC-GLUCOSE METER 229 mg/dL 70-110 H : Notified RN/MD: ([facility]) (test code = TESTED AT [place] [id number] 1538) [facility], [address]: Telegrapher Agent/Techni stan ID = [id number] for MALCOM HAMPTON POCT-GLUCOSE [id number] 17:37:00 Test Item Value Reference Range Interpretation Comments POC-GLUCOSE METER 211 mg/dL 70-110 H : TESTED A Rebecca [facility] 6720 ([facility]) (test code = [facility] [place], 1538) [address]: Telegrapher Agent/Techni stan ID = [id number] for CHRISTOPHER VALENTINO CT, CAROTID, [id number] 15:31:00FINAL REPORT CLINICAL HISTORY: Arteriovenous fistula, acquired TECHNIQUE: Initially, noncontrast head CT images were performed. Contiguous contrast-enhanced axial images through the neck followed by axial images through the head with coronal and sagittal reformations to assess thearterial circulation. 3-D reconstructions were performed using a volume rendered technique separately on a workstation. This exam was performed according to the departmental dose optimization program which includes automated exposure control, adjustment of the mA and/or kV according to the patient size, and/or use of an iterative reconstruction technique. Stenosis evaluation reported in compliance with NASCET criteria. COMPARISON: MRI and MRA 12/20/2019 FINDINGS: CTA head:Evolving acute infarct in the right posterior limb internal capsule. No acute intracranial hemorrhage. Scattered foci of hypoatten uation within the periventricular and subcortical white matter are a nonspecific finding commonly attributed to chronic small vessel ischemic disease. There is no hydrocephalus or midline shift. The skull is intact. There is no evidence of intracranial aneurysm. No major branch vessel occlusion or high-grade focal stenosis. Atherosclerosis of the bilateral cavernous and paraclinoid ICA's. Numerous serpentine vessels encircling the cervicomedullary junction without definite nidus, suggestive of arteriovenous fistula. The major intradural venous sinuses are patent. CTA neck:Great vessel origins: No occlusion or high-grade stenosis. Carotid arteries: No occlusion or high-grade stenosis. Vertebral nicolas juventino: No occlusion or high-grade stenosis. No fracture or suspicious osseous lesion. Cervical soft tissues are unremarkable. Visualized lung apices are clear. IMPRESSION:Numerous enlarged serpentine vessels encircling the cervicomedullary junction, more extensive than previously demonstrated on MRA, without definite nidus, again suggestive of AV fistula. Signed: Shannan Garg Verified Date/Time: 12/21/2019 15:31:23 CT, CTANGIO [id number] 15:31:00 FINAL REPORT CLINICAL HISTORY: Arteriovenous fistula, acquired [...] iterative reconstruction technique. Stenosis evaluation reported in compliance with NASCET criteria. COMPARISON: MRI and MRA 12/20/2019 FINDINGS: CTA head:Evolving acute infarct in the right posterior limb internal capsule. No acute intracranial hemorrhage. Scattered foci of hypoattenuation within the periventricular and subcortical white matter are a nonspecific finding commonly attributed to chronic small vessel ischemic disease. There is no hydrocephalus or midline shift. The skull is intact. There is no evidence of intracranial aneurysm. No major branch vessel occlusion or high-grade focal stenosis. Atherosclerosis of the bilateral cavernous and paraclinoid ICA's. Numerous ser pentine vessels encircling the cervicomedullary junction without definite nidus, suggestive of arteriovenous fistula. The major intradural venous sinuses are patent. CTA neck:Great vessel origins: No occlusion or high-grade stenosis. Carotid arteries: No [...] Shannan Garg Verified Date/Time: 12/21/2019 15:31:23 POCT-GLUCOSE [id number] 14:47:00 Test Item Value Reference Range Interpretation Comments POC-GLUCOSE METER 202 mg/dL 70-110 H : TESTED A T [facility] 6720 ([facility] (test code = [facility] [place], 1538) [address]: Telegrapher Agent/Techni stan ID = [id number] for RO CHRISTOPHER WEINBERG POCT-GLUCOSE [id number] 21:03:00 Test Item Value Reference Range Interpretation Comments POC-GLUCOSE METER 289 mg/dL 70-110 H : Notified RN/MD: ([facility]) (test code = TESTED AT [facility] 6720 1538) [facility], [address]: Telegrapher Agent/Techni stan ID = [id number] for MALCOM HAMPTON POCT-GLUCOSE [id number] 18:13:00 Test Item Value Reference Range Interpretation Comments POC-GLUCOSE METER 214 mg/dL 70-110 H : TESTED A T [facility] 67 ([facility]) (test [facility] = [facility], 1538) [address]: Telegrapher Agent/Techni stan ID = [id number] for FIDEL CARRANZA POCT-GLUCOSE [id number] 11:33:00 Test Item Value Reference Range Interpretation Comments POC-GLUCOSE METER 247 mg/dL 70-110 H : Notified RN/MD: ([facility]) (test code = TESTED AT [place] [address] 1538) [facility], [address]: Telegrapher Agent/Techni stan ID = [id number] for St l[place], Jenny MR, MRA, BRAIN, WITHOUT [id number] 04:05:00Reason for exam:->Ischemic Stroke EvaluationFINAL REPORT MRI Brain without contrast Clinical History: Ischemic Stroke AVM OR AVF Technique: MRI of the brain utilizing axial T2, FLAIR, GRE, DWI; sagittal and coronal T1-weighted images. MRA of the head utilizing 3-D vrxf-vi-axnkhn technique, with 3-D reconstructions. MRA of the neck utilizing 2-D and 3-D whjh-cw-ndufwm technique, with 3-D reconstructions. Comparisons: None Findings:MRI brainRestricted diffusion of the right internal capsule consistent with acute infarction.Sequela of prior parenchymal hematoma in the right posterior putamen. Multiple bilateral T2 and FLAIR hyperintense white matter foci likely represent chronic white matter microvascular disease. Pontinegliosis. There is no hydrocephalus or midline shift. There are no extra-axial fluid collections. Thecraniocervical junction is preserved. The major intracranial flow-voids appear patent. MRA head: There is no evidence of intracranial aneurysm, focal stenosis, or major branch vessel occlusion. Multiple prominent abnormal vessels at the cervical medullary junction adjacent to the sigmoid sinus and along the pial surface of the medulla which demonstrate arterialized flow on MRA is concerning for arteri ovenous fistula. Expected T2 flow voids are seen within the dural venous sinuses. No aneurysmal dilatation of the involved vessels. MRA neck: The carotid arteries in the neck are patent including theirbifurcations. There is antegrade flow in the vertebral arteries in the neck. IMPRESSION:MRI brain: Acute infarction in the right internal capsule. 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 MRA head: No evidence for a major [place] of [place] proximal branch vessel occlusion. Multiple [...] with dedicated catheter angiography. MRA neck: No evidenceof hemodynamically significant stenosis in the cervical carotid or vertebral arteries by NASCET criteria. Signed: Roxanna Diggs [facility] Verified Date/Time: 12/20/2019 04:05:18 MR, MRA, NECK, WITHOUT IV [id number] 04:05:00Reason for exam:->Ischemic Stroke EvaluationFINAL REPORT MRI Brain without contrast Clinical History: Ischemic Stroke AVM OR AVF Technique: MRI of the brain utilizing axial T2, FLAIR, GRE, DWI; sagittal and coronal T1-weighted images. MRA of the head utilizing 3-D fnwo-ga-pnjeig technique, with 3-D reconstructions. MRA of the neck utilizing 2-D and 3-D jzax-rh-epqdkc technique, with 3-D reconstructions. Comparisons: None Fi ndings:MRI brainRestricted diffusion of the right internal capsule consistent with acute infarction.Sequela of prior parenchymal hematoma in the right posterior putamen. Multiple bilateral T2 and FLAIR hyperintense white matter foci likely represent chronic white matter microvascular disease. Pontine gliosis. There is no hydrocephalus or midline shift. There are no extra-axial fluid collections. Thecraniocervical junction is preserved. The major intracranial flow-voids appear patent. MRA head: There is no evidence of intracranial aneurysm, focal [...] carotid arteries in the neck are patent including theirbifurcations. There is antegrade flow in the vertebral arteries in the neck. IMPRESSION:MRI brain: Acute infarction in the right internal capsule. 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 MRA head: No evidence for a major mashpee of [place] proximal branch vessel occlusion. Multiple prominent vessels at the cervical medullary junction adjacent to the sigmoid sinus and along the pial surface of the medulla concerning for arteriovenous fistula. No associated signal abnormality in the adjacent parenchyma. Expected T2 flow voids are seen within the dural venous sinuses. No aneurysmal dilatation of the invol jigna vessels. Recommend further evaluation with dedicated catheter angiography. MRA neck: No evidence of hemodynamically significant stenosis in the cervical carotid or vertebral arteries by NASCET criteria. Signed: Roxanna Diggs [facility] Verified Date/Time: 12/20/2019 04:05:18 MR, BRAIN, WITHOUT CONTRAST 2019-12-20 04:05:00FINAL REPORT MRI Brain without contrast Clinical History: Ischemic Stroke AVM OR AVF Technique: MRI of the brain utilizing axial T2, FLAIR, GRE, DWI; sagittal and coronal T1-weighted images. MRA of the head utilizing 3-D lbwc-zk-wscqhj technique, with 3-D reconstructions. MRA of the neck utilizing 2-D and 3-D phcs-qr-yufrfo technique, with 3-D reconstructions. Comparisons: None Findings:MRI brainRestricted diffusion of the right internal capsule consistent with acute infarction.Sequela of prior parenchymal hematoma in the right posterior putamen. Multiple bilateral T2 and FLAIR hyperintense white matter foci likely represent chronic white matter microvascular disease. Pontinegliosis. There is no hydrocephalus or midline shift. There are no extra-axial fluid collections. Thecraniocervical junction is preserved. The major intracranial flow-voids appear patent. MRA head: There is no evidence of intracranial aneurysm, focal stenosis, or major branch vessel occlusion. Multiple prominent abnormal vessels at the cervical medullary junction adjacent to the sigmoid sinus and along the pial surface of the medulla which demonstrate arterialized flow on MRA is concerning for arteri ovenous fistula. Expected T2 flow voids are seen within the dural venous sinuses. No aneurysmal dilatation of the involved vessels. MRA neck: The carotid arteries in the neck are patent including theirbifurcations. There is antegrade flow in the vertebral arteries in the neck. IMPRESSION:MRI brain: Acute infarction in the right internal capsule. 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 MRA head: No evidence for a major mashpee of [place] proximal branch vessel occlusion. Multiple [...] with dedicated catheter angiography. MRA neck: No evidenceof hemodynamically significant stenosis in the cervical carotid or vertebral arteries by NASCET criteria. Signed: Roxanna Diggs [facility] Verified Date/Time: 12/20/2019 04:05:18 BASIC METABOLIC [id number] 03:44:00 Test Item Value Reference Range Interpretation [...] S NOT APPLICABLE FOR DIALYSIS PATIEN TS. Telegrapher Agent ID - REJI MCBC W/PLT COUNT & AUTO [id number] 03:22:00 Test Item Value Reference Range Interpretation [...] 0-1 PERCENT (BEAKER) (test code = 2801) [id number] 14:06:00 Test Item Value Reference Range Interpretation Comments POTASSIUM (BEAKER) (test code = 4.0 meq/L 3.5-5.1 379) Telegrapher Agent ID Jamin ARAMBULA [id number] 14:06:00 Test Item Value Reference Range Interpretation Comments MAGNESIUM (BEAKER) (test code = 2.0 mg/dL 1.6-2.6 627) Telegrapher Agent ID Jamin ARAMBULA FVITAMIN [id number] 11:43:00 Test Item Value Reference Range Interpretation Comments VITAMIN B12 (BEAKER) (test code = 389 pg/mL 213-816 774) Telegrapher Agent ID Jamin ARAMBULA FTSH/FREE T4 IF [id number] 11:43:00 Test Item Value Reference Range Interpretation Comments THYROID STIMULATING HORMONE 0.656 uIU/mL 0.350-4.940 (BEAKER) (test code = 772) Telegrapher Agent ID Jamin ARAMBULA FHEMOGLOBIN [id number] 10:02:00 Test Item Value Reference Range Interpretation Comments HEMOGLOBIN A1C (BEAKER) (test code = 11.6 % 4.3-6.1 H 368) TROPONIN [id number] 08:13:00 Test Item Value Reference Range Interpretation [...] failure, acidosis, acute neurological disease, and persistent tachyarrhythmia.Telegrapher Agent ID Jamin ARAMBULA FMAGNESIUM 2019-12-19 08:05:00 Test Item Value Reference Range Interpretation Comments MAGNESIUM (BEAKER) (test code = 1.6 mg/dL 1.6-2.6 627) Telegrapher Agent ID Jamin ARAMBULA [id number] 08:05:00 Test Item Value Reference Range Interpretation Comments PHOSPHORUS (BEAKER) (test code = 3.6 mg/dL 2.3-4.7 604) Telegrapher Agent ID Jamin ARAMBULA FLIPID [id number] 06:58:00 Test Item Value Reference Range Interpretation Comments TRIGLYCERIDES (BEAKER) (test code = 91 mg/dL 540) CHOLESTEROL (BEAKER) (test code = 151 mg/dL 631) HDL CHOLESTEROL (BEAKER) (test code 47 mg/dL = 976) LDL CHOLESTEROL CALCULATED (BEAKER) 86 mg/dL (test code = 633) Triglyceride Reference Range: Low Risk <150 Borderline 150-199 High Risk 200- 499 Very High Risk >=500Cholesterol Reference Range: Low Risk <200 Borderline 200-239 High Risk >240HDL Cholesterol Reference Range: Low Risk >=60 High Risk <40LDL Cholesterol Reference Range: Optimal <100 Near Optimal 100-129 Borderline 130-159 High 160-189 Very High >=190 Telegrapher Agent ID - KATRINALOLIS LBASIC METABOLIC [id number] 06:58:00 Test Item Value Reference Range Interpretation [...] S NOT APPLICABLE FOR DIALYSIS PATIEN TS. Telegrapher Agent ID - JACKI LCBC W/PLT COUNT & AUTO [id number] 06:32:00 Test Item Value Reference Range Interpretation [...] 417) IMMATURE GRANULOCYTES-RELATIVE 0 % 0-1 PERCENT (DELORES) (test code = 2801)
--- NOTE | 2022-09-13 17:15 | RAD REPORT ---
EXAM DESCRIPTION: CT - Head C Spine Cap Wo Con - 09/13/2022 5:01 pm CLINICAL HISTORY: Trauma, head and neck injury. Chest, abdomen and pelvis pain. Weakness COMPARISON: No comparisons TECHNIQUE: CT head without contrast. CT cervical spine without contrast with coronal and sagittal reformatted images. CT chest, abdomen and pelvis without contrast with coronal and sagittal reformatted images of the [facility]. All CT scans are performed using dose optimization technique as appropriate and may include automated exposure control or mA/KV adjustment according to patient size. FINDINGS: CT HEAD WITHOUT CONTRAST: Mild subarachnoid hemorrhage is present in the posterior left sylvian fissure. Mild subarachnoid hemo rrhage seen inter pedicular cistern and left prepontine cistern. Mild of acute hemorrhage seen both o ccipital horns and the fourth ventricle. Mild hydrocephalus likely present. No midline shift. The paranasal sinuses and mastoids are clear. The calvarium is intact. CT CERVICAL SPINE WITHOUT CONTRAST: No fracture or subluxation. Mild cervical degenerative changes. The prevertebral soft tissues are nor mal in thickness. CT CHEST, ABDOMEN, PELVIS WITHOUT CONTRAST: NOTE: Lack of contrast is a significant limitation in the assessment of trauma related findings. Spec ifically, solid organ, vascular and bowel evaluation is significantly limited. Mild linear atelectasis is present in both lung bases. The lungs are otherwise clear.No pneumothorax or pericardial/pleural fluid. No evidence of intra-abdominal visceral injury, free fluid or free air is seen within the above detai led limitations. No concerning pelvic findings. Moderate lumbar degenerative changes. IMPRESSION: Acute subarachnoid hemorrhage and intraventricular hemorrhage as detailed above. No midl ine shift. Mild hydrocephalus likely present. Findings discussed with Dr. Jean in the ER on 09/13/22 at 5:10 pm.
--- NOTE | 2022-09-13 17:19 | RAD REPORT ---
EXAM DESCRIPTION: RAD - Chest Single View - 09/13/2022 5:04 pm CLINICAL HISTORY: COUGH Chest pain. COMPARISON: Chest Single View dated 12/19/2019; Chest Pa And Lat (2 Views) dated 01/26/2019; Chest Pa And Lat (2 Views) dated 10/04/2017 FINDINGS: Portable technique limits examination quality. Mild atelectasis is seen in both lung bases, greater on the right. The lungs are otherwise grossly cl ear. The heart is normal in size. No displaced fractures.
[2022-09-13] MEDS ORDERED: LEVETIRACETAM 500 MG/5 ML VIAL IV ONE (17:29)
[2022-09-13] MEDS ORDERED: NA CHLORIDE 0.9% 100 ML ONE (17:30)
[2022-09-13] MEDS ORDERED: CEFTRIAXONE 1000 MG/VIAL ONE (17:30)
[2022-09-13] MEDS ORDERED: NA CHLORIDE 0.9% 1,000 ML ONE (17:30)
[2022-09-13] MEDS ORDERED: NA CHLORIDE 0.9% 50 ML ONE (17:30)
[2022-09-13] MEDS ORDERED: FOLIC ACID 5 MG/ML VIAL ONE (17:33)
--- NOTE | 2022-09-13 17:36 | ER ---
Nurse's Notes [facility] Name: Kwame Chanel Jr Age: 76 yrs Sex: Male : 1945 Arrival Date: 09/13/2022 Time: 16:15 Bed 7 Private MD: Diagnosis: Nontraumatic subarachnoid hemorrhage, unspecified;Headache;Vomiting;Essential (primary) hypertension Presentation: 09/13 16:16 Chief complaint: EMS states: patient picked up from home confused with frequent db urination. Patient following commands not talking. Sits in a wheelchair. Coronavirus screen: At this time, unable to obtain information related to travel outside the [place] Ebola Screen: Patient negative for fever greater than or equal to 101.5 degrees Fahrenheit, and additional compatible Ebola Virus Disease symptoms Patient denies exposure to infectious person. Patient denies travel to an Ebola-affected area in the 21 days before illness onset. No symptoms or risks identified at this time. Initial Sepsis Screen: Does the patient meet any 2 criteria? No. Patient's initial sepsis screen is negative. Does the patient have a suspected source of infection? No. Patient's initial sepsis screen is negative. Risk Assessment: Do you want to hurt yourself or someone else? Patient reports no desire to harm self or others. Onset of symptoms was September 13, 2022. 16:16 Method Of Arrival: EMS db 16:16 Acuity: ELOISA 2 db Triage Assessment: 16:17 General: Appears in no apparent distress. comfortable, Behavior is calm, cooperative, db sleepy. Neuro: Level of Consciousness is awake, alert, confused. Historical: - PMHx: 16:17 Diabetes - NIDDM; Hyperlipidemia; Hypertension; db - Immunization history:: Adult Immunizations unknown. - Social history:: Smoking status: unknown. Screenin:30 [facility] ED Fall Risk Assessment (Adult) History of falling in the last 3 months, ph including since admission No falls in past 3 months (0 pts) Confusion or Disorientation No (0 pts) Intoxicated or Sedated No (0 pts) Impaired Gait Yes (1 pt) Mobility Assist Device Used Yes (1 pt) Altered Elimination Yes (1 pt) Score/Fall Risk Level 3 or more points = High Risk Oriented to surroundings, Maintained a safe environment, Hourly rounding (assess needs \T\ fall precautionary measures) done. Abuse screen: Denies threats or abuse. Denies injuries from another. Nutritional screening: No deficits noted. Tuberculosis screening: No symptoms or risk factors identified. Assessment: 17:30 General: Appears in no apparent distress. Behavior is calm, cooperative, drowsy, quiet. ph Pain: Complains of pain in headache. Neuro: Level of Consciousness is awake, obeys commands, Oriented to person, place, situation, [employer] Estimator are equal bilaterally Reports headache. Cardiovascular: Capillary refill < 3 seconds in bilateral fingers Patient's skin is warm and dry. Respiratory: Airway is patent Respiratory effort is even, unlabored, Respiratory pattern is regular, agonal. GI: Reports nausea, vomiting. Derm: Skin is normal. Musculoskeletal: Circulation, motion, and sensation intact. 17:50 Reassessment: Report called to Ange DARDEN, at [facility] neuro ICU. ph 17:55 Reassessment: [facility] [employer] at bedside. ph Vital Signs: 16:16 BP 187 / 88; Pulse 16; Resp 64; Temp 99(O); Pulse Ox 98% ; db 17:39 BP 188 / 98; Pulse 69; Resp 18; Pulse Ox 100% on R/A; Weight 90.72 kg; ph [place] Coma Score: 17:32 Eye Response: spontaneous(4). Verbal Response: oriented(5). Motor Response: obeys ashok commands(6). Total: 15. 17:42 Eye Response: to voice(3). Verbal Response: oriented(5). Motor Response: obeys ph commands(6). Total: 14. ED Course: 16:15 Patient arrived in ED. db 16:17 Triage completed. db 16:18 Arm band placed on Patient placed in an exam room. db 16:19 Maintain EMS IV. Gauge \T\ site: 20G Right AC. db 16:36 Pedro Jean MD is Attending Physician. ashok 16:50 Nereida Hurtado RN is Primary Nurse. ph 17:15 Client placed on continuous cardiac and pulse oximetry monitoring. NIBP monitoring ph applied. 17:[address] Jean with the [facility]. eb 17:21 connected the neurologist personal lines advisor for [facility] with Dr. Jean for patient eb transfer consultation. 17:30 Patient has correct armband on for positive identification. Bed in low position. Call ph light in reach. Side rails up X2. 17:34 administrative approval given by Kavon Hassan Rn/ patient has been accepted to [facility] [address] [address] Bed 18/ Dr. Chaves has accepted the patient in transfer in transfer/ report to be called to [phone]. 18:35 No provider procedures requiring assistance completed. Patient transferred, IV remains ph in place. Administered Medications: 17:40 Drug: NS 0.9% 1000 ml Route: IV; Rate: 1 bolus; Site: right antecubital; ph 18:00 Follow up: Response: No adverse reaction; IV Status: Infusion continued upon transfer ph 17:40 Drug: foLIC Acid 1 mg Route: IVPB; Site: right antecubital; ph 18:00 Follow up: Response: No adverse reaction; IV Status: Completed infusion ph 17:40 Drug: Keppra (levETIRAcetam) 1000 mg Route: IV; Rate: per protocol; Site: right ph antecubital; 18:00 Follow up: Response: No adverse reaction; IV Status: Completed infusion; IV Intake: ph 100ml 18:02 Drug: niCARdipine 5 mg/hr Route: IV; Rate: per protocol; Site: right antecubital; ph 18:05 Follow up: Response: No adverse reaction; IV Status: Infusion continued upon transfer ph 18:18 Not Given (unavailablee): Kcentra 500 unit 25 units/kg IV at per protocol once; not to ph exceed 2,500 units initiate at 0.12 mL/kg/min (or 3 units/kg/min) not to exceed 8.4 mL/min (or 210 units/min) 18:19 Not Given (Other Intervention Used): Rocephin (cefTRIAXone) 1 grams IV at per protocol ph once; Given slow IV push per pharmacy instructions Medication: 17:30 VIS not applicable for this client. ph Intake: 18:00 IV: 100ml; Total: 100ml. ph Outcome: 17:36 ER care complete, transfer ordered by . ashok 18:37 Patient left the ED. 18:37 Transferred by helicopter to [facility], Transfer form completed. ph X-rays sent w/ patient. 18:37 Condition: stable 18:37 Instructed on the need for transfer. Signatures: Pedro Jean MD MD cha Hall, Patricia, RN RN Karla Méndez Danielle RN RN db
--- NOTE | 2022-09-13 17:36 | EDPHYS ---
Physician Documentation [facility] Name: Kwame Chanel Jr Age: 76 yrs Sex: Male : 1945 Arrival Date: 09/13/2022 Time: 16:15 Bed 7 Private MD: ED Physician Pedro eJan HPI: 09/13 17:17 This 76 yrs old Black Male presents to ER via EMS with complaints of Altered Mental ashok Status. 17:17 The patient presents with confusion, decreased mental status, decreased responsiveness. ashok Onset: The symptoms/episode began/occurred 4 day(s) ago. Possible causes: CVA or TIA, head injury, seizure, unknown. Associated signs and symptoms: Pertinent positives: confusion. Current symptoms: In the emergency department the patient's symptoms are unchanged from the initial presentation. Patient's baseline: Neuro: alert and fully oriented, alert but confused, Motor: no deficits. The patient has not experienced similar symptoms in the past. Historical: - PMHx: 16:17 Diabetes - NIDDM; Hyperlipidemia; Hypertension; db - Immunization history:: Adult Immunizations unknown. - Social history:: Smoking status: unknown. ROS: 17:24 Constitutional: Negative for fever, chills, and weight loss, Eyes: Negative for injury, ashok pain, redness, and discharge, ENT: Negative for injury, pain, and discharge, Neck: Negative for injury, pain, and swelling, Cardiovascular: Negative for chest pain, palpitations, and edema, Respiratory: Negative for shortness of breath, cough, wheezing, and pleuritic chest pain, Abdomen/GI: Negative for abdominal pain, nausea, vomiting, diarrhea, and constipation, Back: Negative for injury and pain, : Negative for injury, bleeding, discharge, and swelling, MS/Extremity: Negative for injury and deformity, Skin: Negative for injury, rash, and discoloration, Psych: Negative for depression, anxiety, suicide ideation, homicidal ideation, and hallucinations, Allergy/Immunology: Negative for hives, rash, and allergies, Endocrine: Negative for neck swelling, polydipsia, polyuria, polyphagia, and marked weight changes, Hematologic/Lymphatic: Negative for swollen nodes, abnormal bleeding, and unusual bruising. 17:24 Neuro: Positive for headache, weakness. Exam: 17:24 Constitutional: This is a well developed, well nourished patient who is awake, alert, ashok and in no acute distress. Head/Face: Normocephalic, atraumatic. Eyes: Pupils equal round and reactive to light, extra-ocular motions intact. Lids and lashes normal. Conjunctiva and sclera are non-icteric and not injected. Cornea within normal limits. Periorbital areas with no swelling, redness, or edema. ENT: Nares patent. No nasal discharge, no septal abnormalities noted. Tympanic membranes are normal and external auditory canals are clear. Oropharynx with no redness, swelling, or masses, exudates, or evidence of obstruction, uvula midline. Mucous membranes moist. Neck: Trachea midline, no thyromegaly or masses palpated, and no cervical lymphadenopathy. Supple, full range of motion without nuchal rigidity, or vertebral point tenderness. No Meningismus. Chest/axilla: Normal chest wall appearance and motion. Nontender with no deformity. No lesions are appreciated. Cardiovascular: Regular rate and rhythm with a normal S1 and S2. No gallops, murmurs, or rubs. Normal PMI, no JVD. No pulse deficits. Respiratory: Lungs have equal breath sounds bilaterally, clear to auscultation and percussion. No rales, rhonchi or wheezes noted. No increased work of breathing, no retractions or nasal flaring. Abdomen/GI: Soft, non-tender, with normal bowel sounds. No distension or tympany. No guarding or rebound. No evidence of tenderness throughout. Back: No spinal tenderness. No costovertebral tenderness. Full range of motion. Skin: Warm, dry with normal turgor. Normal color with no rashes, no lesions, and no evidence of cellulitis. MS/ Extremity: Pulses equal, no cyanosis. Neurovascular intact. Full, normal range of motion. Psych: Awake, alert, with orientation to person, place and time. Behavior, mood, and affect are within normal limits. 17:24 ECG was reviewed by the Attending Physician. 17:24 Neuro: Orientation: is normal, appropriate for stated age, no acute changes, Mentation: is normal, appropriate for stated age, no acute changes, Memory: immediate memory is intact, remote memory is impaired, recent memory is intact, Motor: left side hemiparesis, Gait: not applicable seizure activity, is not displayed by the patient. Vital Signs: 16:16 BP 187 / 88; Pulse 16; Resp 64; Temp 99(O); Pulse Ox 98% ; db 17:39 BP 188 / 98; Pulse 69; Resp 18; Pulse Ox 100% on R/A; Weight 90.72 kg; ph [place] Coma Score: 17:32 Eye Response: spontaneous(4). Verbal Response: oriented(5). Motor Response: obeys ashok commands(6). Total: 15. 17:42 Eye Response: to voice(3). Verbal Response: oriented(5). Motor Response: obeys ph commands(6). Total: 14. MDM: 16:36 Patient medically screened. ashok 17:32 Differential diagnosis: cerebral abscess, epidural hematoma, hyponatremia, ashok intracerebral hemorrhage, migraine, neoplasm, subarachnoid bleed, subdural hematoma, temporal arteritis, tension headache, traumatic injuries, trigeminal neuralgia, uremia, vasomotor headache. Data reviewed: vital signs, nurses notes, lab test result(s), EKG, radiologic studies, CT scan, plain films. Consideration of Admission/Observation Escalation of care including admission/observation considered. Management of patient was discussed with the following: [employer] Software Consultant: neuro at [facility], NICU. I considered the following discharge prescriptions or medication management in the emergency department Medications were administered in the Emergency Department. See MAR. Independent interpretation of the following test(s) in the Emergency Department CT Scan: My interpretation is sah, obvious. Test considered but Not performed: MRI: MRI BRAIN , NOT NEEDED. 09/13 16:38 Order name: Basic Metabolic Panel [facility] 09/13 16:38 Order name: CBC with Diff [facility] 09/13 16:38 Order name: LFT's [facility] 09/13 16:38 Order name: Magnesium [facility] 09/13 16:38 Order name: NT PRO-BNP [facility] 09/13 16:38 Order name: PT-INR [facility] 09/13 16:38 Order name: Troponin HS [facility] 09/13 16:38 Order name: Blood Culture Adult (2) [facility] 09/13 16:38 Order name: Lactate w/ 2H reflex if indic. [facility] 09/13 16:38 Order name: Urine Culture [facility] 09/13 17:21 Order name: SARS RAPID 09/13 17:59 Order name: SARS-COV-2 Antigen Rapid; Complete Time: 18:03 [facility] 09/13 18:00 Order name: Protime (+INR); Complete Time: 18:03 [facility] 09/13 16:38 Order name: XRAY Chest (1 view) [facility] 09/13 16:38 Order name: CT Traumagram (Head C Spine CAP wo con) [facility] 09/13 17:16 Order name: CT; Complete Time: 17:22 [facility] 09/13 17:20 Order name: RAD; Complete Time: 17:22 [facility] 09/13 18:14 Order name: CBC with Automated Diff [facility] 09/13 18:17 Order name: Basic Metabolic Panel [facility] 09/13 18:17 Order name: Liver (Hepatic) Function [facility] 09/13 18:17 Order name: Troponin High Sensitivity [facility] 09/13 18:17 Order name: NT PRO-BNP [facility] 09/13 18:17 Order name: Magnesium [facility] 09/13 18:19 Order name: Lactate w/ 2H reflex if indic. [facility] 09/13 16:38 Order name: EKG; Complete Time: 16:39 [facility] 09/13 16:38 Order name: Cardiac monitoring; Complete Time: 17:48 [facility] 09/13 16:38 Order name: EKG - Nurse/Tech; Complete Time: 17:48 [facility] 09/13 16:38 Order name: IV Saline Lock; Complete Time: 17:48 [facility] 09/13 16:38 Order name: Labs collected and sent; Complete Time: 17:48 [facility] 09/13 16:38 Order name: O2 Per Protocol; Complete Time: 17:48 [facility] 09/13 16:38 Order name: O2 Sat Monitoring; Complete Time: 17:48 [facility] 09/13 17:12 Order name: Seizure Precautions; Complete Time: 17:48 [facility] EC:24 Rate is 55 beats/min. Rhythm is regular. QRS [place] is Normal. CT interval is normal. QRS ashok interval is normal. QT interval is normal. No Q waves. T waves are Normal. No ST changes noted. Clinical impression: Sinus bradycardia and No evidence of ischemia. Interpreted by me. Reviewed by me. Administered Medications: 17:40 Drug: NS 0.9% 1000 ml Route: IV; Rate: 1 bolus; Site: right antecubital; ph 18:00 Follow up: Response: No adverse reaction; IV Status: Infusion continued upon transfer ph 17:40 Drug: foLIC Acid 1 mg Route: IVPB; Site: right antecubital; ph 18:00 Follow up: Response: No adverse reaction; IV Status: Completed infusion ph 17:40 Drug: Keppra (levETIRAcetam) 1000 mg Route: IV; Rate: per protocol; Site: right ph antecubital; 18:00 Follow up: Response: No adverse reaction; IV Status: Completed infusion; IV Intake: ph 100ml 18:02 Drug: niCARdipine 5 mg/hr Route: IV; Rate: per protocol; Site: right antecubital; ph 18:05 Follow up: Response: No adverse reaction; IV Status: Infusion continued upon transfer ph 18:18 Not Given (unavailablee): Kcentra 500 unit 25 units/kg IV at per protocol once; not to ph exceed 2,500 units initiate at 0.12 mL/kg/min (or 3 units/kg/min) not to exceed 8.4 mL/min (or 210 units/min) 18:19 Not Given (Other Intervention Used): Rocephin (cefTRIAXone) 1 grams IV at per protocol ph once; Given slow IV push per pharmacy instructions Disposition Summary: 09/13/22 17:36 Transfer Ordered Transfer Location: [facility] ashok Reason: Higher level of care ashok Condition: Serious ashok Problem: new ashok Symptoms: have improved ashok Accepting Physician: to [facility](09/13/22 18:37) taylor Diagnosis - Nontraumatic subarachnoid hemorrhage, unspecified ashok - Headache ashok - Vomiting ashok - Essential (primary) hypertension ashok Forms: - Medication Reconciliation Form ashok - SBAR form ashok Signatures: Dispatcher [employer] Pedro Salgado MD MD cha Mickail, Joel, PA PA jmm Hall, Patricia, RN RN Karla Méndez Danielle, RN RN db Corrections: (The following items were deleted from the chart) 17:58 17:36 to [facility] ashok ashok 18:37 17:58 to [facility] ashok eb
[2022-09-13 17:58] LABS: SARS-CoV-2 Antigen Rapid Res Negative (Negative)
[2022-09-13 17:59] LABS: Hematocrit 38.8 % (39.6-49.0); Lymphocytes % 10.7 % (15.3-44.8); MCV 71.7 fL (80-100); MPV 7.6 fL (7.6-11.3); RBC Red Blood Cell Count 5.42 M/uL (4.33-5.43)
[2022-09-13 18:00] LABS: Protime INR 1.1
[2022-09-13] MEDS ORDERED: Nicardipine/NS 25 MG/250 ML KIT IV ONE (18:00)
[2022-09-13 18:16] LABS: Potassium 3.4 mmol/L (3.5-5.1)
[2022-09-13 18:17] LABS: Albumin 3.2 g/dL (3.4-5.0); Bilirubin Direct 0.1 mg/dL (0-0.2); Bilirubin Total 0.4 mg/dL (0.2-1.0); Magnesium 2.1 mg/dL (1.6-2.4); Protein, Total 7.3 g/dL (6.4-8.2); Troponin High Sensitivity 19.7 pg/mL (<58.9)
[2022-09-13 19:04] VITALS: TEMP 99
[2022-09-13 19:06] VITALS: BP 188/98; O2SAT 100
--- NOTE | 2022-09-15 17:18 | EKG ---
Test Date: 2022-09-13 Test Time: 16:33:27 Performance Management Consultant: CHIDI MEASUREMENT RESULTS: Intervals: Rate: 55 LA: 182 QRSD: 86 QT: 440 QTc: 420 [place]: P: 78 LA: 182 QRS: 59 T: 80 INTERPRETIVE STATEMENTS: Sinus bradycardia with premature ventricular complexes or fusion complexes Otherwise normal ECG Compared to ECG 12/19/2019 00:18:39 Fusion complex(es) now present Ventricular premature complex(es) now present Sinus rhythm no longer present T-wave abnormality no longer present Electronically Signed On 09-15-22 17:12:57 DUMBWAITER OPERATOR by Anton Jones
== END 2022-09-13 18:37 | disposition short-term general hospital (02) ==
LOC: ER 16:10
DX: I60.9 Nontraumatic subarachnoid hemorrhage, unspecified (principal); I10 Essential (primary) hypertension; R51.9 Headache, unspecified; R11.10 Vomiting, unspecified; R53.1 Weakness; E11.9 Type 2 diabetes mellitus without complications; Z20.822 Contact with and (suspected) exposure to COVID-19
CPT/HCPCS: 96365; 96368; 87040 ×2; 85025; 80048; 36415; 83735; 87205; 85610; 80076; 83605; 84484; 83880; 70450; 71250; 72125; 71045; 96375; 99285; 87811; J1953; J7030; 93005